=== PATIENT | male | born 1995 | race Caucasian/White ===

== ENCOUNTER 2023-11-09 06:55 | Emergency (ER) | payer OTHER, SELFPAY ==
[2023-11-09 07:04] VITALS: BP 168/96; PULSE 113; RESP 18; TEMP 36.9; O2SAT 100; BMI 22.6
[2023-11-09 07:50] LABS: Influenza Virus A Antigen Negative; Influenza Virus B Antigen Negative; Internal Control Within Normal Limits
--- NOTE | 2023-11-09 08:01 | ED_ITS ---
HPI - General Adult General Chief complaint: Upper Respiratory Infection Stated complaint: FLU SYMPTOMS Time Seen by Provider: 11/09/23 07:26 Source: patient Mode of arrival: walk-in Limitations: no limitations History of Present Illness HPI narrative: Patient is a 28-year-old male who is presenting to the ER today with multiple complaints. Patient has had nauseated feeling throughout the week, patient states he has been holding himself back from vomiting. Patient has underlying anxiety. Patient feels his anxiety has been increased this week secondary not feeling well. Patient has been having intermittent hot and chill sensations. No headache or neck pain. No ear pain, no sore throat. No chest pain or shortness of breath. Patient been having some midepigastric discomfort. Patient's is at bedside, she has had a few Zofran's at home that he has used with little relief. Patient took 1 last evening and also 5:00 this morning with little relief. No sick contacts at work that patient is aware of. No rash. No abdominal pain, no diarrhea, constipation, difficulty urinating, or any other acute complaints. All systems are negative except as noted/marked. All systems reviewed and otherwise negative. Nurses note and vital signs reviewed and patient is not hypoxic. General: The patient appears well and in no apparent distress. Patient is resting comfortably on cart. Patient is not toxic, lethargic, or listless. Patient is having some mild intermittent minimal tremor/shaking, patient relates this to anxiety. Skin: Warm, dry, no pallor noted. There is no rash noted. No petechiae, purpura. Head: Normocephalic, atraumatic Eye: Normal conjunctiva, no drainage, EOMI. PERRL Ears, Nose, Mouth, and Throat: oral mucosa is moist. Nares patent. Mouth without vesicles. Cardiovascular: Regular Rate and Rhythm, no murmur, gallop, rub Respiratory: Patient is in no distress, no accessory muscle use, lungs are clear to auscultation, no wheezing, rales or rhonchi Back: non-tender, no CVA tenderness bilaterally to percussion. No CT LS midline pain GI: Mild midepigastric tenderness to palpation, otherwise no tenderness to palpation, no masses appreciated. No rebound, guarding, or rigidity noted. No distention. No peritoneal signs. Musculoskeletal: Patient has full range of motion of all of the extremities, no motor, sensory, or focal neurological deficits Neurological: A&O x4, normal speech Psychiatric: Cooperative Related Data Home Medications Medication Instructions Recorded Confirmed paroxetine HCl 40 mg tablet 40 mg PO DAILY 11/09/23 11/09/23 trazodone 50 mg tablet 50 mg PO DAILY PRN insomnia 11/09/23 11/09/23 Previous Rx's Medication Instructions Recorded ondansetron 4 mg disintegrating 4 mg PO Q4H PRN nausea and 11/09/23 tablet vomiting 3 days #6 tabs promethazine 25 mg rectal 25 mg [place] Q6H PRN nausea and 11/09/23 suppository vomiting #6 ea Allergies Allergy/AdvReac Type Severity Reaction Status Date / Time No Known Drug Allergies Allergy Verified 11/09/23 07:04 Exam Constitutional Vital Signs, click to edit/add: Last Vital Signs Temp 98.5 F 11/09/23 07:04 Pulse 113 H 11/09/23 07:04 Resp 18 11/09/23 07:04 BP 168/96 H 11/09/23 07:04 Pulse Ox 100 11/09/23 07:04 Course Vital Signs Vital signs: Vital Signs Temperature 98.5 F 11/09/23 07:04 Pulse Rate 113 H 11/09/23 07:04 Respiratory Rate 18 11/09/23 07:04 Blood Pressure 168/96 H 11/09/23 07:04 Pulse Oximetry 100 11/09/23 07:04 Temperature 98.5 F 11/09/23 07:04 Pulse Rate 113 H 11/09/23 07:04 Respiratory Rate 18 11/09/23 07:04 Blood Pressure 168/96 H 11/09/23 07:04 Pulse Oximetry 100 11/09/23 07:04 Medical Decision Making [facility] Narrative Medical decision making narrative: Patient took a Zofran ODT around 515 this morning. Patient is having intermittent minimal shaking/tremors which patient relates to anxiety. Patient does not have a fever in the ER. Patient blood pressure and heart rate was elevated initially, patient relates is secondary to being anxious which has been worse this morning secondary to not feeling well. Patient has minimal lightheaded, no dizziness, no vertigo. Patient looks well, nontoxic. Patient was sent home with prescription for Zofran and Phenergan to have in addition to help with nausea. Patient will increase fluids. Patient does not work this weekend. No questions at discharge Lab Data Lab results reviewed: Yes I reviewed the patient's lab results Labs: Lab Results 11/09/23 Range/Units 07:09 Influenza Type A Ag Negative Influenza Type B Ag Negative Discharge Plan Discharge Chief Complaint: Upper Respiratory Infection Clinical Impression: Flu-like symptoms, Acid reflux, Nausea Patient Disposition: Home, Self-Care Condition: Fair Prescriptions / Home Meds: New promethazine 25 mg suppository 25 mg [place] Q6H PRN (Reason: nausea and vomiting) Qty: 6 0RF ondansetron 4 mg tablet,disintegrating 4 mg PO Q4H PRN (Reason: nausea and vomiting) 3 Days Qty: 6 0RF No Action paroxetine HCl 40 mg tablet 40 mg PO DAILY trazodone 50 mg tablet 50 mg PO DAILY PRN (Reason: insomnia) Instructions: GERD (Gastroesophageal Reflux Disease) (ED), Acute Nausea and Vomiting (ED) Additional Instructions: Use Phenergan suppository if needed for nausea. Continue using Zofran if needed. Increase fluids, Gatorade, Powerade, Norflex. If any other anxiety concerns, follow-up with PCP. Alternate Tylenol and Motrin every 4 hours as needed for pain Stand Alone Forms: Portal Instructions Referrals: Physician,Non-Staff, MD [Primary Care Provider] - 1 week
[2023-11-09] MEDS: PROCHLORPERAZINE 10 MG/2 ML VIAL IM (08:07)
[2023-11-09] MEDS: DIAZEPAM 10 MG/2 ML SYRINGE 5 MG IM (08:07)
== END 2023-11-09 08:18 | disposition home or self-care (01) ==
PROVIDERS: Emergency Provider Emergency Medicine
DX: K59.00 Constipation, unspecified (principal); Z79.899 Other long term (current) drug therapy; F17.210 Nicotine dependence, cigarettes, uncomplicated
CPT/HCPCS: 87804; 96372; 99284; J0780; J3360

== ENCOUNTER 2023-11-12 11:54 | Emergency (ER) | payer OTHER, SELFPAY ==
[2023-11-12 12:06] VITALS: BP 148/88; PULSE 94; RESP 20; TEMP 36.7; O2SAT 100; BMI 28.1
--- NOTE | 2023-11-12 13:08 | XR_ITS ---
The [address] [address] Patient Name: BRYNN MONTERO MRN: [id number] date: 1995 Sex: M Assigned Patient Location: ER Current Patient Location: ER Accession/Order Number: [id number] Exam Date: 11/12/2023 13:22 Report Date: 11/12/2023 13:45 At the request of: LISA NIETO Procedure: XR abdomen 1V EXAMINATION: XR abdomen 1V HISTORY: poss constipation COMPARISON: XR KUB 12/02/2020 FINDINGS: BOWEL GAS PATTERN: No abnormal dilation or deviation. Moderate amount of stool throughout the proximal and midcolon. Relatively empty distal colon. CALCIFICATIONS: None significant. OTHER: Negative. No abnormal gaseous collections. XR/XR abdomen 1V IMPRESSION: 1. Moderate stool burden. No obstruction. Electronically authenticated by: JIM KEMP Date: 11/12/2023 13:45
--- NOTE | 2023-11-12 13:08 | ED.GENADUL1 ---
HPI - General Adult General Chief complaint: Abdominal Pain Stated complaint: ABDOMINAL PAIN Time Seen by Provider: 11/12/23 13:00 Source: patient Mode of arrival: walk-in Limitations: no limitations History of Present Illness HPI narrative: 28-year-old male presents for a lump on his right abdominal wall area. Last week he had stomach flu and feels better from that issue. He states he only feels this area when he stands up, not when he lays down. He was diagnosed at 1 point with a right inguinal hernia but he saw a surgeon about it and they did not think that he needed surgery. He has no pain in the inguinal area. He has not been having frequent bowel movements. He thinks he might be a little constipated and his appetite has been normal. No injury. Related Data Home Medications Medication Instructions Recorded Confirmed paroxetine HCl 40 mg tablet 40 mg PO DAILY 11/09/23 11/09/23 trazodone 50 mg tablet 50 mg PO DAILY PRN insomnia 11/09/23 11/09/23 Previous Rx's Medication Instructions Recorded ondansetron 4 mg disintegrating 4 mg PO Q4H PRN nausea and 11/09/23 tablet vomiting 3 days #6 tabs promethazine 25 mg rectal 25 mg [place] Q6H PRN nausea and 11/09/23 suppository vomiting #6 ea Allergies Allergy/AdvReac Type Severity Reaction Status Date / Time No Known Drug Allergies Allergy Verified 11/09/23 07:04 Review of Systems ROS Narrative A ten point review of systems is negative except as noted above. PFSH PFSH Social History Smoking status: Light tobacco smoker Exam Narrative Exam Narrative: Nurses note and vital signs reviewed and patient is not hypoxic. General: The patient appears well and in no apparent distress. Patient is resting comfortably on cart. Skin: Warm, dry, no pallor noted. There is no rash noted. Head: Normocephalic, atraumatic Eye: Normal conjunctiva, no drainage Ears, Nose, Mouth, and Throat: oral mucosa is moist. Nares patent. Cardiovascular: Regular Rate and Rhythm Respiratory: Patient is in no distress, no accessory muscle use, lungs are clear to auscultation, no wheezing, rales or rhonchi Back: non-tender GI: Soft and nontender nondistended. He has no mass palpable. He points to the area just superior to the anterior superior iliac spine on the right side and there is some fullness of the muscle there but it is nearly symmetric to the contralateral. There is no bruise or rash in this region. Musculoskeletal: The patient has no evidence of calf tenderness, no pitting edema, symmetrical pulses noted bilaterally Neurological: A&O, normal speech Psychiatric: Cooperative Constitutional Vital Signs, click to edit/add: Last Vital Signs Temp 98.1 F 11/12/23 12:06 Pulse 94 H 11/12/23 12:06 Resp 20 11/12/23 12:06 BP 148/88 H 11/12/23 12:06 Pulse Ox 100 11/12/23 12:06 O2 Del Method Room Air 11/12/23 13:11 Course Vital Signs Vital signs: Vital Signs Temperature 98.1 F 11/12/23 12:06 Pulse Rate 94 H 11/12/23 12:06 Respiratory Rate 20 11/12/23 12:06 Blood Pressure 148/88 H 11/12/23 12:06 Pulse Oximetry 100 11/12/23 12:06 Oxygen Delivery Method Room Air 11/12/23 12:06 Temperature 98.1 F 11/12/23 12:06 Pulse Rate 94 H 11/12/23 12:06 Respiratory Rate 20 11/12/23 12:06 Blood Pressure 148/88 H 11/12/23 12:06 Pulse Oximetry 100 11/12/23 12:06 Oxygen Delivery Method Room Air 11/12/23 13:11 Medical Decision Making MDM Narrative Medical decision making narrative: X-ray findings are discussed with the patient and he will continue MiraLAX. Treatment diagnosis and follow-up were discussed with the patient. I have no clinical concern of a hernia in this area. Differential Diagnosis Differential Diagnosis: Abdominal wall pain, constipation Imaging Data Abdominal x-ray: Radiologist's impression: ITS Impressions Abdomen X-Ray 11/12/23 13:08 IMPRESSION: 1. Moderate stool burden. No obstruction. Electronically authenticated by: JIM KEMP Date: 11/12/2023 13:45 Discharge Plan Discharge Chief Complaint: Abdominal Pain Clinical Impression: Constipation Patient Disposition: Home, Self-Care Time of Disposition Decision: 14:01 Condition: Good Mode of Transportation: Private Vehicle Prescriptions / Home Meds: No Action paroxetine HCl 40 mg tablet 40 mg PO DAILY trazodone 50 mg tablet 50 mg PO DAILY PRN (Reason: insomnia) promethazine 25 mg suppository 25 mg [place] Q6H PRN (Reason: nausea and vomiting) Qty: 6 0RF ondansetron 4 mg tablet,disintegrating 4 mg PO Q4H PRN (Reason: nausea and vomiting) 3 Days Qty: 6 0RF Instructions: Constipation (ED) Stand Alone Forms: Portal Instructions Referrals: Physician,Non-Staff, MD [Primary Care Provider] - 1 week
== END 2023-11-12 14:07 | disposition home or self-care (01) ==
PROVIDERS: Emergency Provider Emergency Medicine
DX: K59.00 Constipation, unspecified (principal); F17.210 Nicotine dependence, cigarettes, uncomplicated; Z79.899 Other long term (current) drug therapy
CPT/HCPCS: 74018; 99283

== ENCOUNTER 2024-10-13 02:39 | Emergency (ER) | payer OTHER, SELFPAY ==
[2024-10-13 02:52] VITALS: BP 147/94; PULSE 88; TEMP 36.7; O2SAT 99; BMI 28.1
--- OUTSIDE RECORDS SUMMARY | 2024-10-13 02:56 | XMS_ITS | CCD ---
Author Organization [facility] Providers Care Key Sander Name Role Phone Nick Escobar Primary Care Provider [phone] Nick Escobar Primary Care Provider [phone] NICK ESCOBAR Referring Unavailable NICK ESCOBAR Referring Unavailable Unavailable Primary Care Provider Unavailabl e Nick Escobar CNP Primary Care Provider ALYSE RICHARD Consulting Unavailable JOSE MANUEL, ALYSE Admitting Unavailable DENNIS, DR SANCHES Primary Care Unavailable ALYSE RICHARD Attending Unavailable MISC, DR RUSSELL Attending Unavailable MISC, DR RUSSELL Consulting Unavailable MISC, DR RUSSELL Admitting Unavailable ZIEBER, DR JIM Mobley Consulting Unavailable Nick Escobar CNP Primary Care Provider NICK ESCOBAR Primary Care Unavailable KSENIA KILPATRICK Referring Unavailable Allergies Allergy Classification Reported Allergen(s) Allergy Type Date of Onset Reaction(s) Facility (20 sources) Seasonal allergy Allergy to substance 08-27-2020 [facility] (2 sources) Seasonal allergy Propensity to adverse reactions to substance 10-11-2020 [place], [place] Medications Current Medications Medication Drug Class(es) Dates Sig (Normalized) Sig (Original) ALPRAZolam 0.5 mg oral tablet (12 sources) Benzodiazepine Start: 09-26-2024 End: 10-04-2024 Xanax 0.5 MG Oral Tablet 10/02/2024 - 10/04/2024 Provider: Nino ADAMS Start: 12-14-2023 End: 03-31-2024 Xanax 0.5 MG Oral Tablet - 03/31/2024 Provider: Sydni Tidwell CNP busPIRone hydrochloride 5 mg oral tablet (20 sources) Start: 12-11-2024 busPIRone HCl 5 MG Oral Tablet 09/03/2024 Provider: Nick Escobar CNP Start: 08-27-2020 End: 09-30-2020 busPIRone HCl 7.5 MG Oral Ta blet 08/27/2020 - 09/30/2020 Provider: Nick Escobar CNP Start: 05-27-2020 End: 08-13-2020 busPIRone HCl 7.5 MG Oral Ta blet 05/27/2020 - 08/13/2020 Provider: Nick Escobar CNP doxycycline hyclate 100 mg oral tablet (1 source) Tetracycline-class Drug Start: 10-13-2020 End: 10-27-2020 take 1 tablet by mouth twice daily doxycycline hyclate (VIBRA-TABS) 100 MG tablet Indications: Prostatitis, chronic Take 1 tablet by mouth 2 times daily for 14 days 28 tablet 0 10/13/2020 10/27/2020 Active medical marijuana (2 sources) medical marijuan a Take by mouth as needed. 0 Active tamsulosin hydrochloride 0.4 mg oral capsule (1 source) alpha-Adrenergic Alfreda Start: 11-24-2020 take 1 capsule by mouth once daily in the evening tamsulosin (FLOMAX) 0.4 MG capsule Take 1 capsule by mouth every evening 30 capsule 11 11/24/2020 Active Completed/Discontinued Medications Medication Drug Class(es) Dates Sig (Normalized) Sig (Original) amoxicillin 500 mg oral capsule (20 sources) Penicillin-class Antibacterial Start: 03-31-2024 End: 09-03-2024 Amoxicillin 500 MG Oral Capsule, conventional 03/31/2024 - 09/03/2024 Provider: Ksenia Kilpatrick CNP Start: 03-22-2021 End: 08-29-2021 Amoxicillin 500 MG Oral Tabl et 03/22/2021 - 08/29/2021 Provider: Nick Escobra CNP amphetamine aspartate 5 mg / amphetamine sulfate 5 mg / dextroamphetamine saccharate 5 mg / dextroamphetamine sulfate 5 mg oral tablet (20 sources) Central Nervous System Stimulant Start: 03-22-2021 End: 08-29-2021 Adderall 20 MG Oral Tablet 03/22/2021 - 08/29/2021 Provider: Start: 12-15-2020 End: 03-22-2021 Adderall 10 MG Oral Tablet 0 12/15/2020 - 03/22/2021 Provider: Start: 11-10-2020 amphetamine-de xtroamphetamine (ADDERALL) 15 MG tablet ARIPiprazole 2 mg oral tablet (8 sources) Atypical Antipsychotic Start: 12-26-2023 End: 03-31-2024 Abilify 2 MG Oral Tablet 12/26/2023 - 03/31/2024 Provider: Nick Escobar CNP atomoxetine 18 mg oral capsule (11 sources) Norepinephrine Reuptake Inhibitor Start: 11-23-2023 End: 12-26-2023 Strattera 18 MG Oral Capsule, conventional 11/23/2023 - 12/26/2023 Provider: Nick Escobar CNP 24 hr buPROPion hydrochloride 150 mg extended release oral tablet (20 sources) Aminoketone Start: 08-27-2020 End: 09-30-2020 take 1 tablet by mouth every twenty-four hours Wellbutrin XL 150 MG Oral Tablet Extended Release 24 Hour 08/27/2020 - 09/30/2020 Provider: Nick Escobar CNP take 1 tablet by brittany once daily in the morning buPROPion (WELLBUTRIN XL) 150 MG extende d release tablet Take 150 mg by mouth every morning 0 Active cyclobenzaprine hydrochloride 5 mg oral tablet (20 sources) Muscle Relaxant Start: 06-02-2020 End: 06-15-2020 Cyclobenzaprine HCl 5 MG Oral Tablet 06/02/2020 - 06/15/2020 Provider: Nick Escobar CNP FLUoxetine 20 mg oral capsule (20 sources) Serotonin Reuptake Inhibitor Start: 05-18-2020 End: 08-27-2020 PROzac 20 MG Oral Capsule 06/15/2020 - 08/13/2020 Provider: Nick Escobar CNP fluticasone propionate 0.05 mg/actuat metered dose nasal spray (20 sources) Corticosteroid Start: 01-20-2021 End: 11-24-2022 Fluticasone Propionate 50 MCG/ACT Nasal Suspension 03/22/2021 - 11/24/2022 Provider: Nick Escobar CNP hydrOXYzine hydrochloride 25 mg oral tablet (20 sources) Antihistamine Start: 10-26-2022 End: 11-24-2022 hydrOXYzine HCl 25 MG Oral Tablet 10/26/2022 - 11/24/2022 Provider: Nick Escobar CNP Start: 09-29-2020 End: 01-20-2021 hydrOXYzine HCl 10 MG Oral T ablet 09/29/2020 - 01/20/2021 Provider: Nick Escobar CNP Start: 05-18-2020 End: 05-27-2020 hydrOXYzine Pamoate 25 MG Or al Capsule 05/18/2020 - 05/27/2020 Provider: Nick Escobar CNP lisdexamfetamine dimesylate 40 mg oral capsule (20 sources) Central Nervous System Stimulant Start: 01-20-2021 End: 03-22-2021 Vyvanse 40 MG Oral Capsule 01/20/2021 - 03/22/2021 Provider: loratadine 10 mg oral tablet (20 sources) Start: 01-20-2021 End: 11-24-2022 Loratadine 10 MG Oral Tablet 03/22/2021 - 11/24/2022 Provider: Nick Escobar CNP LORazepam 0.5 mg oral tablet (8 sources) Benzodiazepine Start: 12-14-2023 End: 12-14-2023 Ativan 0.5 MG Oral Tablet 12/14/2023 - 12/14/2023 Provider: Sydni Tidwell CNP PARoxetine hydrochloride 40 mg oral tablet (20 sources) Serotonin Reuptake Inhibitor Start: 10-26-2022 End: 09-03-2024 Paxil 40 MG Oral Tablet 01/05/2023 - 11/23/2023 Provider: Nick Escobar CNP Start: 08-29-2021 End: 10-26-2022 PARoxetine HCl 10 MG Oral Ta blet 09/21/2022 - 10/26/2022 Provider: Nick Escobar CNP Start: 08-29-2021 End: 08-29-2021 Paxil 30 MG Oral Tablet 02/2021 - 08/29/2021 Provider: Start: 11-10-2020 PARoxetine (PA XIL) 10 MG tablet Start: 09-29-2020 End: 10-26-2022 Paxil 20 MG Oral Tablet 0 02/2021 - 09/21/2022 Provider: Nick Escobar CNP 24 hr propranolol hydrochloride 60 mg extended release oral capsule (20 sources) beta-Adrenergic Alfreda Start: 05-27-2020 End: 08-13-2020 take 1 capsule by mouth every twenty-four hours Propranolol HCl ER 60 MG Oral Capsule Extended Release 24 Hour 05/27/2020 - 08/13/2020 Provider: Nick Escobar CNP traZODone hydrochloride 50 mg oral tablet (20 sources) Serotonin Reuptake Inhibitor Start: 11-24-2022 End: 12-26-2023 traZODone HCl 50 MG Oral Tablet 01/05/2023 - 12/26/2023 Provider: Nick Escobar CNP Vitamin D (Ergocalciferol) 1.25 MG (34772 UT) Oral Capsule (6 sources) Start: 12-31-2023 End: 03-31-2024 Vitamin D (Ergocalciferol) 1.25 MG (71455 UT) Oral Capsule 12/31/2023 - 03/31/2024 Provider: Nick Escobar CNP Problems Active Problems Problem Classification Problem Date Documented Da te Episodic/Chronic Anxiety disorders (20 sources) Panic disorder without agoraphobia; Translations: [Anxiety disorder] Onset: 05-18-2020 10-08-2020 Chronic Fluid and electrolyte disorders (1 source) Dehydration; Translations: [DEHYDRATION] Onset: 06-22-2021 Episodic Inflammatory conditions of male genital organs (1 source) Chronic prostatitis; Translations: [Prostatitis, chronic] Chronic Mood disorders (20 sources) Depressive disorder; 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] Onset: 05-18-2020 10-08-2020 Chronic Nausea and vomiting (4 sources) Nausea with vomiting, unspecified; Translations: [NAUSEA WITH VOMITING UNSPECIFIED] Onset: 06-20-2021 Episodic Other aftercare (1 source) Other chcf (current) drug therapy; Translations: [OTH CORRECTION CURRENT DRUG THERAPY] Onset: 06-22-2021 Episodic Other gastrointestinal disorders (1 source) Diarrhea, unspecified; Translations: [DIARRHEA UNSPECIFIED] Onset: 06-22-2021 Episodic Other male genital disorders (1 source) Right testicular pain; Translations: [Right testicular pain] Onset: 07-09-2023 Episodic Residual codes; unclassified (20 sources) Finding of body mass index; Translations: [Body mass index (observable entity)] Onset: 05-18-2020 Episodic Substance-related disorders (20 sources) Nicotine dependence, cigarettes, uncomplicated; Translations: [Nicotine dependence] Onset: 06-22-2021 07-09-2023 Chronic Past or Other Problems Problem Classification Problem Date Documented Da te Episodic/Chronic Genitourinary symptoms and ill-defined conditions (5 sources) Increased frequency of urination; Translations: [Frequency of micturition] Onset: 12-02-2020 Episodic Mood disorders (16 sources) Major depressive disorder, single episode, unspecified; Translations: [Depressive Disorder, Nos] Onset: 05-18-2020 Other gastrointestinal disorders (4 sources) Constipation; Translations: [Constipation, unspecified] Onset: 12-15-2020 Episodic Other male genital disorders (9 sources) Pain of right testicle; Translations: [Unspecified disorder of male genital organs] Onset: 07-09-2023 Episodic Other screening for suspected conditions (not mental disorders or infectious disease) (20 sources) Encounter for screening for diabetes mellitus; Translations: [Diabetes Risk Test Score] Onset: 05-18-2020 Episodic Other upper respiratory infections (20 sources) Acute sinusitis; Translations: [Acute sinusitis, unspecified] Onset: 01-20-2021 Resolved: 11-24-2022 Episodic Residual codes; unclassified (6 sources) Body mass index (BMI) pediatric, 5th percentile to less than 85th percentile for age; Translations: [Assessment of Bmi Percentile = 5% To < 85% For Age Z68.52] Onset: 03-31-2024 Episodic Unclassified (20 sources) Finding of body mass index; Translations: [Body Mass Index] Onset: 05-18-2020 Unclassified (16 sources) History AND physical examination; Translations: [Routine History and Physical] Onset: 05-18-2020 Results Test Name Value Interpretation Reference Range Facility CBC AUTO DIFFon 06-20-2021 BASO # 0.0 103/ul Normal 0.0-0.1 [facility] Comment on above: Performed By: #### C BC #### [facility] [address] [address] [address] Satya Mandel Basophils/100 WBC (Bld) 0.3 % Normal 0.2-2.0 [facility] Comment on above: Performed By: #### C BC #### [facility] [address] [address] [address] Satya Mandel EO # 0.1 103/ul Normal 0.0-0.7 [facility] Comment on above: Performed By: #### C BC #### [facility] [address] [place] [address] Dr. Satya Mandel Eosinophils/100 WBC (Bld) 0.3 % Critically low 0.9-7.0 [facility] Comment on above: Performed By: #### C BC #### [facility] [address] [place] [address] Dr. Satya Mandel Erythrocyte distribution width (RBC) [Ratio] 12.3 % Normal 11.0-15.0 [facility] Comment on above: Performed By: #### C BC #### [facility] [address] [place] [address] Dr. Satya Mandel Hematocrit (Bld) [Volume fraction] 46.2 % Normal 42.0-54.0 [facility] Comment on above: Performed By: #### C BC #### [facility] [address] [place] [address] Dr. Satya Mandel Hemoglobin (Bld) [Mass/Vol] 15.5 g/dL Normal 14.0-18.0 [facility] Comment on above: Performed By: #### C BC #### [facility] [address] [place] [address] Dr. Satya Mandel IG # 0.06 10e3/ul Critically high 0.00-0.03 [facility] Comment on above: Performed By: #### C BC #### [facility] [address] [place] [address] Dr. Satya Mandel IG % 0.4 % Normal 0.0-0.5 [facility] Comment on above: Performed By: #### C BC #### [facility] [address] [place] [address] Dr. Satya Mandel LYMPH # 1.3 103/ul Normal 1.2-3.8 [facility] Comment on above: Performed By: #### C BC #### [facility] [address] [place] [address] Dr. Satya Mandel Lymphocytes/100 WBC (Bld) 8.4 % Critically low 20.5-60.0 [facility] Comment on above: Performed By: #### C BC #### [facility] [address] [place] [address] Dr. Satya Mandel MANUAL DIFF REQ NO Normal [facility] Comment on above: Performed By: #### C BC #### [facility] [address] [place] [address] Dr. Satya Mandel MCH (RBC) [Entitic mass] 29.1 pg Normal 25.9-34.0 [facility] Comment on above: Performed By: #### C BC #### [facility] [address] [place] [address] Dr. Satya Mandel MCHC (RBC) [Mass/Vol] 33.5 g/dL Normal 29.9-35.2 [facility] Comment on above: Performed By: #### C BC #### [facility] [address] [place] [address] Dr. Satya Mandel MCV (RBC) [Entitic vol] 86.7 fL Normal 80.0-94.0 [facility] Comment on above: Performed By: #### C BC #### [facility] [address] [place] [address] Dr. Satya Mandel MONO # 0.5 103/ul Normal 0.3-0.8 [facility] Comment on above: Performed By: #### C BC #### [facility] [address] [place] [address] Dr. Satya Mandel Monocytes/100 WBC (Bld) 3.4 % Normal 1.7-12.0 [facility] Comment on above: Performed By: #### C BC #### [facility] [address] [place] [address] Dr. Satya Mandel NEUT # 13.5 103/ul Critically high 1.4-6.5 [facility] Comment on above: Performed By: #### C BC #### [facility] [address] [place] [address] Dr. Satya Mandel Neutrophils/100 WBC (Bld) 87.2 % Critically high 43.0-75.0 [facility] Comment on above: Performed By: #### C BC #### [facility] [address] [place] [address] Dr. Satya Mandel Platelet mean volume (Bld) [Entitic vol] 10.3 fL Normal 9.5-13.5 [facility] Comment on above: Performed By: #### C BC #### [facility] [address] [place] [address] Dr. Satya Mandel PLT 328 103/ul Normal 150-450 [facility] Comment on above: Performed By: #### C BC #### [facility] [address] [place] [address] Dr. Satya Mandel RBC 5.33 106/ul Normal 4.70-6.10 [facility] Comment on above: Performed By: #### C BC #### [facility] [address] [place] [address] Dr. Satya Mandel WBC 15.4 103/ul Critically high 4.0-11.0 [facility] Comment on above: Performed By: #### C BC #### [facility] [address] [place] [address] Dr. Satya Mandel ER URINE PROFILEon 1 Bilirubin Ql (U) SMALL Abnormal NEGATIVE [facility] Comment on above: Performed By: #### U MICRO, ERUR #### [facility] [address] [place] [address] Dr. Satya Mandel Clarity (U) CLEAR Normal CLEAR [facility] Comment on above: Performed By: #### U MICRO, ERUR #### [facility] [address] [place] [address] Dr. Satya Mandel Color (U) YELLOW Normal YELLOW [facility] Comment on above: Performed By: #### U MICRO, ERUR #### [facility] [address] [place] [address] Dr. Satya Mandel ERUAHD A micrscopic examina tion will be performed if indicated. Normal [facility] Comment on above: Performed By: #### U MICRO, ERUR #### [facility] [address] [place] [address] Dr. Satya Mandel Glucose Ql (U) Negative Normal NEGATIVE [facility] Comment on above: Performed By: #### U MICRO, ERUR #### [facility] [address] [address] [address] Sayta Mandel Hemoglobin Ql (U) TRACE-INTACT Abnormal NEGATIVE [facility] Comment on above: Performed By: #### U MICRO, ERUR #### [facility] [address] [address] [address] Satya Mandel Ketones Ql (U) 15 mg/dl Abnormal NEGATIVE [facility] Comment on above: Performed By: #### U MICRO, ERUR #### [facility] [address] [address] [address] Satya Mandel LEUKOCYTES Negative Normal NEGATIVE [facility] Comment on above: Performed By: #### U MICRO, ERUR #### [facility] [address] [place] [address] Dr. Satya Mandel Nitrite Ql (U) Negative Normal NEGATIVE [facility] Comment on above: Performed By: #### U MICRO, ERUR #### [facility] [address] [place] [address] Dr. Satya Mandel pH (U) 5.0 [pH] Normal 5-9 [facility] Comment on above: Performed By: #### U MICRO, ERUR #### [facility] [address] [place] [address] Dr. Satya Mandel SPEC GRAVITY >=1.030 Abnormal 1.005-<=1.02 5 [facility] Comment on above: Performed By: #### U MICRO, ERUR #### [facility] [address] [place] [address] Dr. Satya Mandel UA PROTEIN TRACE Normal NEGATIVE/ TRACE [facility] Comment on above: Performed By: #### U MICRO, ERUR #### [facility] [address] [place] [address] Dr. Satya Mandel UR MICRO IND INDICATED Normal [facility] Comment on above: Performed By: #### U MICRO, ERUR #### [facility] [address] [place] [address] Dr. Satya Mandel Urobilinogen Qn (U) 0.2 {Ihsan'U}/dL Normal 0.2 - 1. 0 [facility] Comment on above: Performed By: #### U MICRO, ERUR #### [facility] [address] [place] [address] Dr. Satya Mandel LIVER PROFILEon 06-20-2021 Albumin [Mass/Vol] 5.3 g/dL Critically high 3.5-5.0 [facility] Comment on above: Performed By: #### T SH, LIVER #### [facility] [address] [place] [address] Dr. Satya Mandel Albumin/Globulin [Mass ratio] 1.3 {ratio} Normal [facility] Comment on above: Performed By: #### T SH, LIVER #### [facility] [address] [place] [address] Dr. Satya Mandel ALP [Catalytic activity/Vol] 87 U/L Normal 38-126 [facility] Comment on above: Performed By: #### T SH, LIVER #### [facility] [address] [place] [address] Dr. Satya Mandel ALT [Catalytic activity/Vol] 16 U/L Critically low 21-72 [facility] Comment on above: Performed By: #### T SH, LIVER #### [facility] [address] [place] [address] Dr. Satya Mandel AST [Catalytic activity/Vol] 14 U/L Critically low 17-59 [facility] Comment on above: Performed By: #### T SH, LIVER #### [facility] [address] [place] [address] Dr. Satya Mandel BILI, CONJUGATED 0.3 mg/dL Normal 0.0-0.3 [facility] Comment on above: Performed By: #### T SH, LIVER #### [facility] [address] [place] [address] Dr. Satya Mandel Globulin (S) [Mass/Vol] 4.2 g/dL Normal [facility] Comment on above: Performed By: #### T SH, LIVER #### [facility] [address] [place] [address] Dr. Satya Mandel PROF 14(COMP METB)on 021 Albumin [Mass/Vol] 5.2 g/dL Critically high 3.5-5.0 [facility] Comment on above: Performed By: #### C MP #### [facility] [address] [address] [address] Satya Mandel Albumin/Globulin [Mass ratio] 1.2 {ratio} Normal [facility] Comment on above: Performed By: #### C MP #### [facility] [address] [address] [address] Satya Mandel ALP [Catalytic activity/Vol] 84 U/L Normal 38-126 [facility] Comment on above: Performed By: #### C MP #### [facility] [address] [place] [address] Dr. Satya Mandel ALT [Catalytic activity/Vol] 15 U/L Critically low 21-72 [facility] Comment on above: Performed By: #### C MP #### [facility] [address] [address] [address] Satya aMndel Anion gap [Moles/Vol] 12.9 mmol/L Normal [facility] Comment on above: Performed By: #### C MP #### [facility] [address] [place] [address] Dr. Satya Mandel AST [Catalytic activity/Vol] 15 U/L Critically low 17-59 [facility] Comment on above: Performed By: #### C MP #### [facility] [address] [place] [address] Dr. Satya Mandel Bilirubin [Mass/Vol] 1.3 mg/dL Normal 0.2-1.3 [facility] Comment on above: Performed By: #### C MP #### [facility] [address] [place] [address] Dr. Satya Mandel Performed By: #### T SH, LIVER #### [facility] [address] [place] [address] Dr. Satya Mandel Calcium [Mass/Vol] 9.9 mg/dL Normal 8.4-10.2 [facility] Comment on above: Performed By: #### C MP #### [facility] [address] [address] [address] Satya Manedl Chloride [Moles/Vol] 103 mmol/L Normal 98-107 [facility] Comment on above: Performed By: #### C MP #### [facility] [address] [address] [address] Satya Mandel CO2 [Moles/Vol] 24.4 mmol/L Normal 22.0-30.0 [facility] Comment on above: Performed By: #### C MP #### [facility] [address] [address] [address] Satya Mandel Creatinine [Mass/Vol] 0.84 mg/dL Normal 0.66-1.25 [facility] Comment on above: Performed By: #### C MP #### [facility] [address] [place] [address] Dr. Satya Mandel EGFR-AF CITIZEN [place] >60 Normal >=60 [facility] Comment on above: Performed By: #### C MP #### [facility] [address] [place] [address] Dr. Satya Mandel EGFR-NON AF CITIZEN [place] >60 Normal >=60 [facility] Comment on above: Performed By: #### C MP #### [facility] [address] [place] [address] Dr. Satya Mandel Globulin (S) [Mass/Vol] 4.3 g/dL Normal [facility] Comment on above: Performed By: #### C MP #### [facility] [address] [place] [address] Dr. Satya Mandel Glucose [Mass/Vol] 96 mg/dL Normal 74-106 [facility] Comment on above: Performed By: #### C MP #### [facility] [address] [place] [address] Dr. Satya Mandel Potassium [Moles/Vol] 3.3 mmol/L Critically low 3.4-5.0 [facility] Comment on above: Performed By: #### C MP #### [facility] [address] [place] [address] Dr. Satya Mandel Protein [Mass/Vol] 9.5 g/dL Critically high 6.1-8.2 [facility] Comment on above: Performed By: #### C MP #### [facility] [address] [place] [address] Dr. Satya Mandel Performed By: #### T SH, LIVER #### [facility] [address] [place] [address] Dr. Satya Mandel Sodium [Moles/Vol] 137 mmol/L Normal 137-145 [facility] Comment on above: Performed By: #### C MP #### [facility] [address] [place] [address] Dr. Satya Mandel Urea nitrogen [Mass/Vol] 18.0 mg/dL Normal 9.0-20.0 [facility] Comment on above: Performed By: #### C MP #### [facility] [address] [place] [address] Dr. Satya Mandel Urea nitrogen/Creatinine [Mass ratio] 21.4 mg/mg Normal [facility] Comment on above: Performed By: #### C MP #### [facility] [address] [place] [address] Dr. Satya Mandel TSHon 06-20-2021 TSH 2.094 uIU/mL Normal 0.470-4.680 [facility] Comment on above: Performed By: #### T SH, LIVER #### [facility] [address] [place] [address] Dr. Satya Mandel TSH RANGE SEE BELOW Normal [facility] Comment on above: Result Comment: <0.3 4 UIU/ml HYPERTHYROID 0.34-5.60 UIU/ml EUTHYROID >5.60 UIU/ml HYPOTHYROID Performed By: #### T SH, LIVER #### [facility] [address] [place] [address] Dr. Satya Mandel URINE MICROSCOPIC ONLYon BACTERIA NONE SEEN Normal NONE SEEN [facility] Comment on above: Performed By: #### U MICRO, ERUR #### [facility] [address] [address] [address] Satya Mandel Bacteria identified Cx Nom (U) NOT INDICATED Normal [facility] Comment on above: Performed By: #### U MICRO, ERUR #### [facility] [address] [place] [address] Dr. Satya Mandel CA OX CRYSTALS FEW Normal [facility] Comment on above: Performed By: #### U MICRO, ERUR #### [facility] [address] [place] [address] Dr. Satya Mandel CAST NONE SEEN Normal NONE SEEN [facility] Comment on above: Performed By: #### U MICRO, ERUR #### [facility] [address] [place] [address] Dr. Satya Mandel Crystals LM Nom (Urine sed) SEEN Abnormal NONE SEEN [facility] Comment on above: Performed By: #### U MICRO, ERUR #### [facility] [address] [place] [address] Dr. Satya Mandel Epithelial cells LM Ql (Urine sed) FEW Abnormal NONE SEEN /RARE [facility] Comment on above: Performed By: #### U MICRO, ERUR #### [facility] [address] [place] [address] Dr. Satya Mandel MUCOUS MODERATE Abnormal NONE SEEN [facility] Comment on above: Performed By: #### U MICRO, ERUR #### [facility] [address] [place] [address] Dr. Satya Mandel RBC 0-2 Normal 0-2 [facility] Comment on above: Performed By: #### U MICRO, ERUR #### [facility] [address] [place] [address] Dr. Satya Mandel WBC NONE SEEN Normal NONE SEEN [facility] Comment on above: Performed By: #### U MICRO, ERUR #### [facility] [address] [place] [address] Dr. Satya Mandel US KIDNEYSon 12-02-2020 US KIDNEYS EXAMINATION: US KIDN EYS HISTORY: Increased frequency of urination COMPARISON: No relevant comparison available. TECHNIQUE: Ultrasound examination was performed of the kidneys and urinary bladder. FINDINGS: RIGHT KIDNEY: No evidence of pelvocaliectasis, mass, calculi. Normal renal cortical parenchymal echogenicity. Color Doppler demonstrates blood flow within the kidney. Kidney: 9.4 x 4.8 x 5.3 cm LEFT KIDNEY: No evidence of pelvocaliectasis, mass, calculi. Normal renal cortical parenchymal echogenicity. Color Doppler demonstrates blood flow within the kidney. Kidney: 10.1 x 5.3 x 5.8 cm BLADDER: No visible wall thickening, mass, calculi. URETERAL JETS: Visualized bilaterally. Other: Unremarkable prostate, 3.7 x 2.8 x 3.8 cm. IMPRESSION: 1. Normal ultrasound appearance of the kidneys and urinary bladder. Electronically authenticated by: JIM KEMP Date: 2020-12-02 14:38 Normal [facility] XR KUB 1 VIEWon 12-02-2020 XR KUB 1 VIEW EXAMINATION: XR KUB 1 VIEW HISTORY: Increased frequency of urination ; pressure in scrotum for 6 months COMPARISON: No relevant comparison available. FINDINGS: KIDNEY/URETER - RIGHT: No visible renal or ureteral calcifications. KIDNEY/URETER - LEFT: No visible renal or ureteral calcifications. PELVIS: No visible ureteral stones. BOWEL: No abnormal dilation or deviation. BONES: No acute abnormality. OTHER: Negative. No abnormal gaseous collections. IMPRESSION: 1. No abnormal or suspicious findings. 2. Given today's normal ultrasound evaluation of the kidneys, and patient complaint of scrotal pressure, consider ultrasound evaluation of the scrotum. Electronically authenticated by: JIM KEMP Date: 2020-12-02 14:41 Normal [facility] Urinalysis with Microscopico n 11-24-2020 Amorphous, UA NOT REPORTED None [employer] Phone: Bacteria, UA TRACE Abnormal None [employer] Phone: Bilirubin Urine Negative NEGATIVE [employer] Phone: Casts UA NOT REPORTED /LPF [employer] Phone: Color, UA YELLOW YELLOW [employer] Phone: Crystals, UA CALCIUM OXALATE Abnormal None /HPF [employer] Phone: Crystals, UA 20 TO 50 Abnormal None /HPF [facility] [employer] Work Phone: Epithelial Cells UA None [facility] Work Phone: Glucose, Ur Negative NEGATIVE [facility] Work Phone: Interpretation and review of laboratory results Abnormal [facility] Work Phone: Ketones Ql (U) Negative NEGATIVE [facility] Work Phone: [phone] Leukocyte esterase Test strip Ql (U) Negative NEGATIVE [facility] Work Phone: [phone] Mucus, UA 2+ Abnormal None [facility] Work Phone: Nitrite, Urine Negative NEGATIVE [facility] Work Phone: Other Observations UA NOT REPORTED NOT REQ. [facility] Work Phone: pH, UA 6.0 [facility] Work Phone: Protein (U) [Mass/Vol] Negative NEGATIVE [facility] Work Phone: [phone] RBC (U) [#/Vol] None [facility] Work Phone: Renal Epithelial, UA NOT REPORTED 0 /HPF [facility] [employer] Work Phone: Specific [place], UA >1.030 [employer] Work Phone: Trichomonas, UA NOT REPORTED None [facility] Work Phone: [phone] Turbidity UA CLEAR CLEAR [facility] Work Phone: [phone] Urinalysis Comments NOT REPORTED [facility] [employer] Work Phone: [phone] Urine Hgb Negative NEGATIVE [facility] Work Phone: Urobilinogen, Urine Normal Normal [facility] Work Phone: [phone] WBC, UA None [facility] Work Phone: [phone] Yeast, UA NOT REPORTED None [facility] Work Phone: - [facility] [employer] Work Phone: Urinalysis with Microscopico n 10-13-2020 Amorphous, UA NOT REPORTED None [place] Bacteria, UA NOT REPORTED None [place] Bilirubin Urine Negative NEGATIVE [place] Casts UA NOT REPORTED /LPF [place] Color, UA YELLOW YELLOW [place] Crystals, UA NOT REPORTED None /HPF [place] Epithelial Cells UA 0 TO 2 [place] Glucose, Ur Negative NEGATIVE [place] Interpretation and review of laboratory results Abnormal [place] Ketones Ql (U) Negative NEGATIVE [place] Leukocyte esterase Test strip Ql (U) Negative NEGATIVE [place] Mucus, UA NOT REPORTED None [place] Nitrite, Urine Negative NEGATIVE [place] Other Observations UA NOT REPORTED NOT REQ. M [place] pH, UA 6.5 [place] Protein (U) [Mass/Vol] Negative NEGATIVE [place] RBC (U) [#/Vol] None [place] Renal Epithelial, UA NOT REPORTED 0 /HPF [place], [place] Specific [place], UA 1.025 [place] Trichomonas, UA NOT REPORTED None [place] Turbidity UA CLEAR CLEAR [place] Urinalysis Comments NOT REPORTED [place] Urine Hgb Negative NEGATIVE [place] Urobilinogen, Urine Normal Normal [place] WBC, UA 0 TO 2 [place] Yeast, UA NOT REPORTED None [place] PSA, Screeningon 08-28-2020 Prostatic Spec. Ag 0.62 ug/L Normal <4.1 [facility] Comment on above: Result Comment: The Tera ECLIA assay is used. Results obtained with different assay methods cannot be used interchangeably. Performed By: #### P SAS #### [facility] [employer] [address] [place] [address] [employer] Operator: Wander Baker MD OtherOrdered By: Nick Sibley r on 08-27-2020 Performing Lab: see note [facility] Work Phone: Comment on above: Note: [facility] - [facility] [address] [facility] [id number] Prostatic Spec. Ag 0.62 ug/L (<4.1 ) [facility] Work Phone: Comment on above: Note: The Chegue.lá ECL IA assay is used. Results obtained with different assay methodscannot be used interchangeably.Responsible Observer: [employer] ([id number]) Reported Physicians See Note [facility] Work Phone: Comment on above: Note: Reported Physi cians:Ordering: Nick EscobarAttending: Jeimy EscobarieReferring: Nick Escobar CBC with Diffon 05-19-2020 Abs. Basophil <0.03 Normal 0.00-0.20 [facility] Comment on above: Performed By: #### C DP, CP, LIPRF, TSHX #### [facility] [employer] [address] [place] [address] [employer] Operator: Wander Baker MD Abs.Imm.Granulocyte <0.03 Normal 0.00-0.30 [facility] Comment on above: Performed By: #### C DP, CP, LIPRF, TSHX #### [facility] [employer] [address] [place] [address] [employer] Bre[employer] Operator: Wander Baker MD Abs.Neutrophil (Seg) 6.22 k/uL Normal 1.50-8.10 [facility] Comment on above: Performed By: #### C DP, CP, LIPRF, TSHX #### [facility] [employer] [address] [place] [address] [id number] [employer] Operator: Wander Baker MD Basophils/100 WBC (Bld) 0 % Normal 0-2 [facility] Comment on above: Performed By: #### C DP, CP, LIPRF, TSHX #### [address] [address] [employer] Operator: Wander Baker MD Eosinophils (Bld) [#/Vol] 10*3/uL Normal 0.00-0.44 [facility] Comment on above: Performed By: #### C DP, CP, LIPRF, TSHX #### [address] [address] [employer] Operator: Wander Baker MD Eosinophils/100 WBC (Bld) 0 % Low 1-4 [facility] Comment on above: Performed By: #### C DP, CP, LIPRF, TSHX #### [place] [address] [employer] Operator: Wander Baker MD Erythrocyte distribution width (RBC) [Ratio] 12.4 % Normal 11.8-14.4 [facility] Comment on above: Performed By: #### C DP, CP, LIPRF, TSHX #### [place] [address] [employer] Operator: Wander Baker MD Hematocrit (Bld) [Volume fraction] 47.1 % Normal 40.7-50.3 [facility] Comment on above: Performed By: #### C DP, CP, LIPRF, TSHX #### [place] [address] [employer] Operator: Wander Baker MD Hemoglobin (Bld) [Mass/Vol] 15.5 g/dL Normal 13.0-17.0 [facility] Comment on above: Performed By: #### C DP, CP, LIPRF, TSHX #### [address] [address] [employer] Operator: Wander Baker MD Immature granulocytes (Bld) [#/Vol] 0 % Normal 0 [facility] Comment on above: Performed By: #### C DP, CP, LIPRF, TSHX #### [address] [address] [employer] Operator: Wander Baker MD Lymphocytes (Bld) [#/Vol] 1.36 10*3/uL Normal 1.10-3.70 [facility] Comment on above: Performed By: #### C DP, CP, LIPRF, TSHX #### [place] [address] [employer] Operator: Wander Baker MD Lymphocytes/100 WBC (Bld) 17 % Low 24-43 [facility] Comment on above: Performed By: #### C DP, CP, LIPRF, TSHX #### [place] [address] [employer] Operator: Wander Baker MD MCH (RBC) [Entitic mass] 29.6 pg Normal 25.2-33.5 [facility] Comment on above: Performed By: #### C DP, CP, LIPRF, TSHX #### [place] [address] [employer] Operator: Wander Baker MD MCHC (RBC) [Mass/Vol] 32.9 g/dL Normal 28.4-34.8 [facility] Comment on above: Performed By: #### C DP, CP, LIPRF, TSHX #### [address] [address] [employer] Operator: Wander Baker MD MCV (RBC) [Entitic vol] 89.9 fL Normal 82.6-102.9 [facility] Comment on above: Performed By: #### C DP, CP, LIPRF, TSHX #### [address] [address] [employer] Operator: Wander Baker MD Monocytes (Bld) [#/Vol] 0.42 10*3/uL Normal 0.10-1.20 [facility] Comment on above: Performed By: #### C DP, CP, LIPRF, TSHX #### [address] [address] [employer] Operator: Wander Baker MD Monocytes/100 WBC (Bld) 5 % Normal 3-12 [facility] Comment on above: Performed By: #### C DP, CP, LIPRF, TSHX #### [address] [address] [employer] Operator: Wander Baker MD Neutrophil (Seg) 78 % High 36-65 [facility] Comment on above: Performed By: #### C DP, CP, LIPRF, TSHX #### [address] [address] [employer] Operator: Wander Baker MD NRBC Automated 0.0 per 100 WBC Normal 0.0 [facility] Comment on above: Performed By: #### C DP, CP, LIPRF, TSHX #### [address] [address] [employer] Operator: Wander Baker MD Platelet mean volume (Bld) [Entitic vol] 11.4 fL Normal 8.1-13.5 [facility] Comment on above: Performed By: #### C DP, CP, LIPRF, TSHX #### [address] [address] [employer] Operator: Wander Baker MD Platelets (Bld) [#/Vol] 307 10*3/uL Normal 138-453 [facility] Comment on above: Performed By: #### C DP, CP, LIPRF, TSHX #### [address] [address] [employer] Operator: Wander Baker MD RBC (Bld) [#/Vol] 5.24 10*6/uL Normal 4.21-5.77 [facility] Comment on above: Performed By: #### C DP, CP, LIPRF, TSHX #### [facility] [employer] [facility] [place] [address] Air Breaker Operator: Wander Baker MD WBC (Bld) [#/Vol] 8.1 10*3/uL Normal 3.5-11.3 [facility] Comment on above: Performed By: #### C DP, CP, LIPRF, TSHX #### [facility] [employer] [address] [place] [address] [employer] Operator: Wander Baker MD Comp Metabolic Profon 2019 (cont.) Normal [facility] Comment on above: Result Comment: Aver age GFR for 20-29 years old: 116 mL/min/1.73sq m Chronic Kidney Disease: <60 mL/min/1.73sq m Kidney failure: <15 mL/min/1.73sq m eGFR calculated using average adult body mass. Additional eGFR calculator available at: http://www.[employer]force.Zopa/multiple_crcl_2011.htm Performed By: #### C DP, CP, LIPRF, TSHX #### [facility] [address] [place] [address] [employer] Operator: Wander Baker MD Albumin [Mass/Vol] 5.1 g/dL Normal 3.5-5.2 [facility] Comment on above: Performed By: #### C DP, CP, LIPRF, TSHX #### [facility] [employer] [address] [place] [address] [employer] Operator: Wander Baker MD Albumin/Globulin [Mass ratio] 1.6 {ratio} Normal 1.0-2.5 [facility] Comment on above: Performed By: #### C DP, CP, LIPRF, TSHX #### [facility] [employer] [address] [place] [address] [employer] Operator: Wander Baker MD Alkaline Phos 62 U/L Normal 40-129 [facility] Comment on above: Performed By: #### C DP, CP, LIPRF, TSHX #### [facility] [employer] [address] [place] [address] [employer] Operator: Wander Baker MD ALT [Catalytic activity/Vol] 9 U/L Normal 5-41 [facility] Comment on above: Performed By: #### C DP, CP, LIPRF, TSHX #### [facility] [employer] [address] [place] [address] [employer] Operator: Wander Baker MD Anion gap [Moles/Vol] 20 mmol/L High 9-17 [facility] Comment on above: Performed By: #### C DP, CP, LIPRF, TSHX #### [address] [address] [employer] Operator: Wander Baker MD AST [Catalytic activity/Vol] 16 U/L Normal <40 [facility] Comment on above: Performed By: #### C DP, CP, LIPRF, TSHX #### [facility] [employer] [address] [place] [address] [employer] Operator: Wander Baker MD Bilirubin Ql (U) 0.84 mg/dL Normal 0.3-1.2 [facility] Comment on above: Performed By: #### C DP, CP, LIPRF, TSHX #### [facility] [employer] [address] [place] [address] [employer] Breaker Operator: Wander Baker MD Calcium [Mass/Vol] 10.0 mg/dL Normal 8.6-10.4 [facility] Comment on above: Performed By: #### C DP, CP, LIPRF, TSHX #### [facility] [employer] [address] [place] [address] [employer] Operator: Wander Baker MD Chloride [Moles/Vol] 102 mmol/L Normal 98-107 [facility] Comment on above: Performed By: #### C DP, CP, LIPRF, TSHX #### [address] [address] [employer] Operator: Wander Baker MD CO2 [Moles/Vol] 20 mmol/L Normal 20-31 [facility] Comment on above: Performed By: #### C DP, CP, LIPRF, TSHX #### [address] [address] [employer] Operator: Wander Baker MD Creatinine [Mass/Vol] 0.73 mg/dL Normal 0.70-1.20 [facility] Comment on above: Performed By: #### C DP, CP, LIPRF, TSHX #### [address] [address] [employer] Operator: Wander Baker MD GFR, Amer >60 Normal >60 [facility] Comment on above: Performed By: #### C DP, CP, LIPRF, TSHX #### [address] [address] [employer] Operator: Wander Baker MD GFR,non Amer >60 Normal >60 [facility] Comment on above: Performed By: #### C DP, CP, LIPRF, TSHX #### [address] [address] [employer] Operator: Wander Baker MD Glucose [Mass/Vol] 77 mg/dL Normal 70-99 [facility] Comment on above: Performed By: #### C DP, CP, LIPRF, TSHX #### [address] [address] [employer] Operator: Wander Baker MD Potassium [Moles/Vol] 3.8 mmol/L Normal 3.7-5.3 [facility] Comment on above: Performed By: #### C DP, CP, LIPRF, TSHX #### [employer] [address] [place] [address] [employer] Operator: Wander Baker MD Protein [Mass/Vol] 8.3 g/dL Normal 6.4-8.3 [facility] Comment on above: Performed By: #### C DP, CP, LIPRF, TSHX #### [employer] [address] [place] [address] [employer] Operator: Wander Baker MD Sodium [Moles/Vol] 142 mmol/L Normal 135-144 [facility] Comment on above: Performed By: #### C DP, CP, LIPRF, TSHX #### [employer] [address] [place] [address] [employer] Operator: Wander Baker MD Urea nitrogen [Mass/Vol] 11 mg/dL Normal 6-20 [facility] Comment on above: Performed By: #### C DP, CP, LIPRF, TSHX #### [employer] [address] [place] [address] [employer] Bre[employer] Operator: Wander Baker MD Lipid Prof, Fastingon 2019 Cholesterol [Mass/Vol] 167 mg/dL Normal <200 [facility] Comment on above: Result Comment: Cholesterol Guidelines: <200 Desirable 200-240 Borderline >240 Undesirable Performed By: #### C DP, CP, LIPRF, TSHX #### [employer] [address] [place] [address] [employer] Operator: Wander Baker MD Cholesterol in HDL [Mass/Vol] 48 mg/dL Normal >40 [facility] Comment on above: Result Comment: HDL Guidelines: <40 Undesirable 40-59 Borderline >59 Desirable Performed By: #### C DP, CP, LIPRF, TSHX #### [employer] [address] [place] [address] [employer] Operator: Wander Baker MD Cholesterol in LDL [Mass/Vol] 110 mg/dL Normal 0-130 [facility] Comment on above: Result Comment: LDL Guidelines: <100 Desirable 100-129 Near to/above Desirable 130-159 Borderline >159 Undesirable Direct (measured) LDL and calculated LDL are not interchangeable tests. Performed By: #### C DP, CP, LIPRF, TSHX #### [facility] [address] [place] [address] [employer] Breaker Operator: Wander Baker MD Cholesterol.total/Cho lesterol in HDL [Mass ratio] 3.5 {ratio} Normal <5 [facility] Comment on above: Performed By: #### C DP, CP, LIPRF, TSHX #### [facility] [employer] [address] [place] [address] Air Breaker Operator: Wander Baker MD Triglyceride,Fasting 43 mg/dL Normal <150 [facility] Comment on above: Result Comment: Triglyceride Guidelines: <150 Desirable 150-199 Borderline 200-499 High >499 Very high Based on AHA Guidelines for fasting triglyceride, June 2012. Performed By: #### C DP, CP, LIPRF, TSHX #### [facility] [employer] [address] [place] [address] Air Breaker Operator: Wander Baker MD TSH w/reflex to FT4on 2019 TSH Qn 1.00 m[IU]/L Normal 0.30-5.00 [facility] Comment on above: Performed By: #### C DP, CP, LIPRF, TSHX #### [employer] [address] [place] [address] [employer] Operator: Wander Baker MD CBC Auto Differentialon 04-25 Basophils (Bld) [#/Vol] 10*3/uL [place] Basophils/100 WBC (Bld) 0 % 0 - 2 % [place] Differential Type NOT REPORTED [place] Eosinophils (Bld) [#/Vol] 10*3/uL [place] Eosinophils/100 WBC (Bld) 0 % Low 1 - 4 % [place] Erythrocyte distribution width (RBC) [Ratio] 12.4 % 11.8 - 14.4 % [place] Hematocrit (Bld) [Volume fraction] 47.1 % 40.7 - 50.3 % [place] Hemoglobin (Bld) [Mass/Vol] 15.5 g/dL 13 - 17 g/dL [place] Immature granulocytes (Bld) [#/Vol] 0 % 0 [place] Immature granulocytes (Bld) [#/Vol] 10*3/uL [place] Interpretation and review of laboratory results Abnormal [place] Lymphocytes (Bld) [#/Vol] 1.36 10*3/uL [place] Lymphocytes/100 WBC (Bld) 17 % Low 24 - 43 % [place] MCH (RBC) [Entitic mass] 29.6 pg 25.2 - 33.5 pg [place] MCHC (RBC) [Mass/Vol] 32.9 g/dL 28.4 - 34.8 g/dL [place] MCV (RBC) [Entitic vol] 89.9 fL 82.6 - 102.9 fL [place] Monocytes (Bld) [#/Vol] 0.42 10*3/uL [place] Monocytes/100 WBC (Bld) 5 % 3 - 12 % [place] Platelet mean volume (Bld) [Entitic vol] 11.4 fL 8.1 - 13.5 fL [place] Platelets (Bld) [#/Vol] NOT REPORTED [place] Platelets (Bld) [#/Vol] 307 10*3/uL [place] RBC (Bld) [#/Vol] 5.24 10*6/uL 4.21 - 5.7 7 m/uL [place] RBC morphology finding Nom (Bld) NOT REPORTED [place] Segmented neutrophils/100 WBC (Bld) 78 % High 36 - 65 % [place] Segs Absolute 6.22 [place] WBC (Bld) [#/Vol] 8.1 10*3/uL [place] WBC (Bld) [#/Vol] 0.0 10*3/uL 0.0 per 10 0 WBC [place] WBC Morphology NOT REPORTED [place] CBC with Diffon 05-18-2020 Auto Diff Performed NOT REPORTED Normal [facility] Comment on above: Performed By: #### C DP, CP, LIPRF, TSHX #### [facility] [employer] [address] [place] [address] [employer]aker Operator: Wander Baker MD Platelets (Bld) [#/Vol] NOT REPORTED Normal [facility] Comment on above: Performed By: #### C DP, CP, LIPRF, TSHX #### [facility] [employer] [address] [place] [address] Air Breaker Operator: Wander Baker MD RBC morphology finding Nom (Bld) NOT REPORTED Normal [facility] Comment on above: Performed By: #### C DP, CP, LIPRF, TSHX #### [facility] [employer] [address] [place] [address] [id number] Air Breaker Operator: Wander Baker MD WBC Morphology NOT REPORTED Normal [facility] Comment on above: Performed By: #### C DP, CP, LIPRF, TSHX #### [facility] [employer] [address] [place] [id number] Air Breaker Operator: Wander Baker MD CardiacOrdered By: Nick guzman on 05-18-2020 Cholesterol [Mass/Vol] 167 mg/dL (<200 ) [facility] Work Phone: Comment on above: Note: Cholesterol Gu idelines:<200 [id number] Borderline>240 UndesirableResponsible Observer: CCEV AUTOFILE ([id number]) Comp Metabolic Profon 2019 BUN/CRE Ratio NOT REPORTED Normal - [facility] Comment on above: Performed By: #### C DP, CP, LIPRF, TSHX #### [facility] [address], [place] [id number] Air Breaker Operator: Wander Baker MD Staging: NOT REPORTED Normal [facility] Comment on above: Performed By: #### C DP, CP, LIPRF, TSHX #### [facility] [address], [place] [id number] Air Breaker Operator: Wander Baker MD Comprehensive Metabolic Pane [facility] 05-18-2020 Albumin [Mass/Vol] 5.1 g/dL 3.5 - 5.2 g/dL [place], [place] Albumin/Globulin [Mass ratio] 1.6 {ratio} [place], [place] ALP [Catalytic activity/Vol] 62 U/L 40 - 129 U/L [place] ALT [Catalytic activity/Vol] 9 U/L 5 - 41 U/L [place] Anion gap [Moles/Vol] 20 mmol/L High 9 - 17 mmol/L [place] AST [Catalytic activity/Vol] 16 U/L <40 [place] Bilirubin Ql (U) 0.84 mg/dL 0.3 - 1.2 mg/dL [place] Bun/Cre Ratio NOT REPORTED [place] Calcium [Mass/Vol] 10.0 mg/dL 8.6 - 10. 4 mg/dL [place] Chloride [Moles/Vol] 102 mmol/L 98 - 10 7 mmol/L [place] CO2 [Moles/Vol] 20 mmol/L 20 - 31 mmol/L [place] Creatinine [Mass/Vol] 0.73 mg/dL 0.7 - 1.2 mg/dL [place] GFR >60 >60 mL/min [place], [place] GFR Non- >60 >60 mL/min [place] GFR/1.73 sq M predicted among non-blacks MDRD (S/P/Bld) [Vol rate/Area] [place], [place] Comment on above: Average GFR for 20-2 9 years old: 116 mL/min/1.73sq m Chronic Kidney Disease: <60 mL/min/1.73sq m Kidney failure: <15 mL/min/1.73sq m eGFR calculated using average adult body mass. Additional eGFR calculator available at: http://www.[employer]/multiple_crcl_2012.htm GFR/1.73 sq M predicted among non-blacks MDRD (S/P/Bld) [Vol rate/Area] NOT REPORTED [place] Glucose [Mass/Vol] 77 mg/dL 70 - 99 mg/dL [place] Interpretation and review of laboratory results Abnormal [place] Potassium [Moles/Vol] 3.8 mmol/L 3.7 - 5.3 mmol/L [place] Protein [Mass/Vol] 8.3 g/dL 6.4 - 8.3 g/dL [place] Sodium [Moles/Vol] 142 mmol/L 135 - 144 mmol/L [place] Urea nitrogen [Mass/Vol] 11 mg/dL 6 - 20 mg/dL [place] HematologyOrdered By: Nick Escobar on 05-18-2020 Basophils/100 WBC (Bld) 0 % (0-2 ) [facility] Work Phone: Comment on above: Note: Responsible Ob server systems administrator: XNV AUTOFILE ([id number]) Eosinophils/100 WBC (Bld) 0 % Low (1-4 ) [facility] Work Phone: Comment on above: Note: Responsible Ob server systems administrator: XNV AUTOFILE (3018) Hematocrit (Bld) [Volume fraction] 47.1 % (40.7-50.3 ) [facility] Work Phone: Comment on above: Note: Responsible Ob server systems administrator: XNV AUTOFILE (3018) Hemoglobin (Bld) [Mass/Vol] 15.5 g/dL (13.0-17.0 ) [facility] Work Phone: Comment on above: Note: Responsible Ob server systems administrator: XNV AUTOFILE (3018) Lymphocytes (Bld) [#/Vol] 1.36 10*3/uL (1.10-3.70 ) [facility] Work Phone: Comment on above: Note: Responsible Ob server systems administrator: XNV AUTOFILE ([id number]) Lymphocytes/100 WBC (Bld) 17 % Low (24-43 ) [facility] Work Phone: Comment on above: Note: Responsible Ob server systems administrator: XNV AUTOFILE ([id number]) MCH (RBC) [Entitic mass] 29.6 pg (25.2-33.5 ) [facility] Work Phone: Comment on above: Note: Responsible Ob server systems administrator: XNV AUTOFILE (3017) MCV (RBC) [Entitic vol] 89.9 fL (82.6-102.9 ) [facility] Work Phone: Comment on above: Note: Responsible Ob server systems administrator: XNV AUTOFILE ([id number]) Monocytes (Bld) [#/Vol] 0.42 10*3/uL (0.10-1.20 ) [facility] Work Phone: Comment on above: Note: Responsible Ob server systems administrator: XNV AUTOFILE ([id number]) Monocytes/100 WBC (Bld) 5 % (3-12 ) [facility] Work Phone: Comment on above: Note: Responsible Ob server systems administrator: XNV AUTOFILE (8) Platelets (Bld) [#/Vol] 307 10*3/uL (138-453 ) [facility] Work Phone: Comment on above: Note: Responsible Ob server systems administrator: XNV AUTOFILE ([id number]) RBC (Bld) [#/Vol] 5.24 10*6/uL (4.21-5.77 ) [facility] Work Phone: Comment on above: Note: Responsible Ob server systems administrator: XNV AUTOFILE ([id number]) RBC morphology finding Nom (Bld) NOT REPORTED [facility] Work Phone: WBC (Bld) [#/Vol] 8.1 10*3/uL (3.5-11.3 ) [facility] Work Phone: Comment on above: Note: Responsible Ob server systems administrator: XNV AUTOFILE ([id number]) Hematologyon 05-18-2020 Eosinophils (Bld) [#/Vol] 10*3/uL (0.00-0.44) [facility] Work Phone: Comment on above: Note: Responsible Ob server systems administrator: XNV AUTOFILE ([id number]) Platelets (Bld) [#/Vol] NOT REPORTED [facility] Work Phone: WBC (Bld) [#/Vol] 0.0 per_100_WBC (0.0) [facility] Work Phone: Comment on above: Note: Responsible Ob server systems administrator: XNV AUTOFILE ([id number]) Laboratory - Chemistry and C hemistry - challengeOrdered By: Nick Escobar on 05-18-2020 Magnesium [Mass/Vol] 48 mg/dL (>40 ) [facility] Work Phone: Comment on above: Note: HDL Guidelines :<40 Bbyzmidkium23-19 Borderline>59 DesirableResponsible Observer: CCEV AUTOFILE (3002) Magnesium [Mass/Vol] 110 mg/dL (0-130 ) [facility] Work Phone: Comment on above: Note: LDL Guidelines :<100 [id number] Near to/above Jqjmblliu256-715 Borderline>159 UndesirableDirect (measured) LDL and calculated LDL are not interchangeable tests.Responsible Observer: CCEV AUTOFILE ([id number]) Magnesium [Mass/Vol] 43 mg/dL (<150 ) [facility] Work Phone: Comment on above: Note: Triglyceride G uidelines:<150 [id number] High>499 Very highBased on AHA Guidelines for fasting triglyceride, June 2012.Responsible Observer: CCEV AUTOFILE ([id number]) Laboratory - Hematology and Cell countsOrdered By: Nick Escobar on 05-18-2020 Immature granulocytes/100 WBC (Bld) 0 % (0 ) [facility] Work Phone: Comment on above: Note: Responsible Ob server systems administrator: XNV AUTOFILE (1964) Lipid Prof, Fastingon 2019 Cholesterol in VLDL [Mass/Vol] NOT REPORTED Normal 1-30 [facility] Comment on above: Performed By: #### C DP, CP, LIPRF, TSHX #### [facility] [employer] [address] [id number] Air Breaker Operator: Wander Baker MD Lipid, Fastingon 05-18-2020 Cholesterol [Mass/Vol] 167 mg/dL <200 [place], [place] Comment on above: Cholesterol Guidelines: <200 Desirable 200-240 Borderline >240 Undesirable Cholesterol in HDL [Mass/Vol] 48 mg/dL >40 [place] Comment on above: HDL Guidelines: <40 Undesirable 40-59 Borderline >59 Desirable Cholesterol in LDL [Mass/Vol] 110 mg/dL 0 - 130 mg/dL [place] Comment on above: LDL Guidelines: <100 Desirable 100-129 Near to/above Desirable 130-159 Borderline >159 Undesirable Direct (measured) LDL and calculated LDL are not interchangeable tests. Cholesterol in VLDL [Mass/Vol] NOT REPORTED 1 - 30 mg/dL [place] Cholesterol.total/Cho lesterol in HDL [Mass ratio] 3.5 {ratio} <5 [place] Triglyceride, Fasting 43 mg/dL <150 [place], [place] Comment on above: Triglyceride Guidelines: <150 Desirable 150-199 Borderline 200-499 High >499 Very high Based on AHA Guidelines for fasting triglyceride, June 2012. Metabolic PanelOrdered By: Maye Escobar on 05-18-2020 Albumin [Mass/Vol] 5.1 g/dL (3.5-5.2 ) [facility] Work Phone: Comment on above: Note: Responsible Ob server systems administrator: CCEV AUTOFILE (3122) ALT [Catalytic activity/Vol] 9 U/L (5-41 ) [facility] Work Phone: Comment on above: Note: Responsible Ob server systems administrator: CCEV AUTOFILE (3002) Anion gap [Moles/Vol] 20 mmol/L High (9-17 ) [facility] Work Phone: Comment on above: Note: Responsible Ob server systems administrator: CCEV AUTOFILE (3002) AST [Catalytic activity/Vol] 16 U/L (<40 ) [facility] Work Phone: Comment on above: Note: Responsible Ob server systems administrator: CCEV AUTOFILE (3002) Bilirubin [Mass/Vol] 0.84 mg/dL (0.3-1.2 ) [facility] Work Phone: Comment on above: Note: Responsible Ob server systems administrator: CCEV AUTOFILE (3002) Calcium [Mass/Vol] 10.0 mg/dL (8.6-10.4 ) [facility] Work Phone: Comment on above: Note: Responsible Ob server systems administrator: CCEV AUTOFILE (3002) Chloride [Moles/Vol] 102 mmol/L (98-107 ) [facility] Work Phone: Comment on above: Note: Responsible Ob server systems administrator: CCEV AUTOFILE (3002) CO2 [Moles/Vol] 20 mmol/L (20-31 ) [facility] Work Phone: Comment on above: Note: Responsible Ob server systems administrator: CCEV AUTOFILE (3002) Creatinine [Mass/Vol] 0.73 mg/dL (0.70-1.20 ) [facility] Work Phone: Comment on above: Note: Responsible Ob server systems administrator: CCEV AUTOFILE (3002) Glucose [Mass/Vol] 77 mg/dL (70-99 ) [facility] Work Phone: Comment on above: Note: Responsible Ob server systems administrator: CCEV AUTOFILE (3002) Potassium [Moles/Vol] 3.8 mmol/L (3.7-5.3 ) [facility] Work Phone: Comment on above: Note: Responsible Ob server systems administrator: CCEV AUTOFILE (3002) Protein [Mass/Vol] 8.3 g/dL (6.4-8.3 ) [facility] Work Phone: Comment on above: Note: Responsible Ob server systems administrator: CCEV AUTOFILE (3002) Sodium [Moles/Vol] 142 mmol/L (135-144 ) [facility] Work Phone: Comment on above: Note: Responsible Ob server systems administrator: CCEV AUTOFILE (3002) Urea nitrogen [Mass/Vol] 11 mg/dL (6-20 ) [facility] Work Phone: Comment on above: Note: Responsible Ob server systems administrator: CCEV AUTOFILE (3002) No Panel InformationOrdered By: Nick Escobar on 05-18-2020 Abs. Eosinophil <0.03 k/uL (0.00-0.44 ) [facility] Work Phone: Comment on above: Note: Responsible Ob server systems administrator: XNV AUTOFILE (3018) NRBC Automated 0.0 per_100_WBC (0.0 ) [facility] Work Phone: Comment on above: Note: Responsible Ob server systems administrator: XNV AUTOFILE (3017) Platelet Estimate NOT REPORTED [facility] Work Phone: OtherOrdered By: Nick mobley on 05-18-2020 (cont.) See Note [facility] Work Phone: Comment on above: Note: Average GFR fo r 20-29 years old:116 mL/min/1.73sq mChronic Kidney Disease:<60 mL/min/1.73sq mKidney failure:<15 mL/min/1.73sq meGFR calculated using average adult body mass. Additional eGFR calculatoravailable at:http://www.[employer]/multiple_crcl_2012.htmResponsible Observer: CCEV AUTOFILE (3002) Abs. Basophil <0.03 k/uL (0.00-0.20 ) [facility] Work Phone: Comment on above: Note: Responsible Ob server systems administrator: XNV AUTOFILE (3018) Abs.Imm.Granulocyte <0.03 k/uL (0.00-0.30 ) [facility] Work Phone: Comment on above: Note: Responsible Ob server systems administrator: XNV AUTOFILE (3018) Abs.Neutrophil (Seg) 6.22 k/uL (1.50-8.10 ) [facility] Work Phone: Comment on above: Note: Responsible Ob server systems administrator: XNV AUTOFILE (3018) Albumin/Glob Ratio 1.6 (1.0-2.5 ) [facility] Work Phone: Comment on above: Note: Responsible Ob server systems administrator: CCEV AUTOFILE (3002) Alkaline Phos 62 U/L (40-129 ) [facility] Work Phone: Comment on above: Note: Responsible Ob server systems administrator: CCEV AUTOFILE (3002) Auto Diff Performed NOT REPORTED [facility] Work Phone: BUN/CRE Ratio NOT REPORTED (9-20 ) [facility] Work Phone: Cholesterol,VLDL NOT REPORTED mg/dL (1-30 ) [facility] Work Phone: Cholesterol.total/Cho lesterol in HDL [Mass ratio] 3.5 {ratio} (<5 ) [facility] Work Phone: Comment on above: Note: Responsible Ob server systems administrator: CCEV AUTOFILE (3002) Erythrocyte distribution width (RBC) [Ratio] 12.4 % (11.8-14.4 ) [facility] Work Phone: Comment on above: Note: Responsible Ob server systems administrator: XNV AUTOFILE (3018) GFR, Amer >60 mL/min (>60 ) [facility] Work Phone: Comment on above: Note: Responsible Ob server systems administrator: CCEV AUTOFILE (3002) GFR,non Amer >60 mL/min (>60 ) [facility] Work Phone: Comment on above: Note: Responsible Ob server systems administrator: CCEV AUTOFILE (3002) MCHC (RBC) [Mass/Vol] 32.9 g/dL (28.4-34.8 ) [facility] Work Phone: Comment on above: Note: Responsible Ob server systems administrator: XNV AUTOFILE (3017) Performing Lab: see note [facility] Work Phone: Comment on above: Note: KAMRAN Chambers [address] [facility] [address] Platelet mean volume (Bld) [Entitic vol] 11.4 fL (8.1-13.5 ) [facility] Work Phone: Comment on above: Note: Responsible Ob server systems administrator: XNV AUTOFILE ([id number]) Reported Physicians See Note [facility] Work Phone: Comment on above: Note: Reported Physi cians:Ordering: Nick EscobarAttending: Jeimy EscobarieReferring: Nick Escobar Segmented neutrophils/100 WBC (Bld) 78 % High (36-65 ) [facility] Work Phone: Comment on above: Note: Responsible Ob server systems administrator: XNV AUTOFILE ([id number]) Staging: NOT REPORTED [facility] Work Phone: Thyroid Stim. Horm. 1.00 mIU/L (0.30-5.00 ) [facility] Work Phone: Comment on above: Note: Responsible Ob server systems administrator: CCEV AUTOFILE (3002) WBC Morphology NOT REPORTED [facility] Work Phone: Otheron 05-18-2020 Cholesterol,HDL 48 mg/dL (>40) [facility] Work Phone: Comment on above: Note: HDL Guidelines :<40 Bufkqtmcsjb42-95 Borderline>59 DesirableResponsible Observer: CCEV AUTOFILE (3002) Cholesterol,LDL 110 mg/dL (0-130) [facility] Work Phone: Comment on above: Note: LDL Guidelines :<100 [id number] Near to/above Hbvpkfhcx286-290 Borderline>159 UndesirableDirect (measured) LDL and calculated LDL are not interchangeable tests.Responsible Observer: CCEV AUTOFILE (3002) Immature granulocytes (Bld) [#/Vol] 0 % (0) [facility] Work Phone: Comment on above: Note: Responsible Ob server systems administrator: XNV AUTOFILE (4554) Triglyceride,Fasting 43 mg/dL (<150) [facility] Work Phone: Comment on above: Note: Triglyceride G uidelines:<150 [id number] Ptqccapzqd240-526 High>499 Very highBased on AHA Guidelines for fasting triglyceride, June 2012.Responsible Observer: CCEV AUTOFILE (3002) TSH with Reflexon 05-18-2020 TSH Qn 1.00 m[IU]/L [place] Vital Signs Date Time Vital Sign Value Performing Clinician Faci lity 09-03-2024 15:02-0500 Diastolic blood pressure 105 mm[Hg] Nick Escobar DIRECTOR [employer] Work Phone: [facility] Work Phone: 09-03-2024 15:02-0500 Systolic blood pressure 163 mm[Hg] Nick Escobar DIRECTOR [employer] Work Phone: [facility] Work Phone: 09-03-2024 14:53-0500 Body height 172.72 cm Nick Escobar CNP Work Phone: [facility] Work Phone: 09-03-2024 14:53-0500 Body mass index (BMI) [Ratio] 27.9 kg/m2 Nick Escobar CNP Work Phone: [facility] Work Phone: 09-03-2024 14:53-0500 Body surface area Derived from formula 2 m2 Nick Escobar CNP Work Phone: [facility] Work Phone: 09-03-2024 14:53-0500 Body temperature 98.6 [degF] Nick Escobar CNP Work Phone: [facility] Work Phone: 09-03-2024 14:53-0500 Body weight 83.37 kg Nick Escobar CNP Work Phone: [facility] Work Phone: 09-03-2024 14:53-0500 Diastolic blood pressure 103 mm[Hg] Nick Escobar CNP Work Phone: [facility] Work Phone: 09-03-2024 14:53-0500 Heart rate 84 /min Nick Escobar CNP Work Phone: [facility] Work Phone: 09-03-2024 14:53-0500 SaO2% (BldA) [Mass fraction] 98 % Nick Escobar CNP Work Phone: [facility] Work Phone: 09-03-2024 14:53-0500 Systolic blood pressure 158 mm[Hg] Nick Escobar CNP Work Phone: [facility] Work Phone: 03-31-2024 10:41-0400 Body height 172.72 cm Nick Escobar CNP Work Phone: [facility] Work Phone: 03-31-2024 10:41-0400 Body mass index (BMI) [Ratio] 27.3 kg/m2 Nick Escobar CNP Work Phone: [facility] Work Phone: 03-31-2024 10:41-0400 Body surface area Derived from formula 2 m2 Nick Escobar CNP Work Phone: [facility] Work Phone: 03-31-2024 10:41-0400 Body temperature 98.1 [degF] Nick Escobar CNP Work Phone: [facility] Work Phone: 03-31-2024 10:41-0400 Body weight 81.47 kg Nick Escobar CNP Work Phone: [facility] Work Phone: 03-31-2024 10:41-0400 Diastolic blood pressure 80 mm[Hg] Nick Escobar CNP Work Phone: [facility] Work Phone: 03-31-2024 10:41-0400 Heart rate 77 /min Nick Escobar CNP Work Phone: [facility] Work Phone: 03-31-2024 10:41-0400 SaO2% (BldA) [Mass fraction] 97 % Nick Escobar CNP Work Phone: [facility] Work Phone: 03-31-2024 10:41-0400 Systolic blood pressure 128 mm[Hg] Nick Escobar CNP Work Phone: [facility] Work Phone: 12-26-2023 08:15-0400 Body height 172.72 cm Nick Escobar CNP Work Phone: [facility] Work Phone: 12-26-2023 08:15-0400 Body mass index (BMI) [Ratio] 27.2 kg/m2 Nick Escobar CNP Work Phone: [facility] Work Phone: 12-26-2023 08:15-0400 Body surface area Derived from formula 1.9 m2 Nick Escoabr CNP Work Phone: [facility] Work Phone: 12-26-2023 08:15-0400 Body temperature 98.4 [degF] Nick Escobar CNP Work Phone: [facility] Work Phone: 12-26-2023 08:15-0400 Body weight 81.1 kg Nick Escobar CNP Work Phone: [facility] Work Phone: 12-26-2023 08:15-0400 Diastolic blood pressure 83 mm[Hg] Nick Escobar CNP Work Phone: [facility] Work Phone: 12-26-2023 08:15-0400 Heart rate 77 /min Nick Escobar CNP Work Phone: [facility] Work Phone: 12-26-2023 08:15-0400 SaO2% (BldA) [Mass fraction] 97 % Nick Escobar CNP Work Phone: [facility] Work Phone: 12-26-2023 08:15-0400 Systolic blood pressure 145 mm[Hg] Nick Escobar CNP Work Phone: [facility] Work Phone: 11-23-2023 14:50-0500 Body height 172.72 cm Nick Escobar CNP Work Phone: [facility] Work Phone: 11-23-2023 14:50-0500 Body mass index (BMI) [Ratio] 27.4 kg/m2 Nick Escobar CNP Work Phone: [facility] Work Phone: 11-23-2023 14:50-0500 Body surface area Derived from formula 2 m2 Nick Escobar CNP Work Phone: [facility] Work Phone: 11-23-2023 14:50-0500 Body weight 81.74 kg Nick Escobar CNP Work Phone: [facility] Work Phone: 11-23-2023 14:50-0500 Diastolic blood pressure 84 mm[Hg] Nick Escobar CNP Work Phone: [facility] Work Phone: 11-23-2023 14:50-0500 Heart rate 77 /min Nick Escobar CNP Work Phone: [facility] Work Phone: 11-23-2023 14:50-0500 SaO2% (BldA) [Mass fraction] 98 % Nick Escobar CNP Work Phone: [facility] Work Phone: 11-23-2023 14:50-0500 Systolic blood pressure 134 mm[Hg] Nick Escobar CNP Work Phone: [facility] Work Phone: 07-09-2023 13:44-0400 Diastolic blood pressure 80 mm[Hg] Nick Escobar DIRECTOR [employer] Work Phone: [facility] Work Phone: 07-09-2023 13:44-0400 Systolic blood pressure 131 mm[Hg] Nick Escobar DIRECTOR [employer] Work Phone: [facility] Work Phone: 07-09-2023 13:27-0400 Body height 175.26 cm Nick Escobar CNP Work Phone: [facility] Work Phone: 07-09-2023 13:27-0400 Body mass index (BMI) [Ratio] 25.5 kg/m2 Nick Escobar CNP Work Phone: [facility] Work Phone: 07-09-2023 13:27-0400 Body surface area Derived from formula 1.9 m2 Nick Escobar CNP Work Phone: [facility] Work Phone: 07-09-2023 13:27-0400 Body temperature 97.7 [degF] Nick Escobar CNP Work Phone: [facility] Work Phone: 07-09-2023 13:27-0400 Body weight 78.38 kg Nick Escobar CNP Work Phone: [facility] Work Phone: 07-09-2023 13:27-0400 Diastolic blood pressure 85 mm[Hg] Nick Escobar CNP Work Phone: [facility] Work Phone: 07-09-2023 13:27-0400 Heart rate 98 /min Nick Escobar CNP Work Phone: [facility] Work Phone: 07-09-2023 13:27-0400 Respiratory rate 16 /min Nick Escobar CNP Work Phone: [facility] Work Phone: 07-09-2023 13:27-0400 SaO2% (BldA) [Mass fraction] 97 % Nick Escobar CNP Work Phone: [facility] Work Phone: 07-09-2023 13:27-0400 Systolic blood pressure 143 mm[Hg] Nick Escobar CNP Work Phone: [facility] Work Phone: 01-05-2023 08:35-0400 Body height 175.26 cm Nick Escobar CNP Work Phone: [facility] Work Phone: 01-05-2023 08:35-0400 Body mass index (BMI) [Ratio] 23.7 kg/m2 Nick Escobar CNP Work Phone: [facility] Work Phone: 01-05-2023 08:35-0400 Body surface area Derived from formula 1.9 m2 Nick Escobar CNP Work Phone: [facility] Work Phone: 01-05-2023 08:35-0400 Body temperature 95.6 [degF] Nick Escobar CNP Work Phone: [facility] Work Phone: 01-05-2023 08:35-0400 Body weight 72.71 kg Nick Escobar CNP Work Phone: [facility] Work Phone: 01-05-2023 08:35-0400 Diastolic blood pressure 71 mm[Hg] Nick Escobar CNP Work Phone: [facility] Work Phone: 01-05-2023 08:35-0400 Heart rate 80 /min Nick Escobar CNP Work Phone: [facility] Work Phone: 01-05-2023 08:35-0400 SaO2% (BldA) [Mass fraction] 99 % Nick Escobar CNP Work Phone: [facility] Work Phone: 01-05-2023 08:35-0400 Systolic blood pressure 120 mm[Hg] Nick Escobar CNP Work Phone: [facility] Work Phone: 11-24-2022 08:44-0500 Body height 175.26 cm Nick Escobar CNP Work Phone: [facility] Work Phone: 11-24-2022 08:44-0500 Body mass index (BMI) [Ratio] 23.6 kg/m2 Nick Escobar CNP Work Phone: [facility] Work Phone: 11-24-2022 08:44-0500 Body surface area Derived from formula 1.9 m2 Nick Escobar CNP Work Phone: [facility] Work Phone: 11-24-2022 08:44-0500 Body temperature 97.5 [degF] Nick Escobar CNP Work Phone: [facility] Work Phone: 11-24-2022 08:44-0500 Body weight 72.58 kg Nick Escobar CNP Work Phone: [facility] Work Phone: 11-24-2022 08:44-0500 Diastolic blood pressure 74 mm[Hg] Nick Escobar CNP Work Phone: [facility] Work Phone: 11-24-2022 08:44-0500 Heart rate 79 /min Nick Escobar CNP Work Phone: [facility] Work Phone: 11-24-2022 08:44-0500 SaO2% (BldA) [Mass fraction] 99 % Nick Escobar CNP Work Phone: [facility] Work Phone: 11-24-2022 08:44-0500 Systolic blood pressure 115 mm[Hg] Nick Escobar CNP Work Phone: [facility] Work Phone: 10-26-2022 08:48-0500 Body height 175.26 cm Nick Escobar CNP Work Phone: [facility] Work Phone: 10-26-2022 08:48-0500 Body mass index (BMI) [Ratio] 23.7 kg/m2 Nick Escobar CNP Work Phone: [facility] Work Phone: 10-26-2022 08:48-0500 Body surface area Derived from formula 1.9 m2 Nick Escobar CNP Work Phone: [facility] Work Phone: 10-26-2022 08:48-0500 Body temperature 96.9 [degF] Nick Escobar CNP Work Phone: [facility] Work Phone: 10-26-2022 08:48-0500 Body weight 72.85 kg Nick Escobar CNP Work Phone: [facility] Work Phone: 10-26-2022 08:48-0500 Diastolic blood pressure 82 mm[Hg] Nick Escobar CNP Work Phone: [facility] Work Phone: 10-26-2022 08:48-0500 Heart rate 86 /min Nick Escobar CNP Work Phone: [facility] Work Phone: 10-26-2022 08:48-0500 Heart Rate Rhythm 1 1 Nick Escobar CNP Work Phone: [facility] Work Phone: 10-26-2022 08:48-0500 SaO2% (BldA) [Mass fraction] 99 % Nick Escobar CNP Work Phone: [facility] Work Phone: 10-26-2022 08:48-0500 Systolic blood pressure 124 mm[Hg] Nick Escobar CNP Work Phone: [facility] Work Phone: 08-29-2021 12:08-0500 Body height 175.26 cm Nick Escobar CNP Work Phone: [facility] Work Phone: 08-29-2021 12:08-0500 Body mass index (BMI) [Ratio] 20.4 kg/m2 Nick Escobar CNP Work Phone: [facility] Work Phone: 08-29-2021 12:08-0500 Body surface area Derived from formula 1.76 m2 Nick Escobar CNP Work Phone: [facility] Work Phone: 08-29-2021 12:08-0500 Body temperature 97.9 [degF] Nick Escobar CNP Work Phone: [facility] Work Phone: 08-29-2021 12:08-0500 Body weight 62.6 kg Nick Escobar CNP Work Phone: [facility] Work Phone: 08-29-2021 12:08-0500 Diastolic blood pressure 78 mm[Hg] Nick Escobar CNP Work Phone: [facility] Work Phone: 08-29-2021 12:08-0500 Heart rate 90 /min Nick Escobar CNP Work Phone: [facility] Work Phone: 08-29-2021 12:08-0500 Respiratory rate 20 /min Nick Escobar CNP Work Phone: [facility] Work Phone: 08-29-2021 12:08-0500 SaO2% (BldA) [Mass fraction] 98 % Nick Escobar CNP Work Phone: [facility] Work Phone: 08-29-2021 12:08-0500 Systolic blood pressure 114 mm[Hg] Nick Escobar CNP Work Phone: [facility] Work Phone: 01-20-2021 08:39-0400 Body height 175.26 cm Nick Escobar CNP Work Phone: [facility] Work Phone: 01-20-2021 08:39-0400 Body mass index (BMI) [Ratio] 20.1 kg/m2 Nick Escobar CNP Work Phone: [facility] Work Phone: 01-20-2021 08:39-0400 Body surface area Derived from formula 1.75 m2 Nick Escobar CNP Work Phone: [facility] Work Phone: 01-20-2021 08:39-0400 Body temperature 97.3 [degF] Nick Escobar CNP Work Phone: [facility] Work Phone: 01-20-2021 08:39-0400 Body weight 61.69 kg Nick Escobar CNP Work Phone: [facility] Work Phone: 01-20-2021 08:39-0400 Diastolic blood pressure 84 mm[Hg] Nick Escobar CNP Work Phone: [facility] Work Phone: 01-20-2021 08:39-0400 Heart rate 78 /min Nick Escobar CNP Work Phone: [facility] Work Phone: 01-20-2021 08:39-0400 Respiratory rate 14 /min Nick Escobar CNP Work Phone: [facility] Work Phone: 01-20-2021 08:39-0400 SaO2% (BldA) [Mass fraction] 98 % Nick Escobar CNP Work Phone: [facility] Work Phone: 01-20-2021 08:39-0400 Systolic blood pressure 124 mm[Hg] Nick Escobar CNP Work Phone: [facility] Work Phone: 12-15-2020 17:37-0400 BMI (Body Mass Index) 20.2 kg/m2 [facility] Work Phone: 12-15-2020 17:37-0400 Body Temperature 96.9 [degF] [facility] Work Phone: 12-15-2020 17:37-0400 Body weight 62.05 kg [facility] Work Phone: 12-15-2020 17:37-0400 BP Diastolic 60 mm[Hg] [facility] Work Phone: 12-15-2020 17:37-0400 BP Systolic 110 mm[Hg] [facility] Work Phone: 12-15-2020 17:37-0400 BSA (Body Surface Area) 1.76 m2 [facility] Work Phone: 12-15-2020 17:37-0400 Heart Rate Rhythm 1 1 [facility] Work Phone: 12-15-2020 17:37-0400 Height 175.26 cm [facility] Work Phone: 12-15-2020 17:37-0400 Pulse (Heart Rate) 101 /min [facility] Work Phone: 12-15-2020 17:37-0400 Pulse Oximetry 99 % [facility] Work Phone: 12-15-2020 17:37-0400 Respiratory Rate 18 /min [facility] Work Phone: 12-15-2020 17:37-0400 SaO2% (BldA) [Mass fraction] 99 % [facility] Work Phone: [facility] Work Phone: 09-29-2020 17:08-0500 BMI (Body Mass Index) 21.9 kg/m2 [facility] Work Phone: 09-29-2020 17:08-0500 Body Temperature 97 [degF] [facility] Work Phone: 09-29-2020 17:08-0500 Body weight 67.13 kg [facility] Work Phone: 09-29-2020 17:08-0500 BP Diastolic 86 mm[Hg] [facility] Work Phone: 09-29-2020 17:08-0500 BP Systolic 138 mm[Hg] [facility] Work Phone: 09-29-2020 17:08-0500 BSA (Body Surface Area) 1.82 m2 [facility] Work Phone: 09-29-2020 17:08-0500 Height 175.26 cm [facility] Work Phone: 09-29-2020 17:08-0500 Pulse (Heart Rate) 75 /min [facility] Work Phone: 09-29-2020 17:08-0500 Pulse Oximetry 99 % [facility] Work Phone: 09-29-2020 17:08-0500 Respiratory Rate 14 /min [facility] Work Phone: 09-29-2020 17:08-0500 SaO2% (BldA) [Mass fraction] 99 % [facility] Work Phone: [facility] Work Phone: 09-10-2020 14:42-0500 BMI (Body Mass Index) 22.2 kg/m2 [facility] Work Phone: 09-10-2020 14:42-0500 Body Temperature 97 [degF] [facility] Work Phone: 09-10-2020 14:42-0500 Body weight 68.04 kg [facility] Work Phone: 09-10-2020 14:42-0500 BP Diastolic 80 mm[Hg] [facility] Work Phone: 09-10-2020 14:42-0500 BP Systolic 112 mm[Hg] [facility] Work Phone: 09-10-2020 14:42-0500 BSA (Body Surface Area) 1.83 m2 [facility] Work Phone: 09-10-2020 14:42-0500 Height 175.26 cm [facility] Work Phone: 09-10-2020 14:42-0500 Pulse (Heart Rate) 88 /min [facility] Work Phone: 09-10-2020 14:42-0500 Pulse Oximetry 99 % [facility] Work Phone: 09-10-2020 14:42-0500 SaO2% (BldA) [Mass fraction] 99 % [facility] Work Phone: [facility] Work Phone: 08-27-2020 14:51-0500 BMI (Body Mass Index) 22.5 kg/m2 [facility] Work Phone: 08-27-2020 14:51-0500 Body Temperature 97 [degF] [facility] Work Phone: 08-27-2020 14:51-0500 Body weight 69.13 kg [facility] Work Phone: 08-27-2020 14:51-0500 BP Diastolic 80 mm[Hg] [facility] Work Phone: 08-27-2020 14:51-0500 BP Systolic 138 mm[Hg] [facility] Work Phone: 08-27-2020 14:51-0500 BSA (Body Surface Area) 1.84 m2 [facility] Work Phone: 08-27-2020 14:51-0500 Height 175.26 cm [facility] Work Phone: 08-27-2020 14:51-0500 Pulse (Heart Rate) 81 /min [facility] Work Phone: 08-27-2020 14:51-0500 Pulse Oximetry 99 % [facility] Work Phone: 08-27-2020 14:51-0500 SaO2% (BldA) [Mass fraction] 99 % Nick Shawn DIRECTOR [employer] Work Phone: [facility] Work Phone: 08-13-2020 17:15-0500 BMI (Body Mass Index) 22.9 kg/m2 [facility] Work Phone: 08-13-2020 17:15-0500 Body weight 70.4 kg [facility] Work Phone: 08-13-2020 17:15-0500 BP Diastolic 68 mm[Hg] [facility] Work Phone: 08-13-2020 17:15-0500 BP Systolic 118 mm[Hg] [facility] Work Phone: 08-13-2020 17:15-0500 BSA (Body Surface Area) 1.85 m2 [facility] Work Phone: 08-13-2020 17:15-0500 Height 175.26 cm [facility] Work Phone: 08-13-2020 17:15-0500 Pulse (Heart Rate) 80 /min [facility] Work Phone: 08-13-2020 17:15-0500 Pulse Oximetry 99 % [facility] Work Phone: 08-13-2020 17:15-0500 SaO2% (BldA) [Mass fraction] 99 [facility] [employer] Work Phone: [facility] Work Phone: 06-15-2020 19:03-0400 BMI (Body Mass Index) 23.8 kg/m2 [facility] Work Phone: 06-15-2020 19:03-0400 Body Temperature 97.8 [degF] [facility] Work Phone: 06-15-2020 19:03-0400 Body weight 73.03 kg [facility] Work Phone: 06-15-2020 19:03-0400 BP Diastolic 78 mm[Hg] [facility] Work Phone: 06-15-2020 19:03-0400 BP Systolic 120 mm[Hg] [facility] Work Phone: 06-15-2020 19:03-0400 BSA (Body Surface Area) 1.88 m2 [facility] Work Phone: 06-15-2020 19:03-0400 Height 175.26 cm [facility] Work Phone: 06-15-2020 19:03-0400 Pulse (Heart Rate) 93 /min [facility] Work Phone: 06-15-2020 19:03-0400 Pulse Oximetry 97 % [facility] Work Phone: 06-15-2020 19:03-0400 Respiratory Rate 14 /min [facility] Work Phone: 06-15-2020 19:03-0400 SaO2% (BldA) [Mass fraction] 97 % [facility] Work Phone: [facility] Work Phone: 06-02-2020 17:27-0400 BMI (Body Mass Index) 22.9 kg/m2 [facility] Work Phone: 06-02-2020 17:27-0400 Body Temperature 97.1 [degF] [facility] Work Phone: 06-02-2020 17:27-0400 Body weight 70.22 kg [facility] Work Phone: 06-02-2020 17:27-0400 BP Diastolic 82 mm[Hg] [facility] Work Phone: 06-02-2020 17:27-0400 BP Systolic 134 mm[Hg] [facility] Work Phone: 06-02-2020 17:27-0400 BSA (Body Surface Area) 1.85 m2 [facility] Work Phone: 06-02-2020 17:27-0400 Height 175.26 cm [facility] Work Phone: 06-02-2020 17:27-0400 Pulse (Heart Rate) 68 /min [facility] Work Phone: 06-02-2020 17:27-0400 Pulse Oximetry 98 % [facility] Work Phone: 06-02-2020 17:27-0400 SaO2% (BldA) [Mass fraction] 98 % [facility] Work Phone: [facility] Work Phone: 05-27-2020 18:22-0400 Body Temperature 97.6 [degF] [facility] Work Phone: 05-27-2020 18:22-0400 BP Diastolic 104 mm[Hg] [facility] Work Phone: 05-27-2020 18:22-0400 BP Systolic 138 mm[Hg] [facility] Work Phone: 05-27-2020 18:22-0400 Pulse (Heart Rate) 78 /min [facility] Work Phone: 05-27-2020 18:22-0400 Pulse Oximetry 98 % [facility] Work Phone: 05-27-2020 18:22-0400 SaO2% (BldA) [Mass fraction] 98 % [facility] Work Phone: [facility] Work Phone: 05-27-2020 18:18-0400 BMI (Body Mass Index) 22.7 kg/m2 [facility] Work Phone: 05-27-2020 18:18-0400 Body weight 69.85 kg [facility] Work Phone: 05-27-2020 18:18-0400 BSA (Body Surface Area) 1.85 m2 [facility] Work Phone: 05-27-2020 18:18-0400 Height 175.26 cm [facility] Work Phone: 05-18-2020 11:54-0400 BP Diastolic 96 mm[Hg] [facility] Work Phone: 05-18-2020 11:54-0400 BP Systolic 134 mm[Hg] [facility] Work Phone: 05-18-2020 11:18-0400 Body Temperature 98.4 [degF] [facility] Work Phone: 05-18-2020 11:18-0400 BP Diastolic 108 mm[Hg] [facility] Work Phone: 05-18-2020 11:18-0400 BP Systolic 148 mm[Hg] Nick Escobar [facility] Work Phone: 05-18-2020 11:18-0400 Pulse (Heart Rate) 111 /min Nick Escobar [facility] Work Phone: 05-18-2020 11:18-0400 Pulse Oximetry 98 % [facility] Work Phone: 05-18-2020 11:18-0400 SaO2% (BldA) [Mass fraction] 98 % Nick Escobar DIRECTOR [employer] Work Phone: [facility] Work Phone: 05-18-2020 11:07-0400 BMI (Body Mass Index) 22.9 kg/m2 Nick [facility] Work Phone: 05-18-2020 11:07-0400 Body weight 70.4 kg [facility] Work Phone: 05-18-2020 11:07-0400 BSA (Body Surface Area) 1.85 m2 [facility] Work Phone: 05-18-2020 11:07-0400 Height 175.26 cm [facility] Work Phone: Encounters Encounter Date Encounter Type Care Provider Facility Start: 09-03-2024 End: 09-03-2024 ambulatory Nick Escoabr DIRECTOR [employer] Work Phone: [facility] Work Phone: Start: 09-03-2024 End: 09-03-2024 [facility] visit, estab pt Ilana Bautista [employer] Work Phone: [facility] Work Phone: Start: 03-31-2024 End: 03-31-2024 [facility] visit, estab pt Ilana Bautista [employer] Work Phone: [facility] Work Phone: Start: 03-31-2024 End: 03-31-2024 Patient encounter procedure Nick Escobar DIRECTOR [employer] Work Phone: [facility] Work Phone: Start: 03-31-2024 End: 03-31-2024 [facility] visit, estab pt Ilana Bautista [employer] Work Phone: [facility] Work Phone: Start: 03-31-2024 End: 03-31-2024 ambulatory Ksenia Kilpatrick DIRECTOR [employer] Work Phone: [facility] Work Phone: Start: 12-26-2023 End: 12-26-2023 Patient encounter procedure Nick Escobar DIRECTOR [employer] Work Phone: [facility] Work Phone: Start: 12-26-2023 End: 12-26-2023 [facility] visit, estab pt Ilana Bautista [employer] Work Phone: [facility] Work Phone: Start: 12-26-2023 End: 12-26-2023 Encounter for preprocedural laboratory examination Nick Escobar DIRECTOR [employer] Work Phone: [facility] Work Phone: Start: 12-26-2023 End: 12-26-2023 [facility] visit, estab pt Nick Bernabeer DIRECTOR [employer] Work Phone: [facility] Work Phone: Start: 11-23-2023 End: 11-23-2023 [facility] visit, estab pt Ilana Bautista [employer] Work Phone: [facility] Work Phone: Start: 11-23-2023 End: 11-23-2023 [facility] visit, estab pt Ilana Bautista [employer] Work Phone: [facility] Work Phone: Start: 07-09-2023 End: 07-12-2023 ambulatory Ksenia Kilpatrick DIRECTOR [employer] Work Phone: [facility] Work Phone: Start: 01-05-2023 End: 01-05-2023 [facility] visit, estab pt Nick Shawn DIRECTOR [employer] Work Phone: [facility] Work Phone: Start: 11-24-2022 End: 11-24-2022 [facility] visit, estab pt Tana Galindo LPCC-S Work Phone: [facility] Work Phone: Start: 10-26-2022 End: 10-26-2022 [facility] visit, estab pt Tana Galindo LPCC-S Work Phone: [facility] Work Phone: Start: 10-26-2022 End: 10-26-2022 [facility] visit, estab pt Nick Shawn DIRECTOR [employer] Work Phone: [facility] Work Phone: Start: 08-29-2021 End: 08-29-2021 [facility] visit, estab pt Jenelle Lesters LPCC-S Work Phone: [facility] Work Phone: Start: 08-29-2021 End: 08-29-2021 [facility] visit, estab pt Nick Shawn DIRECTOR [employer] Work Phone: [facility] Work Phone: Start: 08-29-2021 End: 08-29-2021 General Jenelle Lesters LPCC-S Work Phone: [facility] Work Phone: Start: 06-20-2021 End: 06-20-2021 ambulatory ALYSE RICHARD Facility: Start: 03-22-2021 End: 03-22-2021 General Radha WILEY Work Phone: [facility] Work Phone: Start: 03-22-2021 End: 03-22-2021 Telemedicine consultation with patient Nick Escobar ELMER Work Phone: [facility] Work Phone: Start: 01-20-2021 End: 01-20-2021 [facility] visit, estab pt Nick Escobar ELMER Work Phone: [facility] Work Phone: Start: 12-15-2020 End: 12-15-2020 Established patient Jenelle Moya Work Phone: [facility] Work Phone: Start: 12-15-2020 End: 12-15-2020 Established patient Ksenia Kilpatrick Work Phone: [facility] Work Phone: Start: 12-02-2020 End: 12-03-[address] [facility] Facility:[facility] Start: 11-24-2020 End: 11-24-2020 Subsequent hospital visit by physician Nick STWEART Laboratory Comment on above: Frequency of urinati on Start: 10-13-2020 End: 10-13-2020 Patient encounter procedure Nick Escobar Work Phone: [facility] Work Phone: Start: 10-13-2020 End: 10-13-2020 Subsequent hospital visit by physician Nick STEWART Laboratory Comment on above: Prostatitis, chronic Start: 09-29-2020 End: 09-29-2020 Established patient Radha Macias Work Phone: [facility] Work Phone: Start: 09-29-2020 End: 09-29-2020 Established patient Nick Shawn Work Phone: [facility] Work Phone: Start: 09-10-2020 End: 09-10-2020 Established patient Radha Short Work Phone: [facility] Work Phone: Start: 08-27-2020 End: 08-28-2020 Patient encounter procedure NICK ESCOBAR [facility] Start: 08-27-2020 End: 08-27-2020 Established patient Radha Short Work Phone: [facility] Work Phone: Start: 08-27-2020 End: 08-27-2020 Subsequent hospital visit by physician CLINT BIGGS [facility] Start: 08-27-2020 End: 09-10-2020 Established patient Nick Escobar Work Phone: [facility] Work Phone: Start: 08-13-2020 End: 08-13-2020 Established patient Radha Macias Work Phone: [facility] Work Phone: Start: 08-13-2020 End: 08-13-2020 Established patient Nick Escobar Work Phone: [facility] Work Phone: Start: 06-15-2020 End: 06-15-2020 Established patient Nick Escobar Work Phone: [facility] Work Phone: Start: 06-02-2020 End: 06-02-2020 Established patient Nick Escobar Work Phone: [facility] Work Phone: Start: 05-27-2020 End: 05-27-2020 Established patient Radha Short Work Phone: [facility] Work Phone: Start: 05-27-2020 End: 05-27-2020 Established patient Nick Bernabeer Work Phone: [facility] Work Phone: Start: 05-18-2020 End: 05-19-2020 Patient encounter procedure NICK Nikos ESCOBAR [facility] Start: 05-18-2020 End: 05-18-2020 Subsequent hospital visit by physician CLINT BIGGS [facility] Start: 05-18-2020 End: 05-18-2020 Established patient Radha Macias Work Phone: [facility] Work Phone: Start: 05-18-2020 End: 05-18-2020 New patient Nick Escobar Work Phone: [facility] Work Phone: Start: 05-18-2020 End: 05-18-2020 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 Nick Shawn DIRECTOR [employer] Work Phone: [facility] Work Phone: Procedures Date Procedure Procedure Detail Performing Clinician Start: 09-03-2024 Behav assmt w/score & docd/stand instrument Ilana Bautista [employer] Work Phone: Start: 09-03-2024 Current tobacco non- user cad cap copd pv dm Nick Ecsobar DIRECTOR [employer] Work Phone: Start: 09-03-2024 Most recent diastol blood pres >/equal 90 mm hg Nick Escobar DIRECTOR [employer] Work Phone: Start: 09-03-2024 Most recent systolic blood pres>/equal 140 mm hg Nick Escobar [employer]OR [employer] Work Phone: Start: 03-31-2024 Behav assmt w/score & docd/stand instrument Ilana Bautista [employer] Work Phone: Start: 03-31-2024 Body mass index documented Ksenia Kilpatrick DIRECTOR [employer] Work Phone: Start: 03-31-2024 Current tobacco non- user cad cap copd pv dm Ksenia Kilpatrick DIRECTOR [employer] Work Phone: Start: 03-31-2024 Iaadiadoo streptococ cus group a Ksenia Kilpatrick DIRECTOR [employer] Work Phone: Start: 03-31-2024 Most recent diastoli c blood pressure 80-89 mm hg Ksenia Kilpatrick CNP Work Phone: Start: 03-31-2024 Most recent systolic blood pressure <130 mm hg Ksenia Kilpatrick DIRECTOR [employer] Work Phone: Start: 12-26-2023 Collection venous bl ood venipuncture Nick Escobar CNP Work Phone: Start: 12-26-2023 Current tobacco non- user cad cap copd pv dm Nick Bernabeer DIRECTOR [employer] Work Phone: Start: 12-26-2023 Most recent diastoli c blood pressure 80-89 mm hg Nick Shawn DIRECTOR [employer] Work Phone: Start: 12-26-2023 Most recent systolic blood press 130-139mm hg Nick Bernabeer DIRECTOR [employer] Work Phone: Start: 12-26-2023 Psychotherapy w/akanksha ent 30 minutes Ilana Bautista [employer] Work Phone: Start: 11-23-2023 Most recent diastoli c blood pressure 80-89 mm hg Nick Bernabeer DIRECTOR [employer] Work Phone: Start: 11-23-2023 Most recent systolic blood press 130-139mm hg Nick Escobar DIRECTOR [employer] Work Phone: Start: 11-23-2023 Psychotherapy w/akanksha ent 30 minutes Ilana Bautista [employer] Work Phone: Start: 07-09-2023 Most recent diastoli c blood pressure 80-89 mm hg Ksenia Tim DIRECTOR [employer] Work Phone: Start: 07-09-2023 Most recent systolic blood press 130-139mm hg Kseniamilan Kilpatrick DIRECTOR [employer] Work Phone: Start: 07-09-2023 Pt scrnd tobacco use rcvd tobacco cessation talk Ksenia Kilpatrick DIRECTOR [employer] Work Phone: Start: 01-05-2023 Most recent diastoli c blood pressure < 80 mm hg Nick Escobar DIRECTOR [employer] Work Phone: Start: 01-05-2023 Most recent systolic blood pressure <130 mm hg Nick Bernabeer DIRECTOR [employer] Work Phone: Start: 01-05-2023 Psychotherapy w/akanksha ent 30 minutes Tana Galindo LPCC-S Work Phone: Start: 11-24-2022 Most recent diastoli c blood pressure < 80 mm hg Nick Shawn DIRECTOR [employer] Work Phone: Start: 11-24-2022 Most recent systolic blood pressure <130 mm hg Nick Shawn DIRECTOR [employer] Work Phone: Start: 11-24-2022 Psychotherapy w/akanksha ent 30 minutes Tana Galindo LP[facility] Work Phone: Start: 10-26-2022 Most recent diastoli c blood pressure 80-89 mm hg Nick Shawn DIRECTOR [employer] Work Phone: Start: 10-26-2022 Most recent systolic blood pressure <130 mm hg Nick Shawn DIRECTOR [employer] Work Phone: Start: 10-26-2022 Psychotherapy w/akanksha ent 30 minutes Tana Galindo [facility] Work Phone: Start: 10-26-2022 Pt scrnd tobacco use rcvd tobacco cessation talk Nick Shawn DIRECTOR [employer] Work Phone: Start: 08-29-2021 Most recent diastoli c blood pressure < 80 mm hg Nick Shawn DIRECTOR [employer] Work Phone: Start: 08-29-2021 Most recent systolic blood pressure <130 mm hg Nick Shawn DIRECTOR [employer] Work Phone: Start: 03-22-2021 Psychotherapy w/akanksha ent 30 minutes Radha WILEY Work Phone: Start: 01-20-2021 Most recent diastoli c blood pressure < 80 mm hg Nick Shawn DIRECTOR [employer] Work Phone: Start: 01-20-2021 Most recent systolic blood pressure <130 mm hg Nick Shawn DIRECTOR [employer] Work Phone: Start: 12-15-2020 Diast bp <80 mm hg Ariana Monson Work Phone: Start: 12-15-2020 Psychotherapy w/akanksha ent 30 minutes Jenelle Moya Work Phone: Start: 12-15-2020 Syst bp lt 130 mm hg Franci Kilpatrick Work Phone: Start: 11-24-2020 Urnls dip stick/tabl et reagent auto microscopy Aundrea Robles Work Phone: Start: 10-13-2020 Urnls dip stick/tabl et reagent auto microscopy Mahamed Galeano Work Phone: Start: 09-29-2020 Diast bp 80-89 mm hg Ca ssie Shawn Work Phone: Start: 09-29-2020 Psychotherapy w/akanksha ent 30 minutes Radha Short Work Phone: Start: 09-29-2020 Syst bp ge 130 - 139mm hg Nick Shawn Work Phone: Start: 09-10-2020 Psychotherapy w/akanksha ent 30 minutes Radha Short Work Phone: Start: 08-27-2020 [object Object] Comment on above: The Tera ECLIA as say is used. Results obtained with different assay methods cannot be used interchangeably. Start: 08-27-2020 PSA screening NICK TA TAMIKO Start: 08-27-2020 PSA screening Nick L Shawn Work Phone: Start: 08-27-2020 Iaad ia hiv-1 ag w/h iv-1 & hiv-2 antbdy single Nick Shawn Work Phone: Start: 08-27-2020 Psychotherapy w/akanksha ent 30 minutes Radha Short Work Phone: Start: 08-13-2020 Psychotherapy w/akanksha ent 30 minutes Radha Short Work Phone: Start: 08-13-2020 Urnls dip stick/tabl et rgnt non-auto w/o micrscp Nick Shawn Work Phone: Start: 06-15-2020 Psychotherapy w/akanksha ent 30 minutes Radha Short Work Phone: Start: 05-27-2020 Psychotherapy w/akanksha ent 30 minutes Radha Short Work Phone: Start: 05-18-2020 ANXIETY DISORDER NOS Ca ssie Shawn Start: 05-18-2020 DEPRESSION Nick Tab er Start: 05-18-2020 History of influenza vaccination Nick Shawn Start: 05-18-2020 PSYCHIATRIC DISORDERS C assie Shawn Start: 05-18-2020 Psychotherapy w/akanksha ent 30 minutes Radha Short Work Phone: Start: 05-18-2020 Pt-focused hlth risk assmt score doc stnd instrm Nick Shawn Work Phone: Start: 05-18-2020 Surgical procedure Sharon ie Shawn Start: 05-18-2020 Assay of thyroid stimulating hormone tsh NICK SHAWN Start: 05-18-2020 Blood count complete auto&auto difrntl wbc NICK SHAWN Start: 05-18-2020 Comprehensive metabo lic panel NICK SHAWN Start: 05-18-2020 Lipid panel [facility] Start: 05-18-2020 Assay of thyroid stimulating hormone tsh Nick L Shawn Work Phone: Start: 05-18-2020 Blood count complete auto&auto difrntl wbc Nick L Shawn Work Phone: Start: 05-18-2020 Comprehensive metabo lic panel Nick L Shawn Work Phone: Start: 05-18-2020 Lipid panel Nick L T aber Work Phone: Plan of Treatment Date Care Activity Detail Author Start: 10-13-2024 FQHC visit, estab pt Medical E stablished Patient [facility] Work Phone: Start: 09-03-2024 End: 09-03-2024 Patient education based on identified need [facility] Start: 03-31-2024 End: 03-31-2024 Patient education based on identified need ~*BHP offered active and supportive listening, normalized emotions and feelings, and processed ~current stressors [facility] Start: 03-31-2024 End: 03-31-2024 Patient education based on identified need [facility] Start: 02-01-2024 FQHC visit, estab pt Medical E stablished Patient [facility] Work Phone: Start: 12-26-2023 FQHC visit, estab pt Medical E stablished Patient [facility] Work Phone: Start: 12-26-2023 End: 12-26-2023 Patient education based on identified need [facility] Start: 12-23-2023 CBC W Auto Different ial panel - Blood [facility] Start: 11-23-2023 End: 11-23-2023 Patient education based on identified need [facility] Start: 07-09-2023 Admission to [facility] General Surgery [facility] Work Phone: Comment on above: Note: Please make a referral to: Start: 07-09-2023 End: 07-09-2023 Patient education based on identified need [facility] Start: 04-13-2023 FQHC visit, estab pt Medical E stablished Patient [facility] Work Phone: Start: 01-05-2023 FQHC visit, estab pt Medical E stablished Patient [facility] Work Phone: Start: 01-05-2023 End: 01-05-2023 Patient education based on identified need [facility] Start: 11-24-2022 FQHC visit, estab pt Medical E stablished Patient [facility] Work Phone: Start: 11-24-2022 End: 11-24-2022 Patient education based on identified need [facility] Start: 10-26-2022 End: 10-26-2022 Patient education based on identified need [facility] Start: 08-29-2021 End: 08-29-2021 Patient education based on identified need [facility] Start: 03-22-2021 End: 03-22-2021 Patient education based on identified need [facility] provided active listening, support and helped patient process through current symptoms and stressors due to patient not feeling well currently. ~[facility] reminded patient of importance of taking medications daily as prescribed and following up with scheduled psychiatry visits [facility] Start: 12-22-2020 Medical [facility] Patient [facility] Work Phone: Start: 12-15-2020 End: 12-15-2020 Patient education based on identified need [facility] Start: 11-24-2020 End: 11-24-2020 Office Visit 11/24/2020 Office Visit Urology Lucian Guerrero MD [address], [address] [place] [address] [phone] [facility] Start: 10-13-2020 Medical [facility] Work Phone: Start: 10-08-2020 [employer] SPEC. [facility] Work Phone: Start: 09-29-2020 End: 09-29-2020 Patient education based on identified need [facility] provided active listening, support and helped patient process through current symptoms and stressors related to low moods and increased anxiety. ~[facility] discussed getting established with counseling and provided list of area resources. 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 Anne's office. ~[facility] discussed crisis resources should they be needed and provided list of resources including local resources as well as national text and phone hotlines. ~[facility] discussed coping skills to manage increased anxiety including deep breathing and mindfulness resources [facility] Start: 09-29-2020 [facility] Work Phone: Comment on above: Note: Please make a referral to: Start: 09-10-2020 End: 09-10-2020 Patient education based on identified need [facility] provided active listening, support and helped patient process through current symptoms and stressors related to increased anxiety/panic and its impact on daily functioning. ~P discussed patients effective coping skills and other tools that may be helpful and using technology to support these. ~[facility] discussed potential benefit of meeting with counselor and psychiatry to continue to work on anxiety and mood. ~ [facility] Start: 09-10-2020 Medical Establ ished Patient [facility] Work Phone: Start: 08-27-2020 End: 08-27-2020 Patient education based on identified need [facility] provided active listening, support and helped patient process through current symptoms and stressors related to increased anxiety and depression. ~[facility] discussed coping skills with patient to manage increased anxiety and went over breathing techniques, meditation and mindfulness activities. Patient reports that focusing on his breathing has been helpful in controlling anxiety. ~[facility] discussed the importance of establishing counseling and patient is willing and was given list of counseling resources. ~[facility]HP discussed importance of taking medications daily around the same time daily. BHP and PCP discussed importance of trying to go to work and do things to increase physical activity [facility] Start: 08-14-2020 Urinalysis Dip stick,In House [facility] Work Phone: Start: 08-13-2020 End: 08-13-2020 Patient education based on identified need [facility] provided active listening, support and helped patient process through current symptoms and stressors. ~[facility] discussed importance of medication compliance. [facility] encouraged patient to set reminders, utilizing pill organizer, etc to help remember to take medications regularly [facility] Start: 07-14-2020 Medical Establ ished Patient [facility] Work Phone: Start: 06-15-2020 End: 06-15-2020 Patient education based on identified need [facility] Start: 06-15-2020 [facility] Work Phone: Start: 06-02-2020 End: 06-02-2020 Patient education based on identified need [facility] Start: 05-27-2020 End: 05-27-2020 Patient education based on identified need [facility] Start: 05-25-2020 Influenza vaccination Flu vaccine (# 1) [place], [place] Start: 05-22-2020 Lipid 1996 panel [facility] Work Phone: Start: 05-18-2020 End: 05-18-2020 Patient education based on identified need [facility] ~[facility] offered active and supportive listening, normalized emotions and feelings, and processed current stressors related to increased anxiety and impact on work and daily life. ~[facility] discussed coping skills that patient can implement to manage increased anxiety including deep breathing and mindfulness. [facility] discussed identifying signs of increasing anxxiety and utilizing coping skills early [facility] Start: 05-18-2020 End: 05-18-2020 Patient education based on identified need [facility] Start: 2011 HIV screening HIV screen [place], [place] Start: 2007 DTaP/Tdap/Td vaccine (6 - Tdap) DTaP/Tdap/Td vaccine (6 - Tdap) [place], [place] Start: 2007 HPV vaccine (1 - Mal e 2-dose series) HPV vaccine (1 - Male 2-dose series) [place], [place] Start: 1997 Varicella vaccine (1 of 2 - 2-dose childhood series) Varicella vaccine (1 of 2 - 2-dose childhood series) [place], [place] Start: 1996 Hepatitis C screening Hepatitis C sc reen [place], [place] End: 11-24-2020 C.trachomatis N.gonorrhoeae DNA, Urine C.trachomatis N.gonorrhoeae DNA, Urine Microbiology Routine Frequency of urination 1 Occurrences starting 11/24/2020 until 11/24/2020 [facility] Fever Phone: Comment on above: 1 Occurrences starti ng 11/24/2020 until 11/24/2020 C.trachomatis N.gonorrhoeae DNA, Urine C.trachomatis N.gonorrhoeae DNA, Urine Microbiology Routine Frequency of urination 11/24/2020 4:53 PM EST [facility] [employer] Phone: End: 10-13-2020 Culture, Urine Culture, Urine Microbiology Routine Prostatitis, chronic 1 Occurrences starting 10/13/2020 until 10/13/2020 [place], [place] Comment on above: 1 Occurrences starti ng 10/13/2020 until 10/13/2020 Culture, Urine [place] End: 11-24-2020 Culture, Urine Culture, Urine Microbiology Routine Frequency of urination 1 Occurrences starting 11/24/2020 until 11/24/2020 [facility] Work Phone: Comment on above: 1 Occurrences starti ng 11/24/2020 until 11/24/2020 Immunizations Immunization Date Immunization Notes Care Provider Jame preciado 06-09-2002 diphtheria, tetanus toxoids and acellular pertussis vaccine Nick Shawn [employer] Work Phone: [facility] 06-09-2002 measles, mumps and rubella virus vaccine Nick Shawn [employer] Work Phone: [facility] 06-09-2002 poliovirus vaccine, inactivated Nick Shawn [employer] Work Phone: [facility] 12-24-1998 diphtheria, tetanus toxoids and acellular pertussis vaccine Nick Shawn [employer] Work Phone: [facility] 02-01-1998 trivalent poliovirus vaccine, live, oral Nick Shawn [employer] Work Phone: [facility] 10-08-1997 diphtheria, tetanus toxoids and acellular pertussis vaccine Nick Shawn [employer] Work Phone: [facility] 10-08-1997 hepatitis B vaccine, pediatric or pediatric/adolescent dosage Nick Shawn [employer] Work Phone: [facility] 10-08-1997 measles, mumps and rubella virus vaccine Nick Shawn [employer] Work Phone: [facility] 1997 diphtheria, tetanus toxoids and acellular pertussis vaccine Nick Shawn [employer] Work Phone: [facility] 1997 hepatitis B vaccine, pediatric or pediatric/adolescent dosage Nick Shawn [employer] Work Phone: [facility] 1997 poliovirus vaccine, inactivated Nick Shawn [employer] Work Phone: [facility] 01-19-1997 diphtheria, tetanus toxoids and acellular pertussis vaccine Nick Shawn [employer] Work Phone: [facility] 01-19-1997 hepatitis B vaccine, pediatric or pediatric/adolescent dosage Nick Escobar [employer] Work Phone: [facility] 01-19-1997 poliovirus vaccine, inactivated Nick Escobar [employer] Work Phone: [facility] Payers Date Payer Category Payer Unknown [id number] 1996 Unknown [id number] 1996 Unknown [id number] 1996 Unknown [id number] 1996 Unknown [id number] [id number] 1959 Unknown [id number] [id number] Social History Date Type Detail Facility Assertion Social drinker (finding) [facility] Sexually active (finding) [facility] Assertion [facility] Assertion Gender identity finding (finding) [facility] Finding of sexua l orientation (finding) [facility] Tobacco smoking status Unknown if ever smoked [facility] Work Phone: Assertion Emotional stress (finding) [facility] Lives with bereket nion (finding) [facility] Prescription of drug (procedure) [facility] Start: 10-13-2020 End: 11-24-2020 Tobacco smoking status NHIS Never smoker [place] Start: 10-13-2020 End: 11-24-2020 Tobacco use and exposure Never used [place], [place] Start: 10-13-2020 End: 11-24-2020 Alcohol intake Lifetime non-drinker (finding) [facility] Start: 10-13-2020 History SDOH Alcohol Frequency 1 [facility] Sex Assigned At Not on file [facility] Assertion Lives with spous e (finding) [facility] Assertion Full-time employ ment (finding) [facility] Assertion Family problems (finding) [facility] NEGATED: Highlighted row Assertion Exposure to pollution (event) [facility] NEGATED: Highlighted row Assertion Tobacco user (finding) [facility] NEGATED: Highlighted row Assertion Current drinker of alcohol (finding) [facility] NEGATED: Highlighted row Assertion Finding relating to drug misuse behavior (finding) [facility] NEGATED: Highlighted row Assertion [facility] NEGATED: Highlighted row Assertion Misuses drugs (finding) [facility] Mental Status Date Assessment Result Facility Cognitive function [facility] Work Phone: Clinical Notes 12-15-2020 to 09-04-2024 Note Date & Type Note Facility 09-04-2024 Instructions Includes: Instructions for all patient encounters ~*P offered active and sup portive listening, normalized emotions and feelings, and processed ~current stressors Last Documented On 4 3:24PM ; [facility] Discussed nutritional needs teach healthy choices including fruits and vegetables Last Documented On 4 3:03PM ; [facility] Patient education about a pr oper diet Last Documented On 4 3:03PM ; [facility] Discussed concerns about exe rcise : promote physical activity ~ ~Monitor blood pressure, call if remains elevated ~ ~Will start buspirone Last Documented On 4 8:48AM ; [facility] ~*[facility] offered active and sup portive listening, normalized emotions and feelings, and processed ~current stressors Last Documented On 4 5:18PM ; [facility] Discussed nutritional needs teach healthy choices including fruits and vegetables Last Documented On 4 10:44AM ; [facility] Patient education about a pr oper diet Last Documented On 4 10:44AM ; [facility] Discussed concerns about exe rcise : promote physical activity Last Documented On 4 10:44AM ; [facility] *[facility] offered active and supp ortive listening, normalized emotions and feelings, and processed ~current stressors. ~*Educated patient on the benefit of counseling and provided patient with a list of resources Last Documented On 4 12:12PM ; [facility] Discussed nutritional needs teach healthy choices including fruits and vegetables Last Documented On 4 8:25AM ; [facility] Patient education about a pr oper diet Last Documented On 4 8:25AM ; [facility] Discussed concerns about exe rcise : promote physical activity ~ ~Follow up in one month ~ ~ will call in one week Last Documented On 4 9:57AM ; [facility] *[facility] offered active and supp ortive listening, normalized emotions and feelings, and processed ~current stressors. ~*Discussed calming coping strategies that patient can utilize Last Documented On 4 6:39PM ; [facility] Discussed nutritional needs teach healthy choices including fruits and vegetables Last Documented On 4 2:53PM ; [facility] Patient education about a pr oper diet Last Documented On 4 2:53PM ; [facility] Discussed concerns about exe rcise : promote physical activity ~ ~Schedule appt with Dr Anne ~ ~ will call in 2 weeks ~ ~Follow up in office in 1 month ~ ~Will send ativan dose in 1 week prior to flight Last Documented On 4 9:00AM ; [facility] Discussed nutritional needs teach healthy choices including fruits and vegetables Last Documented On 3 1:32PM ; [facility] Patient education about a pr oper diet Last Documented On 3 1:32PM ; [facility] Discussed concerns about exe rcise : promote physical activity Last Documented On 3 1:32PM ; [facility] provided active listenin g and reflective feedback; monitored mood; assessed symptoms, and functioning. ~Offered pt space to process though current symptoms and stressor(s); explored effectiveness of medication, coping mechanisms, and self-care practices. ~Encouraged use, as needed Last Documented On 3 6:55AM ; [facility] Discussed nutritional needs teach healthy choices including fruits and vegetables Last Documented On 3 8:38AM ; [facility] Patient education about a pr oper diet Last Documented On 3 8:38AM ; [facility] Discussed concerns about exe rcise : promote physical activity ~ ~Follow up in three months Last Documented On 3 9:05AM ; [facility] provided active listenin g, support and helped pt process though current symptoms and stressor(s); discussed effectiveness of medication, coping mechanisms, self-care practices, and sources for positive support Last Documented On 3 5:44PM ; [facility] Discussed nutritional needs teach healthy choices including fruits and vegetables Last Documented On 3 8:47AM ; [facility] Patient education about a pr oper diet Last Documented On 3 8:47AM ; [facility] Discussed concerns about exe rcise : promote physical activity ~ ~Will stop hydroxyzine and start trazodone Last Documented On 3 9:05AM ; [facility] provided active listenin g, support and helped pt process though current symptoms and stressor(s); explored ssues of grief/loss; promoted benefits of counseling, effectiveness of medication, use of coping mechanisms, self-care practices, and support system Last Documented On 3 9:07AM ; [facility] Reviewed side effects and Ri sks/Benefits analysis Last Documented On 3 9:07AM ; [facility] Discussed nutritional needs teach healthy choices including fruits and vegetables Last Documented On 3 8:52AM ; [facility] Patient education about a pr oper diet Last Documented On 3 8:52AM ; [facility] Discussed concerns about exe rcise : promote physical activity Last Documented On 3 8:52AM ; [facility] Discussed nutritional needs teach healthy choices including fruits and vegetables Last Documented On 1 12:11PM ; [facility] Patient education about a pr oper diet Last Documented On 1 12:11PM ; [facility] Inquiry and counseling about medication administration and compliance Last Documented On 1 1:57PM ; [facility] Discussed concerns about exe rcise : promote physical activity Last Documented On 1 12:11PM ; [facility] Patient goals discussed Last Documented On 1 1:57PM ; [facility] provided active listenin g, support and helped patient process through current symptoms and stressors due to patient not feeling well currently. [facility] reminded patient of importance of taking medications daily as prescribed and following up with scheduled psychiatry visits Last Documented On 1 9:59PM ; [facility] Explored current self-care m ethods (eg.,fixing up the house ) and encouraged patient to continue using them. ~ Last Documented On 1 10:48PM ; [facility] Discussed nutritional needs teach healthy choices including fruits and vegetables Last Documented On 1 5:48PM ; [facility] Patient education about a pr oper diet Last Documented On 1 5:48PM ; [facility] Discussed concerns about exe rcise : promote physical activity Last Documented On 1 5:48PM ; [facility] provided active listenin g, support and helped patient process through current symptoms and stressors related to low moods and increased anxiety. [facility] discussed getting established with counseling and provided list of area resources. 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 Anne's office. [facility] discussed crisis resources should they be needed and provided list of resources including local resources as well as national text and phone hotlines. [facility] discussed coping skills to manage increased anxiety including deep breathing and mindfulness resources Last Documented On 1 4:59PM ; [facility] provided active listenin g, support and helped patient process through current symptoms and stressors related to increased anxiety/panic and its impact on daily functioning. [facility] discussed patients effective coping skills and other tools that may be helpful and using technology to support these. [facility] discussed potential benefit of meeting with counselor and psychiatry to continue to work on anxiety and mood. ~ Last Documented On 0 12:31PM ; [facility] provided active listenin g, support and helped patient process through current symptoms and stressors related to increased anxiety and depression. ~P discussed coping skills with patient to manage increased anxiety and went over breathing techniques, meditation and mindfulness activities. Patient reports that focusing on his breathing has been helpful in controlling anxiety. ~P discussed the importance of establishing counseling and patient is willing and was given list of counseling resources. ~P discussed importance of taking medications daily around the same time daily. BHP and PCP discussed importance of trying to go to work and do things to increase physical activity Last Documented On 0 10:21AM ; [facility] provided active listenin g, support and helped patient process through current symptoms and stressors. ~P discussed importance of medication compliance. [facility] encouraged patient to set reminders, utilizing pill organizer, etc to help remember to take medications regularly Last Documented On 0 4:55PM ; [facility] offered active and suppo rtive listening, normalized emotions and feelings, and processed current stressors. ~P praised patient for taking medications and working to find coping skills that work for him. Patient is not interested in attending therapy services at this time. ~[facility] discussed strategies that can help patient to remember to take medications daily such as phone reminders or establishing a new routine of taking them before work, etc Last Documented On 0 2:23PM ; [facility] Patient education about a pr oper diet Last Documented On 0 7:47PM ; [facility] Inquiry and counseling about medication administration and compliance Last Documented On 0 7:47PM ; [facility] Patient goals discussed Last Documented On 0 7:47PM ; [facility] Patient education about a pr oper diet Last Documented On 0 7:41PM ; [facility] Inquiry and counseling about medication administration and compliance Last Documented On 0 7:41PM ; [facility] Patient goals discussed Last Documented On 0 7:41PM ; [facility] provided active listenin g, support and helped patient process through current symptoms and stressors. ~P reviewed coping skills with patient including breathing methods and demonstrated to patient. Patient was encouraged to utilize music and coping skills during breaks to help prevent or reduce anxiety during specific time period reported Last Documented On 0 6:54PM ; [facility] Patient education about a pr oper diet Last Documented On 0 9:59AM ; [facility] Inquiry and counseling about medication administration and compliance Last Documented On 0 9:59AM ; [facility] Patient goals discussed Last Documented On 0 9:59AM ; [facility] introduced patient to [facility] integrated model of care. ~[facility] offered active and supportive listening, normalized emotions and feelings, and processed current stressors related to increased anxiety and impact on work and daily life. ~[facility] discussed coping skills that patient can implement to manage increased anxiety including deep breathing and mindfulness. [facility] discussed identifying signs of increasing anxxiety and utilizing coping skills early Last Documented On 0 8:44AM ; [facility] Patient education about a pr oper diet Last Documented On 0 11:08AM ; [facility] Discussed concerns about exe rcise : promote physical activity Last Documented On 0 11:08AM ; [facility] Work Phone: 1(775) 961-776312-12-2024 History general Narrative - Reported Includes: Medical History in patient's chart Description Last Updated No Safety Measures 09/04/2024 Last Documented On 4 3:24PM ; [facility] No prior surgery or no significant histo ry 12/26/2023 Last Documented On 4 9:58AM ; [facility] No previous hospitalizations 12/15/2020 Last Documented On 1 8:13PM ; [facility] History of anxiety disorder NOS 05/18/20 20 Last Documented On 0 6:40PM ; [facility] History of depression 05/18/2020 Last Documented On 0 6:40PM ; [facility] History of psychiatric disorders 020 Last Documented On 0 6:40PM ; [facility] A recent immunization for flu 05/18/2020 Last Documented On 0 6:40PM ; [facility] Work Phone: 1(320) 600-399112-12-2024 History general Narrative - Reported Includes: Medical History in patient's chart Description Last Updated No Safety Measures 09/04/2024 Last Documented On 4 3:24PM ; [facility] No prior surgery or no significant histo ry 12/26/2023 Last Documented On 4 9:58AM ; [facility] No previous hospitalizations 12/15/2020 Last Documented On 1 8:13PM ; [facility] History of anxiety disorder NOS 05/18/20 20 Last Documented On 0 6:40PM ; [facility] History of depression 05/18/2020 Last Documented On 0 6:40PM ; [facility] History of psychiatric disorders 020 Last Documented On 0 6:40PM ; [facility] A recent immunization for flu 05/18/2020 Last Documented On 0 6:40PM ; [facility] Work Phone: 1(499) 345-485712-11-2024 Instructions Includes: Instructions for all patient encounters Education and Decision Aids were provided during visit for: Discussed nutritional needs teach healthy choices including fruits and vegetables Last Documented On 4 3:03PM ; [facility] Patient education about a pr oper diet Last Documented On 4 3:03PM ; [facility] Discussed concerns about exe rcise : promote physical activity ~ ~Monitor blood pressure, call if remains elevated ~ ~Will start buspirone Last Documented On 4 8:48AM ; [facility] ~*[facility] offered active and sup portive listening, normalized emotions and feelings, and processed ~current stressors Last Documented On 4 5:18PM ; [facility] Discussed nutritional needs teach healthy choices including fruits and vegetables Last Documented On 4 10:44AM ; [facility] Patient education about a pr oper diet Last Documented On 4 10:44AM ; [facility] Discussed concerns about exe rcise : promote physical activity Last Documented On 4 10:44AM ; [facility] *[facility] offered active and supp ortive listening, normalized emotions and feelings, and processed ~current stressors. ~*Educated patient on the benefit of counseling and provided patient with a list of resources Last Documented On 4 12:12PM ; [facility] Discussed nutritional needs teach healthy choices including fruits and vegetables Last Documented On 4 8:25AM ; [facility] Patient education about a pr oper diet Last Documented On 4 8:25AM ; [facility] Discussed concerns about exe rcise : promote physical activity ~ ~Follow up in one month ~ ~ will call in one week Last Documented On 4 9:57AM ; [facility] *[facility] offered active and supp ortive listening, normalized emotions and feelings, and processed ~current stressors. ~*Discussed calming coping strategies that patient can utilize Last Documented On 4 6:39PM ; [facility] Discussed nutritional needs teach healthy choices including fruits and vegetables Last Documented On 4 2:53PM ; [facility] Patient education about a pr oper diet Last Documented On 4 2:53PM ; [facility] Discussed concerns about exe rcise : promote physical activity ~ ~Schedule appt with Dr Anne ~ ~ will call in 2 weeks ~ ~Follow up in office in 1 month ~ ~Will send ativan dose in 1 week prior to flight Last Documented On 4 9:00AM ; [facility] Discussed nutritional needs teach healthy choices including fruits and vegetables Last Documented On 3 1:32PM ; [facility] Patient education about a pr oper diet Last Documented On 3 1:32PM ; [facility] Discussed concerns about exe rcise : promote physical activity Last Documented On 3 1:32PM ; [facility] provided active listenin g and reflective feedback; monitored mood; assessed symptoms, and functioning. ~Offered pt space to process though current symptoms and stressor(s); explored effectiveness of medication, coping mechanisms, and self- care practices. ~Encouraged use, as needed Last Documented On 3 6:55AM ; [facility] Discussed nutritional needs teach healthy choices including fruits and vegetables Last Documented On 3 8:38AM ; [facility] Patient education about a pr oper diet Last Documented On 3 8:38AM ; [facility] Discussed concerns about exe rcise : promote physical activity ~ ~Follow up in three months Last Documented On 3 9:05AM ; [facility] provided active listenin g, support and helped pt process though current symptoms and stressor(s); discussed effectiveness of medication, coping mechanisms, self- care practices, and sources for positive support Last Documented On 3 5:44PM ; [facility] Discussed nutritional needs teach healthy choices including fruits and vegetables Last Documented On 3 8:47AM ; [facility] Patient education about a pr oper diet Last Documented On 3 8:47AM ; [facility] Discussed concerns about exe rcise : promote physical activity ~ ~Will stop hydroxyzine and start trazodone Last Documented On 3 9:05AM ; [facility] provided active listenin g, support and helped pt process though current symptoms and stressor(s); explored ssues of grief/loss; promoted benefits of counseling, effectiveness of medication, use of coping mechanisms, self-care practices, and support system Last Documented On 3 9:07AM ; [facility] Reviewed side effects and Ri sks/Benefits analysis Last Documented On 3 9:07AM ; [facility] Discussed nutritional needs teach healthy choices including fruits and vegetables Last Documented On 3 8:52AM ; [facility] Patient education about a pr oper diet Last Documented On 3 8:52AM ; [facility] Discussed concerns about exe rcise : promote physical activity Last Documented On 3 8:52AM ; [facility] Discussed nutritional needs teach healthy choices including fruits and vegetables Last Documented On 1 12:11PM ; [facility] Patient education about a pr oper diet Last Documented On 1 12:11PM ; [facility] Inquiry and counseling about medication administration and compliance Last Documented On 1 1:57PM ; [facility] Discussed concerns about exe rcise : promote physical activity Last Documented On 1 12:11PM ; [facility] Patient goals discussed Last Documented On 1 1:57PM ; [facility] provided active listenin g, support and helped patient process through current symptoms and stressors due to patient not feeling well currently. [facility] reminded patient of importance of taking medications daily as prescribed and following up with scheduled psychiatry visits Last Documented On 1 9:59PM ; [facility] Explored current self-care m ethods (eg.,fixing up the house ) and encouraged patient to continue using them. ~ Last Documented On 1 10:48PM ; [facility] Discussed nutritional needs teach healthy choices including fruits and vegetables Last Documented On 1 5:48PM ; [facility] Patient education about a pr oper diet Last Documented On 1 5:48PM ; [facility] Discussed concerns about exe rcise : promote physical activity Last Documented On 1 5:48PM ; [facility] provided active listenin g, support and helped patient process through current symptoms and stressors related to low moods and increased anxiety. [facility] discussed getting established with counseling and provided list of area resources. 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 Anne's office. [facility] discussed crisis resources should they be needed and provided list of resources including local resources as well as national text and phone hotlines. [facility] discussed coping skills to manage increased anxiety including deep breathing and mindfulness resources Last Documented On 1 4:59PM ; [facility] provided active listenin g, support and helped patient process through current symptoms and stressors related to increased anxiety/panic and its impact on daily functioning. [facility] discussed patients effective coping skills and other tools that may be helpful and using technology to support these. [facility] discussed potential benefit of meeting with counselor and psychiatry to continue to work on anxiety and mood. ~ Last Documented On 0 12:31PM ; [facility] provided active listenin g, support and helped patient process through current symptoms and stressors related to increased anxiety and depression. ~P discussed coping skills with patient to manage increased anxiety and went over breathing techniques, meditation and mindfulness activities. Patient reports that focusing on his breathing has been helpful in controlling anxiety. ~P discussed the importance of establishing counseling and patient is willing and was given list of counseling resources. ~P discussed importance of taking medications daily around the same time daily. [facility] and PCP discussed importance of trying to go to work and do things to increase physical activity Last Documented On 0 10:21AM ; [facility] provided active listenin g, support and helped patient process through current symptoms and stressors. ~P discussed importance of medication compliance. [facility] encouraged patient to set reminders, utilizing pill organizer, etc to help remember to take medications regularly Last Documented On 0 4:55PM ; [facility] offered active and suppo rtive listening, normalized emotions and feelings, and processed current stressors. ~P praised patient for taking medications and working to find coping skills that work for him. Patient is not interested in attending therapy services at this time. ~[facility] discussed strategies that can help patient to remember to take medications daily such as phone reminders or establishing a new routine of taking them before work, etc Last Documented On 0 2:23PM ; [facility] Patient education about a pr oper diet Last Documented On 0 7:47PM ; [facility] Inquiry and counseling about medication administration and compliance Last Documented On 0 7:47PM ; [facility] Patient goals discussed Last Documented On 0 7:47PM ; [facility] Patient education about a pr oper diet Last Documented On 0 7:41PM ; [facility] Inquiry and counseling about medication administration and compliance Last Documented On 0 7:41PM ; [facility] Patient goals discussed Last Documented On 0 7:41PM ; [facility] provided active listenin g, support and helped patient process through current symptoms and stressors. ~P reviewed coping skills with patient including breathing methods and demonstrated to patient. Patient was encouraged to utilize music and coping skills during breaks to help prevent or reduce anxiety during specific time period reported Last Documented On 0 6:54PM ; [facility] Patient education about a pr oper diet Last Documented On 0 9:59AM ; [facility] Inquiry and counseling about medication administration and compliance Last Documented On 0 9:59AM ; [facility] Patient goals discussed Last Documented On 0 9:59AM ; [facility] introduced patient to [facility] integrated model of care. ~[facility] offered active and supportive listening, normalized emotions and feelings, and processed current stressors related to increased anxiety and impact on work and daily life. ~[facility] discussed coping skills that patient can implement to manage increased anxiety including deep breathing and mindfulness. [facility] discussed identifying signs of increasing anxxiety and utilizing coping skills early Last Documented On 0 8:44AM ; [facility] Patient education about a pr oper diet Last Documented On 0 11:08AM ; [facility] Discussed concerns about exe rcise : promote physical activity Last Documented On 0 11:08AM ; [facility] Work Phone: 1(234) 330-881912-11-2024 Evaluation note Includes: Assessments for all patient encounters Findings Encounter Date Assessment of body mass index Open Acces s - Established with Nick Escobar CNP 09/03/2024 Last Documented On 4 8:48AM ; [facility] Generalized anxiety disorder Open Access - Established with Nick Escobar CNP 09/03/2024 Last Documented On 4 8:48AM ; [facility] Moderate major depression, s nicolasa episode Open Access - Established with Nick Escobar CNP 09/03/2024 Last Documented On 4 8:48AM ; [facility] Generalized anxiety disorder Established Akanksha ent with Ilana PALMA 03/31/2024 Last Documented On 4 5:20PM ; [facility] Moderate major depression, s nicolasa episode Established Patient with Ilana BUENOW 03/31/2024 Last Documented On 4 5:20PM ; [facility] Nicotine dependence Established Patient with Ilana Bautista [employer] 03/31/2024 Last Documented On 4 5:20PM ; [facility] [Z68.27 - Body mass index [B LA] 27.0-27.9, adult] assessment of body mass index Open Access - Established with Ksenia Kilpatrick [employer] 03/31/2024 Last Documented On 4 4:23PM ; [facility] Acute sore throat Open Access - Established with Ksenia Kilpatrick [employer] 03/31/2024 Last Documented On 4 4:23PM ; [facility] Assessment of BMI Percentile = 5% to < 85% for age Z68.52 Open Access - Established with Ksenia iKlpatrick [employer] 03/31/2024 Last Documented On 4 4:23PM ; [facility] Nicotine dependence Open Access - Established wi th Ksenia Kilpatrick [employer] 03/31/2024 Last Documented On 4 4:23PM ; [facility] Generalized anxiety disorder Established Akanksha ent with Ilana Bautista [employer] 12/26/2023 Last Documented On 4 12:17PM ; [facility] Moderate major depression, s nicolasa episode Established Patient with Ilana Bautista [employer] 12/26/2023 Last Documented On 4 12:17PM ; [facility] Nicotine dependence Established Patient with Ilana Bautista [employer] 12/26/2023 Last Documented On 4 12:17PM ; [facility] [Body mass index [BMI] 27.0- 27.9, adult] assessment of body mass index Medical Established Patient with Nick Shawn [employer] 12/26/2023 Last Documented On 4 9:58AM ; [facility] Generalized anxiety disorder Medical Est ablished Patient with Nick Shawn [employer] 12/26/2023 Last Documented On 4 9:58AM ; [facility] Moderate major depression, s nicolasa episode Medical Established Patient with Nick Shawn [employer] 12/26/2023 Last Documented On 4 9:58AM ; [facility] Venipuncture was performed Medical Estab lished Patient with Nick Shawn [employer] 12/26/2023 Last Documented On 4 9:58AM ; [facility] Generalized anxiety disorder BH Established Akanksha ent with Ilana Bautista [employer] 11/23/2023 Last Documented On 4 6:43PM ; [facility] Moderate major depression, s nicolasa episode BH Established Patient with Ilana Bautista [employer] 11/23/2023 Last Documented On 4 6:43PM ; [facility] [Body mass index [BMI] 27.0- 27.9, adult] assessment of body mass index Medical Established Patient with Nick Shawn [employer] 11/23/2023 Last Documented On 4 9:00AM ; [facility] Diabetes Risk Test Score was two score 11/23/2023 Medical Established Patient with Nick Shawn [employer] 11/23/2023 Last Documented On 4 9:00AM ; [facility] Generalized anxiety disorder Medical Est ablished Patient with Nick Shawn [employer] 11/23/2023 Last Documented On 4 9:00AM ; [facility] Moderate major depression, s nicolasa episode Medical Established Patient with Nick Shawn [employer] 11/23/2023 Last Documented On 4 9:00AM ; [facility] [N50.811 - Right testicular pain] pain of the right testis Open Access - Established with Ksenia Kilpatrick [facility] 07/09/2023 Last Documented On 3 9:35AM ; [facility] [Z68.25 - Body mass index [B LA] 25.0-25.9, adult] assessment of body mass index Open Access - Established with Ksenia Kilpatrick [employer] 07/09/2023 Last Documented On 3 9:35AM ; [facility] Generalized anxiety disorder Open Access - Established with Ksenia Kilpatrick [employer] 07/09/2023 Last Documented On 3 9:35AM ; [facility] Moderate major depression, s nicolasa episode Open Access - Established with Ksenia Kilpatrick [employer] 07/09/2023 Last Documented On 3 9:35AM ; [facility] Nicotine dependence Open Access - Established wi th Ksenia Kilpatrick [employer] 07/09/2023 Last Documented On 3 9:35AM ; [facility] Generalized anxiety disorder BH Establis hed Patient with Tana Galindo LPCC-S 01/05/2023 Last Documented On 3 6:55AM ; [facility] [Body mass index [BMI] 23.0- 23.9, adult] assessment of body mass index Medical Established Patient with Nick Shawn [employer] 01/05/2023 Last Documented On 3 9:05AM ; [facility] Generalized anxiety disorder Medical Est ablished Patient with Nick Shawn [employer] 01/05/2023 Last Documented On 3 9:05AM ; [facility] Moderate major depression, s nicolasa episode Medical Established Patient with Nick Shawn [employer] 01/05/2023 Last Documented On 3 9:05AM ; [facility] Major depression, single episode BH Esta blished Patient with Tana Galindo LPCC-S 11/24/2022 Last Documented On 3 5:46PM ; [facility] [Body mass index [BMI] 23.0- 23.9, adult] assessment of body mass index Medical Established Patient with Nick Shawn [employer] 11/24/2022 Last Documented On 3 9:05AM ; [facility] Generalized anxiety disorder Medical Est ablished Patient with Nick Shawn [employer] 11/24/2022 Last Documented On 3 9:05AM ; [facility] Moderate major depression, s nicolasa episode Medical Established Patient with Nick Shawn [employer] 11/24/2022 Last Documented On 3 9:05AM ; [facility] Major depression, single episode BH Esta blished Patient with Tana Galindo LPCC-S 10/26/2022 Last Documented On 3 9:07AM ; [facility] Moderate major depression, s nicolasa episode BH Established Patient with Tana Galindo LPCC-S 10/26/2022 Last Documented On 3 9:07AM ; [facility] [Body mass index [BMI] 23.0- 23.9, adult] assessment of body mass index Medical Established Patient with Nick Shawn [employer] 10/26/2022 Last Documented On 3 9:54AM ; [facility] Diabetes Risk Test Score was 3.0 score 10/26/2022 Medical Established Patient with Nick Shawn [employer] 10/26/2022 Last Documented On 3 9:54AM ; [facility] Generalized anxiety disorder Medical Est ablished Patient with Nick Shawn [employer] 10/26/2022 Last Documented On 3 9:54AM ; [facility] Moderate major depression, s nicolasa episode Medical Established Patient with Nick Shawn [employer] 10/26/2022 Last Documented On 3 9:54AM ; [facility] Nicotine dependence Medical Established Patient with Nick Shawn [employer] 10/26/2022 Last Documented On 3 9:54AM ; [facility] Assessment of body mass inde x [Body mass index [BMI] 20.0-20.9, adult] Medical Established Patient with Nick Shawn [employer] 08/29/2021 Last Documented On 1 3:08PM ; [facility] Diabetes Risk Test Score was one score 08/29/2021 Medical Established Patient with Nick Shawn [employer] 08/29/2021 Last Documented On 1 3:08PM ; [facility] Generalized anxiety disorder Medical Est ablished Patient with Nick Shawn [employer] 08/29/2021 Last Documented On 1 3:08PM ; [facility] Moderate major depression, s nicolasa episode Medical Established Patient with Nick Shawn [employer] 08/29/2021 Last Documented On 1 3:08PM ; [facility] Mild recurrent major depression Teleb ehavioral Health with Radha Short LIS[facility] 03/22/2021 Last Documented On 1 9:59PM ; [facility] Panic disorder without agoraphobia Te lebehavioral Health with Radha Short LIS[facility] 03/22/2021 Last Documented On 1 9:59PM ; [facility] Acute pharyngitis Telemedicine Establisted Patie nt with Nick Shawn [employer] 03/22/2021 Last Documented On 1 12:34PM ; [facility] Acute sinusitis Medical Established Patient with Nick Shawn DIRECTOR [employer] 01/20/2021 Last Documented On 1 9:57AM ; [facility] Body mass index [Body mass i ndex [BMI] 20.0-20.9, adult] Medical Established Patient with Nick Shawn DIRECTOR [employer] 01/20/2021 Last Documented On 1 9:57AM ; [facility] Generalized anxiety disorder BH Establis hed Patient with Jenelleiza Coxmons LPCC-S 12/15/2020 Last Documented On 1 10:51PM ; [facility] Moderate major depression, s nicolasa episode Established Patient with Jenelle Moya LPCC-S 12/15/2020 Last Documented On 1 10:51PM ; [facility] Constipation Medical Established Patient with Ksenia Kilpatrick DIRECTOR [employer] 12/15/2020 Last Documented On 1 8:13PM ; [facility] Z68.20 - Body mass index [BM I] 20.0-20.9, adult Medical Established Patient with Ksenia Tim DIRECTOR [employer] 12/15/2020 Last Documented On 1 8:13PM ; [facility] Moderate recurrent major depression E stablished Patient with Radha Short LISWS 09/29/2020 Last Documented On 1 5:02PM ; [facility] Panic disorder without agoraphobia Es tablished Patient with Radha Short LISWS 09/29/2020 Last Documented On 1 5:02PM ; [facility] Body mass index [Body mass i ndex [BMI] 21.0-21.9, adult] Medical Established Patient with Nick Shawn DIRECTOR [employer] 09/29/2020 Last Documented On 1 10:45AM ; [facility] Generalized anxiety disorder Medical Est ablished Patient with Nick Shawn DIRECTOR [employer] 09/29/2020 Last Documented On 1 10:45AM ; [facility] Moderate major depression, s nicolasa episode Medical Established Patient with Nick Shawn DIRECTOR [employer] 09/29/2020 Last Documented On 1 10:45AM ; [facility] Mild recurrent major depression BH Estab lished Patient with Radha Short LISWS 09/10/2020 Last Documented On 0 12:31PM ; [facility] Panic disorder without agoraphobia BH Es tablished Patient with Radha Short LISWS 09/10/2020 Last Documented On 0 12:31PM ; [facility] Body mass index Medical Established Patient with Nick Shawn DIRECTOR [employer] 09/10/2020 Last Documented On 0 11:17AM ; [facility] Mild recurrent major depression Estab lished Patient with Radha Short LISWS 08/27/2020 Last Documented On 0 10:21AM ; [facility] Panic disorder without agoraphobia Es tablished Patient with Radha Short LISWS 08/27/2020 Last Documented On 0 10:21AM ; [facility] Body mass index [Body mass i ndex [BMI] 22.0-22.9, adult] Medical Established Patient with Nick Shawn DIRECTOR [employer] 08/27/2020 Last Documented On 0 8:00PM ; [facility] Generalized anxiety disorder Medical Est ablished Patient with Nick Shwan DIRECTOR [employer] 08/27/2020 Last Documented On 0 8:00PM ; [facility] Moderate major depression, s nicolasa episode Medical Established Patient with Nick Shawn DIRECTOR [employer] 08/27/2020 Last Documented On 0 8:00PM ; [facility] Depression Established Patient with Maura keyon Short LISWS 08/13/2020 Last Documented On 0 4:55PM ; [facility] Panic disorder without agoraphobia Es tablished Patient with Radha Short LISWS 08/13/2020 Last Documented On 0 4:55PM ; [facility] Depression Established Patient with Maura keyon Short LISWS 06/15/2020 Last Documented On 0 2:23PM ; [facility] Panic disorder without agoraphobia Es tablished Patient with Radha Short LISWS 06/15/2020 Last Documented On 0 2:23PM ; [facility] Depression Established Patient with Maura keyon Short LISWS 05/27/2020 Last Documented On 0 6:54PM ; [facility] Panic disorder without agoraphobia BH Es tablished Patient with Rdaha Short LISWS 05/27/2020 Last Documented On 0 6:54PM ; [facility] Depressive disorder BH Established Patient with Radha Short LISWS 05/18/2020 Last Documented On 0 8:46AM ; [facility] Panic disorder without agoraphobia BH Es tablished Patient with Radha Short LISWS 05/18/2020 Last Documented On 0 8:46AM ; [facility] Anxiety disorder NOS Medical New Patient with Ca ssie Shawn DIRECTOR [employer] 05/18/2020 Last Documented On 0 6:40PM ; [facility] Body mass index Medical New Patient with Nick Shawn DIRECTOR [employer] 05/18/2020 Last Documented On 0 6:40PM ; [facility] Depression Medical New Patient with Nick Shawn DIRECTOR [employer] 05/18/2020 Last Documented On 0 6:40PM ; [facility] Diabetes Risk Test Score was one score 05/18/2020 Medical New Patient with Nick Shawn DIRECTOR [employer] 05/18/2020 Last Documented On 0 6:40PM ; [facility] Routine history and physical Medical New Patient with Nick Shawn DIRECTOR [employer] 05/18/2020 Last Documented On 0 6:40PM ; [facility] Work Phone: 1(701) 568-478312-11-2024 Evaluation note Includes: Assessments for all patient encounters Findings Encounter Date Dependence on nicotine in to bacco product - uncomplicated Established Patient with Ilana Bautista [employer]ER INSTALLER 09/03/2024 Last Documented On 4 3:24PM ; [facility] Generalized anxiety disorder Established Akanksha ent with Ilana Bautista [employer]ER INSTALLER 09/03/2024 Last Documented On 4 3:24PM ; [facility] Moderate major depression, s nicolasa episode Established Patient with Ilana Bautista [employer] INST[employer]ER 09/03/2024 Last Documented On 4 3:24PM ; [facility] Assessment of body mass index Open Acces s - Established with Nick Escobar [facility] 09/03/2024 Last Documented On 4 8:48AM ; [facility] Generalized anxiety disorder Open Access - Established with Nick Escobar DIRECTOR [employer] 09/03/2024 Last Documented On 4 8:48AM ; [facility] Moderate major depression, s nicolasa episode Open Access - Established with Nick Shawn DIRECTOR [employer] 09/03/2024 Last Documented On 4 8:48AM ; [facility] Generalized anxiety disorder Established Akanksha ent with Ilanaariana Bautista [employer] INSTALLER 03/31/2024 Last Documented On 4 5:20PM ; [facility] Moderate major depression, s nicolasa episode BH Established Patient with Ilanaariana Bautista [employer] INST[employer]ER 03/31/2024 Last Documented On 4 5:20PM ; [facility] Nicotine dependence Established Patient with Ilanaariana Bautista [employer] INST[employer]ER 03/31/2024 Last Documented On 4 5:20PM ; [facility] [Z68.27 - Body mass index [B LA] 27.0-27.9, adult] assessment of body mass index Open Access - Established with Ksenia Kilpatrick [facility] 03/31/2024 Last Documented On 4 4:23PM ; [facility] Acute sore throat Open Access - Established with Ksenia Kilpatrick [facility] 03/31/2024 Last Documented On 4 4:23PM ; [facility] Assessment of BMI Percentile = 5% to < 85% for age Z68.52 Open Access - Established with Ksenia Kilpatrick [facility] 03/31/2024 Last Documented On 4 4:23PM ; [facility] Nicotine dependence Open Access - Established wi th Ksenia Kilpatrick [facility] 03/31/2024 Last Documented On 4 4:23PM ; [facility] Generalized anxiety disorder Established Akanksha ent with Ilanaariana Bautista [employer] INST[employer]ER 12/26/2023 Last Documented On 4 12:17PM ; [facility] Moderate major depression, s nicolasa episode BH Established Patient with Ilanaariana Bautista [employer] INST[employer]ER 12/26/2023 Last Documented On 4 12:17PM ; [facility] Nicotine dependence Established Patient with Ilana Bautista [employer] INST[employer]ER 12/26/2023 Last Documented On 4 12:17PM ; [facility] [Body mass index [BMI] 27.0- 27.9, adult] assessment of body mass index Medical Established Patient with Nick Shawn DIRECTOR [employer] 12/26/2023 Last Documented On 4 9:58AM ; [facility] Generalized anxiety disorder Medical Est ablished Patient with Nick Shawn DIRECTOR [employer] 12/26/2023 Last Documented On 4 9:58AM ; [facility] Moderate major depression, s nicolasa episode Medical Established Patient with Nick Shawn DIRECTOR [employer] 12/26/2023 Last Documented On 4 9:58AM ; [facility] Venipuncture was performed Medical Estab lished Patient with Nick Shawn DIRECTOR [employer] 12/26/2023 Last Documented On 4 9:58AM ; [facility] Generalized anxiety disorder Established Akanksha ent with Ilana Bautista [employer] INST[employer]ER 11/23/2023 Last Documented On 4 6:43PM ; [facility] Moderate major depression, s nicolasa episode Established Patient with Ilana Bautista [employer] INST[employer]ER 11/23/2023 Last Documented On 4 6:43PM ; [facility] [Body mass index [BMI] 27.0- 27.9, adult] assessment of body mass index Medical Established Patient with Nick Shawn DIRECTOR [employer] 11/23/2023 Last Documented On 4 9:00AM ; [facility] Diabetes Risk Test Score was two score 11/23/2023 Medical Established Patient with Nick Shawn DIRECTOR [employer] 11/23/2023 Last Documented On 4 9:00AM ; [facility] Generalized anxiety disorder Medical Est ablished Patient with Nick Shawn DIRECTOR [employer] 11/23/2023 Last Documented On 4 9:00AM ; [facility] Moderate major depression, s nicolasa episode Medical Established Patient with Nick Shawn DIRECTOR [employer] 11/23/2023 Last Documented On 4 9:00AM ; [facility] [N50.811 - Right testicular pain] pain of the right testis Open Access - Established with Ksenia Kilpatrick DIRECTOR [employer] 07/09/2023 Last Documented On 3 9:35AM ; [facility] [Z68.25 - Body mass index [B LA] 25.0-25.9, adult] assessment of body mass index Open Access - Established with Ksenia Tim [facility] 07/09/2023 Last Documented On 3 9:35AM ; [facility] Generalized anxiety disorder Open Access - Established with Ksenia Kilpatrick DIRECTOR [employer] 07/09/2023 Last Documented On 3 9:35AM ; [facility] Moderate major depression, s nicolasa episode Open Access - Established with Ksenia Kilpatrick [facility] 07/09/2023 Last Documented On 3 9:35AM ; [facility] Nicotine dependence Open Access - Established wi th Ksenia Kilpatrick [facility] 07/09/2023 Last Documented On 3 9:35AM ; [facility] Generalized anxiety disorder BH Establis hed Patient [facility] 01/05/2023 Last Documented On 3 6:55AM ; [facility] [Body mass index [BMI] 23.0- 23.9, adult] assessment of body mass index Medical Established Patient with Nick Shawn DIRECTOR [employer] 01/05/2023 Last Documented On 3 9:05AM ; [facility] Generalized anxiety disorder Medical Est ablished Patient with Nick Shawn DIRECTOR [employer] 01/05/2023 Last Documented On 3 9:05AM ; [facility] Moderate major depression, s nicolasa episode Medical Established Patient with Nick Shawn DIRECTOR [employer] 01/05/2023 Last Documented On 3 9:05AM ; [facility] Major depression, single episode BH Esta blished Patient with Tana Galindo LPCC-S 11/24/2022 Last Documented On 3 5:46PM ; [facility] [Body mass index [BMI] 23.0- 23.9, adult] assessment of body mass index Medical Established Patient with Nick Shawn DIRECTOR [employer] 11/24/2022 Last Documented On 3 9:05AM ; [facility] Generalized anxiety disorder Medical Est ablished Patient with Nick Shawn DIRECTOR [employer] 11/24/2022 Last Documented On 3 9:05AM ; [facility] Moderate major depression, s nicolasa episode Medical Established Patient with Nick Shawn DIRECTOR [employer] 11/24/2022 Last Documented On 3 9:05AM ; [facility] Major depression, single episode BH Esta blished Patient with Tanafarzana Galindo LPCC-S 10/26/2022 Last Documented On 3 9:07AM ; [facility] Moderate major depression, s nicolasa episode BH Established Patient with Tana Galindo LPCC-S 10/26/2022 Last Documented On 3 9:07AM ; [facility] [Body mass index [BMI] 23.0- 23.9, adult] assessment of body mass index Medical Established Patient with Nick Shawn DIRECTOR [employer] 10/26/2022 Last Documented On 3 9:54AM ; [facility] Diabetes Risk Test Score was 3.0 score 10/26/2022 Medical Established Patient with Nick Shawn DIRECTOR [employer] 10/26/2022 Last Documented On 3 9:54AM ; [facility] Generalized anxiety disorder Medical Est ablished Patient with Ncik Shawn DIRECTOR [employer] 10/26/2022 Last Documented On 3 9:54AM ; [facility] Moderate major depression, s nicolasa episode Medical Established Patient with Nick Shawn DIRECTOR [employer] 10/26/2022 Last Documented On 3 9:54AM ; [facility] Nicotine dependence Medical Established Patient with Nick Shawn DIRECTOR [employer] 10/26/2022 Last Documented On 3 9:54AM ; [facility] Assessment of body mass inde x [Body mass index [BMI] 20.0-20.9, adult] Medical Established Patient with Nick Shawn DIRECTOR [employer] 08/29/2021 Last Documented On 1 3:08PM ; [facility] Diabetes Risk Test Score was one score 08/29/2021 Medical Established Patient with Nick Shawn DIRECTOR [employer] 08/29/2021 Last Documented On 1 3:08PM ; [facility] Generalized anxiety disorder Medical Est ablished Patient with Nick Shawn DIRECTOR [employer] 08/29/2021 Last Documented On 1 3:08PM ; [facility] Moderate major depression, s nicolasa episode Medical Established Patient with Nick Shawn DIRECTOR [employer] 08/29/2021 Last Documented On 1 3:08PM ; [facility] Mild recurrent major depression Teleb ehavioral Health with Radha Short LISWS 03/22/2021 Last Documented On 1 9:59PM ; [facility] Panic disorder without agoraphobia Te lebehavioral Health with Radha Short LISWS 03/22/2021 Last Documented On 1 9:59PM ; [facility] Acute pharyngitis Telemedicine Establisted Patie nt with Nick Shawn DIRECTOR [employer] 03/22/2021 Last Documented On 1 12:34PM ; [facility] Acute sinusitis Medical Established Patient with Nick Shawn DIRECTOR [employer] 01/20/2021 Last Documented On 1 9:57AM ; [facility] Body mass index [Body mass i ndex [BMI] 20.0-20.9, adult] Medical Established Patient with Nick Shawn DIRECTOR [employer] 01/20/2021 Last Documented On 1 9:57AM ; [facility] Generalized anxiety disorder Establis hed Patient with Jenelleiza Moya LPCC-S 12/15/2020 Last Documented On 1 10:51PM ; [facility] Moderate major depression, s nicolasa episode BH Established Patient with Jenelleiza Moya LPCC-S 12/15/2020 Last Documented On 1 10:51PM ; [facility] Constipation Medical Established Patient with Ksenia Kilpatrick DIRECTOR [employer] 12/15/2020 Last Documented On 1 8:13PM ; [facility] Z68.20 - Body mass index [BM I] 20.0-20.9, adult Medical Established Patient with Kseniamilan Kilpatrick DIRECTOR [employer] 12/15/2020 Last Documented On 1 8:13PM ; [facility] Moderate recurrent major depression E stablished Patient with Radha Short LISWS 09/29/2020 Last Documented On 1 5:02PM ; [facility] Panic disorder without agoraphobia BH Es tablished Patient with Radha Short LISWS 09/29/2020 Last Documented On 1 5:02PM ; [facility] Body mass index [Body mass i ndex [BMI] 21.0-21.9, adult] Medical Established Patient with Nick Shawn DIRECTOR [employer] 09/29/2020 Last Documented On 1 10:45AM ; [facility] Generalized anxiety disorder Medical Est ablished Patient with Nick Shawn DIRECTOR [employer] 09/29/2020 Last Documented On 1 10:45AM ; [facility] Moderate major depression, s nicolasa episode Medical Established Patient with Nick Shawn DIRECTOR [employer] 09/29/2020 Last Documented On 1 10:45AM ; [facility] Mild recurrent major depression BH Estab lished Patient with Radha Short LISWS 09/10/2020 Last Documented On 0 12:31PM ; [facility] Panic disorder without agoraphobia BH Es tablished Patient with Radha Short LISWS 09/10/2020 Last Documented On 0 12:31PM ; [facility] Body mass index Medical Established Patient with Nick Shawn DIRECTOR [employer] 09/10/2020 Last Documented On 0 11:17AM ; [facility] Mild recurrent major depression BH Estab lished Patient with Radha Short LISWS 08/27/2020 Last Documented On 0 10:21AM ; [facility] Panic disorder without agoraphobia BH Es tablished Patient with Radha Short LISWS 08/27/2020 Last Documented On 0 10:21AM ; [facility] Body mass index [Body mass i ndex [BMI] 22.0-22.9, adult] Medical Established Patient with Nick Shawn DIRECTOR [employer] 08/27/2020 Last Documented On 0 8:00PM ; [facility] Generalized anxiety disorder Medical Est ablished Patient with Nick Shawn DIRECTOR [employer] 08/27/2020 Last Documented On 0 8:00PM ; [facility] Moderate major depression, s nicolasa episode Medical Established Patient with Nick Shawn DIRECTOR [employer]ENC[employer] 08/27/2020 Last Documented On 0 8:00PM ; [facility] Depression Established Patient with Maura keyon Short LISWS 08/13/2020 Last Documented On 0 4:55PM ; [facility] Panic disorder without agoraphobia Es tablished Patient with Radha Short LISWS 08/13/2020 Last Documented On 0 4:55PM ; [facility] Depression Established Patient with Maura keyon Short LISWS 06/15/2020 Last Documented On 0 2:23PM ; [facility] Panic disorder without agoraphobia Es tablished Patient with Radha Short LISWS 06/15/2020 Last Documented On 0 2:23PM ; [facility] Depression Established Patient with Maura keyon Short LISWS 05/27/2020 Last Documented On 0 6:54PM ; [facility] Panic disorder without agoraphobia Es tablished Patient with Radha Short LISWS 05/27/2020 Last Documented On 0 6:54PM ; [facility] Depressive disorder Established Patient with Radha Short LISWS 05/18/2020 Last Documented On 0 8:46AM ; [facility] Panic disorder without agoraphobia Es tablished Patient with Radha Short LISWS 05/18/2020 Last Documented On 0 8:46AM ; [facility] Anxiety disorder NOS Medical New Patient with Ca ssie Shawn DIRECTOR [employer] 05/18/2020 Last Documented On 0 6:40PM ; [facility] Body mass index Medical New Patient with Nick Shawn DIRECTOR [employer] 05/18/2020 Last Documented On 0 6:40PM ; [facility] Depression Medical New Patient with Nick Shawn DIRECTOR [employer] 05/18/2020 Last Documented On 0 6:40PM ; [facility] Diabetes Risk Test Score was one score 05/18/2020 Medical New Patient with Nick Shawn DIRECTOR [employer] 05/18/2020 Last Documented On 0 6:40PM ; [facility] Routine history and physical Medical New Patient with Nick Shawn DIRECTOR [employer] 05/18/2020 Last Documented On 0 6:40PM ; [facility] Work Phone: 1(258) 654-424012-11-2024 Evaluation note Includes: Assessments for all patient encounters Findings Encounter Date Dependence on nicotine in to bacco product - uncomplicated BH Established Patient with Ilana Bautista LINER INSTALLER 09/03/2024 Last Documented On 4 3:24PM ; [facility] Generalized anxiety disorder Established Akanksha ent with Ilana Bautista [employer]ER INSTALLER 09/03/2024 Last Documented On 4 3:24PM ; [facility] Moderate major depression, s nicolasa episode BH Established Patient with Ilana Bautista [employer] INSTALLER 09/03/2024 Last Documented On 4 3:24PM ; [facility] Assessment of body mass index Open Acces s - Established with Nick Escobar DIRECTOR [employer] 09/03/2024 Last Documented On 4 8:48AM ; [facility] Generalized anxiety disorder Open Access - Established with Nick Escobar DIRECTOR [employer] 09/03/2024 Last Documented On 4 8:48AM ; [facility] Moderate major depression, s nicolasa episode Open Access - Established with Nick Escobar DIRECTOR [employer] 09/03/2024 Last Documented On 4 8:48AM ; [facility] Generalized anxiety disorder Established Akanksha ent with Ilana Bautista LINER INSTALLER 03/31/2024 Last Documented On 4 5:20PM ; [facility] Moderate major depression, s nicolasa episode BH Established Patient with Ilana Bautista LINER INSTALLER 03/31/2024 Last Documented On 4 5:20PM ; [facility] Nicotine dependence Established Patient with Ilana Bautista LINER INSTALLER 03/31/2024 Last Documented On 4 5:20PM ; [facility] [Z68.27 - Body mass index [B LA] 27.0-27.9, adult] assessment of body mass index Open Access - Established with Ksenia Kilpatrick DIRECTOR [employer] 03/31/2024 Last Documented On 4 4:23PM ; [facility] Acute sore throat Open Access - Established with Ksenia Kilpatrick DIRECTOR [employer] 03/31/2024 Last Documented On 4 4:23PM ; [facility] Assessment of BMI Percentile = 5% to < 85% for age Z68.52 Open Access - Established with Ksenia Tim DIRECTOR [employer] 03/31/2024 Last Documented On 4 4:23PM ; [facility] Nicotine dependence Open Access - Established wi th Ksenia Tim DIRECTOR [employer] 03/31/2024 Last Documented On 4 4:23PM ; [facility] Generalized anxiety disorder Established Akanksha ent with Ilana Bautista LINER INSTALLER 12/26/2023 Last Documented On 4 12:17PM ; [facility] Moderate major depression, s nicolasa episode BH Established Patient with Ilana Bautista LINER INSTALLER 12/26/2023 Last Documented On 4 12:17PM ; [facility] Nicotine dependence Established Patient with Ilana Bautista LINER INSTALLER 12/26/2023 Last Documented On 4 12:17PM ; [facility] [Body mass index [BMI] 27.0- 27.9, adult] assessment of body mass index Medical Established Patient with Nick Shawn DIRECTOR [employer] 12/26/2023 Last Documented On 4 9:58AM ; [facility] Generalized anxiety disorder Medical Est ablished Patient with Nick Shawn DIRECTOR [employer] 12/26/2023 Last Documented On 4 9:58AM ; [facility] Moderate major depression, s nicolasa episode Medical Established Patient with Nick Shawn DIRECTOR [employer] 12/26/2023 Last Documented On 4 9:58AM ; [facility] Venipuncture was performed Medical Estab lished Patient with Nick Shawn DIRECTOR [employer] 12/26/2023 Last Documented On 4 9:58AM ; [facility] Generalized anxiety disorder Established Akanksha ent with Ilana Bautista LINER INSTALLER 11/23/2023 Last Documented On 4 6:43PM ; [facility] Moderate major depression, s nicolasa episode BH Established Patient with Ilana Bautista LINER INSTALLER 11/23/2023 Last Documented On 4 6:43PM ; [facility] [Body mass index [BMI] 27.0- 27.9, adult] assessment of body mass index Medical Established Patient with Nick Shawn DIRECTOR [employer] 11/23/2023 Last Documented On 4 9:00AM ; [facility] Diabetes Risk Test Score was two score 11/23/2023 Medical Established Patient with Nick Shawn [employer] [facility] 11/23/2023 Last Documented On 4 9:00AM ; [facility] Generalized anxiety disorder Medical Est ablished Patient with Nick Shawn [employer] 11/23/2023 Last Documented On 4 9:00AM ; [facility] Moderate major depression, s nicolasa episode Medical Established Patient with Nick Shawn [employer] [facility] 11/23/2023 Last Documented On 4 9:00AM ; [facility] [N50.811 - Right testicular pain] pain of the right testis Open Access - Established with Ksenia Kilpatrick [facility] 07/09/2023 Last Documented On 3 9:35AM ; [facility] [Z68.25 - Body mass index [B LA] 25.0-25.9, adult] assessment of body mass index Open Access - Established with Ksenia Kilpatrick [facility] 07/09/2023 Last Documented On 3 9:35AM ; [facility] Generalized anxiety disorder Open Access - Established with Ksenia Kilpatrick [facility] 07/09/2023 Last Documented On 3 9:35AM ; [facility] Moderate major depression, s nicolasa episode Open Access - Established with Ksenia Kilpatrick [facility] 07/09/2023 Last Documented On 3 9:35AM ; [facility] Nicotine dependence Open Access - Established wi th Ksenia Kilpatrick [facility] 07/09/2023 Last Documented On 3 9:35AM ; [facility] Generalized anxiety disorder BH Establis hed Patient with Tana Galindo [facility] 01/05/2023 Last Documented On 3 6:55AM ; [facility] [Body mass index [BMI] 23.0- 23.9, adult] assessment of body mass index Medical Established Patient with Nick Shawn [employer] [facility] 01/05/2023 Last Documented On 3 9:05AM ; [facility] Generalized anxiety disorder Medical Est ablished Patient with Nick Shawn [employer] [facility] 01/05/2023 Last Documented On 3 9:05AM ; [facility] Moderate major depression, s nicolasa episode Medical Established Patient with Nick Shawn [employer] [facility] 01/05/2023 Last Documented On 3 9:05AM ; [facility] Major depression, single episode BH Esta blished Patient with Tanafarzana MortonGalindo [facility] 11/24/2022 Last Documented On 3 5:46PM ; [facility] [Body mass index [BMI] 23.0- 23.9, adult] assessment of body mass index Medical Established Patient with Nick Shawn [employer] [facility] 11/24/2022 Last Documented On 3 9:05AM ; [facility] Generalized anxiety disorder Medical Est ablished Patient with Nick Shawn [employer] [facility] 11/24/2022 Last Documented On 3 9:05AM ; [facility] Moderate major depression, s nicolasa episode Medical Established Patient with Nick Shawn [employer] 11/24/2022 Last Documented On 3 9:05AM ; [facility] Major depression, single episode BH Esta blished Patient with Tanafarzana MortonGalindo [facility] 10/26/2022 Last Documented On 3 9:07AM ; [facility] Moderate major depression, s nicolasa episode BH Established Patient with Tanafarzana MortonGalindo [facility] 10/26/2022 Last Documented On 3 9:07AM ; [facility] [Body mass index [BMI] 23.0- 23.9, adult] assessment of body mass index Medical Established Patient with Nick Shawn [employer] [facility] 10/26/2022 Last Documented On 3 9:54AM ; [facility] Diabetes Risk Test Score was 3.0 score 10/26/2022 Medical Established Patient with Nick Shawn [employer] [facility] 10/26/2022 Last Documented On 3 9:54AM ; [facility] Generalized anxiety disorder Medical Est ablished Patient with Nick Shawn [employer] [facility] 10/26/2022 Last Documented On 3 9:54AM ; [facility] Moderate major depression, s nicolasa episode Medical Established Patient with Nick Shawn [employer] [facility] 10/26/2022 Last Documented On 3 9:54AM ; [facility] Nicotine dependence Medical Established Patient with Nick Shawn [employer] [facility] 10/26/2022 Last Documented On 3 9:54AM ; [facility] Assessment of body mass inde x [Body mass index [BMI] 20.0-20.9, adult] Medical Established Patient with Nick Shawn [employer] [facility] 08/29/2021 Last Documented On 1 3:08PM ; [facility] Diabetes Risk Test Score was one score 08/29/2021 Medical Established Patient with Nick Shawn [employer] [facility] 08/29/2021 Last Documented On 1 3:08PM ; [facility] Generalized anxiety disorder Medical Est ablished Patient with Nick Shawn [employer] [facility] 08/29/2021 Last Documented On 1 3:08PM ; [facility] Moderate major depression, s nicolasa episode Medical Established Patient with Nick Shawn [employer] [facility] 08/29/2021 Last Documented On 1 3:08PM ; [facility] Mild recurrent major depression Teleb ehavioral Health with Radha Short [facility] 03/22/2021 Last Documented On 1 9:59PM ; [facility] Panic disorder without agoraphobia Te lebehavioral Health with Radha Short [facility] 03/22/2021 Last Documented On 1 9:59PM ; [facility] Acute pharyngitis Telemedicine Establisted Patie nt with Nick Shawn [employer]OR [employer] [facility] 03/22/2021 Last Documented On 1 12:34PM ; [facility] Acute sinusitis Medical Established Patient with Nick Shawn [employer]OR [employer] [facility] 01/20/2021 Last Documented On 1 9:57AM ; [facility] Body mass index [Body mass i ndex [BMI] 20.0-20.9, adult] Medical Established Patient with Nick Shawn [employer] [facility] 01/20/2021 Last Documented On 1 9:57AM ; [facility] Generalized anxiety disorder Establis hed Patient with Jenelle Moya [facility] 12/15/2020 Last Documented On 1 10:51PM ; [facility] Moderate major depression, s nicolasa episode BH Established Patient with Jenelle Coxmons [facility] 12/15/2020 Last Documented On 1 10:51PM ; [facility] Constipation Medical Established Patient with Ksenia Kilpatrick [employer]OR [employer] [facility] 12/15/2020 Last Documented On 1 8:13PM ; [facility] Z68.20 - Body mass index [BM I] 20.0-20.9, adult Medical Established Patient with Ksenia Kilpatrick [employer] [facility] 12/15/2020 Last Documented On 1 8:13PM ; [facility] Moderate recurrent major depression BH E stablished Patient with Radha Short [facility] 09/29/2020 Last Documented On 1 5:02PM ; [facility] Panic disorder without agoraphobia BH Es tablished Patient with Radha Short [facility] 09/29/2020 Last Documented On 1 5:02PM ; [facility] Body mass index [Body mass i ndex [BMI] 21.0-21.9, adult] Medical Established Patient with Nick Shawn [employer] [facility] 09/29/2020 Last Documented On 1 10:45AM ; [facility] Generalized anxiety disorder Medical Est ablished Patient with Nick Shawn [employer]OR [employer] [facility] 09/29/2020 Last Documented On 1 10:45AM ; [facility] Moderate major depression, s nicolasa episode Medical Established Patient with Nick Shawn [employer] 09/29/2020 Last Documented On 1 10:45AM ; [facility] Mild recurrent major depression BH Estab lished Patient with Radha Short [facility] 09/10/2020 Last Documented On 0 12:31PM ; [facility] Panic disorder without agoraphobia BH Es tablished Patient with Radha Short [facility] 09/10/2020 Last Documented On 0 12:31PM ; [facility] Body mass index Medical Established Patient with Nick Shawn [employer]OR [employer] [facility] 09/10/2020 Last Documented On 0 11:17AM ; [facility] Mild recurrent major depression Estab lished Patient with Radha Short [facility] 08/27/2020 Last Documented On 0 10:21AM ; [facility] Panic disorder without agoraphobia Es tablished Patient with Radha Short [facility] 08/27/2020 Last Documented On 0 10:21AM ; [facility] Body mass index [Body mass i ndex [BMI] 22.0-22.9, adult] Medical Established Patient with Nick Shawn [employer] [facility] 08/27/2020 Last Documented On 0 8:00PM ; [facility] Generalized anxiety disorder Medical Est ablished Patient with Nick Shawn [employer]OR [employer] [facility] 08/27/2020 Last Documented On 0 8:00PM ; [facility] Moderate major depression, s nicolasa episode Medical Established Patient with Nick Shawn [employer]OR [employer] 08/27/2020 Last Documented On 0 8:00PM ; [facility] Depression Established Patient with Maura keyon Short [facility] 08/13/2020 Last Documented On 0 4:55PM ; [facility] Panic disorder without agoraphobia Es tablished Patient with Radha Short [facility] 08/13/2020 Last Documented On 0 4:55PM ; [facility] Depression Established Patient with Maura keyon Short [facility] 06/15/2020 Last Documented On 0 2:23PM ; [facility] Panic disorder without agoraphobia Es tablished Patient with Radha Short [facility] 06/15/2020 Last Documented On 0 2:23PM ; [facility] Depression Established Patient with Maura keyon Short [facility] 05/27/2020 Last Documented On 0 6:54PM ; [facility] Panic disorder without agoraphobia Es tablished Patient with Radha Short [facility] 05/27/2020 Last Documented On 0 6:54PM ; [facility] Depressive disorder Established Patient with Radha Short [facility] 05/18/2020 Last Documented On 0 8:46AM ; [facility] Panic disorder without agoraphobia BH Es tablished Patient with Radha Short [facility] 05/18/2020 Last Documented On 0 8:46AM ; [facility] Anxiety disorder NOS Medical New Patient with Teresa ssie Shawn PAYNE 05/18/2020 Last Documented On 0 6:40PM ; [facility] Body mass index Medical New Patient with Nick Escobar [employer] [facility] 05/18/2020 Last Documented On 0 6:40PM ; [facility] Depression Medical New Patient with Nick Escobar CNP 05/18/2020 Last Documented On 0 6:40PM ; [facility] Diabetes Risk Test Score was one score 05/18/2020 Medical New Patient with Nick Escobar CNP 05/18/2020 Last Documented On 0 6:40PM ; [facility] Routine history and physical Medical New Patient with Nick Escobar CNP 05/18/2020 Last Documented On 0 6:40PM ; [facility] Work Phone: [phone]) 290-938812-11-2024 Progress note* Progress note Date Encounter Last Documented by 09/03/2024 Open Access - Established Last d ocumented on 09/04/2024; 8:48 AM, Nick Escobar [employer]; [facility] Active Problems & Conditions - F41.1 - Generalized Anxiety Disorder - F32.1 - Major Depression, Single Episode Moderate - F17.200 - Nicotine Dependence Chief Complaint The Chief Complaint is: Chin swelling, muscle spasm. Referred Here Not referred by urgent care clinic and not the emergency room. No prior encounters. History of Present Illness Rory Camp is a 29 year old male. 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 Medical: No previous hospitalizations. Surgical / Procedural: No prior surgery or no significant history. Immunization History: Recent immunization for flu. Diagnoses: Depression Anxiety disorder Surgical: - General surgery Social History Environmental Exposure: No secondhand cigarette smoke exposure. Behavioral: Not a current tobacco user. Tobacco use: Using electronic cigarettes/vaping. Alcohol: A social drinker couple times a month. Drug Use: Using marijuana daily. Sexual: Sexually active, sexual orientation Straight (not lesbian or rider), and gender identity Male. Allergies - -No Known Drug Allergies - Seasonal allergies Family History Paternal: Leukemia no tx needed at this time Maternal: Ischemic heart disease heart failure r/t vavle, pt had vavle replacement 2020 Systemic hypertension Breast neoplasm Review Of Systems Systemic: No systemic symptoms. Head: No head symptoms. Otolaryngeal: Ear symptoms. No nasal symptoms. Throat symptoms see HPI. Cardiovascular: No cardiovascular symptoms. Pulmonary: No pulmonary symptoms. Gastrointestinal: No gastrointestinal symptoms. Genitourinary: No genitourinary symptoms. Musculoskeletal: No musculoskeletal symptoms. Neurological: No neurological symptoms. Psychological: No psychological symptoms. Skin: No skin symptoms. Physical Findings - Vitals taken 09/03/2024 02:53 pm BP-Sitting R158/103 mmHg BP Cuff SizeRegular Pulse Rate-Gwiluqs79 bpm Temp-Oral98.6 F Fpzqrm45 in Oilcas907 lbs 12.8 oz Body Mass Index27.9 kg/m2 Body Surface Area2 m2 Oxygen Qqifbbswcz41 % - Vitals taken 09/03/2024 03:02 pm BP-Gtmjpnw813/105 mmHg Vital Signs: - Systolic Blood Pressure > or = 140 mmHg. - Diastolic blood pressure > or = 90 mmHg. General Appearance: - Awake. - Alert. - In no acute distress. Eyes: General/bilateral: Pupils: - PERRLA. Ears: General/bilateral: Tympanic Membrane: - Examined. - Not bulging. - No retraction of tympanic membrane. - Not erythematous. - Not opacified. Nose: General/bilateral: Discharge: - No nasal discharge. Pharynx: Oropharynx: - Abnormal right tonsil is swollen, uvula is pulling to the right. Lungs: - Respiration rhythm and depth was normal. - Clear to auscultation. Cardiovascular: Heart Rate And Rhythm: - Normal. Heart Sounds: - Normal. Abdomen: Auscultation: - Bowel sounds were normal. Musculoskeletal System: General/bilateral: - Normal movement of all extremities. Neurological: - Oriented to time, place, and person. Psychiatric: - Expression of emotions normal. Skin: - General appearance of skin normal. Tests Laboratory-based Chemistry: Other Laboratory Tests: Screening for sexually transmitted infections was not performed. Assessment - Body mass index [Body mass index [BMI] 27.0-27.9, adult] - Moderate major depression, single episode [Major depressive disorder, single episode, moderate] - Generalized anxiety disorder [Generalized anxiety disorder] Counseling/Education - Discussed nutritional needs teach healthy choices including fruits and vegetables - Patient education about a proper diet - Discussed concerns about exercise: promote physical activity Monitor blood pressure, call if remains elevated Will start buspirone Plan StartCited- Generalized anxiety disorder busPIRone HCl 5 MG tablet Take one tablet two times per day, 30 days, 1 refills EndCited StartCited- Major depressive disorder, single episode, moderate PARoxetine HCl 40 MG tablet TAKE 1 TABLET BY MOUTH DAILY, 30 days, 3 refills EndCited Advance Directives - Declined to Provide Advance Directive Care Team - Nick Escobar, [facility]12-11-2024 Progress note* Progress note Date Encounter Last Documented by 09/03/2024 [facility] Patient Last docu mented on 09/04/2024; 3:24 PM, Ilana PALMA; [facility] Active Problems & Conditions - F41.1 - Generalized Anxiety Disorder - F32.1 - Major Depression, Single Episode Moderate - F17.200 - Nicotine Dependence Chief Complaint The Chief Complaint is:: Mood and medication. Subjective [facility] met with Pt and followed up on mood and medications. PHQ9 score 3 and NARESH score of 21. Patient reports that he feels that the increase of the paxil has made it difficult to control his emotions. Patient reported that he will get hyper-focused on aomething and will get himself so worked up that he will pass out. discussed adding buspar. Patient would like to have some release to his anxiety. Discussed engaging in individual counseling and looking into EMDR. History of Present Illness Rory Camp is a 29 year old male. - Anxiety - Energy level is good - No depression - No sleep disturbances Current Medication - busPIRone HCl 5 MG Oral Tablet Take one tablet two times per day, 30 days, 1 refills - Fluticasone Propionate 50 MCG/ACT Nasal Suspension One spay to each nostril daily, 30 days, 5 refills - Loratadine 10 MG Oral Tablet Take one tablet daily, 30 days, 5 refills - PARoxetine HCl 40 MG Oral Tablet TAKE 1 TABLET BY MOUTH DAILY, 30 days, 3 refills - PARoxetine HCl 40 MG Oral Tablet TAKE 1 TABLET BY MOUTH DAILY, 30 days, 3 refills Past Medical/Surgical History Reported: No Safety Measures. Social History Environmental Exposure: No secondhand cigarette smoke exposure. Tobacco use: Using electronic cigarettes/vaping. Alcohol: A social drinker. Drug Use: Using marijuana. Does not misuse drugs and not using drugs. Housing And Economic Circumstances: Lives with spouse. 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 Sexual: Sexual orientation Straight (not lesbian or rider) and gender identity Male. Physical Findings General Appearance: - Normal Appearance. Neurological: - Oriented to time, place, and person. - Judgement was not impaired. Speech: - Is Normal. - No articulation abnormalities. Psychiatric: - Attitude Open. Appearance: - Normal. Demonstrated Behavior: - Motor Activity Normal Activity. - Eye Contact Appropriate. Thought Content: - Insight was intact. - No suicidal ideation. - No Passive thoughts of . - No suicidal plans. - No suicidal intent. - No homicidal ideations. - No homicidal plans. - No homicidal intent. Past Medical: - No repetitive self injurious behavior. Assessment - Dependence on nicotine in tobacco product - uncomplicated [F17.290 - Nicotine dependence, other tobacco product, uncomplicated] - Moderate major depression, single episode [F32.1 - Major depressive disorder, single episode, moderate] - Generalized anxiety disorder [F41.1 - Generalized anxiety disorder] Therapy - Developmental/Behavioral Screening & Testing - PHQ9 and Developmental/Behavioral Screening & Testing - GAD7. - Brief solution-focused. - Adherent with medications. - Visit 30 Minutes. - Plan - Generalized anxiety disorder busPIRone HCl 5 MG tablet Take one tablet two times per day, 30 days, 1 refills Major depressive disorder, single episode, moderate PARoxetine HCl 40 MG tablet TAKE 1 TABLET BY MOUTH DAILY, 30 days, 3 refills and Collaborated with patient and provider: Counseling/Education *[facility] offered active and supportive listening, normalized emotions and feelings, and processed current stressors. Plan *[facility] to follow-up with patient at next visit as scheduled. *Patient to follow up as needed/scheduled. Advance Directives - Declined to Provide Advance Directive Care Team - Nick Escobar CNP Health Reminders - Assess Tobacco Use satisfied 09/04/2024. - NARESH-2 satisfied 09/03/2024. - PHQ9 / PHQA satisfied 09/03/2024. User Defined 1 NARESH-2 score was six 09/03/2024, NARESH-7 score was 21 [NARESH-7] Feeling nervous, anxious or on edge? + 3 pt : Nearly every day, [NARESH-7] Feeling nervous, anxious or on edge? + 3 pt : Nearly every day, [NARESH-7] Not being able to stop or control worrying? + 3 pt : Nearly every day, [NARESH-7] Not being able to stop or control worrying? + 3 pt : Nearly every day, [NARESH-7] Worrying too much about different things? + 3 pt : Nearly every day, [NARESH-7] Trouble relaxing? + 3 pt : Nearly every day, [NARESH-7] Being so restless that it's hard to sit still? + 3 pt : Nearly every day, [NARESH-7] Becoming easily annoyed or irritable? + 3 pt : Nearly every day, [NARESH-7] Feeling afraid as if something awful might happen? + 3 pt : Nearly every day, Patient Health Questionnaire 9-Item total score was three 09/03/2024, [PHQ-9-1] Little interest or pleasure in doing things? + 1 pt : Several days, [PHQ-9-2] Feeling down, depressed, or hopeless? + 1 pt : Several days, [PHQ-9-3] Trouble falling or staying asleep or sleeping too much? + 0 pt : Not at all, [PHQ-9-4] Feeling tired or having little energy? + 0 pt : Not at all, [PHQ-9-5] Poor appetite or overeating? + 0 pt : Not at all, [PHQ-9-6] Feeling bad about yourself-or that you are a failure + 1 pt : Several days, [PHQ-9-7] Trouble concentrating on things such as reading the newspaper + 0 pt : Not at all, [PHQ-9-8] Moving or speaking so slowly that other people have noticed. + 0 pt : Not at all, and [PHQ-9-9] Thoughts that you would be better off or hurting yourself? + 0 pt : Not at all. [facility]08-27-2024 Progress note* Progress note Date Encounter Last Documented by 05/20/2024 [Patient Encounter] Last paula gold on 05/22/2024; 2:25 PM, Nick Escobar CNP; [facility] Active Problems & Conditions - F41.1 - Generalized Anxiety Disorder - F32.1 - Major Depression, Single Episode Moderate - F17.200 - Nicotine Dependence Current Medication - Amoxicillin 500 MG Oral Capsule, conventional Take 1 capsule by mouth 3 times per day until gone., 10 days, 0 refills - Fluticasone Propionate 50 MCG/ACT Nasal Suspension One spay to each nostril daily, 30 days, 5 refills - Loratadine 10 MG Oral Tablet Take one tablet daily, 30 days, 5 refills - Paxil 40 MG Oral Tablet Take one tablet daily, 30 days, 5 refills Past Medical/Surgical History Reported: No Safety Measures. Medical: No previous hospitalizations. Surgical / Procedural: No prior surgery or no significant history. Immunization History: Recent immunization for flu. Diagnoses: Depression Anxiety disorder Surgical: - General surgery Allergies - -No Known Drug Allergies - Seasonal allergies Family History Paternal: Leukemia no tx needed at this time Maternal: Ischemic heart disease heart failure r/t vavle, pt had vavle replacement 2020 Systemic hypertension Breast neoplasm Plan StartCited- Major depressive disorder, single episode, moderate Paxil 40 MG tablet Take one tablet daily, 30 days, 3 refills Paxil 40 MG tablet Take one tablet daily, 30 days, 3 refills EndCited Advance Directives - Declined to Provide Advance Directive Care Team - Nick Escobar CNP [facility]07-08-2024 Instructions Includes: Instructions for all patient encounters Education and Decision Aids were provided during visit for: ~*[facility] offered active and sup portive listening, normalized emotions and feelings, and processed ~current stressors Last Documented On 4 5:18PM ; [facility] Discussed nutritional needs teach healthy choices including fruits and vegetables Last Documented On 4 10:44AM ; [facility] Patient education about a pr oper diet Last Documented On 4 10:44AM ; [facility] Discussed concerns about exe rcise : promote physical activity Last Documented On 4 10:44AM ; [facility] *[facility] offered active and supp ortive listening, normalized emotions and feelings, and processed ~current stressors. ~*Educated patient on the benefit of counseling and provided patient with a list of resources Last Documented On 4 12:12PM ; [facility] Discussed nutritional needs teach healthy choices including fruits and vegetables Last Documented On 4 8:25AM ; [facility] Patient education about a pr oper diet Last Documented On 4 8:25AM ; [facility] Discussed concerns about exe rcise : promote physical activity ~ ~Follow up in one month ~ ~ will call in one week Last Documented On 4 9:57AM ; [facility] *[facility] offered active and supp ortive listening, normalized emotions and feelings, and processed ~current stressors. ~*Discussed calming coping strategies that patient can utilize Last Documented On 4 6:39PM ; [facility] Discussed nutritional needs teach healthy choices including fruits and vegetables Last Documented On 4 2:53PM ; [facility] Patient education about a pr oper diet Last Documented On 4 2:53PM ; [facility] Discussed concerns about exe rcise : promote physical activity ~ ~Schedule appt with Dr Anne ~ ~ will call in 2 weeks ~ ~Follow up in office in 1 month ~ ~Will send ativan dose in 1 week prior to flight Last Documented On 4 9:00AM ; [facility] Discussed nutritional needs teach healthy choices including fruits and vegetables Last Documented On 3 1:32PM ; [facility] Patient education about a pr oper diet Last Documented On 3 1:32PM ; [facility] Discussed concerns about exe rcise : promote physical activity Last Documented On 3 1:32PM ; [facility] provided active listenin g and reflective feedback; monitored mood; assessed symptoms, and functioning. ~Offered pt space to process though current symptoms and stressor(s); explored effectiveness of medication, coping mechanisms, and self- care practices. ~Encouraged use, as needed Last Documented On 3 6:55AM ; [facility] Discussed nutritional needs teach healthy choices including fruits and vegetables Last Documented On 3 8:38AM ; [facility] Patient education about a pr oper diet Last Documented On 3 8:38AM ; [facility] Discussed concerns about exe rcise : promote physical activity ~ ~Follow up in three months Last Documented On 3 9:05AM ; [facility] provided active listenin g, support and helped pt process though current symptoms and stressor(s); discussed effectiveness of medication, coping mechanisms, self- care practices, and sources for positive support Last Documented On 3 5:44PM ; [facility] Discussed nutritional needs teach healthy choices including fruits and vegetables Last Documented On 3 8:47AM ; [facility] Patient education about a pr oper diet Last Documented On 3 8:47AM ; [facility] Discussed concerns about exe rcise : promote physical activity ~ ~Will stop hydroxyzine and start trazodone Last Documented On 3 9:05AM ; [facility] provided active listenin g, support and helped pt process though current symptoms and stressor(s); explored ssues of grief/loss; promoted benefits of counseling, effectiveness of medication, use of coping mechanisms, self-care practices, and support system Last Documented On 3 9:07AM ; [facility] Reviewed side effects and Ri sks/Benefits analysis Last Documented On 3 9:07AM ; [facility] Discussed nutritional needs teach healthy choices including fruits and vegetables Last Documented On 3 8:52AM ; [facility] Patient education about a pr oper diet Last Documented On 3 8:52AM ; [facility] Discussed concerns about exe rcise : promote physical activity Last Documented On 3 8:52AM ; [facility] Discussed nutritional needs teach healthy choices including fruits and vegetables Last Documented On 1 12:11PM ; [facility] Patient education about a pr oper diet Last Documented On 1 12:11PM ; [facility] Inquiry and counseling about medication administration and compliance Last Documented On 1 1:57PM ; [facility] Discussed concerns about exe rcise : promote physical activity Last Documented On 1 12:11PM ; [facility] Patient goals discussed Last Documented On 1 1:57PM ; [facility] provided active listenin g, support and helped patient process through current symptoms and stressors due to patient not feeling well currently. ~P reminded patient of importance of taking medications daily as prescribed and following up with scheduled psychiatry visits Last Documented On 1 9:59PM ; [facility] Explored current self-care m ethods (eg.,fixing up the house ) and encouraged patient to continue using them. ~ Last Documented On 1 10:48PM ; [facility] Discussed nutritional needs teach healthy choices including fruits and vegetables Last Documented On 1 5:48PM ; [facility] Patient education about a pr oper diet Last Documented On 1 5:48PM ; [facility] Discussed concerns about exe rcise : promote physical activity Last Documented On 1 5:48PM ; [facility] provided active listenin g, support and helped patient process through current symptoms and stressors related to low moods and increased anxiety. ~[facility] discussed getting established with counseling and provided list of area resources. 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 Anne's office. ~[facility] discussed crisis resources should they be needed and provided list of resources including local resources as well as national text and phone hotlines. ~P discussed coping skills to manage increased anxiety including deep breathing and mindfulness resources Last Documented On 1 4:59PM ; [facility] provided active listenin g, support and helped patient process through current symptoms and stressors related to increased anxiety/panic and its impact on daily functioning. ~P discussed patients effective coping skills and other tools that may be helpful and using technology to support these. ~[facility] discussed potential benefit of meeting with counselor and psychiatry to continue to work on anxiety and mood. ~ Last Documented On 0 12:31PM ; [facility] provided active listenin g, support and helped patient process through current symptoms and stressors related to increased anxiety and depression. ~P discussed coping skills with patient to manage increased anxiety and went over breathing techniques, meditation and mindfulness activities. Patient reports that focusing on his breathing has been helpful in controlling anxiety. ~[facility] discussed the importance of establishing counseling and patient is willing and was given list of counseling resources. ~[facility] discussed importance of taking medications daily around the same time daily. [facility] and PCP discussed importance of trying to go to work and do things to increase physical activity Last Documented On 0 10:21AM ; [facility] provided active listenin g, support and helped patient process through current symptoms and stressors. ~[facility] discussed importance of medication compliance. [facility] encouraged patient to set reminders, utilizing pill organizer, etc to help remember to take medications regularly Last Documented On 0 4:55PM ; [facility] offered active and suppo rtive listening, normalized emotions and feelings, and processed current stressors. ~P praised patient for taking medications and working to find coping skills that work for him. Patient is not interested in attending therapy services at this time. ~[facility] discussed strategies that can help patient to remember to take medications daily such as phone reminders or establishing a new routine of taking them before work, etc Last Documented On 0 2:23PM ; [facility] Patient education about a pr oper diet Last Documented On 0 7:47PM ; [facility] Inquiry and counseling about medication administration and compliance Last Documented On 0 7:47PM ; [facility] Patient goals discussed Last Documented On 0 7:47PM ; [facility] Patient education about a pr oper diet Last Documented On 0 7:41PM ; [facility] Inquiry and counseling about medication administration and compliance Last Documented On 0 7:41PM ; [facility] Patient goals discussed Last Documented On 0 7:41PM ; [facility] provided active listenin g, support and helped patient process through current symptoms and stressors. ~[facility] reviewed coping skills with patient including breathing methods and demonstrated to patient. Patient was encouraged to utilize music and coping skills during breaks to help prevent or reduce anxiety during specific time period reported Last Documented On 0 6:54PM ; [facility] Patient education about a pr oper diet Last Documented On 0 9:59AM ; [facility] Inquiry and counseling about medication administration and compliance Last Documented On 0 9:59AM ; [facility] Patient goals discussed Last Documented On 0 9:59AM ; [facility] introduced patient to [facility] integrated model of care. ~[facility] offered active and supportive listening, normalized emotions and feelings, and processed current stressors related to increased anxiety and impact on work and daily life. ~[facility] discussed coping skills that patient can implement to manage increased anxiety including deep breathing and mindfulness. [facility] discussed identifying signs of increasing anxxiety and utilizing coping skills early Last Documented On 0 8:44AM ; [facility] Patient education about a pr oper diet Last Documented On 0 11:08AM ; [facility] Discussed concerns about exe rcise : promote physical activity Last Documented On 0 11:08AM ; [facility] Work Phone: [phone] 744-360207-08-2024 Instructions Includes: Instructions for all patient encounters Education and Decision Aids were provided during visit for: ~*[facility] offered active and sup portive listening, normalized emotions and feelings, and processed ~current stressors Last Documented On 4 5:18PM ; [facility] Discussed nutritional needs teach healthy choices including fruits and vegetables Last Documented On 4 10:44AM ; [facility] Patient education about a pr oper diet Last Documented On 4 10:44AM ; [facility] Discussed concerns about exe rcise : promote physical activity Last Documented On 4 10:44AM ; [facility] *[facility] offered active and supp ortive listening, normalized emotions and feelings, and processed ~current stressors. ~*Educated patient on the benefit of counseling and provided patient with a list of resources Last Documented On 4 12:12PM ; [facility] Discussed nutritional needs teach healthy choices including fruits and vegetables Last Documented On 4 8:25AM ; [facility] Patient education about a pr oper diet Last Documented On 4 8:25AM ; [facility] Discussed concerns about exe rcise : promote physical activity ~ ~Follow up in one month ~ ~ will call in one week Last Documented On 4 9:57AM ; [facility] *[facility] offered active and supp ortive listening, normalized emotions and feelings, and processed ~current stressors. ~*Discussed calming coping strategies that patient can utilize Last Documented On 4 6:39PM ; [facility] Discussed nutritional needs teach healthy choices including fruits and vegetables Last Documented On 4 2:53PM ; [facility] Patient education about a pr oper diet Last Documented On 4 2:53PM ; [facility] Discussed concerns about exe rcise : promote physical activity ~ ~Schedule appt with Dr Anne ~ ~ will call in 2 weeks ~ ~Follow up in office in 1 month ~ ~Will send ativan dose in 1 week prior to flight Last Documented On 4 9:00AM ; [facility] Discussed nutritional needs teach healthy choices including fruits and vegetables Last Documented On 3 1:32PM ; [facility] Patient education about a pr oper diet Last Documented On 3 1:32PM ; [facility] Discussed concerns about exe rcise : promote physical activity Last Documented On 3 1:32PM ; [facility] provided active listenin g and reflective feedback; monitored mood; assessed symptoms, and functioning. ~Offered pt space to process though current symptoms and stressor(s); explored effectiveness of medication, coping mechanisms, and self- care practices. ~Encouraged use, as needed Last Documented On 3 6:55AM ; [facility] Discussed nutritional needs teach healthy choices including fruits and vegetables Last Documented On 3 8:38AM ; [facility] Patient education about a pr oper diet Last Documented On 3 8:38AM ; [facility] Discussed concerns about exe rcise : promote physical activity ~ ~Follow up in three months Last Documented On 3 9:05AM ; [facility] provided active listenin g, support and helped pt process though current symptoms and stressor(s); discussed effectiveness of medication, coping mechanisms, self- care practices, and sources for positive support Last Documented On 3 5:44PM ; [facility] Discussed nutritional needs teach healthy choices including fruits and vegetables Last Documented On 3 8:47AM ; [facility] Patient education about a pr oper diet Last Documented On 3 8:47AM ; [facility] Discussed concerns about exe rcise : promote physical activity ~ ~Will stop hydroxyzine and start trazodone Last Documented On 3 9:05AM ; [facility] provided active listenin g, support and helped pt process though current symptoms and stressor(s); explored ssues of grief/loss; promoted benefits of counseling, effectiveness of medication, use of coping mechanisms, self-care practices, and support system Last Documented On 3 9:07AM ; [facility] Reviewed side effects and Ri sks/Benefits analysis Last Documented On 3 9:07AM ; [facility] Discussed nutritional needs teach healthy choices including fruits and vegetables Last Documented On 3 8:52AM ; [facility] Patient education about a pr oper diet Last Documented On 3 8:52AM ; [facility] Discussed concerns about exe rcise : promote physical activity Last Documented On 3 8:52AM ; [facility] Discussed nutritional needs teach healthy choices including fruits and vegetables Last Documented On 1 12:11PM ; [facility] Patient education about a pr oper diet Last Documented On 1 12:11PM ; [facility] Inquiry and counseling about medication administration and compliance Last Documented On 1 1:57PM ; [facility] Discussed concerns about exe rcise : promote physical activity Last Documented On 1 12:11PM ; [facility] Patient goals discussed Last Documented On 1 1:57PM ; [facility] provided active listenin g, support and helped patient process through current symptoms and stressors due to patient not feeling well currently. [facility] reminded patient of importance of taking medications daily as prescribed and following up with scheduled psychiatry visits Last Documented On 1 9:59PM ; [facility] Explored current self-care m ethods (eg.,fixing up the house ) and encouraged patient to continue using them. ~ Last Documented On 1 10:48PM ; [facility] Discussed nutritional needs teach healthy choices including fruits and vegetables Last Documented On 1 5:48PM ; [facility] Patient education about a pr oper diet Last Documented On 1 5:48PM ; [facility] Discussed concerns about exe rcise : promote physical activity Last Documented On 1 5:48PM ; [facility] provided active listenin g, support and helped patient process through current symptoms and stressors related to low moods and increased anxiety. [facility] discussed getting established with counseling and provided list of area resources. 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 Anne's office. [facility] discussed crisis resources should they be needed and provided list of resources including local resources as well as national text and phone hotlines. [facility] discussed coping skills to manage increased anxiety including deep breathing and mindfulness resources Last Documented On 1 4:59PM ; [facility] provided active listenin g, support and helped patient process through current symptoms and stressors related to increased anxiety/panic and its impact on daily functioning. ~[facility] discussed patients effective coping skills and other tools that may be helpful and using technology to support these. ~[facility] discussed potential benefit of meeting with counselor and psychiatry to continue to work on anxiety and mood. ~ Last Documented On 0 12:31PM ; [facility] provided active listenin g, support and helped patient process through current symptoms and stressors related to increased anxiety and depression. ~P discussed coping skills with patient to manage increased anxiety and went over breathing techniques, meditation and mindfulness activities. Patient reports that focusing on his breathing has been helpful in controlling anxiety. ~[facility] discussed the importance of establishing counseling and patient is willing and was given list of counseling resources. ~P discussed importance of taking medications daily around the same time daily. [facility] and PCP discussed importance of trying to go to work and do things to increase physical activity Last Documented On 0 10:21AM ; [facility] provided active listenin g, support and helped patient process through current symptoms and stressors. ~[facility] discussed importance of medication compliance. [facility] encouraged patient to set reminders, utilizing pill organizer, etc to help remember to take medications regularly Last Documented On 0 4:55PM ; [facility] offered active and suppo rtive listening, normalized emotions and feelings, and processed current stressors. ~P praised patient for taking medications and working to find coping skills that work for him. Patient is not interested in attending therapy services at this time. [facility] discussed strategies that can help patient to remember to take medications daily such as phone reminders or establishing a new routine of taking them before work, etc Last Documented On 0 2:23PM ; [facility] Patient education about a pr oper diet Last Documented On 0 7:47PM ; [facility] Inquiry and counseling about medication administration and compliance Last Documented On 0 7:47PM ; [facility] Patient goals discussed Last Documented On 0 7:47PM ; [facility] Patient education about a pr oper diet Last Documented On 0 7:41PM ; [facility] Inquiry and counseling about medication administration and compliance Last Documented On 0 7:41PM ; [facility] Patient goals discussed Last Documented On 0 7:41PM ; [facility] provided active listenin g, support and helped patient process through current symptoms and stressors. ~[facility] reviewed coping skills with patient including breathing methods and demonstrated to patient. Patient was encouraged to utilize music and coping skills during breaks to help prevent or reduce anxiety during specific time period reported Last Documented On 0 6:54PM ; [facility] Patient education about a pr oper diet Last Documented On 0 9:59AM ; [facility] Inquiry and counseling about medication administration and compliance Last Documented On 0 9:59AM ; [facility] Patient goals discussed Last Documented On 0 9:59AM ; [facility] introduced patient to [facility] integrated model of care. ~[facility] offered active and supportive listening, normalized emotions and feelings, and processed current stressors related to increased anxiety and impact on work and daily life. ~[facility] discussed coping skills that patient can implement to manage increased anxiety including deep breathing and mindfulness. [facility] discussed identifying signs of increasing anxxiety and utilizing coping skills early Last Documented On 0 8:44AM ; [facility] Patient education about a pr oper diet Last Documented On 0 11:08AM ; [facility] Discussed concerns about exe rcise : promote physical activity Last Documented On 0 11:08AM ; [facility] Work Phone: [phone]) 743-858807-08-2024 Evaluation note Includes: Assessments for all patient encounters Findings Encounter Date Generalized anxiety disorder Established Akanksha ent with Ilana Bautista [employer] 03/31/2024 Last Documented On 4 5:20PM ; [facility] Moderate major depression, s nicolasa episode Established Patient with Ilana Bautista [employer] IN[employer] 03/31/2024 Last Documented On 4 5:20PM ; [facility] Nicotine dependence Established Patient with Ilana Bautista [employer] 03/31/2024 Last Documented On 4 5:20PM ; [facility] [Z68.27 - Body mass index [B LA] 27.0-27.9, adult] assessment of body mass index Open Access - Established with Ksenia Kilpatrick [employer] 03/31/2024 Last Documented On 4 11:35AM ; [facility] Acute sore throat Open Access - Established with Ksenia Kilpatrick [employer] 03/31/2024 Last Documented On 4 11:35AM ; [facility] Assessment of BMI Percentile = 5% to < 85% for age Z68.52 Open Access - Established with Ksenia Kilpatrick [employer] 03/31/2024 Last Documented On 4 11:35AM ; [facility] Nicotine dependence Open Access - Established wi th Ksenia Kilpatrick [employer] 03/31/2024 Last Documented On 4 11:35AM ; [facility] Generalized anxiety disorder Established Akanksha ent with Ilana Bautista [employer] 12/26/2023 Last Documented On 4 12:17PM ; [facility] Moderate major depression, s nicolasa episode BH Established Patient with Ilana Bautista [employer] 12/26/2023 Last Documented On 4 12:17PM ; [facility] Nicotine dependence Established Patient with Ilana Bautista [employer] 12/26/2023 Last Documented On 4 12:17PM ; [facility] [Body mass index [BMI] 27.0- 27.9, adult] assessment of body mass index Medical Established Patient with Nick Shawn [employer] 12/26/2023 Last Documented On 4 9:58AM ; [facility] Generalized anxiety disorder Medical Est ablished Patient with Nick Shawn [employer] 12/26/2023 Last Documented On 4 9:58AM ; [facility] Moderate major depression, s nicolasa episode Medical Established Patient with Nick Shawn [employer] 12/26/2023 Last Documented On 4 9:58AM ; [facility] Venipuncture was performed Medical Estab lished Patient with Nick Shawn [employer] 12/26/2023 Last Documented On 4 9:58AM ; [facility] Generalized anxiety disorder Established Akanksha ent with Ilana Bautista [employer] 11/23/2023 Last Documented On 4 6:43PM ; [facility] Moderate major depression, s nicolasa episode BH Established Patient with Ilana Bautista [employer] 11/23/2023 Last Documented On 4 6:43PM ; [facility] [Body mass index [BMI] 27.0- 27.9, adult] assessment of body mass index Medical Established Patient with Nick Bernabeer [employer] 11/23/2023 Last Documented On 4 9:00AM ; [facility] Diabetes Risk Test Score was two score 11/23/2023 Medical Established Patient with Nick Shawn [employer] 11/23/2023 Last Documented On 4 9:00AM ; [facility] Generalized anxiety disorder Medical Est ablished Patient with Nick Shawn [employer] 11/23/2023 Last Documented On 4 9:00AM ; [facility] Moderate major depression, s nicolasa episode Medical Established Patient with Nick Shawn [employer] 11/23/2023 Last Documented On 4 9:00AM ; [facility] [facility] [N50.811 - Right testicular pain] pain of the right testis Open Access - Established with Ksenia Kilpatrick [facility] 07/09/2023 Last Documented On 3 9:35AM ; [facility] [Z68.25 - Body mass index [B LA] 25.0-25.9, adult] assessment of body mass index Open Access - Established with Ksenia Kilpatrick [employer] [employer] [facility] 07/09/2023 Last Documented On 3 9:35AM ; [facility] Generalized anxiety disorder Open Access - Established with Ksenia Kilpatrick [facility] 07/09/2023 Last Documented On 3 9:35AM ; [facility] Moderate major depression, s nicolasa episode Open Access - Established with Ksenia Kilpatrick [employer] [facility] 07/09/2023 Last Documented On 3 9:35AM ; [facility] Nicotine dependence Open Access - Established wi th Ksenia Kilpatrick [facility] 07/09/2023 Last Documented On 3 9:35AM ; [facility] Generalized anxiety disorder Establis hed Patient with Tana Galindo [facility] 01/05/2023 Last Documented On 3 6:55AM ; [facility] [Body mass index [BMI] 23.0- 23.9, adult] assessment of body mass index Medical Established Patient with Nick Shawn [employer] [facility] 01/05/2023 Last Documented On 3 9:05AM ; [facility] Generalized anxiety disorder Medical Est ablished Patient with Nick Shawn [employer] [facility] 01/05/2023 Last Documented On 3 9:05AM ; [facility] Moderate major depression, s nicolasa episode Medical Established Patient with Nick Shawn [employer] [facility] 01/05/2023 Last Documented On 3 9:05AM ; [facility] Major depression, single episode BH Esta blished Patient with Tanafarzana MortonGalindo [facility] 11/24/2022 Last Documented On 3 5:46PM ; [facility] [Body mass index [BMI] 23.0- 23.9, adult] assessment of body mass index Medical Established Patient with Nick Shawn [employer] [facility] 11/24/2022 Last Documented On 3 9:05AM ; [facility] Generalized anxiety disorder Medical Est ablished Patient with Nick Shawn [employer] [facility] [facility] 11/24/2022 Last Documented On 3 9:05AM ; [facility] Moderate major depression, s nicolasa episode Medical Established Patient with Nick Shawn [employer] [facility] 11/24/2022 Last Documented On 3 9:05AM ; [facility] Major depression, single episode BH Esta blished Patient with Tanafarzana MortonGalindo [facility] 10/26/2022 Last Documented On 3 9:07AM ; [facility] Moderate major depression, s nicolasa episode BH Established Patient with Tanafarzana MortonGalindo [facility] 10/26/2022 Last Documented On 3 9:07AM ; [facility] [Body mass index [BMI] 23.0- 23.9, adult] assessment of body mass index Medical Established Patient with Nick Shawn [employer] [facility] 10/26/2022 Last Documented On 3 9:54AM ; [facility] Diabetes Risk Test Score was 3.0 score 10/26/2022 Medical Established Patient with Nick Shawn [employer] [facility] 10/26/2022 Last Documented On 3 9:54AM ; [facility] Generalized anxiety disorder Medical Est ablished Patient with Nick Shawn [employer] [facility] 10/26/2022 Last Documented On 3 9:54AM ; [facility] Moderate major depression, s nicolasa episode Medical Established Patient with Nick Shawn [employer] [facility] 10/26/2022 Last Documented On 3 9:54AM ; [facility] Nicotine dependence Medical Established Patient with Nick Shawn [employer] [facility] 10/26/2022 Last Documented On 3 9:54AM ; [facility] Assessment of body mass inde x [Body mass index [BMI] 20.0-20.9, adult] Medical Established Patient with Nick Shawn [employer] [facility] 08/29/2021 Last Documented On 1 3:08PM ; [facility] Diabetes Risk Test Score was one score 08/29/2021 Medical Established Patient with Nick Shawn [employer] [facility] 08/29/2021 Last Documented On 1 3:08PM ; [facility] Generalized anxiety disorder Medical Est ablished Patient with Nick Shawn [employer] [facility] 08/29/2021 Last Documented On 1 3:08PM ; [facility] Moderate major depression, s nicolasa episode Medical Established Patient with Nick Shawn [employer] [facility] 08/29/2021 Last Documented On 1 3:08PM ; [facility] Mild recurrent major depression Teleb ehavioral Health with Radha Short [facility] 03/22/2021 Last Documented On 1 9:59PM ; [facility] Panic disorder without agoraphobia Te lebehavioral Health with Radha Short [facility] 03/22/2021 Last Documented On 1 9:59PM ; [facility] Acute pharyngitis Telemedicine Establisted Patie nt with Nick Shawn [employer] [facility] 03/22/2021 Last Documented On 1 12:34PM ; [facility] Acute sinusitis Medical Established Patient with Nick Shawn [employer] [facility] 01/20/2021 Last Documented On 1 9:57AM ; [facility] Body mass index [Body mass i ndex [BMI] 20.0-20.9, adult] Medical Established Patient with Nick Shawn [employer] [facility] 01/20/2021 Last Documented On 1 9:57AM ; [facility] Generalized anxiety disorder Establis hed Patient with Jenelleiza Coxmons [facility] 12/15/2020 Last Documented On 1 10:51PM ; [facility] Moderate major depression, s nicolasa episode BH Established Patient with Jenelle Moya [facility] 12/15/2020 Last Documented On 1 10:51PM ; [facility] Constipation Medical Established Patient with Ksenia Kilpatrick [employer] [facility] 12/15/2020 Last Documented On 1 8:13PM ; [facility] Z68.20 - Body mass index [BM I] 20.0-20.9, adult Medical Established Patient with Ksenia Tim [employer] [facility] 12/15/2020 Last Documented On 1 8:13PM ; [facility] Moderate recurrent major depression E stablished Patient with Radha Short [facility] 09/29/2020 Last Documented On 1 5:02PM ; [facility] Panic disorder without agoraphobia Es tablished Patient with Radha Short [facility] 09/29/2020 Last Documented On 1 5:02PM ; [facility] Body mass index [Body mass i ndex [BMI] 21.0-21.9, adult] Medical Established Patient with Nick Shawn [employer] [facility] [facility] 09/29/2020 Last Documented On 1 10:45AM ; [facility] Generalized anxiety disorder Medical Est ablished Patient with Nick Shawn [employer] [facility] 09/29/2020 Last Documented On 1 10:45AM ; [facility] Moderate major depression, s nicolasa episode Medical Established Patient with Nick Shawn [employer] [facility] 09/29/2020 Last Documented On 1 10:45AM ; [facility] Mild recurrent major depression Estab lished Patient with Radha Short [facility] 09/10/2020 Last Documented On 0 12:31PM ; [facility] Panic disorder without agoraphobia BH Es tablished Patient with Radha Short [facility] 09/10/2020 Last Documented On 0 12:31PM ; [facility] Body mass index Medical Established Patient with Nick Shawn [employer] [facility] 09/10/2020 Last Documented On 0 11:17AM ; [facility] Mild recurrent major depression BH Estab lished Patient with Radha Short [facility] 08/27/2020 Last Documented On 0 10:21AM ; [facility] Panic disorder without agoraphobia Es tablished Patient with Radha Short [facility] 08/27/2020 Last Documented On 0 10:21AM ; [facility] Body mass index [Body mass i ndex [BMI] 22.0-22.9, adult] Medical Established Patient with Nick Shawn [employer] [employer] [facility] 08/27/2020 Last Documented On 0 8:00PM ; [facility] Generalized anxiety disorder Medical Est ablished Patient with Nick Shawn [employer] [facility] 08/27/2020 Last Documented On 0 8:00PM ; [facility] Moderate major depression, s nicolasa episode Medical Established Patient with Nick Shawn [employer] [facility] 08/27/2020 Last Documented On 0 8:00PM ; [facility] Depression Established Patient with Maura keyon Short [facility] 08/13/2020 Last Documented On 0 4:55PM ; [facility] Panic disorder without agoraphobia Es tablished Patient with Radha Short [facility] 08/13/2020 Last Documented On 0 4:55PM ; [facility] Depression Established Patient with Maura keyon Short [facility] 06/15/2020 Last Documented On 0 2:23PM ; [facility] Panic disorder without agoraphobia BH Es tablished Patient with Radha Short [facility] 06/15/2020 Last Documented On 0 2:23PM ; [facility] Depression Established Patient with Maura keyon Short [facility] 05/27/2020 Last Documented On 0 6:54PM ; [facility] Panic disorder without agoraphobia Es tablished Patient with Radha Short [facility] 05/27/2020 Last Documented On 0 6:54PM ; [facility] Depressive disorder BH Established Patient with Radha Short [facility] 05/18/2020 Last Documented On 0 8:46AM ; [facility] Panic disorder without agoraphobia Es tablished Patient with Radha Short [facility] 05/18/2020 Last Documented On 0 8:46AM ; [facility] Anxiety disorder NOS Medical New Patient with Ca ssie Shawn [employer] [facility] 05/18/2020 Last Documented On 0 6:40PM ; [facility] Body mass index Medical New Patient with Nick Shawn [employer] [facility] 05/18/2020 Last Documented On 0 6:40PM ; [facility] Depression Medical New Patient with Nick Shawn [employer] [facility] 05/18/2020 Last Documented On 0 6:40PM ; [facility] Diabetes Risk Test Score was one score 05/18/2020 Medical New Patient with Nick Bernabeer [employer] [facility] 05/18/2020 Last Documented On 0 6:40PM ; [facility] Routine history and physical Medical New Patient with Nick Bernabeer [employer] [facility] 05/18/2020 Last Documented On 0 6:40PM ; [facility] Work Phone: 1(294) 271-419107-08-2024 Evaluation note Includes: Assessments for all patient encounters Findings Encounter Date Generalized anxiety disorder Established Akanksha ent with Ilana Bautista [employer] 03/31/2024 Last Documented On 4 5:20PM ; [facility] Moderate major depression, s nicolasa episode Established Patient with Ilana Bautista [employer] 03/31/2024 Last Documented On 4 5:20PM ; [facility] Nicotine dependence Established Patient with Ilana Bautista [employer] 03/31/2024 Last Documented On 4 5:20PM ; [facility] [Z68.27 - Body mass index [B LA] 27.0-27.9, adult] assessment of body mass index Open Access - Established with Ksenia Kilpatrick [employer] [facility] 03/31/2024 Last Documented On 4 4:23PM ; [facility] Acute sore throat Open Access - Established with Ksenia Tim [employer] [facility] 03/31/2024 Last Documented On 4 4:23PM ; [facility] Assessment of BMI Percentile = 5% to < 85% for age Z68.52 Open Access - Established with Ksenia Tim [employer] [facility] 03/31/2024 Last Documented On 4 4:23PM ; [facility] Nicotine dependence Open Access - Established wi th Ksenia Tim [employer] [facility] 03/31/2024 Last Documented On 4 4:23PM ; [facility] Generalized anxiety disorder Established Akanksha ent with Ilana Bautista [employer] 12/26/2023 Last Documented On 4 12:17PM ; [facility] Moderate major depression, s nicolasa episode Established Patient with Ilana Bautista [employer] 12/26/2023 Last Documented On 4 12:17PM ; [facility] Nicotine dependence Established Patient with Ilana Bautista [employer] 12/26/2023 Last Documented On 4 12:17PM ; [facility] [Body mass index [BMI] 27.0- 27.9, adult] assessment of body mass index Medical Established Patient with Nick Shawn [employer] [facility] 12/26/2023 Last Documented On 4 9:58AM ; [facility] Generalized anxiety disorder Medical Est ablished Patient with Nick Shawn [employer] [facility] 12/26/2023 Last Documented On 4 9:58AM ; [facility] Moderate major depression, s nicolasa episode Medical Established Patient with Nick Shawn [employer] [facility] 12/26/2023 Last Documented On 4 9:58AM ; [facility] Venipuncture was performed Medical Estab lished Patient with Nick Shawn [employer] [facility] 12/26/2023 Last Documented On 4 9:58AM ; [facility] Generalized anxiety disorder Established Akanksha ent with Ilana Bautista [employer] 11/23/2023 Last Documented On 4 6:43PM ; [facility] Moderate major depression, s nicolasa episode Established Patient with Ilana Bautista [employer] 11/23/2023 Last Documented On 4 6:43PM ; [facility] [Body mass index [BMI] 27.0- 27.9, adult] assessment of body mass index Medical Established Patient with Nick Shawn [employer] [facility] 11/23/2023 Last Documented On 4 9:00AM ; [facility] Diabetes Risk Test Score was two score 11/23/2023 Medical Established Patient with Nick Shawn [employer] [facility] 11/23/2023 Last Documented On 4 9:00AM ; [facility] Generalized anxiety disorder Medical Est ablished Patient with Nick Shawn [employer] [facility] 11/23/2023 Last Documented On 4 9:00AM ; [facility] Moderate major depression, s nicolasa episode Medical Established Patient with Nick Shawn [employer] 11/23/2023 Last Documented On 4 9:00AM ; [facility] [N50.811 - Right testicular pain] pain of the right testis Open Access - Established with Ksenia Kilpatrick [facility] 07/09/2023 Last Documented On 3 9:35AM ; [facility] [Z68.25 - Body mass index [B LA] 25.0-25.9, adult] assessment of body mass index Open Access - Established with Ksenia Kilpatrick [facility] 07/09/2023 Last Documented On 3 9:35AM ; [facility] Generalized anxiety disorder Open Access - Established with Ksenia Kilpatrick [facility] 07/09/2023 Last Documented On 3 9:35AM ; [facility] Moderate major depression, s nicolasa episode Open Access - Established with Ksenia Kilpatrick [facility] 07/09/2023 Last Documented On 3 9:35AM ; [facility] Nicotine dependence Open Access - Established wi th Ksenia Kilpatrick [facility] 07/09/2023 Last Documented On 3 9:35AM ; [facility] Generalized anxiety disorder BH Establis hed Patient with Tana Galindo [facility] 01/05/2023 Last Documented On 3 6:55AM ; [facility] [Body mass index [BMI] 23.0- 23.9, adult] assessment of body mass index Medical Established Patient with Nick Shawn [employer] [facility] 01/05/2023 Last Documented On 3 9:05AM ; [facility] Generalized anxiety disorder Medical Est ablished Patient with Nick Shawn [employer] [facility] 01/05/2023 Last Documented On 3 9:05AM ; [facility] Moderate major depression, s nicolasa episode Medical Established Patient with Nick Shawn [employer] [facility] 01/05/2023 Last Documented On 3 9:05AM ; [facility] Major depression, single episode BH Esta blished Patient with Tana Galindo [facility] 11/24/2022 Last Documented On 3 5:46PM ; [facility] [Body mass index [BMI] 23.0- 23.9, adult] assessment of body mass index Medical Established Patient with Nick Shawn [employer] [facility] 11/24/2022 Last Documented On 3 9:05AM ; [facility] Generalized anxiety disorder Medical Est ablished Patient with Nick Shawn [employer] [facility] 11/24/2022 Last Documented On 3 9:05AM ; [facility] Moderate major depression, s nicolasa episode Medical Established Patient with Nick Shawn [employer] [facility] 11/24/2022 Last Documented On 3 9:05AM ; [facility] Major depression, single episode BH Esta blished Patient with Tana Galindo [facility] 10/26/2022 Last Documented On 3 9:07AM ; [facility] Moderate major depression, s nicolasa episode BH Established Patient with Tana Galindo [facility] 10/26/2022 Last Documented On 3 9:07AM ; [facility] [Body mass index [BMI] 23.0- 23.9, adult] assessment of body mass index Medical Established Patient with Nick Shawn [employer] [facility] 10/26/2022 Last Documented On 3 9:54AM ; [facility] Diabetes Risk Test Score was 3.0 score 10/26/2022 Medical Established Patient with Nick Shawn [employer] 10/26/2022 Last Documented On 3 9:54AM ; [facility] Generalized anxiety disorder Medical Est ablished Patient with Nick Shawn [employer] [facility] 10/26/2022 Last Documented On 3 9:54AM ; [facility] Moderate major depression, s nicolasa episode Medical Established Patient with Nick Shawn [employer] 10/26/2022 Last Documented On 3 9:54AM ; [facility] Nicotine dependence Medical Established Patient with Nick Shawn [employer] [facility] 10/26/2022 Last Documented On 3 9:54AM ; [facility] Assessment of body mass inde x [Body mass index [BMI] 20.0-20.9, adult] Medical Established Patient with Nick Shawn [employer] [facility] 08/29/2021 Last Documented On 1 3:08PM ; [facility] Diabetes Risk Test Score was one score 08/29/2021 Medical Established Patient with Nick Shawn [employer] 08/29/2021 Last Documented On 1 3:08PM ; [facility] Generalized anxiety disorder Medical Est ablished Patient with Nick Shawn [employer] 08/29/2021 Last Documented On 1 3:08PM ; [facility] Moderate major depression, s nicolasa episode Medical Established Patient with Nick Shawn [employer] 08/29/2021 Last Documented On 1 3:08PM ; [facility] Mild recurrent major depression Teleb ehavioral Health with Radha Short [facility] 03/22/2021 Last Documented On 1 9:59PM ; [facility] Panic disorder without agoraphobia Te lebehavioral Health with Radha Short [facility] 03/22/2021 Last Documented On 1 9:59PM ; [facility] Acute pharyngitis Telemedicine Establisted Patie nt with Nick Shawn [employer] [facility] 03/22/2021 Last Documented On 1 12:34PM ; [facility] Acute sinusitis Medical Established Patient with Nick Shawn [employer] [facility] 01/20/2021 Last Documented On 1 9:57AM ; [facility] Body mass index [Body mass i ndex [BMI] 20.0-20.9, adult] Medical Established Patient with Nick Shawn [employer] [facility] 01/20/2021 Last Documented On 1 9:57AM ; [facility] Generalized anxiety disorder Establis hed Patient with Jenelle Moya [facility] 12/15/2020 Last Documented On 1 10:51PM ; [facility] Moderate major depression, s nicolasa episode BH Established Patient with Jenelle Lesters [facility] 12/15/2020 Last Documented On 1 10:51PM ; [facility] Constipation Medical Established Patient with Ksenia Kilpatrick [employer] [facility] 12/15/2020 Last Documented On 1 8:13PM ; [facility] Z68.20 - Body mass index [BM I] 20.0-20.9, adult Medical Established Patient with Ksenia Kilpatrick [employer] [facility] 12/15/2020 Last Documented On 1 8:13PM ; [facility] Moderate recurrent major depression E stablished Patient with Radha Short [facility] 09/29/2020 Last Documented On 1 5:02PM ; [facility] Panic disorder without agoraphobia BH Es tablished Patient with Radha Short [facility] 09/29/2020 Last Documented On 1 5:02PM ; [facility] Body mass index [Body mass i ndex [BMI] 21.0-21.9, adult] Medical Established Patient with Nick Shawn [employer] [facility] 09/29/2020 Last Documented On 1 10:45AM ; [facility] Generalized anxiety disorder Medical Est ablished Patient with Nick Shawn [employer] [facility] 09/29/2020 Last Documented On 1 10:45AM ; [facility] Moderate major depression, s nicolasa episode Medical Established Patient with Nick Shawn [employer] 09/29/2020 Last Documented On 1 10:45AM ; [facility] Mild recurrent major depression BH Estab lished Patient with Radha Short [facility] 09/10/2020 Last Documented On 0 12:31PM ; [facility] Panic disorder without agoraphobia BH Es tablished Patient with Radha Short [facility] 09/10/2020 Last Documented On 0 12:31PM ; [facility] Body mass index Medical Established Patient with Nick Shawn [employer] 09/10/2020 Last Documented On 0 11:17AM ; [facility] Mild recurrent major depression Estab lished Patient with Radha Short [facility] 08/27/2020 Last Documented On 0 10:21AM ; [facility] Panic disorder without agoraphobia Es tablished Patient with Radha Short [facility] 08/27/2020 Last Documented On 0 10:21AM ; [facility] Body mass index [Body mass i ndex [BMI] 22.0-22.9, adult] Medical Established Patient with Nick Shawn [employer] [facility] 08/27/2020 Last Documented On 0 8:00PM ; [facility] Generalized anxiety disorder Medical Est ablished Patient with Nick Shawn [employer] 08/27/2020 Last Documented On 0 8:00PM ; [facility] Moderate major depression, s nicolasa episode Medical Established Patient with Nick Shawn [employer] 08/27/2020 Last Documented On 0 8:00PM ; [facility] Depression Established Patient with Maura keyon Short [facility] 08/13/2020 Last Documented On 0 4:55PM ; [facility] Panic disorder without agoraphobia Es tablished Patient with Radha Short [facility] 08/13/2020 Last Documented On 0 4:55PM ; [facility] Depression Established Patient with Maura keyon Short [facility] 06/15/2020 Last Documented On 0 2:23PM ; [facility] Panic disorder without agoraphobia Es tablished Patient with Radha Short [facility] 06/15/2020 Last Documented On 0 2:23PM ; [facility] Depression Established Patient with Maura keyon Short [facility] 05/27/2020 Last Documented On 0 6:54PM ; [facility] Panic disorder without agoraphobia Es tablished Patient with Radha Short [facility] 05/27/2020 Last Documented On 0 6:54PM ; [facility] Depressive disorder Established Patient with Radha Short [facility] 05/18/2020 Last Documented On 0 8:46AM ; [facility] Panic disorder without agoraphobia BH Es tablished Patient with Radha Macias [facility] 05/18/2020 Last Documented On 0 8:46AM ; [facility] Anxiety disorder NOS Medical New Patient with Ca ssie Shawn [employer] 05/18/2020 Last Documented On 0 6:40PM ; [facility] Body mass index Medical New Patient with Nick Shawn [employer] 05/18/2020 Last Documented On 0 6:40PM ; [facility] Depression Medical New Patient with Nick Shawn [employer] 05/18/2020 Last Documented On 0 6:40PM ; [facility] Diabetes Risk Test Score was one score 05/18/2020 Medical New Patient with Nick Shawn [employer] 05/18/2020 Last Documented On 0 6:40PM ; [facility] Routine history and physical Medical New Patient with Nick Shawn [employer] 05/18/2020 Last Documented On 0 6:40PM ; [facility] Work Phone: 1(190) 448-316607-08-2024 Evaluation note Includes: Assessments for all patient encounters Findings Encounter Date Generalized anxiety disorder Established Akanksha ent with Ilana Bautista [facility] 03/31/2024 Last Documented On 4 5:20PM ; [facility] Moderate major depression, s nicolasa episode Established Patient with Ilana Bautista [employer]ER IN[employer] 03/31/2024 Last Documented On 4 5:20PM ; [facility] Nicotine dependence Established Patient with Ilana Bautista [employer] INST[employer]ER 03/31/2024 Last Documented On 4 5:20PM ; [facility] [Z68.27 - Body mass index [B LA] 27.0-27.9, adult] assessment of body mass index Open Access - Established with Ksenia Kilpatrick [facility] 03/31/2024 Last Documented On 4 4:23PM ; [facility] Acute sore throat Open Access - Established with Ksenia Kilpatrick [employer] 03/31/2024 Last Documented On 4 4:23PM ; [facility] Assessment of BMI Percentile = 5% to < 85% for age Z68.52 Open Access - Established with Ksenia Kilpatrick [employer] 03/31/2024 Last Documented On 4 4:23PM ; [facility] Nicotine dependence Open Access - Established wi th Ksenia Kilpatrick [employer] 03/31/2024 Last Documented On 4 4:23PM ; [facility] Generalized anxiety disorder Established Akanksha ent with Ilana Bautista [employer] 12/26/2023 Last Documented On 4 12:17PM ; [facility] Moderate major depression, s nciolasa episode Established Patient with Ilana Bautista [employer] IN[employer] 12/26/2023 Last Documented On 4 12:17PM ; [facility] Nicotine dependence Established Patient with Ilana Bautista [employer] INST[employer] 12/26/2023 Last Documented On 4 12:17PM ; [facility] [Body mass index [BMI] 27.0- 27.9, adult] assessment of body mass index Medical Established Patient with Nick Shawn [employer] 12/26/2023 Last Documented On 4 9:58AM ; [facility] Generalized anxiety disorder Medical Est ablished Patient with Nick Shawn [employer] 12/26/2023 Last Documented On 4 9:58AM ; [facility] Moderate major depression, s nicolasa episode Medical Established Patient with Nick Shawn [employer] 12/26/2023 Last Documented On 4 9:58AM ; [facility] Venipuncture was performed Medical Estab lished Patient with Nick Shawn [employer] 12/26/2023 Last Documented On 4 9:58AM ; [facility] Generalized anxiety disorder Established Akanksha ent with Ilana Bautista [employer] INST[employer]ER 11/23/2023 Last Documented On 4 6:43PM ; [facility] Moderate major depression, s nicolasa episode BH Established Patient with Ilana Bautista [employer] IN[employer] 11/23/2023 Last Documented On 4 6:43PM ; [facility] [Body mass index [BMI] 27.0- 27.9, adult] assessment of body mass index Medical Established Patient with Nick Shawn [employer] 11/23/2023 Last Documented On 4 9:00AM ; [facility] Diabetes Risk Test Score was two score 11/23/2023 Medical Established Patient with Nick Shawn [employer] 11/23/2023 Last Documented On 4 9:00AM ; [facility] Generalized anxiety disorder Medical Est ablished Patient with Nick Shawn [employer] 11/23/2023 Last Documented On 4 9:00AM ; [facility] Moderate major depression, s nicolasa episode Medical Established Patient with Nick Shawn [employer] 11/23/2023 Last Documented On 4 9:00AM ; [facility] [N50.811 - Right testicular pain] pain of the right testis Open Access - Established with Ksenia Kilpatrick [facility] 07/09/2023 Last Documented On 3 9:35AM ; [facility] [Z68.25 - Body mass index [B LA] 25.0-25.9, adult] assessment of body mass index Open Access - Established with Ksenia Kilpatrick [facility] 07/09/2023 Last Documented On 3 9:35AM ; [facility] Generalized anxiety disorder Open Access - Established with Ksenia Kilpatrick [facility] 07/09/2023 Last Documented On 3 9:35AM ; [facility] Moderate major depression, s nicolasa episode Open Access - Established with Ksenia Kilpatrick [facility] 07/09/2023 Last Documented On 3 9:35AM ; [facility] Nicotine dependence Open Access - Established wi th Ksenia Kilpatrick [facility] 07/09/2023 Last Documented On 3 9:35AM ; [facility] Generalized anxiety disorder BH Establis hed Patient with Tana Galindo LPCC-S 01/05/2023 Last Documented On 3 6:55AM ; [facility] [Body mass index [BMI] 23.0- 23.9, adult] assessment of body mass index Medical Established Patient with Nick Shawn [employer] 01/05/2023 Last Documented On 3 9:05AM ; [facility] Generalized anxiety disorder Medical Est ablished Patient with Nick Shawn [employer] 01/05/2023 Last Documented On 3 9:05AM ; [facility] Moderate major depression, s nicolasa episode Medical Established Patient with Nick Shawn [employer] 01/05/2023 Last Documented On 3 9:05AM ; [facility] Major depression, single episode BH Esta blished Patient with Tana Galindo LPCC-S 11/24/2022 Last Documented On 3 5:46PM ; [facility] [Body mass index [BMI] 23.0- 23.9, adult] assessment of body mass index Medical Established Patient with Nick Shawn [employer] 11/24/2022 Last Documented On 3 9:05AM ; [facility] Generalized anxiety disorder Medical Est ablished Patient with Nick Shawn [employer] 11/24/2022 Last Documented On 3 9:05AM ; [facility] Moderate major depression, s nicolasa episode Medical Established Patient with Nick Shawn [employer] 11/24/2022 Last Documented On 3 9:05AM ; [facility] Major depression, single episode BH Esta blished Patient with Tana Galindo LPCC-S 10/26/2022 Last Documented On 3 9:07AM ; [facility] Moderate major depression, s nicolasa episode BH Established Patient with Tana Galindo LPCC-S 10/26/2022 Last Documented On 3 9:07AM ; [facility] [Body mass index [BMI] 23.0- 23.9, adult] assessment of body mass index Medical Established Patient with Nick Shawn [employer] 10/26/2022 Last Documented On 3 9:54AM ; [facility] Diabetes Risk Test Score was 3.0 score 10/26/2022 Medical Established Patient with Nick Shawn [employer] 10/26/2022 Last Documented On 3 9:54AM ; [facility] Generalized anxiety disorder Medical Est ablished Patient with Nick Shawn [employer] 10/26/2022 Last Documented On 3 9:54AM ; [facility] Moderate major depression, s nicolasa episode Medical Established Patient with Nick Shawn [employer] 10/26/2022 Last Documented On 3 9:54AM ; [facility] Nicotine dependence Medical Established Patient with Nick Shawn [employer] 10/26/2022 Last Documented On 3 9:54AM ; [facility] Assessment of body mass inde x [Body mass index [BMI] 20.0-20.9, adult] Medical Established Patient with Nick Hsawn [employer] 08/29/2021 Last Documented On 1 3:08PM ; [facility] Diabetes Risk Test Score was one score 08/29/2021 Medical Established Patient with Nick Shawn [employer] 08/29/2021 Last Documented On 1 3:08PM ; [facility] Generalized anxiety disorder Medical Est ablished Patient with Nick Shawn [employer] 08/29/2021 Last Documented On 1 3:08PM ; [facility] Moderate major depression, s nicolasa episode Medical Established Patient with Nick Shawn [employer] 08/29/2021 Last Documented On 1 3:08PM ; [facility] Mild recurrent major depression Teleb ehavioral Health with Radha Short LISWS 03/22/2021 Last Documented On 1 9:59PM ; [facility] Panic disorder without agoraphobia Te lebehavioral Health with Radha Short LISWS 03/22/2021 Last Documented On 1 9:59PM ; [facility] Acute pharyngitis Telemedicine Establisted Patie nt with Nick Shawn [employer] 03/22/2021 Last Documented On 1 12:34PM ; [facility] Acute sinusitis Medical Established Patient with Nick Shawn [employer] 01/20/2021 Last Documented On 1 9:57AM ; [facility] Body mass index [Body mass i ndex [BMI] 20.0-20.9, adult] Medical Established Patient with Nick Shawn [employer] 01/20/2021 Last Documented On 1 9:57AM ; [facility] Generalized anxiety disorder Establis hed Patient with Jenelle Moya LPCC-S 12/15/2020 Last Documented On 1 10:51PM ; [facility] Moderate major depression, s nicolasa episode BH Established Patient with Jenelleiza Moya LPCC-S 12/15/2020 Last Documented On 1 10:51PM ; [facility] Constipation Medical Established Patient with Ksenia Kilpatrick [employer] 12/15/2020 Last Documented On 1 8:13PM ; [facility] Z68.20 - Body mass index [BM I] 20.0-20.9, adult Medical Established Patient with Ksenia Kilpatrick [employer] 12/15/2020 Last Documented On 1 8:13PM ; [facility] Moderate recurrent major depression BH E stablished Patient with Radha Short LISWS 09/29/2020 Last Documented On 1 5:02PM ; [facility] Panic disorder without agoraphobia BH Es tablished Patient with Radha Short LISWS 09/29/2020 Last Documented On 1 5:02PM ; [facility] Body mass index [Body mass i ndex [BMI] 21.0-21.9, adult] Medical Established Patient with Nick Shawn [employer] 09/29/2020 Last Documented On 1 10:45AM ; [facility] Generalized anxiety disorder Medical Est ablished Patient with Nick Shawn [employer] 09/29/2020 Last Documented On 1 10:45AM ; [facility] Moderate major depression, s nicolasa episode Medical Established Patient with Nick Shawn [employer] 09/29/2020 Last Documented On 1 10:45AM ; [facility] Mild recurrent major depression BH Estab lished Patient with Radha Short LISWS 09/10/2020 Last Documented On 0 12:31PM ; [facility] Panic disorder without agoraphobia BH Es tablished Patient with Radha Short LISWS 09/10/2020 Last Documented On 0 12:31PM ; [facility] Body mass index Medical Established Patient with Nick Shawn [employer] 09/10/2020 Last Documented On 0 11:17AM ; [facility] Mild recurrent major depression BH Estab lished Patient with Radha Short LISWS 08/27/2020 Last Documented On 0 10:21AM ; [facility] Panic disorder without agoraphobia Es tablished Patient with Radha Short LISWS 08/27/2020 Last Documented On 0 10:21AM ; [facility] Body mass index [Body mass i ndex [BMI] 22.0-22.9, adult] Medical Established Patient with Nick Shawn [employer] 08/27/2020 Last Documented On 0 8:00PM ; [facility] Generalized anxiety disorder Medical Est ablished Patient with Nick Shawn [employer] 08/27/2020 Last Documented On 0 8:00PM ; [facility] Moderate major depression, s nicolasa episode Medical Established Patient with Nick Shawn [employer] 08/27/2020 Last Documented On 0 8:00PM ; [facility] Depression Established Patient with Maura keyon Short LISWS 08/13/2020 Last Documented On 0 4:55PM ; [facility] Panic disorder without agoraphobia Es tablished Patient with Radha Short LISWS 08/13/2020 Last Documented On 0 4:55PM ; [facility] Depression Established Patient with Maura keyon Short LISWS 06/15/2020 Last Documented On 0 2:23PM ; [facility] Panic disorder without agoraphobia Es tablished Patient with Radha Short LISWS 06/15/2020 Last Documented On 0 2:23PM ; [facility] Depression Established Patient with Maura keyon Short LISWS 05/27/2020 Last Documented On 0 6:54PM ; [facility] Panic disorder without agoraphobia Es tablished Patient with Radha Short LISWS 05/27/2020 Last Documented On 0 6:54PM ; [facility] Depressive disorder Established Patient with Radha Short LISWS 05/18/2020 Last Documented On 0 8:46AM ; [facility] Panic disorder without agoraphobia Es tablished Patient with Radha Short LISWS 05/18/2020 Last Documented On 0 8:46AM ; [facility] Anxiety disorder NOS Medical New Patient with Teresa Escobar [employer] 05/18/2020 Last Documented On 0 6:40PM ; [facility] Body mass index Medical New Patient with Nick Escobar [employer] 05/18/2020 Last Documented On 0 6:40PM ; [facility] Depression Medical New Patient with Nick Escobar [employer] 05/18/2020 Last Documented On 0 6:40PM ; [facility] Diabetes Risk Test Score was one score 05/18/2020 Medical New Patient with Nick Escobar [employer] 05/18/2020 Last Documented On 0 6:40PM ; [facility] Routine history and physical Medical New Patient with Nick Escobar [employer] 05/18/2020 Last Documented On 0 6:40PM ; [facility] Work Phone: [phone] 350-135807-08-2024 Progress note* Progress note Date Encounter Last Documented by 03/31/2024 Established Patient Last docu mented on 03/31/2024; 5:20 PM, Ilana PALMA; [facility] Active Problems & Conditions - F41.1 - Generalized Anxiety Disorder - F32.1 - Major Depression, Single Episode Moderate - F17.200 - Nicotine Dependence Subjective [facility] met with patient to follow up on mood and medications. Patient reports that he is feeling better and reports a decrease in depression and anxiety symptoms. Patient still has some stress due to taking care of his grandparents and Uncle. Patient reports that he did contact adult protective services 3 times and they did not find any problems with thier living environment. Patient stated that he has stopped doing everything for them and this has helped to decrease his stress and has imrpoved his mood. Patient did not start taking the abilify and feels that the paxil is working fine. Chief Complaint The Chief Complaint is:: Swollen lympth node, followed up on mood and medicaitons. History of Present Illness Rory Camp is a 28 year old male. - Anxiety - Depression - Energy level is good - No sleep disturbances Current Medication - Amoxicillin 500 MG Oral Capsule, conventional Take 1 capsule by mouth 3 times per day until gone., 10 days, 0 refills - Fluticasone Propionate 50 MCG/ACT Nasal Suspension One spay to each nostril daily, 30 days, 5 refills - Loratadine 10 MG Oral Tablet Take one tablet daily, 30 days, 5 refills - Paxil 40 MG Oral Tablet Take one tablet daily, 30 days, 5 refills Past Medical/Surgical History Reported: No Safety Measures. Medical: No previous hospitalizations. Surgical / Procedural: No prior surgery or no significant history. Immunization History: Recent immunization for flu. Diagnoses: Depression Anxiety disorder Surgical: - General surgery Social History Environmental Exposure: No secondhand cigarette smoke exposure. Personal: Recent emotional stress. Tobacco use: Using electronic cigarettes/vaping. Alcohol: A social drinker. Drug Use: Using marijuana. Not using drugs. Housing And Economic Circumstances: Lives with spouse. 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 Allergies - -No Known Drug Allergies - Seasonal allergies Family History Paternal: Leukemia no tx needed at this time Maternal: Ischemic heart disease heart failure r/t vavle, pt had vavle replacement 2020 Systemic hypertension Breast neoplasm Physical Findings General Appearance: - Normal Appearance. Neurological: - Cognitive Functions was Normal. - Estimated intelligence was normal. - Oriented to time, place, and person. - No hallucinations. - Judgement was not impaired. Speech: - Is Normal. - No articulation abnormalities. Psychiatric: - Mood is Euthymic. - Attitude Open. Appearance: - Normal. Demonstrated Behavior: - Motor Activity Normal Activity. - Eye Contact Appropriate. Affect: - Congruent with the mood. Thought Processes: - Not impaired. Thought Content: - Revealed no impairment. - Insight was intact. - No delusions. - No suicidal ideation. - No Passive thoughts of . - No suicidal plans. - No suicidal intent. - No homicidal ideations. - No homicidal plans. - No homicidal intent. Past Medical: - No repetitive self injurious behavior. Assessment - Nicotine dependence [F17.200 - Nicotine dependence, unspecified, uncomplicated] - Moderate major depression, single episode [F32.1 - Major depressive disorder, single episode, moderate] - Generalized anxiety disorder [F41.1 - Generalized anxiety disorder] Therapy - Developmental/Behavioral Screening & Testing - PHQ9 and Developmental/Behavioral Screening & Testing - GAD7. - Brief solution-focused. - Adherent with medications. - Visit 30 Minutes. - Plan - do not modify medication. Collaborated with patient and provider: Counseling/Education *BHP offered active and supportive listening, normalized emotions and feelings, and processed current stressors. Plan *Continue to take medication(s) as prescribed. *BHP to follow-up with patient at next visit as scheduled. *Patient to follow up as needed/scheduled. Advance Directives - Declined to Provide Advance Directive Care Team - Nick Escobar CNP Health Reminders - Assess Tobacco Use satisfied 03/31/2024. - NARESH-2 satisfied 03/31/2024. - PHQ9 / PHQA satisfied 03/31/2024. User Defined 1 NARESH-2 score was four 03/31/2024, NARESH-7 score was eleven [NARESH-7] Feeling nervous, anxious or on edge? + 3 pt : Nearly every day, [NARESH-7] Feeling nervous, anxious or on edge? + 3 pt : Nearly every day, [NARESH-7] Not being able to stop or control worrying? + 1 pt : Several days, [NARESH-7] Not being able to stop or control worrying? + 1 pt : Several days, [NARESH-7] Worrying too much about different things? + 1 pt : Several days, [NARESH-7] Trouble relaxing? + 2 pt : More than half the days, [NARESH-7] Being so restless that it's hard to sit still? + 3 pt : Nearly every day, [NARESH-7] Becoming easily annoyed or irritable? + 1 pt : Several days, [NARESH-7] Feeling afraid as if something awful might happen? + 0 pt : Not at all, Patient Health Questionnaire 9-Item total score was three 03/31/2024, [PHQ-9-1] Little interest or pleasure in doing things? + 0 pt : Not at all, [PHQ-9-2] Feeling down, depressed, or hopeless? + 1 pt : Several days, [PHQ-9-3] Trouble falling or staying asleep or sleeping too much? + 0 pt : Not at all, [PHQ-9-4] Feeling tired or having little energy? + 1 pt : Several days, [PHQ-9-5] Poor appetite or overeating? + 0 pt : Not at all, [PHQ-9-6] Feeling bad about yourself-or that you are a failure + 0 pt : Not at all, [PHQ-9-7] Trouble concentrating on things such as reading the newspaper + 1 pt : Several days, [PHQ-9-8] Moving or speaking so slowly that other people have noticed. + 0 pt : Not at all, and [PHQ-9-9] Thoughts that you would be better off or hurting yourself? + 0 pt : Not at all. [facility]07-08-2024 Progress note* Progress note Date Encounter Last Documented by 03/31/2024 Open Access - Established Last d ocumented on 04/01/2024; 4:23 PM, Ksenia Kilpatrick CNP; [facility] Active Problems & Conditions - F41.1 - Generalized Anxiety Disorder - F32.1 - Major Depression, Single Episode Moderate - F17.200 - Nicotine Dependence Chief Complaint The Chief Complaint is: Patient here for pressure on the right side of his neck, thinks it's a swollen lymph node for the past week. Complains of minor nausea but states that is normal for him. Reason For Visit Visit for: neck concerns. Referred Here Not referred by urgent care clinic and not the emergency room. No prior encounters. - Data to be reviewed: no clinical lab tests History of Present Illness - Allergy list reviewed - Reviewed Medications - Medication list reviewed Patient reports he has been feeling some increased pressure right over the right side of his neck just above his collar bone, like someone is pushing on his neck with their fingers. Has been ongoing for over a week. Reports that he thought it was swollen lymph nodes but has not felt any bumps. Patient reports today he started to feel like he was also feeling some pressure starting on the left side of his neck. Patient denies any fever, sore throat, cough. Patient reports some ear itching and irritation, not pain. Also reports nasal congestion. Patient reports he has only been taking the allergy medications a couple times per week, not daily. Denies being around any ill contacts Current Medication - Fluticasone Propionate 50 MCG/ACT Nasal Suspension One spay to each nostril daily, 30 days, 5 refills - Loratadine 10 MG Oral Tablet Take one tablet daily, 30 days, 5 refills - Paxil 40 MG Oral Tablet Take one tablet daily, 30 days, 5 refills Past Medical/Surgical History Reported: No Safety Measures. Medical: No previous hospitalizations. Surgical / Procedural: No prior surgery or no significant history. Immunization History: Recent immunization for flu. Diagnoses: Depression Anxiety disorder Surgical: - General surgery Social History Environmental Exposure: No secondhand cigarette smoke exposure. Behavioral: Not a current tobacco user. Tobacco use: Using electronic cigarettes/vaping. Alcohol: A social drinker. Drug Use: Using marijuana. Sexual: Sexually active, sexual orientation Straight (not lesbian or rider), and gender identity Male. Allergies - -No Known Drug Allergies - Seasonal allergies Family History Paternal: Leukemia no tx needed at this time Maternal: Ischemic heart disease heart failure r/t vavle, pt had vavle replacement 2020 Systemic hypertension Breast neoplasm Review Of Systems Systemic: No systemic symptoms. Head: No head symptoms. Otolaryngeal: Ear symptoms. No nasal symptoms. Throat symptoms see HPI. Cardiovascular: No cardiovascular symptoms. Pulmonary: No pulmonary symptoms. Gastrointestinal: No gastrointestinal symptoms. Genitourinary: No genitourinary symptoms. Musculoskeletal: No musculoskeletal symptoms. Neurological: No neurological symptoms. Psychological: No psychological symptoms. Skin: No skin symptoms. Physical Findings - Vitals taken 03/31/2024 10:41 am BP-Sitting R128/80 mmHg Pulse Rate-Vtfhoeh05 bpm Temp-Oral98.1 F Wdsiya76 in Ufluib194 lbs 9.6 oz Body Mass Index27.3 kg/m2 Body Surface Area2 m2 Oxygen Wkbreizvoj28 % Vital Signs: - Systolic blood pressure < 130 mmHg. - Diastolic blood pressure 80-89 mmHg. General Appearance: - Awake. - Alert. - In no acute distress. Eyes: General/bilateral: Pupils: - PERRLA. Ears: General/bilateral: Tympanic Membrane: - Examined. - Not bulging. - No retraction of tympanic membrane. - Not erythematous. - Not opacified. Right Ear: - Examined. Left Ear: - Examined. Nose: General/bilateral: Discharge: - No nasal discharge. Pharynx: Oropharynx: - Abnormal right tonsil is swollen, uvula is pulling to the right. Lungs: - Respiration rhythm and depth was normal. - Clear to auscultation. Cardiovascular: Heart Rate And Rhythm: - Normal. Heart Sounds: - Normal. Abdomen: Auscultation: - Bowel sounds were normal. Musculoskeletal System: General/bilateral: - Normal movement of all extremities. Neurological: - Oriented to time, place, and person. Psychiatric: - Expression of emotions normal. Skin: - General appearance was normal. Tests Laboratory-based Chemistry: Immunology Studies: Streptococcus Group A Screen was negative. Other Laboratory Tests: Screening for sexually transmitted infections was not performed. Assessment - Z68.27 - Body mass index [BMI] 27.0-27.9, adult - Z68.52 - Body mass index [BMI] pediatric, 5th percentile to less than 85th percentile for age - J02.9 - Acute pharyngitis, unspecified - F17.200 - Nicotine dependence, unspecified, uncomplicated Counseling/Education - Discussed nutritional needs teach healthy choices including fruits and vegetables - Patient education about a proper diet - Discussed concerns about exercise: promote physical activity Plan StartCited- Acute pharyngitis, unspecified Amoxicillin 500 MG capsule Take 1 capsule by mouth 3 times per day until gone., 10 days, 0 refills EndCited Patient is advised that the Strep was negative however, it coule be another agent causing infection. Patient advised to complete all antibiotics and return if symptoms worsen or fail to improve. Discussed taking allergy meds daily would be more effective to help with ear symptoms. Advance Directives - Declined to Provide Advance Directive Care Team - Nick Escobar CNP Health Reminders - Assess BMI satisfied 03/31/2024. - Assess Tobacco Use satisfied 03/31/2024. - Follow Up Plan BMI Management satisfied 03/31/2024. [facility]04-08-2024 Progress note* Progress note Date Encounter Last Documented by 12/31/2023 [Patient Encounter] Last paula gold on 12/31/2023; 5:51 PM, Nick Escobar CNP; [facility] Active Problems & Conditions - F41.1 - Generalized Anxiety Disorder - F32.1 - Major Depression, Single Episode Moderate - F17.200 - Nicotine Dependence Current Medication - Abilify 2 MG Oral Tablet Take one tablet daily, 30 days, 1 refills - Fluticasone Propionate 50 MCG/ACT Nasal Suspension One spay to each nostril daily, 30 days, 5 refills - Loratadine 10 MG Oral Tablet Take one tablet daily, 30 days, 5 refills - Paxil 40 MG Oral Tablet Take one tablet daily, 30 days, 5 refills - Xanax 0.5 MG Oral Tablet take 1 tablet by mouth 30 minutes before flight (cancel ativan please), 2 days, 0 refills Past Medical/Surgical History Reported: No Safety Measures. Medical: No previous hospitalizations. Surgical / Procedural: No prior surgery or no significant history. Immunization History: Recent immunization for flu. Diagnoses: Depression Anxiety disorder NOS Surgical: - General surgery Allergies - -No Known Drug Allergies - Seasonal allergies Family History Paternal: Leukemia no tx needed at this time Maternal: Ischemic heart disease heart failure r/t vavle, pt had vavle replacement 2020 Systemic hypertension Breast neoplasm Plan StartCited- Vitamin D deficiency, unspecified Vitamin D (Ergocalciferol) 1.25 MG (90735 UT) capsule Take one tablet weekly, 28 days, 1 refills EndCited Advance Directives - Declined to Provide Advance Directive Care Team - Nick Escobar CNP [facility]04-03-2024 History general Narrative - Reported Includes: Medical History in patient's chart Description Last Updated No prior surgery or no significant histo ry 12/26/2023 Last Documented On 4 9:58AM ; [facility] No Safety Measures 11/23/2023 Last Documented On 4 6:43PM ; [facility] No previous hospitalizations 12/15/2020 Last Documented On 1 8:13PM ; [facility] History of anxiety disorder NOS 05/18/20 20 Last Documented On 0 6:40PM ; [facility] History of depression 05/18/2020 Last Documented On 0 6:40PM ; [facility] History of psychiatric disorders 020 Last Documented On 0 6:40PM ; [facility] A recent immunization for flu 05/18/2020 Last Documented On 0 6:40PM ; [facility] Work Phone: 1(953) 830-119604-03-2024 History general Narrative - Reported Includes: Medical History in patient's chart Description Last Updated No prior surgery or no significant histo ry 12/26/2023 Last Documented On 4 9:58AM ; [facility] No Safety Measures 11/23/2023 Last Documented On 4 6:43PM ; [facility] No previous hospitalizations 12/15/2020 Last Documented On 1 8:13PM ; [facility] History of anxiety disorder NOS 05/18/20 20 Last Documented On 0 6:40PM ; [facility] History of depression 05/18/2020 Last Documented On 0 6:40PM ; [facility] History of psychiatric disorders 020 Last Documented On 0 6:40PM ; [facility] A recent immunization for flu 05/18/2020 Last Documented On 0 6:40PM ; [facility] Work Phone: 1(814) 992-328404-03-2024 History general Narrative - Reported Includes: Medical History in patient's chart Description Last Updated No prior surgery or no significant histo ry 12/26/2023 Last Documented On 4 9:58AM ; [facility] No Safety Measures 11/23/2023 Last Documented On 4 6:43PM ; [facility] No previous hospitalizations 12/15/2020 Last Documented On 1 8:13PM ; [facility] History of anxiety disorder NOS 05/18/20 20 Last Documented On 0 6:40PM ; [facility] History of depression 05/18/2020 Last Documented On 0 6:40PM ; [facility] History of psychiatric disorders 020 Last Documented On 0 6:40PM ; [facility] A recent immunization for flu 05/18/2020 Last Documented On 0 6:40PM ; [facility] Work Phone: 1(567) 838-304604-03-2024 History general Narrative - Reported Includes: Medical History in patient's chart Description Last Updated No prior surgery or no significant histo ry 12/26/2023 Last Documented On 4 9:58AM ; [facility] No Safety Measures 11/23/2023 Last Documented On 4 6:43PM ; [facility] No previous hospitalizations 12/15/2020 Last Documented On 1 8:13PM ; [facility] History of anxiety disorder NOS 05/18/20 20 Last Documented On 0 6:40PM ; [facility] History of depression 05/18/2020 Last Documented On 0 6:40PM ; [facility] History of psychiatric disorders 020 Last Documented On 0 6:40PM ; [facility] A recent immunization for flu 05/18/2020 Last Documented On 0 6:40PM ; [facility] Work Phone: [phone]) 300-521404-03-2024 Progress note* Progress note Date Encounter Last Documented by 12/26/2023 [facility] Patient Last docu mented on 12/26/2023; 12:17 PM, Ilana PALMA; [facility] Active Problems & Conditions - F41.1 - Generalized Anxiety Disorder - F32.1 - Major Depression, Single Episode Moderate - F17.200 - Nicotine Dependence Subjective Patient presented to follow up for mood and medications. Patient had reported that in the past he was diagnosed with ADHD by a psychiatrist and they started him on stimulants. Patient did not like the way they made him feel and stopped taking them. Patient was given strattera and took for 2 weeks. Patient stopped taking it, stating this caused his anxiety to increase. Patient has tried multiple medications and states that Xanax was the only medication that reduced his anxiety. Patient is currently caring for his grandparents and an uncle that are not able to care for themselves but refuse to go into a home. Patient reports that he has called adult protective services but is not able to get any assistance. 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 Patient is recommended to see a psychiatrist and to look into individual therapy. Chief Complaint The Chief Complaint is: Mood and medication follow up. History of Present Illness Rory Camp is a 28 year old male. - Anxiety - Energy level is good - No depression - No sleep disturbances Current Medication - Abilify 2 MG Oral Tablet Take one tablet daily, 30 days, 1 refills - Fluticasone Propionate 50 MCG/ACT Nasal Suspension One spay to each nostril daily, 30 days, 5 refills - Loratadine 10 MG Oral Tablet Take one tablet daily, 30 days, 5 refills - Paxil 40 MG Oral Tablet Take one tablet daily, 30 days, 5 refills - Xanax 0.5 MG Oral Tablet take 1 tablet by mouth 30 minutes before flight (cancel ativan please), 2 days, 0 refills Past Medical/Surgical History Reported: No Safety Measures. Medical: No previous hospitalizations. Surgical / Procedural: No prior surgery or no significant history. Immunization History: Recent immunization for flu. Diagnoses: Depression Anxiety disorder NOS Surgical: - General surgery Social History Environmental Exposure: No secondhand cigarette smoke exposure. Personal: Family problems and recent emotional stress. Tobacco use: Using electronic cigarettes/vaping. Alcohol: A social drinker. Drug Use: Using marijuana. Housing And Economic Circumstances: Lives with spouse. 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 Sexual: Sexual orientation Straight (not lesbian or rider) and gender identity Male. Allergies - -No Known Drug Allergies - Seasonal allergies Family History Paternal: Leukemia no tx needed at this time Maternal: Ischemic heart disease heart failure r/t vavle, pt had vavle replacement 2020 Systemic hypertension Breast neoplasm Physical Findings General Appearance: - Normal Appearance. Neurological: - Cognitive Functions was Normal. - Estimated intelligence was normal. - Oriented to time, place, and person. - No hallucinations. - Judgement was not impaired. Speech: - Is Normal. - No articulation abnormalities. Psychiatric: - Mood was anxious. - Attitude Open. Appearance: - Normal. Demonstrated Behavior: - Motor Activity Normal Activity. - Eye Contact Appropriate. Affect: - Anxious. - Congruent with the mood. Thought Processes: - Not impaired. Thought Content: - Revealed no impairment. - Insight was intact. - No delusions. - No suicidal ideation. - No Passive thoughts of . - No suicidal plans. - No suicidal intent. - No homicidal ideations. - No homicidal plans. - No homicidal intent. Past Medical: - No repetitive self injurious behavior. Assessment - Nicotine dependence [F17.200 - Nicotine dependence, unspecified, uncomplicated] - Moderate major depression, single episode [F32.1 - Major depressive disorder, single episode, moderate] - Generalized anxiety disorder [F41.1 - Generalized anxiety disorder] Therapy - Brief solution-focused therapy. - Adherent with medications. - Visit 30 Minutes. - Plan - Patient is reccommended to see a psychiatrist and to look into individual therapy. will follow up by phone in one week and Collaborated with patient and provider: Counseling/Education *[facility] offered active and supportive listening, normalized emotions and feelings, and processed current stressors. *Educated patient on the benefit of counseling and provided patient with a list of resources. Plan *[facility] to follow-up with patient at next visit as scheduled. *Patient to follow up as needed/scheduled. *Continue to take medication(s) as prescribed. *Begin looking into counseling options from the list provided today. Advance Directives - Declined to Provide Advance Directive Care Team - Nick Escobar CNP Health Reminders - Assess Tobacco Use satisfied 12/26/2023. [facility]04-03-2024 History general Narrative - Reported Includes: Medical History in patient's chart Description Last Updated No prior surgery or no significant histo ry 12/26/2023 Last Documented On 4 9:58AM ; [facility] No Safety Measures 11/23/2023 Last Documented On 4 6:43PM ; [facility] No previous hospitalizations 12/15/2020 Last Documented On 1 8:13PM ; [facility] History of anxiety disorder NOS 05/18/20 20 Last Documented On 0 6:40PM ; [facility] History of depression 05/18/2020 Last Documented On 0 6:40PM ; [facility] History of psychiatric disorders 020 Last Documented On 0 6:40PM ; [facility] A recent immunization for flu 05/18/2020 Last Documented On 0 6:40PM ; [facility] Work Phone: [phone]) 230-913604-03-2024 Progress note* Progress note Date Encounter Last Documented by 12/26/2023 Medical Established Patient Last documented on 12/26/2023; 9:58 AM, Nick Escobar CNP; [facility] Active Problems & Conditions - F41.1 - Generalized Anxiety Disorder - F32.1 - Major Depression, Single Episode Moderate - F17.200 - Nicotine Dependence Chief Complaint The Chief Complaint is: 1 month follow up. Referred Here Not referred by urgent care clinic and not the emergency room. No prior encounters. History of Present Illness Rory Camp is a 28 year old male. - Allergy list reviewed - Reviewed Medications Strattera- after 2 weeks patient stopped due to Anxiety Trazodone- taking Melatonin instead Xanax- was only a one time med for flight Patient presents to follow up on straterra States that he took it everyday and it made him more anxiety Went on vacation did use xanax to fly on plane and states that it controlled his anxiety well Has been having a lot of anxiety still, has a lot of situational stress due to caring for grandparents and uncle Do complain of mood being up and down Current Medication - Fluticasone Propionate 50 MCG/ACT Nasal Suspension One spay to each nostril daily, 30 days, 5 refills - Loratadine 10 MG Oral Tablet Take one tablet daily, 30 days, 5 refills - Paxil 40 MG Oral Tablet Take one tablet daily, 30 days, 5 refills - Xanax 0.5 MG Oral Tablet take 1 tablet by mouth 30 minutes before flight (cancel ativan please), 2 days, 0 refills Past Medical/Surgical History Reported: No Safety Measures. Medical: No previous hospitalizations. Surgical / Procedural: No prior surgery or no significant history. Diagnoses: Depression Anxiety disorder NOS Social History Environmental Exposure: No secondhand cigarette smoke exposure. Behavioral: Not a current tobacco user. Tobacco use: Using electronic cigarettes/vaping. Alcohol: A social drinker couple times a year. Drug Use: Using marijuana daily. Sexual: Sexually active, sexual orientation Straight (not lesbian or rider), and gender identity Male. Allergies - -No Known Drug Allergies - Seasonal allergies Family History Paternal: Leukemia no tx needed at this time Maternal: Ischemic heart disease heart failure r/t vavle, pt had vavle replacement 2020 Systemic hypertension Breast neoplasm Review Of Systems Systemic: Not feeling poorly (malaise). No fever and no chills. Head: No headache. Eyes: No vision problems. Otolaryngeal: No nasal discharge. Cardiovascular: No chest pain or discomfort, no palpitations, and the heart rate was not fast. Pulmonary: No dyspnea, no cough, and no wheezing. Gastrointestinal: No nausea and no vomiting. Genitourinary: No dysuria. Musculoskeletal: No muscle aches. Neurological: No motor disturbances and no sensory disturbances. Skin: No rash. Physical Findings - Vitals taken 12/26/2023 08:15 am BP-Sitting L145/83 mmHg BP Cuff SizeRegular Pulse Rate-Bwsvrns18 bpm Temp-Oral98.4 F Czhagb88 in Jrcesj698 lbs 12.8 oz Body Mass Index27.2 kg/m2 Body Surface Area1.9 m2 Oxygen Oexqhjofdu60 % Vital Signs: - Systolic blood pressure 130 - 139 mmHg. - Systolic Blood Pressure > or = 140 mmHg. - Diastolic blood pressure 80-89 mmHg. General Appearance: - Well developed. - In no acute distress. Lungs: - Respiration rhythm and depth was normal. Musculoskeletal System: General/bilateral: - Overall findings were normal. Neurological: - No disorientation was observed. Speech: - Normal. Motor: - Strength was normal. Gait And Stance: - Normal. Tests Laboratory-based Chemistry: Other Laboratory Tests: Screening for sexually transmitted infections was not performed. Laboratory Studies: Vascular Procedures: Left Antecubital Space. Assessment - Body mass index [Body mass index [BMI] 27.0-27.9, adult] - Venipuncture was performed [Encounter for preprocedural laboratory examination] - Moderate major depression, single episode [Major depressive disorder, single episode, moderate] - Generalized anxiety disorder [Generalized anxiety disorder] Therapy - Patient refused flu vaccine. Discussed benefits of flu vaccine with Patient. Vaccinations - Did not receive dose of Reported: Patient has not received the Covid Vaccine Counseling/Education - No not wishing to stop using electronic cigarettes/vaping - Discussed nutritional needs teach healthy choices including fruits and vegetables - Patient education about a proper diet - Discussed concerns about exercise: promote physical activity Follow up in one month will call in one week Plan StartCited- Major depressive disorder, single episode, moderate Abilify 2 MG tablet Take one tablet daily, 30 days, 1 refills EndCited Notes - Patient is not interested in the COVID-19 vaccination at this time. Other - Patient tolerated venipuncture well; - Number of attempts for venipuncture one Advance Directives - Declined to Provide Advance Directive Care Team - Nick Escobar CNP [facility]03-01-2024 Evaluation note Includes: Assessments for all patient encounters Findings Encounter Date Generalized anxiety disorder Established Akanksha ent with Ilana PALMA 11/23/2023 Last Documented On 4 6:42PM ; [facility] Moderate major depression, s nicolasa episode Established Patient with Ilana PALMA 11/23/2023 Last Documented On 4 6:42PM ; [facility] [Body mass index [BMI] 27.0- 27.9, adult] assessment of body mass index Medical Established Patient with Nick Escobar CNP 11/23/2023 Last Documented On 4 4:23PM ; [facility] Diabetes Risk Test Score was two score 11/23/2023 Medical Established Patient with Nick Escobar CNP 11/23/2023 Last Documented On 4 4:23PM ; [facility] [N50.811 - Right testicular pain] pain of the right testis Open Access - Established with Ksenia Tim [employer] 07/09/2023 Last Documented On 3 9:35AM ; [facility] [Z68.25 - Body mass index [B LA] 25.0-25.9, adult] assessment of body mass index Open Access - Established with Ksenia Kilpatrick [employer] 07/09/2023 Last Documented On 3 9:35AM ; [facility] Generalized anxiety disorder Open Access - Established with Ksenia Kilpatrick [employer] 07/09/2023 Last Documented On 3 9:35AM ; [facility] Moderate major depression, s nicolasa episode Open Access - Established with Ksenia Kilpatrick [employer] 07/09/2023 Last Documented On 3 9:35AM ; [facility] Nicotine dependence Open Access - Established wi th Ksenia Kilpatrick [facility] 07/09/2023 Last Documented On 3 9:35AM ; [facility] Generalized anxiety disorder BH Establis hed Patient with Tanafarzana Galindo LPCC-S 01/05/2023 Last Documented On 3 6:55AM ; [facility] [Body mass index [BMI] 23.0- 23.9, adult] assessment of body mass index Medical Established Patient with Nick Shawn [employer] 01/05/2023 Last Documented On 3 9:05AM ; [facility] Generalized anxiety disorder Medical Est ablished Patient with Nick Shawn [employer] 01/05/2023 Last Documented On 3 9:05AM ; [facility] Moderate major depression, s nicolasa episode Medical Established Patient with Nick Shawn [employer] 01/05/2023 Last Documented On 3 9:05AM ; [facility] Major depression, single episode BH Esta blished Patient with Tana Galindo LPCC-S 11/24/2022 Last Documented On 3 5:46PM ; [facility] [Body mass index [BMI] 23.0- 23.9, adult] assessment of body mass index Medical Established Patient with Nick Shawn [employer] 11/24/2022 Last Documented On 3 9:05AM ; [facility] Generalized anxiety disorder Medical Est ablished Patient with Nick Shawn [employer] 11/24/2022 Last Documented On 3 9:05AM ; [facility] Moderate major depression, s nicolasa episode Medical Established Patient with Nick Shawn [employer] 11/24/2022 Last Documented On 3 9:05AM ; [facility] Major depression, single episode BH Esta blished Patient with Tana Galindo LPCC-S 10/26/2022 Last Documented On 3 9:07AM ; [facility] Moderate major depression, s nicolasa episode BH Established Patient with Tana Galindo LPCC-S 10/26/2022 Last Documented On 3 9:07AM ; [facility] [Body mass index [BMI] 23.0- 23.9, adult] assessment of body mass index Medical Established Patient with Nick Shawn [employer] 10/26/2022 Last Documented On 3 9:54AM ; [facility] Diabetes Risk Test Score was 3.0 score 10/26/2022 Medical Established Patient with Nick Shawn [employer] 10/26/2022 Last Documented On 3 9:54AM ; [facility] Generalized anxiety disorder Medical Est ablished Patient with Nick Shawn [employer] 10/26/2022 Last Documented On 3 9:54AM ; [facility] Moderate major depression, s nicolasa episode Medical Established Patient with Nick Shawn [employer] 10/26/2022 Last Documented On 3 9:54AM ; [facility] Nicotine dependence Medical Established Patient with Nick Shawn [employer] 10/26/2022 Last Documented On 3 9:54AM ; [facility] Assessment of body mass inde x [Body mass index [BMI] 20.0-20.9, adult] Medical Established Patient with Nick Shawn [employer] 08/29/2021 Last Documented On 1 3:08PM ; [facility] Diabetes Risk Test Score was one score 08/29/2021 Medical Established Patient with Nick Shawn [employer] 08/29/2021 Last Documented On 1 3:08PM ; [facility] Generalized anxiety disorder Medical Est ablished Patient with Nick Shawn [employer] 08/29/2021 Last Documented On 1 3:08PM ; [facility] Moderate major depression, s nicolasa episode Medical Established Patient with Nick Shawn [employer] 08/29/2021 Last Documented On 1 3:08PM ; [facility] Mild recurrent major depression Teleb ehavioral Health with Radha Short LISWS 03/22/2021 Last Documented On 1 9:59PM ; [facility] Panic disorder without agoraphobia Te lebehavioral Health with Radha Short LISWS 03/22/2021 Last Documented On 1 9:59PM ; [facility] Acute pharyngitis Telemedicine Establisted Patie nt with Nick Shawn [employer] 03/22/2021 Last Documented On 1 12:34PM ; [facility] Acute sinusitis Medical Established Patient with Nick Shawn [employer] 01/20/2021 Last Documented On 1 9:57AM ; [facility] Body mass index [Body mass i ndex [BMI] 20.0-20.9, adult] Medical Established Patient with Nick Shawn [employer] 01/20/2021 Last Documented On 1 9:57AM ; [facility] Generalized anxiety disorder Establis hed Patient with Jenelleiza Moya LPCC-S 12/15/2020 Last Documented On 1 10:51PM ; [facility] Moderate major depression, s nicolasa episode Established Patient with Jenelle Moya LPCC-S 12/15/2020 Last Documented On 1 10:51PM ; [facility] Constipation Medical Established Patient with Ksenia Kilpatrick [employer] 12/15/2020 Last Documented On 1 8:13PM ; [facility] Z68.20 - Body mass index [BM I] 20.0-20.9, adult Medical Established Patient with Ksenia Tim [employer] 12/15/2020 Last Documented On 1 8:13PM ; [facility] Moderate recurrent major depression E stablished Patient with Radha Short LISWS 09/29/2020 Last Documented On 1 5:02PM ; [facility] Panic disorder without agoraphobia BH Es tablished Patient with Radha Short LISWS 09/29/2020 Last Documented On 1 5:02PM ; [facility] Body mass index [Body mass i ndex [BMI] 21.0-21.9, adult] Medical Established Patient with Nick Shawn [employer] 09/29/2020 Last Documented On 1 10:45AM ; [facility] Generalized anxiety disorder Medical Est ablished Patient with Nick Shawn [employer] 09/29/2020 Last Documented On 1 10:45AM ; [facility] Moderate major depression, s nicolasa episode Medical Established Patient with Nick Shawn [employer] 09/29/2020 Last Documented On 1 10:45AM ; [facility] Mild recurrent major depression BH Estab lished Patient with Radha Short LISWS 09/10/2020 Last Documented On 0 12:31PM ; [facility] Panic disorder without agoraphobia BH Es tablished Patient with Radha Short LISWS 09/10/2020 Last Documented On 0 12:31PM ; [facility] Body mass index Medical Established Patient with Nick Shawn DIRECTOR [employer] 09/10/2020 Last Documented On 0 11:17AM ; [facility] Mild recurrent major depression BH Estab lished Patient with Radha Short LISWS 08/27/2020 Last Documented On 0 10:21AM ; [facility] Panic disorder without agoraphobia BH Es tablished Patient with Radha Short LISWS 08/27/2020 Last Documented On 0 10:21AM ; [facility] Body mass index [Body mass i ndex [BMI] 22.0-22.9, adult] Medical Established Patient with Nick Shawn DIRECTOR [employer] 08/27/2020 Last Documented On 0 8:00PM ; [facility] Generalized anxiety disorder Medical Est ablished Patient with Nick Shawn DIRECTOR [employer] 08/27/2020 Last Documented On 0 8:00PM ; [facility] Moderate major depression, s nicolasa episode Medical Established Patient with Nick Shawn [employer]OR [employer] 08/27/2020 Last Documented On 0 8:00PM ; [facility] Depression Established Patient with Maura keyon Short LISWS 08/13/2020 Last Documented On 0 4:55PM ; [facility] Panic disorder without agoraphobia Es tablished Patient with Radha Short LISWS 08/13/2020 Last Documented On 0 4:55PM ; [facility] Depression Established Patient with Maura keyon Short LISWS 06/15/2020 Last Documented On 0 2:23PM ; [facility] Panic disorder without agoraphobia Es tablished Patient with Radha Short LISWS 06/15/2020 Last Documented On 0 2:23PM ; [facility] Depression Established Patient with Maura keyon Short LISWS 05/27/2020 Last Documented On 0 6:54PM ; [facility] Panic disorder without agoraphobia Es tablished Patient with Radha Short LISWS 05/27/2020 Last Documented On 0 6:54PM ; [facility] Depressive disorder Established Patient with Radha Short LISWS 05/18/2020 Last Documented On 0 8:46AM ; [facility] Panic disorder without agoraphobia Es tablished Patient with Radha Short LISWS 05/18/2020 Last Documented On 0 8:46AM ; [facility] Anxiety disorder NOS Medical New Patient with Ca ssie Shawn DIRECTOR [employer] 05/18/2020 Last Documented On 0 6:40PM ; [facility] Body mass index Medical New Patient with Nick Shawn [employer]OR [employer] 05/18/2020 Last Documented On 0 6:40PM ; [facility] Depression Medical New Patient with Nick Shanw DIRECTOR [employer] 05/18/2020 Last Documented On 0 6:40PM ; [facility] Diabetes Risk Test Score was one score 05/18/2020 Medical New Patient with Nick Shawn [employer]OR [employer] 05/18/2020 Last Documented On 0 6:40PM ; [facility] Routine history and physical Medical New Patient with Nick Escobar DIRECTOR [employer] 05/18/2020 Last Documented On 0 6:40PM ; [facility] Work Phone: [phone]) 690-592703-01-2024 Evaluation note Includes: Assessments for all patient encounters Findings Encounter Date Generalized anxiety disorder Established Akanksha ent with Ilana Bautista [employer]ER INSTALLER 11/23/2023 Last Documented On 4 6:43PM ; [facility] Moderate major depression, s nicolasa episode BH Established Patient with Ilana Bautista [employer] INST[employer]ER 11/23/2023 Last Documented On 4 6:43PM ; [facility] [Body mass index [BMI] 27.0- 27.9, adult] assessment of body mass index Medical Established Patient with Nick Escobar DIRECTOR [employer] 11/23/2023 Last Documented On 4 4:23PM ; [facility] Diabetes Risk Test Score was two score 11/23/2023 Medical Established Patient with Nick Escobar DIRECTOR [employer] 11/23/2023 Last Documented On 4 4:23PM ; [facility] [N50.811 - Right testicular pain] pain of the right testis Open Access - Established with Ksenia Kilpatrick [facility] 07/09/2023 Last Documented On 3 9:35AM ; [facility] [Z68.25 - Body mass index [B LA] 25.0-25.9, adult] assessment of body mass index Open Access - Established with Ksenia Kilpatrick DIRECTOR [employer] 07/09/2023 Last Documented On 3 9:35AM ; [facility] Generalized anxiety disorder Open Access - Established with Ksenia Kilpatrick DIRECTOR [employer] 07/09/2023 Last Documented On 3 9:35AM ; [facility] Moderate major depression, s nicolasa episode Open Access - Established with Ksenia Kilpatrick DIRECTOR [employer] 07/09/2023 Last Documented On 3 9:35AM ; [facility] Nicotine dependence Open Access - Established wi th Ksenia Kilpatrick DIRECTOR [employer] 07/09/2023 Last Documented On 3 9:35AM ; [facility] Generalized anxiety disorder BH Establis hed Patient with Tana Galindo LPCC-S 01/05/2023 Last Documented On 3 6:55AM ; [facility] [Body mass index [BMI] 23.0- 23.9, adult] assessment of body mass index Medical Established Patient with Nick Shawn DIRECTOR [employer] 01/05/2023 Last Documented On 3 9:05AM ; [facility] Generalized anxiety disorder Medical Est ablished Patient with Nick Shawn DIRECTOR [employer] 01/05/2023 Last Documented On 3 9:05AM ; [facility] Moderate major depression, s nicolasa episode Medical Established Patient with Nick Shawn DIRECTOR [employer] 01/05/2023 Last Documented On 3 9:05AM ; [facility] Major depression, single episode BH Esta blished Patient with Tana Galindo LPCC-S 11/24/2022 Last Documented On 3 5:46PM ; [facility] [Body mass index [BMI] 23.0- 23.9, adult] assessment of body mass index Medical Established Patient with Nick Shawn DIRECTOR [employer] 11/24/2022 Last Documented On 3 9:05AM ; [facility] Generalized anxiety disorder Medical Est ablished Patient with Nick Shawn DIRECTOR [employer] 11/24/2022 Last Documented On 3 9:05AM ; [facility] Moderate major depression, s nicolasa episode Medical Established Patient with Nick Shawn DIRECTOR [employer] 11/24/2022 Last Documented On 3 9:05AM ; [facility] Major depression, single episode BH Esta blished Patient with Tana Galindo LPCC-S 10/26/2022 Last Documented On 3 9:07AM ; [facility] Moderate major depression, s nicolasa episode BH Established Patient with Tana Galindo LPCC-S 10/26/2022 Last Documented On 3 9:07AM ; [facility] [Body mass index [BMI] 23.0- 23.9, adult] assessment of body mass index Medical Established Patient with Nick Shawn DIRECTOR [employer] 10/26/2022 Last Documented On 3 9:54AM ; [facility] Diabetes Risk Test Score was 3.0 score 10/26/2022 Medical Established Patient with Nick Shawn DIRECTOR [employer] 10/26/2022 Last Documented On 3 9:54AM ; [facility] Generalized anxiety disorder Medical Est ablished Patient with Nick Shawn DIRECTOR [employer] 10/26/2022 Last Documented On 3 9:54AM ; [facility] Moderate major depression, s nicolasa episode Medical Established Patient with Nick Shawn DIRECTOR [employer] 10/26/2022 Last Documented On 3 9:54AM ; [facility] Nicotine dependence Medical Established Patient with Nick Shawn DIRECTOR [employer] 10/26/2022 Last Documented On 3 9:54AM ; [facility] Assessment of body mass inde x [Body mass index [BMI] 20.0-20.9, adult] Medical Established Patient with Nick Shawn DIRECTOR [employer] 08/29/2021 Last Documented On 1 3:08PM ; [facility] Diabetes Risk Test Score was one score 08/29/2021 Medical Established Patient with Nick Shawn DIRECTOR [employer] 08/29/2021 Last Documented On 1 3:08PM ; [facility] Generalized anxiety disorder Medical Est ablished Patient with Nick Shawn DIRECTOR [employer] 08/29/2021 Last Documented On 1 3:08PM ; [facility] Moderate major depression, s nicolasa episode Medical Established Patient with Nick Shawn DIRECTOR [employer] 08/29/2021 Last Documented On 1 3:08PM ; [facility] Mild recurrent major depression Teleb ehavioral Health with Radha Short LISWS 03/22/2021 Last Documented On 1 9:59PM ; [facility] Panic disorder without agoraphobia Te lebehavioral Health with Radha Short LISWS 03/22/2021 Last Documented On 1 9:59PM ; [facility] Acute pharyngitis Telemedicine Establisted Patie nt with Nick Shawn DIRECTOR [employer] 03/22/2021 Last Documented On 1 12:34PM ; [facility] Acute sinusitis Medical Established Patient with Nick Shawn DIRECTOR [employer] 01/20/2021 Last Documented On 1 9:57AM ; [facility] Body mass index [Body mass i ndex [BMI] 20.0-20.9, adult] Medical Established Patient with Ncik Shawn DIRECTOR [employer] 01/20/2021 Last Documented On 1 9:57AM ; [facility] Generalized anxiety disorder BH Establis hed Patient with Jenelle Moya LPCC-S 12/15/2020 Last Documented On 1 10:51PM ; [facility] Moderate major depression, s nicolasa episode Established Patient with Jenelle Moya LPCC-S 12/15/2020 Last Documented On 1 10:51PM ; [facility] Constipation Medical Established Patient with Ksenia Tim DIRECTOR [employer] 12/15/2020 Last Documented On 1 8:13PM ; [facility] Z68.20 - Body mass index [BM I] 20.0-20.9, adult Medical Established Patient with Ksenia Tim DIRECTOR [employer] 12/15/2020 Last Documented On 1 8:13PM ; [facility] Moderate recurrent major depression E stablished Patient with Radha Short LISWS 09/29/2020 Last Documented On 1 5:02PM ; [facility] Panic disorder without agoraphobia Es tablished Patient with Radha Short LISWS 09/29/2020 Last Documented On 1 5:02PM ; [facility] Body mass index [Body mass i ndex [BMI] 21.0-21.9, adult] Medical Established Patient with Nick Shawn DIRECTOR [employer] 09/29/2020 Last Documented On 1 10:45AM ; [facility] Generalized anxiety disorder Medical Est ablished Patient with Nick Shawn DIRECTOR [employer] 09/29/2020 Last Documented On 1 10:45AM ; [facility] Moderate major depression, s nicolasa episode Medical Established Patient with Nick Shawn DIRECTOR [employer] 09/29/2020 Last Documented On 1 10:45AM ; [facility] Mild recurrent major depression Estab lished Patient with Radha Short LISWS 09/10/2020 Last Documented On 0 12:31PM ; [facility] Panic disorder without agoraphobia BH Es tablished Patient with Radha Short LISWS 09/10/2020 Last Documented On 0 12:31PM ; [facility] Body mass index Medical Established Patient with Nick Shawn DIRECTOR [employer] 09/10/2020 Last Documented On 0 11:17AM ; [facility] Mild recurrent major depression Estab lished Patient with Radha Short LISWS 08/27/2020 Last Documented On 0 10:21AM ; [facility] Panic disorder without agoraphobia Es tablished Patient with Radha Short LISWS 08/27/2020 Last Documented On 0 10:21AM ; [facility] Body mass index [Body mass i ndex [BMI] 22.0-22.9, adult] Medical Established Patient with Nick Shawn DIRECTOR [employer] 08/27/2020 Last Documented On 0 8:00PM ; [facility] Generalized anxiety disorder Medical Est ablished Patient with Nick Shawn DIRECTOR [employer] 08/27/2020 Last Documented On 0 8:00PM ; [facility] Moderate major depression, s nicolasa episode Medical Established Patient with Nick Shawn DIRECTOR [employer] 08/27/2020 Last Documented On 0 8:00PM ; [facility] Depression Established Patient with Maura keyon Short LISWS 08/13/2020 Last Documented On 0 4:55PM ; [facility] Panic disorder without agoraphobia BH Es tablished Patient with Radha Short LISWS 08/13/2020 Last Documented On 0 4:55PM ; [facility] Depression Established Patient with Maura keyon Short LISWS 06/15/2020 Last Documented On 0 2:23PM ; [facility] Panic disorder without agoraphobia BH Es tablished Patient with Radha Short LISWS 06/15/2020 Last Documented On 0 2:23PM ; [facility] Depression Established Patient with Maura keyon Short LISWS 05/27/2020 Last Documented On 0 6:54PM ; [facility] Panic disorder without agoraphobia BH Es tablished Patient with Radha Short LISWS 05/27/2020 Last Documented On 0 6:54PM ; [facility] Depressive disorder BH Established Patient with Radha Short LISWS 05/18/2020 Last Documented On 0 8:46AM ; [facility] Panic disorder without agoraphobia BH Es tablished Patient with Radha Short LISWS 05/18/2020 Last Documented On 0 8:46AM ; [facility] Anxiety disorder NOS Medical New Patient with Ca ssie Shawn DIRECTOR [employer] 05/18/2020 Last Documented On 0 6:40PM ; [facility] Body mass index Medical New Patient with Nick Shawn DIRECTOR [employer] 05/18/2020 Last Documented On 0 6:40PM ; [facility] Depression Medical New Patient with Nick Shawn DIRECTOR [employer] 05/18/2020 Last Documented On 0 6:40PM ; [facility] Diabetes Risk Test Score was one score 05/18/2020 Medical New Patient with Nick Shawn DIRECTOR [employer] 05/18/2020 Last Documented On 0 6:40PM ; [facility] Routine history and physical Medical New Patient with Nick Shawn DIRECTOR [employer] 05/18/2020 Last Documented On 0 6:40PM ; [facility] Work Phone: [phone]) 755-421303-01-2024 Evaluation note Includes: Assessments for all patient encounters Findings Encounter Date Generalized anxiety disorder Established Akanksha ent with Ilana Bautista LINER INSTALLER 11/23/2023 Last Documented On 4 6:43PM ; [facility] Moderate major depression, s nicolasa episode BH Established Patient with Ilana Bautista [employer]ER INSTALLER 11/23/2023 Last Documented On 4 6:43PM ; [facility] [Body mass index [BMI] 27.0- 27.9, adult] assessment of body mass index Medical Established Patient with Nick Shawn DIRECTOR [employer] 11/23/2023 Last Documented On 4 9:00AM ; [facility] Diabetes Risk Test Score was two score 11/23/2023 Medical Established Patient with Nick Shawn DIRECTOR [employer] 11/23/2023 Last Documented On 4 9:00AM ; [facility] Generalized anxiety disorder Medical Est ablished Patient with Nick Shawn DIRECTOR [employer] 11/23/2023 Last Documented On 4 9:00AM ; [facility] Moderate major depression, s nicolasa episode Medical Established Patient with Nick Shawn DIRECTOR [employer] 11/23/2023 Last Documented On 4 9:00AM ; [facility] [N50.811 - Right testicular pain] pain of the right testis Open Access - Established with Ksenia Kilpatrick DIRECTOR [employer] 07/09/2023 Last Documented On 3 9:35AM ; [facility] [Z68.25 - Body mass index [B LA] 25.0-25.9, adult] assessment of body mass index Open Access - Established with Ksenia Kilpatrick [facility] 07/09/2023 Last Documented On 3 9:35AM ; [facility] Generalized anxiety disorder Open Access - Established with Ksenia Kilpatrick [facility] 07/09/2023 Last Documented On 3 9:35AM ; [facility] Moderate major depression, s nicolasa episode Open Access - Established with Ksenia Kilpatrick [facility] 07/09/2023 Last Documented On 3 9:35AM ; [facility] Nicotine dependence Open Access - Established wi th Ksenia Kilpatrick [facility] 07/09/2023 Last Documented On 3 9:35AM ; [facility] Generalized anxiety disorder BH Establis hed Patient with Tana Galindo LPCC-S 01/05/2023 Last Documented On 3 6:55AM ; [facility] [Body mass index [BMI] 23.0- 23.9, adult] assessment of body mass index Medical Established Patient with Nick Shawn DIRECTOR [employer] 01/05/2023 Last Documented On 3 9:05AM ; [facility] Generalized anxiety disorder Medical Est ablished Patient with Nick Shawn DIRECTOR [employer] 01/05/2023 Last Documented On 3 9:05AM ; [facility] Moderate major depression, s nicolasa episode Medical Established Patient with Nick Shawn DIRECTOR [employer] 01/05/2023 Last Documented On 3 9:05AM ; [facility] Major depression, single episode BH Esta blished Patient with Tanafarzana Galindo LPCC-S 11/24/2022 Last Documented On 3 5:46PM ; [facility] [Body mass index [BMI] 23.0- 23.9, adult] assessment of body mass index Medical Established Patient with Nick Shawn DIRECTOR [employer] 11/24/2022 Last Documented On 3 9:05AM ; [facility] Generalized anxiety disorder Medical Est ablished Patient with Nick Shawn DIRECTOR [employer] 11/24/2022 Last Documented On 3 9:05AM ; [facility] Moderate major depression, s nicolasa episode Medical Established Patient with Nick Shawn DIRECTOR [employer] 11/24/2022 Last Documented On 3 9:05AM ; [facility] Major depression, single episode BH Esta blished Patient with Tanafarzana Galindo LPCC-S 10/26/2022 Last Documented On 3 9:07AM ; [facility] Moderate major depression, s nicolasa episode BH Established Patient with Tanafarzana MortonGalindo LPCC-S 10/26/2022 Last Documented On 3 9:07AM ; [facility] [Body mass index [BMI] 23.0- 23.9, adult] assessment of body mass index Medical Established Patient with Nick Shawn DIRECTOR [employer] 10/26/2022 Last Documented On 3 9:54AM ; [facility] Diabetes Risk Test Score was 3.0 score 10/26/2022 Medical Established Patient with Nick Shawn DIRECTOR [employer] 10/26/2022 Last Documented On 3 9:54AM ; [facility] Generalized anxiety disorder Medical Est ablished Patient with Nick Shawn DIRECTOR [employer] 10/26/2022 Last Documented On 3 9:54AM ; [facility] Moderate major depression, s nicolasa episode Medical Established Patient with Nick Shawn DIRECTOR [employer] 10/26/2022 Last Documented On 3 9:54AM ; [facility] Nicotine dependence Medical Established Patient with Nick Shawn DIRECTOR [employer] 10/26/2022 Last Documented On 3 9:54AM ; [facility] Assessment of body mass inde x [Body mass index [BMI] 20.0-20.9, adult] Medical Established Patient with Nick Shawn DIRECTOR [employer] 08/29/2021 Last Documented On 1 3:08PM ; [facility] Diabetes Risk Test Score was one score 08/29/2021 Medical Established Patient with Nick Shawn DIRECTOR [employer] 08/29/2021 Last Documented On 1 3:08PM ; [facility] Generalized anxiety disorder Medical Est ablished Patient with Nick Shawn DIRECTOR [employer] 08/29/2021 Last Documented On 1 3:08PM ; [facility] Moderate major depression, s nicolasa episode Medical Established Patient with Nick Shawn DIRECTOR [employer] 08/29/2021 Last Documented On 1 3:08PM ; [facility] Mild recurrent major depression Teleb ehavioral Health with Radha Short LISWS 03/22/2021 Last Documented On 1 9:59PM ; [facility] Panic disorder without agoraphobia Te lebehavioral Health with Radha Short LISWS 03/22/2021 Last Documented On 1 9:59PM ; [facility] Acute pharyngitis Telemedicine Establisted Patie nt with Nick Shawn [facility] 03/22/2021 Last Documented On 1 12:34PM ; [facility] Acute sinusitis Medical Established Patient with Nick Shawn DIRECTOR [employer] 01/20/2021 Last Documented On 1 9:57AM ; [facility] Body mass index [Body mass i ndex [BMI] 20.0-20.9, adult] Medical Established Patient with Nick Shawn DIRECTOR [employer] 01/20/2021 Last Documented On 1 9:57AM ; [facility] Generalized anxiety disorder Establis hed Patient with Jenelleiza Lesters LPCC-S 12/15/2020 Last Documented On 1 10:51PM ; [facility] Moderate major depression, s nicolasa episode Established Patient with Jenelle Moya LPCC-S 12/15/2020 Last Documented On 1 10:51PM ; [facility] Constipation Medical Established Patient with Ksenia Kilpatrick DIRECTOR [employer] 12/15/2020 Last Documented On 1 8:13PM ; [facility] Z68.20 - Body mass index [BM I] 20.0-20.9, adult Medical Established Patient with Ksenia Kilpatrick DIRECTOR [employer] 12/15/2020 Last Documented On 1 8:13PM ; [facility] Moderate recurrent major depression BH E stablished Patient with Radha Short LISWS 09/29/2020 Last Documented On 1 5:02PM ; [facility] Panic disorder without agoraphobia BH Es tablished Patient with Radha Short LISWS 09/29/2020 Last Documented On 1 5:02PM ; [facility] Body mass index [Body mass i ndex [BMI] 21.0-21.9, adult] Medical Established Patient with Nick Shawn DIRECTOR [employer] 09/29/2020 Last Documented On 1 10:45AM ; [facility] Generalized anxiety disorder Medical Est ablished Patient with Nick Shawn DIRECTOR [employer] 09/29/2020 Last Documented On 1 10:45AM ; [facility] Moderate major depression, s nicolasa episode Medical Established Patient with Nick Shawn DIRECTOR [employer] 09/29/2020 Last Documented On 1 10:45AM ; [facility] Mild recurrent major depression BH Estab lished Patient with Radha Short LISWS 09/10/2020 Last Documented On 0 12:31PM ; [facility] Panic disorder without agoraphobia BH Es tablished Patient with Radha Short LISWS 09/10/2020 Last Documented On 0 12:31PM ; [facility] Body mass index Medical Established Patient with Nick Shawn DIRECTOR [employer] 09/10/2020 Last Documented On 0 11:17AM ; [facility] Mild recurrent major depression BH Estab lished Patient with Radha Short LISWS 08/27/2020 Last Documented On 0 10:21AM ; [facility] Panic disorder without agoraphobia BH Es tablished Patient with Radha Short LISWS 08/27/2020 Last Documented On 0 10:21AM ; [facility] Body mass index [Body mass i ndex [BMI] 22.0-22.9, adult] Medical Established Patient with Nick Shawn DIRECTOR [employer] 08/27/2020 Last Documented On 0 8:00PM ; [facility] Generalized anxiety disorder Medical Est ablished Patient with Nick Shawn DIRECTOR [employer] 08/27/2020 Last Documented On 0 8:00PM ; [facility] Moderate major depression, s nicolasa episode Medical Established Patient with Nick Shawn DIRECTOR [employer] 08/27/2020 Last Documented On 0 8:00PM ; [facility] Depression Established Patient with Maura keyon Short LISWS 08/13/2020 Last Documented On 0 4:55PM ; [facility] Panic disorder without agoraphobia Es tablished Patient with Radha Short LISWS 08/13/2020 Last Documented On 0 4:55PM ; [facility] Depression Established Patient with Maura keyon Short LISWS 06/15/2020 Last Documented On 0 2:23PM ; [facility] Panic disorder without agoraphobia Es tablished Patient with Radha Short LISWS 06/15/2020 Last Documented On 0 2:23PM ; [facility] Depression Established Patient with Maura keyon Short LISWS 05/27/2020 Last Documented On 0 6:54PM ; [facility] Panic disorder without agoraphobia Es tablished Patient with Radha Short LISWS 05/27/2020 Last Documented On 0 6:54PM ; [facility] Depressive disorder Established Patient with Radha Short LISWS 05/18/2020 Last Documented On 0 8:46AM ; [facility] Panic disorder without agoraphobia Es tablished Patient with Radha Short LISWS 05/18/2020 Last Documented On 0 8:46AM ; [facility] Anxiety disorder NOS Medical New Patient with Ca ssie Shawn DIRECTOR [employer]ENCY 05/18/2020 Last Documented On 0 6:40PM ; [facility] Body mass index Medical New Patient with Nick Bernabeer DIRECTOR [employer] AGENCY 05/18/2020 Last Documented On 0 6:40PM ; [facility] Depression Medical New Patient with Nick Bernabeer DIRECTOR [employer] AGENCY 05/18/2020 Last Documented On 0 6:40PM ; [facility] Diabetes Risk Test Score was one score 05/18/2020 Medical New Patient with Nick Escobar DIRECTOR [employer] AGENCY 05/18/2020 Last Documented On 0 6:40PM ; [facility] Routine history and physical Medical New Patient with Nick Escobar DIRECTOR [employer] AGENCY 05/18/2020 Last Documented On 0 6:40PM ; [facility] Work Phone: [phone]) 100-451703-01-2024 History general Narrative - Reported Includes: Medical History in patient's chart Description Last Updated No Safety Measures 11/23/2023 Last Documented On 4 6:42PM ; [facility] No previous hospitalizations 12/15/2020 Last Documented On 1 8:13PM ; [facility] History of anxiety disorder NOS 05/18/20 20 Last Documented On 0 6:40PM ; [facility] History of depression 05/18/2020 Last Documented On 0 6:40PM ; [facility] History of psychiatric disorders 020 Last Documented On 0 6:40PM ; [facility] A recent immunization for flu 05/18/2020 Last Documented On 0 6:40PM ; [facility] Work Phone: 1(507) 404-318403-01-2024 History general Narrative - Reported Includes: Medical History in patient's chart Description Last Updated No Safety Measures 11/23/2023 Last Documented On 4 6:43PM ; [facility] No previous hospitalizations 12/15/2020 Last Documented On 1 8:13PM ; [facility] History of anxiety disorder NOS 05/18/20 20 Last Documented On 0 6:40PM ; [facility] History of depression 05/18/2020 Last Documented On 0 6:40PM ; [facility] History of psychiatric disorders 020 Last Documented On 0 6:40PM ; [facility] A recent immunization for flu 05/18/2020 Last Documented On 0 6:40PM ; [facility] Work Phone: 1(453) 413-199603-01-2024 History general Narrative - Reported Includes: Medical History in patient's chart Description Last Updated No Safety Measures 11/23/2023 Last Documented On 4 6:43PM ; [facility] No previous hospitalizations 12/15/2020 Last Documented On 1 8:13PM ; [facility] History of anxiety disorder NOS 05/18/20 20 Last Documented On 0 6:40PM ; [facility] History of depression 05/18/2020 Last Documented On 0 6:40PM ; [facility] History of psychiatric disorders 020 Last Documented On 0 6:40PM ; [facility] A recent immunization for flu 05/18/2020 Last Documented On 0 6:40PM ; [facility] Work Phone: 1(455) 710-836203-01-2024 Progress note* Progress note Date Encounter Last Documented by 11/23/2023 [facility] Patient Last docu mented on 11/23/2023; 6:42 PM, Ilana PALMA; [facility] Active Problems & Conditions - F41.1 - Generalized Anxiety Disorder - F32.1 - Major Depression, Single Episode Moderate - F17.200 - Nicotine Dependence Subjective [facility] met with patient and completed screens of PHQ9 and GAD7 and PRAPARE and SBIRT Patient reports that he is on paxil and he is feeling well on this but experiences panic attacks. Patient stated this can happen a couple times a week to one every couple months. He finds himself getting hyperfocused on something and worries consistantly over it. Patient is anxious about a flight at the end of the month and is requesting a medication to calm him for the flight. Patient reports that he has been on multiple medication but they do not work for him. Patient was seen by Dr. Anne where he was diagnosed with ADHD. He did not like the Adderall that he was given and stopped taking any medication. Patient reports getting easily irritable and angry and frustrated when he can not do something or something is not going his way. BHP and REGISTERED VETERINARY TECHNICIAN discussed with patient Trung for ADHD. BH will follow up in 2 weeks and patient will return for follow up appointment in one month. Chief Complaint The Chief Complaint is: Mood and medications. History of Present Illness Rory Camp is a 28 year old male. - Irritability. - Anxiety with persistent worry - Loss of interest in activities - Energy level is good - Racing thoughts - No depression - No sleep disturbances Current Medication - Fluticasone Propionate 50 MCG/ACT Nasal Suspension One spay to each nostril daily, 30 days, 5 refills - Loratadine 10 MG Oral Tablet Take one tablet daily, 30 days, 5 refills - Paxil 40 MG Oral Tablet Take one tablet daily, 30 days, 5 refills - Paxil 40 MG Oral Tablet Take one tablet daily, 30 days, 5 refills - Strattera 18 MG Oral Capsule, conventional Take one tablet daily, 30 days, 0 refills - traZODone HCl 50 MG Oral Tablet Take one tablet daily at bedtime, 30 days, 5 refills Past Medical/Surgical History Reported: No Safety Measures. Medical: No previous hospitalizations. Immunization History: Recent immunization for flu. Diagnoses: Depression Anxiety disorder NOS Surgical: - General surgery Social History Environmental Exposure: No secondhand cigarette smoke exposure. Alcohol: A social drinker. Drug Use: Using marijuana. Housing And Economic Circumstances: Lives with spouse. 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 Sexual: Sexual orientation Straight (not lesbian or rider) and gender identity Male. Allergies - -No Known Drug Allergies - Seasonal allergies Family History Paternal: Leukemia no tx needed at this time Maternal: Ischemic heart disease heart failure r/t vavle, pt had vavle replacement 2020 Systemic hypertension Breast neoplasm Physical Findings General Appearance: - Normal Appearance. Neurological: - Cognitive Functions was Normal. - Estimated intelligence was normal. - Oriented to time, place, and person. - No hallucinations. - Judgement was not impaired. Speech: - Is Normal. - No articulation abnormalities. Psychiatric: - Mood was anxious. - Attitude Open. Appearance: - Normal. Demonstrated Behavior: - Motor Activity Normal Activity. - Eye Contact Appropriate. Affect: - Anxious. Thought Processes: - Not impaired. Thought Content: - Revealed no impairment. - Insight was intact. - No delusions. - No suicidal ideation. - No Passive thoughts of . - No suicidal plans. - No suicidal intent. - No homicidal ideations. - No homicidal plans. - No homicidal intent. Past Medical: - No repetitive self injurious behavior. Assessment - Moderate major depression, single episode [F32.1 - Major depressive disorder, single episode, moderate] - Generalized anxiety disorder [F41.1 - Generalized anxiety disorder] Therapy - Brief solution-focused therapy. - Plan - Begin Strattera daily and Collaborated with patient and provider: Counseling/Education *BHP offered active and supportive listening, normalized emotions and feelings, and processed current stressors. *Discussed calming coping strategies that patient can utilize. Plan *Utilize calming coping strategies like discussed. *BHP to follow-up with patient in 2 weeks with a phone call *Patient to follow up as needed/scheduled. *Begin taking medication (s) as prescribed. Patient is agreeable. Advance Directives - Declined to Provide Advance Directive Care Team - Nick Escobar CNP Health Reminders - NARESH-2 satisfied 11/23/2023. - PHQ9 / PHQA satisfied 11/23/2023. User Defined 1 Not afraid of someone you have a relationship with No. Has lack of transportation kept patient from medical appointments or from getting medications: No and lack of transportation has kept patient from beneficial non-medical activities: No. Do you feel stress - tense, restless, nervous, or anxious, or unable to sleep at night because your mind is troubled all the time - these days? Very much and Does patient feel physically and emotionally safe where he/she lives: Yes. Is patient is worried about losing housing: No. What is the highest grade or level of school you have completed or the highest degree you have received? High school diploma or GED. In the past year, patient or family members in household were unable to get needed clothing: No, unable to get needed child care supervisor: No, unable to get needed phone: No, unable to get needed utilities: No, unable to get needed Medicine or Health Care: No, and In the past year, patient or family members in household were unable to get needed food: No. How often does patient see or talk to people that that he/she cares about and feels close to: 1 or 2 times a week. NARESH-7 score was 14 11/23/2023 [NARESH-7] Feeling nervous, anxious or on edge? + 2 pt : More than half the days, [NARESH-7] Not being able to stop or control worrying? + 2 pt : More than half the days, [NARESH-7] Worrying too much about different things? + 2 pt : More than half the days, [NARESH-7] Trouble relaxing? + 2 pt : More than half the days, [NARESH-7] Being so restless that it's hard to sit still? + 3 pt : Nearly every day, [NARESH-7] Becoming easily annoyed or irritable? + 3 pt : Nearly every day, [NARESH-7] Feeling afraid as if something awful might happen? + 0 pt : Not at all, Patient Health Questionnaire 9-Item total score was four 11/23/2023, [PHQ-9-1] Little interest or pleasure in doing things? + 1 pt : Several days, [PHQ-9-2] Feeling down, depressed, or hopeless? + 1 pt : Several days, [PHQ-9-3] Trouble falling or staying asleep or sleeping too much? + 0 pt : Not at all, [PHQ-9-4] Feeling tired or having little energy? + 1 pt : Several days, [PHQ-9-5] Poor appetite or overeating? + 0 pt : Not at all, [PHQ-9-6] Feeling bad about yourself-or that you are a failure + 0 pt : Not at all, [PHQ-9-7] Trouble concentrating on things such as reading the newspaper + 1 pt : Several days, [PHQ-9-8] Moving or speaking so slowly that other people have noticed. + 0 pt : Not at all, and [PHQ-9-9] Thoughts that you would be better off or hurting yourself? + 0 pt : Not at all. [facility]03-01-2024 Progress note* Progress note Date Encounter Last Documented by 11/23/2023 Established Patient Last docu mented on 11/23/2023; 6:43 PM, Ilana BUENOW; [facility] Active Problems & Conditions - F41.1 - Generalized Anxiety Disorder - F32.1 - Major Depression, Single Episode Moderate - F17.200 - Nicotine Dependence Subjective [facility] met with patient and completed screens of PHQ9 and GAD7 and PRAPARE and SBIRT Patient reports that he is on paxil and he is feeling well on this but experiences panic attacks. Patient stated this can happen a couple times a week to one every couple months. He finds himself getting hyperfocused on something and worries consistantly over it. Patient is anxious about a flight at the end of the month and is requesting a medication to calm him for the flight. Patient reports that he has been on multiple medication but they do not work for him. Patient was seen by Dr. Anne where he was diagnosed with ADHD. He did not like the Adderall that he was given and stopped taking any medication. Patient reports getting easily irritable and angry and frustrated when he can not do something or something is not going his way. P and REGISTERED VETERINARY TECHNICIAN discussed with patient Trung for ADHD. will follow up in 2 weeks and patient will return for follow up appointment in one month. Chief Complaint The Chief Complaint is: Mood and medications. History of Present Illness Rory Camp is a 28 year old male. - Irritability. - Anxiety with persistent worry - Loss of interest in activities - Energy level is good - Racing thoughts - No depression - No sleep disturbances Current Medication - Fluticasone Propionate 50 MCG/ACT Nasal Suspension One spay to each nostril daily, 30 days, 5 refills - Loratadine 10 MG Oral Tablet Take one tablet daily, 30 days, 5 refills - Paxil 40 MG Oral Tablet Take one tablet daily, 30 days, 5 refills - Paxil 40 MG Oral Tablet Take one tablet daily, 30 days, 5 refills - Strattera 18 MG Oral Capsule, conventional Take one tablet daily, 30 days, 0 refills - traZODone HCl 50 MG Oral Tablet Take one tablet daily at bedtime, 30 days, 5 refills Past Medical/Surgical History Reported: No Safety Measures. Medical: No previous hospitalizations. Immunization History: Recent immunization for flu. Diagnoses: Depression Anxiety disorder NOS Surgical: - General surgery Social History Environmental Exposure: No secondhand cigarette smoke exposure. Alcohol: A social drinker. Drug Use: Using marijuana. Housing And Economic Circumstances: Lives with spouse. 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 Sexual: Sexual orientation Straight (not lesbian or rider) and gender identity Male. Allergies - -No Known Drug Allergies - Seasonal allergies Family History Paternal: Leukemia no tx needed at this time Maternal: Ischemic heart disease heart failure r/t vavle, pt had vavle replacement 2020 Systemic hypertension Breast neoplasm Physical Findings General Appearance: - Normal Appearance. Neurological: - Cognitive Functions was Normal. - Estimated intelligence was normal. - Oriented to time, place, and person. - No hallucinations. - Judgement was not impaired. Speech: - Is Normal. - No articulation abnormalities. Psychiatric: - Mood was anxious. - Attitude Open. Appearance: - Normal. Demonstrated Behavior: - Motor Activity Normal Activity. - Eye Contact Appropriate. Affect: - Anxious. Thought Processes: - Not impaired. Thought Content: - Revealed no impairment. - Insight was intact. - No delusions. - No suicidal ideation. - No Passive thoughts of . - No suicidal plans. - No suicidal intent. - No homicidal ideations. - No homicidal plans. - No homicidal intent. Past Medical: - No repetitive self injurious behavior. Assessment - Moderate major depression, single episode [F32.1 - Major depressive disorder, single episode, moderate] - Generalized anxiety disorder [F41.1 - Generalized anxiety disorder] Therapy - SBIRT Full Screen Neg. - Brief solution-focused therapy. - Plan - Begin Strattera daily and Collaborated with patient and provider: Counseling/Education *BHP offered active and supportive listening, normalized emotions and feelings, and processed current stressors. *Discussed calming coping strategies that patient can utilize. Plan *Utilize calming coping strategies like discussed. *BHP to follow-up with patient in 2 weeks with a phone call *Patient to follow up as needed/scheduled. *Begin taking medication (s) as prescribed. Patient is agreeable. Advance Directives - Declined to Provide Advance Directive Care Team - Nick Escobar CNP Health Reminders - NARESH-2 satisfied 11/23/2023. - PHQ9 / PHQA satisfied 11/23/2023. - SBIRT satisfied 11/23/2023. User Defined 1 Not afraid of someone you have a relationship with No. Has lack of transportation kept patient from medical appointments or from getting medications: No and lack of transportation has kept patient from beneficial non-medical activities: No. He has not had 5 or more drinks in a day within the past year. Do you feel stress - tense, restless, nervous, or anxious, or unable to sleep at night because your mind is troubled all the time - these days? Very much. No misuse of prescription only drugs and not illicit. Does patient feel physically and emotionally safe where he/she lives: Yes. Is patient is worried about losing housing: No. What is the highest grade or level of school you have completed or the highest degree you have received? High school diploma or GED. In the past year, patient or family members in household were unable to get needed clothing: No, unable to get needed child care supervisor: No, unable to get needed phone: No, unable to get needed utilities: No, unable to get needed Medicine or Health Care: No, and In the past year, patient or family members in household were unable to get needed food: No. How often does patient see or talk to people that that he/she cares about and feels close to: 1 or 2 times a week. NARESH-7 score was 14 11/23/2023 [NARESH-7] Feeling nervous, anxious or on edge? + 2 pt : More than half the days, [NARESH-7] Not being able to stop or control worrying? + 2 pt : More than half the days, [NARESH-7] Worrying too much about different things? + 2 pt : More than half the days, [NARESH-7] Trouble relaxing? + 2 pt : More than half the days, [NARESH-7] Being so restless that it's hard to sit still? + 3 pt : Nearly every day, [NARESH-7] Becoming easily annoyed or irritable? + 3 pt : Nearly every day, [NARESH-7] Feeling afraid as if something awful might happen? + 0 pt : Not at all, Patient Health Questionnaire 9-Item total score was four 11/23/2023, [PHQ-9-1] Little interest or pleasure in doing things? + 1 pt : Several days, [PHQ-9-2] Feeling down, depressed, or hopeless? + 1 pt : Several days, [PHQ-9-3] Trouble falling or staying asleep or sleeping too much? + 0 pt : Not at all, [PHQ-9-4] Feeling tired or having little energy? + 1 pt : Several days, [PHQ-9-5] Poor appetite or overeating? + 0 pt : Not at all, [PHQ-9-6] Feeling bad about yourself-or that you are a failure + 0 pt : Not at all, [PHQ-9-7] Trouble concentrating on things such as reading the newspaper + 1 pt : Several days, [PHQ-9-8] Moving or speaking so slowly that other people have noticed. + 0 pt : Not at all, and [PHQ-9-9] Thoughts that you would be better off or hurting yourself? + 0 pt : Not at all. [facility]03-01-2024 Progress note* Progress note Date Encounter Last Documented by 11/23/2023 Medical Established Patient Last documented on 11/26/2023; 9:00 AM, Nick Escobar CNP; [facility] Active Problems & Conditions - F41.1 - Generalized Anxiety Disorder - F32.1 - Major Depression, Single Episode Moderate - F17.200 - Nicotine Dependence Chief Complaint The Chief Complaint is: Patient here for hospital f/u. Also needs a f/u for anxiety. Having more frequent anxiety attacks. Patient also wants some medication when he flies at the end of the month. Referred Here No prior encounters. History of Present Illness Rory Camp is a 28 year old male. - Allergy list reviewed - Reviewed Medications - Medication list reviewed Patient presents for follow up States that he has had high anxiety and trouble with concentration Patient has seen Dr Anne in the past and was diagnosed with ADHD and states that they believed the ADHD was causing high anxiety. has tried stimulants and did not see a difference, so he did not follow up with Dr Anne Wants to try something else for ADHD/anxiety Patient has severe anxiety when flying on airplanes, recently booked a trip with his to [facility], would like something short term for anxiety so he can rde plane Current Medication - Fluticasone Propionate 50 MCG/ACT Nasal Suspension One spay to each nostril daily, 30 days, 5 refills - Loratadine 10 MG Oral Tablet Take one tablet daily, 30 days, 5 refills - Paxil 40 MG Oral Tablet Take one tablet daily, 30 days, 5 refills - traZODone HCl 50 MG Oral Tablet Take one tablet daily at bedtime, 30 days, 5 refills Past Medical/Surgical History Reported: Medical: No previous hospitalizations. Immunization History: Recent immunization for flu. Diagnoses: Depression Anxiety disorder NOS Surgical: - General surgery Social History Environmental Exposure: No secondhand cigarette smoke exposure. Behavioral: Not a current tobacco user. Tobacco use: Not using electronic cigarettes/vaping. Alcohol: A social drinker. Drug Use: Using marijuana. Sexual: Sexually active, sexual orientation Straight (not lesbian or rider), and gender identity Male. Allergies - -No Known Drug Allergies - Seasonal allergies Family History Paternal: Leukemia no tx needed at this time Maternal: Ischemic heart disease heart failure r/t vavle, pt had vavle replacement 2020 Systemic hypertension Breast neoplasm Review Of Systems Systemic: Not feeling poorly (malaise). No fever and no chills. Head: No headache. Eyes: No vision problems. Otolaryngeal: No nasal discharge. Cardiovascular: No chest pain or discomfort, no palpitations, and the heart rate was not fast. Pulmonary: No dyspnea, no cough, and no wheezing. Gastrointestinal: No nausea and no vomiting. Genitourinary: No dysuria. Musculoskeletal: No muscle aches. Neurological: No motor disturbances and no sensory disturbances. Skin: No rash. Physical Findings - Vitals taken 11/23/2023 02:50 pm BP-Sitting R134/84 mmHg Pulse Rate-Efdiwld25 bpm Mribwx11 in Pocpdz721 lbs 3.2 oz Body Mass Index27.4 kg/m2 Body Surface Area2 m2 Oxygen Bvulwwulto15 % Vital Signs: - Systolic blood pressure 130 - 139 mmHg. - Diastolic blood pressure 80-89 mmHg. General Appearance: - Well developed. - In no acute distress. Lungs: - Respiration rhythm and depth was normal. Musculoskeletal System: General/bilateral: - Overall findings were normal. Neurological: - No disorientation was observed. Speech: - Normal. Motor: - Strength was normal. Gait And Stance: - Normal. Assessment - Body mass index [Body mass index [BMI] 27.0-27.9, adult] - Diabetes Risk Test Score was two score 11/23/2023 [Encounter for screening for diabetes mellitus] - Moderate major depression, single episode [Major depressive disorder, single episode, moderate] - Generalized anxiety disorder [Generalized anxiety disorder] Therapy - Patient refused flu vaccine. Discussed benefits of flu vaccine with Patient. Vaccinations - Did not receive dose of Reported: Patient has not received the Covid Vaccine Counseling/Education - Discussed nutritional needs teach healthy choices including fruits and vegetables - Patient education about a proper diet - Discussed concerns about exercise: promote physical activity Schedule appt with Dr Omid BRADLEY will call in 2 weeks Follow up in office in 1 month Will send ativan dose in 1 week prior to flight Plan StartCited- Attention and concentration deficit Strattera 18 MG capsule Take one tablet daily, 30 days, 0 refills EndCited StartCited- Encounter for general adult medical exam w abnormal findings Outside Labs/General Labs: CBC with diff (CDP), Comprehensive Metabolic Panel (CP), Lipid Panel (LIPR) EndCited StartCited- Generalized anxiety disorder Outside Labs/General Labs: TSH w/reflex to Free T4 (TSHX) EndCited StartCited- Major depressive disorder, single episode, moderate Paxil 40 MG tablet Take one tablet daily, 30 days, 5 refills EndCited StartCited- Vitamin D deficiency, unspecified Outside Labs/General Labs: Vitamin D EndCited Notes - Patient is not interested in the COVID-19 vaccination at this time. Advance Directives - Declined to Provide Advance Directive Care Team - Nick Escobar CNP User Defined 1 Not planning a in the next year. No (0 points) [Pre-DM]: No, patient has not been diagnosed with high blood pressure, No (0 points) [Pre-DM]: Patient has not been diagnosed with gestational diabetes or given to a baby weighing 9 pounds or more, No (0 points) [Pre-DM]: No, mother, father, sister, or brother does not have DM, Yes (0 point) [Pre-DM]: Yes, physically active, and Man (1 point) [Pre-DM]. Less than 40 years (0 points) [Pre-DM]. [facility]10-16-2023 NoteEXAMINATION: ULTRASOUND OF THE SCROTUM/TESTICLES WITH COLOR DOPPLER FLOW EVALUATION 07/09/2023 TECHNIQUE: Duplex ultrasound using B-mode/jaime scaled imaging, Doppler spectral analysis and color flow Doppler was obtained of the testicles. COMPARISON: None. HISTORY: ORDERING SYSTEM PROVIDED HISTORY: Right testicular pain FINDINGS: Measurements: Right Testicle: 25.8 x 33.7 x 53.5 mm Left Testicle: 28.0 x 28.4 x 56.1 mm Right: Pierre Scale: The right testicle demonstrates normal homogeneous echotexture without focal lesion. No evidence of testicular microlithiasis. Doppler Evaluation: There is normal arterial and venous Doppler flow within the testicle. Scrotal Sac: No evidence of hydrocele. Scanning in the right inguinal region shows a questionable small fat containing inguinal hernia. Epididymis: No acute abnormality. Left: Pierre Scale: The left testicle demonstrates normal homogeneous echotexture without focal lesion. No evidence of testicular microlithiasis. Doppler Evaluation: There is normal arterial and venous Doppler flow within the testicle. Scrotal Sac: No evidence of hydrocele. Epididymis: No acute abnormality. IMPRESSION: Unremarkable testicular ultrasound with normal Doppler flow. Questionable small right inguinal hernia. Interpreted by: Olayinka Kramer MD Signed by: Olayinka Kramer MD 07/09/23 Final resultMer[facility] [id number] Instructions Includes: Instructions for all patient encounters Education and Decision Aids were provided during visit for: Discussed nutritional needs teach healthy choices including fruits and vegetables Last Documented On 3 1:32PM ; [facility] Patient education about a pr oper diet Last Documented On 3 1:32PM ; [facility] Discussed concerns about exe rcise : promote physical activity Last Documented On 3 1:32PM ; [facility] provided active listenin g and reflective feedback; monitored mood; assessed symptoms, and functioning. ~Offered pt space to process though current symptoms and stressor(s); explored effectiveness of medication, coping mechanisms, and self- care practices. ~Encouraged use, as needed Last Documented On 3 6:55AM ; [facility] Discussed nutritional needs teach healthy choices including fruits and vegetables Last Documented On 3 8:38AM ; [facility] Patient education about a pr oper diet Last Documented On 3 8:38AM ; [facility] Discussed concerns about exe rcise : promote physical activity ~ ~Follow up in three months Last Documented On 3 9:05AM ; [facility] provided active listenin g, support and helped pt process though current symptoms and stressor(s); discussed effectiveness of medication, coping mechanisms, self- care practices, and sources for positive support Last Documented On 3 5:44PM ; [facility] Discussed nutritional needs teach healthy choices including fruits and vegetables Last Documented On 3 8:47AM ; [facility] Patient education about a pr oper diet Last Documented On 3 8:47AM ; [facility] Discussed concerns about exe rcise : promote physical activity ~ ~Will stop hydroxyzine and start trazodone Last Documented On 3 9:05AM ; [facility] provided active listenin g, support and helped pt process though current symptoms and stressor(s); explored ssues of grief/loss; promoted benefits of counseling, effectiveness of medication, use of coping mechanisms, self-care practices, and support system Last Documented On 3 9:07AM ; [facility] Reviewed side effects and Ri sks/Benefits analysis Last Documented On 3 9:07AM ; [facility] Discussed nutritional needs teach healthy choices including fruits and vegetables Last Documented On 3 8:52AM ; [facility] Patient education about a pr oper diet Last Documented On 3 8:52AM ; [facility] Discussed concerns about exe rcise : promote physical activity Last Documented On 3 8:52AM ; [facility] Discussed nutritional needs teach healthy choices including fruits and vegetables Last Documented On 1 12:11PM ; [facility] Patient education about a pr oper diet Last Documented On 1 12:11PM ; [facility] Inquiry and counseling about medication administration and compliance Last Documented On 1 1:57PM ; [facility] Discussed concerns about exe rcise : promote physical activity Last Documented On 1 12:11PM ; [facility] Patient goals discussed Last Documented On 1 1:57PM ; [facility] provided active listenin g, support and helped patient process through current symptoms and stressors due to patient not feeling well currently. [facility] reminded patient of importance of taking medications daily as prescribed and following up with scheduled psychiatry visits Last Documented On 1 9:59PM ; [facility] Explored current self-care m ethods (eg.,fixing up the house ) and encouraged patient to continue using them. ~ Last Documented On 1 10:48PM ; [facility] Discussed nutritional needs teach healthy choices including fruits and vegetables Last Documented On 1 5:48PM ; [facility] Patient education about a pr oper diet Last Documented On 1 5:48PM ; [facility] Discussed concerns about exe rcise : promote physical activity Last Documented On 1 5:48PM ; [facility] provided active listenin g, support and helped patient process through current symptoms and stressors related to low moods and increased anxiety. ~[facility] discussed getting established with counseling and provided list of area resources. 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 Anne's office. ~[facility] discussed crisis resources should they be needed and provided list of resources including local resources as well as national text and phone hotlines. ~[facility] discussed coping skills to manage increased anxiety including deep breathing and mindfulness resources Last Documented On 1 4:59PM ; [facility] provided active listenin g, support and helped patient process through current symptoms and stressors related to increased anxiety/panic and its impact on daily functioning. ~P discussed patients effective coping skills and other tools that may be helpful and using technology to support these. ~[facility] discussed potential benefit of meeting with counselor and psychiatry to continue to work on anxiety and mood. ~ Last Documented On 0 12:31PM ; [facility] provided active listenin g, support and helped patient process through current symptoms and stressors related to increased anxiety and depression. ~P discussed coping skills with patient to manage increased anxiety and went over breathing techniques, meditation and mindfulness activities. Patient reports that focusing on his breathing has been helpful in controlling anxiety. ~[facility] discussed the importance of establishing counseling and patient is willing and was given list of counseling resources. ~P discussed importance of taking medications daily around the same time daily. [facility] and PCP discussed importance of trying to go to work and do things to increase physical activity Last Documented On 0 10:21AM ; [facility] provided active listenin g, support and helped patient process through current symptoms and stressors. ~[facility] discussed importance of medication compliance. [facility] encouraged patient to set reminders, utilizing pill organizer, etc to help remember to take medications regularly Last Documented On 0 4:55PM ; [facility] offered active and suppo rtive listening, normalized emotions and feelings, and processed current stressors. ~[facility] praised patient for taking medications and working to find coping skills that work for him. Patient is not interested in attending therapy services at this time. ~[facility] discussed strategies that can help patient to remember to take medications daily such as phone reminders or establishing a new routine of taking them before work, etc Last Documented On 0 2:23PM ; [facility] Patient education about a pr oper diet Last Documented On 0 7:47PM ; [facility] Inquiry and counseling about medication administration and compliance Last Documented On 0 7:47PM ; [facility] Patient goals discussed Last Documented On 0 7:47PM ; [facility] Patient education about a pr oper diet Last Documented On 0 7:41PM ; [facility] Inquiry and counseling about medication administration and compliance Last Documented On 0 7:41PM ; [facility] Patient goals discussed Last Documented On 0 7:41PM ; [facility] provided active listenin g, support and helped patient process through current symptoms and stressors. ~[facility] reviewed coping skills with patient including breathing methods and demonstrated to patient. Patient was encouraged to utilize music and coping skills during breaks to help prevent or reduce anxiety during specific time period reported Last Documented On 0 6:54PM ; [facility] Patient education about a pr oper diet Last Documented On 0 9:59AM ; [facility] Inquiry and counseling about medication administration and compliance Last Documented On 0 9:59AM ; [facility] Patient goals discussed Last Documented On 0 9:59AM ; [facility] introduced patient to [facility] integrated model of care. ~[facility] offered active and supportive listening, normalized emotions and feelings, and processed current stressors related to increased anxiety and impact on work and daily life. ~[facility] discussed coping skills that patient can implement to manage increased anxiety including deep breathing and mindfulness. [facility] discussed identifying signs of increasing anxxiety and utilizing coping skills early Last Documented On 0 8:44AM ; [facility] Patient education about a pr oper diet Last Documented On 0 11:08AM ; [facility] Discussed concerns about exe rcise : promote physical activity Last Documented On 0 11:08AM ; [facility] Work Phone: [phone]) 616-879410-16-2023 Evaluation note Includes: Assessments for all patient encounters Findings Encounter Date [N50.811 - Right testicular pain] pain of the right testis Open Access - Established with Ksenia Kilpatrick CNP 07/09/2023 Last Documented On 3 9:35AM ; [facility] [Z68.25 - Body mass index [B LA] 25.0-25.9, adult] assessment of body mass index Open Access - Established with Ksenia Kilpatrick CNP 07/09/2023 Last Documented On 3 9:35AM ; [facility] Generalized anxiety disorder Open Access - Established with Ksenia Kilpatrick [employer] [facility] 07/09/2023 Last Documented On 3 9:35AM ; [facility] Moderate major depression, s nicolasa episode Open Access - Established with Ksenia Tim [employer] [facility] 07/09/2023 Last Documented On 3 9:35AM ; [facility] Nicotine dependence Open Access - Established wi th Ksenia Tim [facility] 07/09/2023 Last Documented On 3 9:35AM ; [facility] Generalized anxiety disorder BH Establis hed Patient with Tanafarzana Galindo LPCC-S 01/05/2023 Last Documented On 3 6:55AM ; [facility] [Body mass index [BMI] 23.0- 23.9, adult] assessment of body mass index Medical Established Patient with Nick Shawn [employer] [facility] 01/05/2023 Last Documented On 3 9:05AM ; [facility] Generalized anxiety disorder Medical Est ablished Patient with Nick Shawn [employer] [facility] 01/05/2023 Last Documented On 3 9:05AM ; [facility] Moderate major depression, s nicolasa episode Medical Established Patient with Nick Shawn [employer] 01/05/2023 Last Documented On 3 9:05AM ; [facility] Major depression, single episode BH Esta blished Patient with Tanafarzana MortonGalindo LPCC-S 11/24/2022 Last Documented On 3 5:46PM ; [facility] [Body mass index [BMI] 23.0- 23.9, adult] assessment of body mass index Medical Established Patient with Nick Shawn [employer] [facility] 11/24/2022 Last Documented On 3 9:05AM ; [facility] Generalized anxiety disorder Medical Est ablished Patient with Nick Shawn [employer] [facility] 11/24/2022 Last Documented On 3 9:05AM ; [facility] Moderate major depression, s nicolasa episode Medical Established Patient with Nick Shawn [employer] 11/24/2022 Last Documented On 3 9:05AM ; [facility] Major depression, single episode BH Esta blished Patient with Tana Galindo LPCC-S 10/26/2022 Last Documented On 3 9:07AM ; [facility] Moderate major depression, s nicolasa episode BH Established Patient with Tanafarzana Galindo LPCC-S 10/26/2022 Last Documented On 3 9:07AM ; [facility] [Body mass index [BMI] 23.0- 23.9, adult] assessment of body mass index Medical Established Patient with Nick Shawn [employer] 10/26/2022 Last Documented On 3 9:54AM ; [facility] Diabetes Risk Test Score was 3.0 score 10/26/2022 Medical Established Patient with Nikc Shawn [employer] 10/26/2022 Last Documented On 3 9:54AM ; [facility] Generalized anxiety disorder Medical Est ablished Patient with Nick Shawn [employer] 10/26/2022 Last Documented On 3 9:54AM ; [facility] Moderate major depression, s nicolasa episode Medical Established Patient with Nick Shawn [employer] 10/26/2022 Last Documented On 3 9:54AM ; [facility] Nicotine dependence Medical Established Patient with Nick Shawn [employer] 10/26/2022 Last Documented On 3 9:54AM ; [facility] Assessment of body mass inde x [Body mass index [BMI] 20.0-20.9, adult] Medical Established Patient with Nick Shawn [employer] 08/29/2021 Last Documented On 1 3:08PM ; [facility] Diabetes Risk Test Score was one score 08/29/2021 Medical Established Patient with Nick Shawn [employer] 08/29/2021 Last Documented On 1 3:08PM ; [facility] Generalized anxiety disorder Medical Est ablished Patient with Nick Shawn [employer] 08/29/2021 Last Documented On 1 3:08PM ; [facility] Moderate major depression, s nicolasa episode Medical Established Patient with Nick Shawn [employer] 08/29/2021 Last Documented On 1 3:08PM ; [facility] Mild recurrent major depression Teleb ehavioral Health with Radha Short LISWS 03/22/2021 Last Documented On 1 9:59PM ; [facility] Panic disorder without agoraphobia Te lebehavioral Health with Radha Short LISWS 03/22/2021 Last Documented On 1 9:59PM ; [facility] Acute pharyngitis Telemedicine Establisted Patie nt with Nick Shawn [employer] 03/22/2021 Last Documented On 1 12:34PM ; [facility] Acute sinusitis Medical Established Patient with Nick Shawn [employer] 01/20/2021 Last Documented On 1 9:57AM ; [facility] Body mass index [Body mass i ndex [BMI] 20.0-20.9, adult] Medical Established Patient with Nick Shawn [employer] 01/20/2021 Last Documented On 1 9:57AM ; [facility] Generalized anxiety disorder Establis hed Patient with Jenelleiza Moya LPCC-S 12/15/2020 Last Documented On 1 10:51PM ; [facility] Moderate major depression, s nicolasa episode BH Established Patient with Jenelle Moya LPCC-S 12/15/2020 Last Documented On 1 10:51PM ; [facility] Constipation Medical Established Patient with Ksenia Tim [employer] 12/15/2020 Last Documented On 1 8:13PM ; [facility] Z68.20 - Body mass index [BM I] 20.0-20.9, adult Medical Established Patient with Ksenia Tim [employer] 12/15/2020 Last Documented On 1 8:13PM ; [facility] Moderate recurrent major depression E stablished Patient with Radha Short LISWS 09/29/2020 Last Documented On 1 5:02PM ; [facility] Panic disorder without agoraphobia Es tablished Patient with Radha Short LISWS 09/29/2020 Last Documented On 1 5:02PM ; [facility] Body mass index [Body mass i ndex [BMI] 21.0-21.9, adult] Medical Established Patient with Nick Shawn [employer] 09/29/2020 Last Documented On 1 10:45AM ; [facility] Generalized anxiety disorder Medical Est ablished Patient with Nick Shawn [employer] 09/29/2020 Last Documented On 1 10:45AM ; [facility] Moderate major depression, s nicolasa episode Medical Established Patient with Ncik Shawn [employer] 09/29/2020 Last Documented On 1 10:45AM ; [facility] Mild recurrent major depression BH Estab lished Patient with Radha Short LISWS 09/10/2020 Last Documented On 0 12:31PM ; [facility] Panic disorder without agoraphobia BH Es tablished Patient with Radha Short LISWS 09/10/2020 Last Documented On 0 12:31PM ; [facility] Body mass index Medical Established Patient with Nick Shawn [employer] 09/10/2020 Last Documented On 0 11:17AM ; [facility] Mild recurrent major depression BH Estab lished Patient with Radha Short LISWS 08/27/2020 Last Documented On 0 10:21AM ; [facility] Panic disorder without agoraphobia Es tablished Patient with Radha Short LISWS 08/27/2020 Last Documented On 0 10:21AM ; [facility] Body mass index [Body mass i ndex [BMI] 22.0-22.9, adult] Medical Established Patient with Nick Shawn [employer] 08/27/2020 Last Documented On 0 8:00PM ; [facility] Generalized anxiety disorder Medical Est ablished Patient with Nick Shawn [employer] 08/27/2020 Last Documented On 0 8:00PM ; [facility] Moderate major depression, s nicolasa episode Medical Established Patient with Nick Shawn [employer] 08/27/2020 Last Documented On 0 8:00PM ; [facility] Depression BH Established Patient with Maura keyon Short LISWS 08/13/2020 Last Documented On 0 4:55PM ; [facility] Panic disorder without agoraphobia Es tablished Patient with Radha Short LISWS 08/13/2020 Last Documented On 0 4:55PM ; [facility] Depression Established Patient with Maura keyon Short LISWS 06/15/2020 Last Documented On 0 2:23PM ; [facility] Panic disorder without agoraphobia Es tablished Patient with Radha Short LISWS 06/15/2020 Last Documented On 0 2:23PM ; [facility] Depression Established Patient with Maura keyon Short LISWS 05/27/2020 Last Documented On 0 6:54PM ; [facility] Panic disorder without agoraphobia Es tablished Patient with Radha Short LISWS 05/27/2020 Last Documented On 0 6:54PM ; [facility] Depressive disorder Established Patient with Radha Short LISWS 05/18/2020 Last Documented On 0 8:46AM ; [facility] Panic disorder without agoraphobia Es tablished Patient with Radha Short LISWS 05/18/2020 Last Documented On 0 8:46AM ; [facility] Anxiety disorder NOS Medical New Patient with Ca ssie Shawn [employer] 05/18/2020 Last Documented On 0 6:40PM ; [facility] Body mass index Medical New Patient with Nick Shawn [employer] 05/18/2020 Last Documented On 0 6:40PM ; [facility] Depression Medical New Patient with Nick Shawn [employer] 05/18/2020 Last Documented On 0 6:40PM ; [facility] Diabetes Risk Test Score was one score 05/18/2020 Medical New Patient with Nick Shawn [employer] 05/18/2020 Last Documented On 0 6:40PM ; [facility] Routine history and physical Medical New Patient with Nick Shawn [employer] 05/18/2020 Last Documented On 0 6:40PM ; [facility] Work Phone: 1(854) 159-960510-16-2023 Progress note* Progress note Date Encounter Last Documented by 07/09/2023 Open Access - Established Last d ocumented on 07/10/2023; 9:35 AM, Ksenia Kilpatrick CNP; [facility] Active Problems & Conditions - F41.1 - Generalized Anxiety Disorder - F32.1 - Major Depression, Single Episode Moderate - F17.200 - Nicotine Dependence Chief Complaint The Chief Complaint is: Stomach pain on right side that radiates down into his right side of his groin. Into right testicle. Going on for about 2 weeks off and on. Reason For Visit Visit for: abdominal pain. Referred Here Not referred by urgent care clinic and not the emergency room. No prior encounters. - Data to be reviewed: no clinical lab tests History of Present Illness - Allergy list reviewed - Reviewed Medications - Medication list reviewed Patient reports that he has been having some pain in the right side of his abdomen. Patient reports that the pain is radiating down to the right testicle. After discussion the patient reports that he did notice the pain in the testicle first then the abdomen. Patient also reports that it feels like a line is being pulled from the abdomen to the testicle. Patient reports the pain has been coming and going daily, has been constant since Sunday morning after intercourse with . Patient reports that pain in the side and the testicle come and go at the same times. Patient describes pain in the abdomen feels like a pressure, pain in the testicle feels like it is swollen, states it is not sharp. Patient denies any hernia history. Denies fever or recent illness. Denies pain or difficulty urinating. Patient reports that he has tried tylenol for the pain, does not feel like that has been helping. Patient reports that when is laying on his side the pain goes away, comes back when he starts walking again. patient reports that he does a lot of heavy lifting Current Medication - Fluticasone Propionate 50 MCG/ACT Nasal Suspension One spay to each nostril daily, 30 days, 5 refills - Loratadine 10 MG Oral Tablet Take one tablet daily, 30 days, 5 refills - Paxil 40 MG Oral Tablet Take one tablet daily, 30 days, 5 refills - traZODone HCl 50 MG Oral Tablet Take one tablet daily at bedtime, 30 days, 5 refills Past Medical/Surgical History Reported: Medical: No previous hospitalizations. Immunization History: Recent immunization for flu. Diagnoses: Depression Anxiety disorder NOS Surgical: - General surgery Social History Environmental Exposure: No secondhand cigarette smoke exposure. Behavioral: Not a current tobacco user. Tobacco use: Using electronic cigarettes/vaping. Alcohol: Not using alcohol. Drug Use: Using marijuana. Sexual: Sexually active, sexual orientation Straight (not lesbian or rider), and gender identity Male. Allergies - -No Known Drug Allergies - Seasonal allergies Family History Paternal: Leukemia no tx needed at this time Maternal: Ischemic heart disease heart failure r/t vavle, pt had vavle replacement 2020 Systemic hypertension Breast neoplasm Review Of Systems Systemic: No systemic symptoms. Head: No headache. Otolaryngeal: No ear symptoms, no nasal symptoms, and no throat symptoms. Cardiovascular: No chest pain or discomfort. Pulmonary: No pulmonary symptoms. Gastrointestinal: Gastrointestinal symptoms abdominal pain right flank. Genitourinary: Pain of the right testis and persistent. Musculoskeletal: No musculoskeletal symptoms. Neurological: No neurological symptoms. Psychological: No psychological symptoms. Skin: No skin symptoms. Physical Findings - Vitals taken 07/09/2023 01:27 pm BP-Sitting L143/85 mmHg BP Cuff SizeRegular Pulse Rate-Kmnbonn49 bpm Respiration Rate16 per min Temp-Rwpvvecb76.7 F Kulmkn89 in Yzhzyc169 lbs 12.8 oz Body Mass Index25.5 kg/m2 Body Surface Area1.9 m2 Oxygen Barqgdxhli66 % - Vitals taken 07/09/2023 01:44 pm BP-Sitting L131/80 mmHg BP Cuff SizeRegular Vital Signs: - Systolic blood pressure 130 - 139 mmHg. - Diastolic blood pressure 80-89 mmHg. General Appearance: - Awake. - Alert. - In no acute distress. Eyes: General/bilateral: Pupils: - PERRLA. Lungs: - Respiration rhythm and depth was normal. - Clear to auscultation. Cardiovascular: Heart Rate And Rhythm: - Normal. Heart Sounds: - Normal. Abdomen: Auscultation: - Bowel sounds were normal. Palpation: - Abdominal tenderness right flank between upper and lower quadrant. Musculoskeletal System: General/bilateral: - Abnormal movement of all extremities. Neurological: - Oriented to time, place, and person. Psychiatric: - Expression of emotions finding was normal. Skin: - General appearance was normal. Assessment - N50.811 - Right testicular pain - Z68.25 - Body mass index [BMI] 25.0-25.9, adult - F17.200 - Nicotine dependence, unspecified, uncomplicated - F32.1 - Major depressive disorder, single episode, moderate - F41.1 - Generalized anxiety disorder Therapy - Patient refused flu vaccine. Discussed benefits of flu vaccine with Patient. Vaccinations - Did not receive dose of Reported: Patient has not received the Covid Vaccine Counseling/Education - No not wishing to stop using electronic cigarettes/vaping - Discussed nutritional needs teach healthy choices including fruits and vegetables - Patient education about a proper diet - Discussed concerns about exercise: promote physical activity Plan StartCited- Right testicular pain Outside Diagn Tests/Ultrasound: US Testicular ([id number]), US Ultrasound Other: Instructions: please include dopplar studies of the right testicle. STAT EndCited StartCited- Unilateral inguinal hernia, w/o obst or gangrene, recurrent Referrals: General Surgery Instructions: Please make a referral to: EndCited Will order STAT testicular ultrasound and dopplar. Patient advised to go to the ER for any worsening testicular pain. update- STAT ultrasound showed adequate blood flow and small fat-containing inguinal hernia. Due to patient symptoms will refer to General Surgery. Notes - Patient is not interested in the COVID-19 vaccination at this time. Advance Directives - Declined to Provide Advance Directive Health Reminders - Assess BMI satisfied 07/09/2023. - Assess Tobacco Use satisfied 07/09/2023. - Follow Up Plan BMI Management satisfied 07/09/2023. - NARESH-2 satisfied 07/09/2023. - PHQ9 / PHQA satisfied 07/09/2023. - Smoking & Tobacco Cessation Intervention and Counseling satisfied 07/09/2023. User Defined 1 NARESH-2 score was two 07/09/2023, NARESH-7 score [NARESH-7] Feeling nervous, anxious or on edge? + 2 pt : More than half the days, [NARESH-7] Not being able to stop or control worrying? + 0 pt : Not at all, Patient Health Questionnaire 9-Item total score was four 07/09/2023, [PHQ-9-1] Little interest or pleasure in doing things? + 1 pt : Several days, [PHQ-9-2] Feeling down, depressed, or hopeless? + 1 pt : Several days, [PHQ-9-3] Trouble falling or staying asleep or sleeping too much? + 1 pt : Several days, [PHQ-9-4] Feeling tired or having little energy? + 1 pt : Several days, [PHQ-9-5] Poor appetite or overeating? + 0 pt : Not at all, [PHQ-9-6] Feeling bad about yourself-or that you are a failure + 0 pt : Not at all, [PHQ-9-7] Trouble concentrating on things such as reading the newspaper + 0 pt : Not at all, [PHQ-9-8] Moving or speaking so slowly that other people have noticed. + 0 pt : Not at all, and [PHQ-9-9] Thoughts that you would be better off or hurting yourself? + 0 pt : Not at all. [facility]04-14-2023 Evaluation note Includes: Assessments for all patient encounters Findings Encounter Date Generalized anxiety disorder BH Establis hed Patient with [facility] 01/05/2023 Last Documented On 3 6:55AM ; [facility] [Body mass index [BMI] 23.0- 23.9, adult] assessment of body mass index Medical Established Patient with Nick Shawn [employer] [employer] [facility] [facility] 01/05/2023 Last Documented On 3 9:05AM ; [facility] Generalized anxiety disorder Medical Est ablished Patient with Nick Shawn [employer] [employer] [facility] [facility] 01/05/2023 Last Documented On 3 9:05AM ; [facility] Moderate major depression, s nicolasa episode Medical Established Patient with Nick Shawn [employer] [employer] [facility] [facility] 01/05/2023 Last Documented On 3 9:05AM ; [facility] Major depression, single episode BH Esta blished Patient with Tanafazrana MortonGalindo [facility] 11/24/2022 Last Documented On 3 5:46PM ; [facility] [Body mass index [BMI] 23.0- 23.9, adult] assessment of body mass index Medical Established Patient with Nick Shawn [employer] [employer] [facility] [facility] 11/24/2022 Last Documented On 3 9:05AM ; [facility] Generalized anxiety disorder Medical Est ablished Patient with Nick Shawn [employer] [employer] [facility] [facility] 11/24/2022 Last Documented On 3 9:05AM ; [facility] Moderate major depression, s nicolasa episode Medical Established Patient with Nick Shawn [employer] [employer] [facility] [facility] 11/24/2022 Last Documented On 3 9:05AM ; [facility] Major depression, single episode BH Esta blished Patient with Tana Galindo [facility] 10/26/2022 Last Documented On 3 9:07AM ; [facility] Moderate major depression, s nicolasa episode BH Established Patient with Tana Galindo [facility] 10/26/2022 Last Documented On 3 9:07AM ; [facility] [Body mass index [BMI] 23.0- 23.9, adult] assessment of body mass index Medical Established Patient with Nick Shawn [employer] [employer] [facility] [facility] 10/26/2022 Last Documented On 3 9:54AM ; [facility] Diabetes Risk Test Score was 3.0 score 10/26/2022 Medical Established Patient with Nick Shawn [employer] [employer] [facility] 10/26/2022 Last Documented On 3 9:54AM ; [facility] Generalized anxiety disorder Medical Est ablished Patient with Nick Shawn [employer] [employer] [facility] 10/26/2022 Last Documented On 3 9:54AM ; [facility] Moderate major depression, s nicolasa episode Medical Established Patient with Nick Shawn [employer] [employer] [facility] 10/26/2022 Last Documented On 3 9:54AM ; [facility] Nicotine dependence Medical Established Patient with Nick Shawn [employer] [employer] [facility] 10/26/2022 Last Documented On 3 9:54AM ; [facility] Assessment of body mass inde x [Body mass index [BMI] 20.0-20.9, adult] Medical Established Patient with Nick Shawn [employer] [employer] [facility] [facility] 08/29/2021 Last Documented On 1 3:08PM ; [facility] Diabetes Risk Test Score was one score 08/29/2021 Medical Established Patient with Nick Shawn [employer] [employer] [facility] 08/29/2021 Last Documented On 1 3:08PM ; [facility] Generalized anxiety disorder Medical Est ablished Patient with Nick Shawn [employer] [employer] [facility] [facility] 08/29/2021 Last Documented On 1 3:08PM ; [facility] Moderate major depression, s nicolasa episode Medical Established Patient with Nick Shawn [employer] [employer] [facility] 08/29/2021 Last Documented On 1 3:08PM ; [facility] Mild recurrent major depression Teleb ehavioral Health with Radha Short [facility] 03/22/2021 Last Documented On 1 9:59PM ; [facility] Panic disorder without agoraphobia Te lebehavioral Health with Radha Short [facility] 03/22/2021 Last Documented On 1 9:59PM ; [facility] Acute pharyngitis Telemedicine Establisted Patie nt with Nick Shawn [employer] [employer] [facility] 03/22/2021 Last Documented On 1 12:34PM ; [facility] Acute sinusitis Medical Established Patient with Nick Shawn [employer] [employer] [facility] 01/20/2021 Last Documented On 1 9:57AM ; [facility] Body mass index [Body mass i ndex [BMI] 20.0-20.9, adult] Medical Established Patient with Nick Shawn [employer] [employer] [facility] [facility] 01/20/2021 Last Documented On 1 9:57AM ; [facility] Generalized anxiety disorder Establis hed Patient with Jen[facility] 12/15/2020 Last Documented On 1 10:51PM ; [facility] Moderate major depression, s nicolasa episode Established Patient with Jenelle Moya [facility] 12/15/2020 Last Documented On 1 10:51PM ; [facility] Constipation Medical Established Patient with Ksenia Kilpatrick [employer] [employer] [facility] 12/15/2020 Last Documented On 1 8:13PM ; [facility] Z68.20 - Body mass index [BM I] 20.0-20.9, adult Medical Established Patient with Ksenia Kilpatrick [employer] [employer] [facility] 12/15/2020 Last Documented On 1 8:13PM ; [facility] Moderate recurrent major depression BH E stablished Patient with Radha Short [facility] 09/29/2020 Last Documented On 1 5:02PM ; [facility] Panic disorder without agoraphobia BH Es tablished Patient with Radha Short [facility] 09/29/2020 Last Documented On 1 5:02PM ; [facility] Body mass index [Body mass i ndex [BMI] 21.0-21.9, adult] Medical Established Patient with Nick Shawn [employer] [employer] [facility] 09/29/2020 Last Documented On 1 10:45AM ; [facility] Generalized anxiety disorder Medical Est ablished Patient with Nick Shawn [employer] [employer] [facility] 09/29/2020 Last Documented On 1 10:45AM ; [facility] Moderate major depression, s nicolasa episode Medical Established Patient with Nick Sahwn [employer] [employer] [facility] 09/29/2020 Last Documented On 1 10:45AM ; [facility] Mild recurrent major depression BH Estab lished Patient with Radha Short [facility] 09/10/2020 Last Documented On 0 12:31PM ; [facility] Panic disorder without agoraphobia BH Es tablished Patient with Radha Short [facility] 09/10/2020 Last Documented On 0 12:31PM ; [facility] Body mass index Medical Established Patient with Nick Shawn [employer] [employer] [facility] [facility] 09/10/2020 Last Documented On 0 11:17AM ; [facility] Mild recurrent major depression BH Estab lished Patient with Radha Short [facility] 08/27/2020 Last Documented On 0 10:21AM ; [facility] Panic disorder without agoraphobia BH Es tablished Patient with Radha Short [facility] 08/27/2020 Last Documented On 0 10:21AM ; [facility] Body mass index [Body mass i ndex [BMI] 22.0-22.9, adult] Medical Established Patient with Nick Shawn [employer] [employer] [facility] 08/27/2020 Last Documented On 0 8:00PM ; [facility] Generalized anxiety disorder Medical Est ablished Patient with Nick Shawn [employer] [employer] [facility] 08/27/2020 Last Documented On 0 8:00PM ; [facility] Moderate major depression, s nicolasa episode Medical Established Patient with Nick Shawn [employer] [employer] [facility] 08/27/2020 Last Documented On 0 8:00PM ; [facility] Depression Established Patient with Maura keyon Short [facility] 08/13/2020 Last Documented On 0 4:55PM ; [facility] Panic disorder without agoraphobia Es tablished Patient with Radha Short [facility] 08/13/2020 Last Documented On 0 4:55PM ; [facility] Depression Established Patient with Maura keyon Short [facility] 06/15/2020 Last Documented On 0 2:23PM ; [facility] Panic disorder without agoraphobia Es tablished Patient with Radha Short [facility] 06/15/2020 Last Documented On 0 2:23PM ; [facility] Depression Established Patient with Maura keyon Short [facility] 05/27/2020 Last Documented On 0 6:54PM ; [facility] Panic disorder without agoraphobia Es tablished Patient with Radha Short [facility] 05/27/2020 Last Documented On 0 6:54PM ; [facility] Depressive disorder Established Patient with Radha Short [facility] 05/18/2020 Last Documented On 0 8:46AM ; [facility] Panic disorder without agoraphobia Es tablished Patient with Radha Short [facility] 05/18/2020 Last Documented On 0 8:46AM ; [facility] Anxiety disorder NOS Medical New Patient with Ca ssie Shawn [employer] [employer] [facility] 05/18/2020 Last Documented On 0 6:40PM ; [facility] Body mass index Medical New Patient with Nick Shawn [employer] [employer] [facility] 05/18/2020 Last Documented On 0 6:40PM ; [facility] Depression Medical New Patient with Nick Shawn [employer] [employer] [facility] 05/18/2020 Last Documented On 0 6:40PM ; [facility] Diabetes Risk Test Score was one score 05/18/2020 Medical New Patient with Nick Escobar CNP 05/18/2020 Last Documented On 0 6:40PM ; [facility] Routine history and physical Medical New Patient with Nick Escobar CNP 05/18/2020 Last Documented On 0 6:40PM ; [facility] Work Phone: [phone]) 165-321404-14-2023 Progress note* Progress note Date Encounter Last Documented by 01/05/2023 Medical Established Patient Last documented on 01/05/2023; 9:05 AM, Nick Escobar CNP; [facility] Active Problems & Conditions - F41.1 - Generalized Anxiety Disorder - F32.1 - Major Depression, Single Episode Moderate Chief Complaint The Chief Complaint is: Patient here for a follow up since changing mediation states he only takes it as needed and hasn't really needed it bt when taken states better then the other medication he was on. Referred Here Not referred by urgent care clinic and not the emergency room. No prior encounters. - Data to be reviewed: no clinical lab tests History of Present Illness Rory Camp is a 27 year old male. - Reviewed Medications. Take the trazodone as needed and states that it works well States that he feels he is doing good. Current Medication - Fluticasone Propionate 50 MCG/ACT Nasal Suspension One spay to each nostril daily, 30 days, 5 refills - Loratadine 10 MG Oral Tablet Take one tablet daily, 30 days, 5 refills - Paxil 40 MG Oral Tablet Take one tablet daily, 30 days, 3 refills - traZODone HCl 50 MG Oral Tablet Take one tablet daily at bedtime, 30 days, 1 refills Past Medical/Surgical History Reported: Medical: No previous hospitalizations. Immunization History: Recent immunization for flu. Diagnoses: Depression Anxiety disorder NOS Surgical: - General surgery Social History Environmental Exposure: No secondhand cigarette smoke exposure. Behavioral: Not a current tobacco user. Tobacco use: Using electronic cigarettes/vaping. Alcohol: A social drinker. Drug Use: Using marijuana. Sexual: Sexual orientation Straight (not lesbian or rider) and gender identity Male. Allergies - -No Known Drug Allergies - Seasonal allergies Family History Paternal: Leukemia no tx needed at this time Maternal: Ischemic heart disease heart failure r/t vavle, pt had vavle replacement 2020 Systemic hypertension Breast neoplasm Review Of Systems Systemic: Not feeling poorly (malaise). No fever and no chills. Head: No headache. Eyes: No vision problems. Otolaryngeal: No nasal discharge. Cardiovascular: No chest pain or discomfort, no palpitations, and the heart rate was not fast. Pulmonary: No dyspnea, no cough, and no wheezing. Gastrointestinal: No nausea and no vomiting. Genitourinary: No dysuria. Musculoskeletal: No muscle aches. Neurological: No motor disturbances and no sensory disturbances. Skin: No rash. Physical Findings - Vitals taken 01/05/2023 08:35 am BP-Sitting L120/71 mmHg BP Cuff SizeRegular Pulse Rate-Eggilev35 bpm Temp-Bayanjjb06.6 F Iyeuec84 in Mfdfoj148 lbs 4.8 oz Body Mass Index23.7 kg/m2 Body Surface Area1.9 m2 Oxygen Eanxezatra67 % General Appearance: - Well developed. - In no acute distress. Lungs: - Respiration rhythm and depth was normal. Musculoskeletal System: General/bilateral: - Overall findings were normal. Neurological: - No disorientation was observed. Speech: - Normal. Motor: - Strength was normal. Gait And Stance: - Normal. Assessment - Body mass index [Body mass index [BMI] 23.0-23.9, adult] - Moderate major depression, single episode [Major depressive disorder, single episode, moderate] - Generalized anxiety disorder [Generalized anxiety disorder] Therapy - Patient refused flu vaccine. Discussed benefits of flu vaccine with Patient. Vaccinations - Did not receive dose of Reported: Patient has not received the Covid Vaccine Counseling/Education - Not wishing to stop smoking offered Quit Line information - Discussed nutritional needs teach healthy choices including fruits and vegetables - Patient education about a proper diet - Discussed concerns about exercise: promote physical activity Follow up in three months Plan StartCited- Insomnia, unspecified traZODone HCl 50 MG tablet Take one tablet daily at bedtime, 30 days, 5 refills EndCited StartCited- Major depressive disorder, single episode, moderate Paxil 40 MG tablet Take one tablet daily, 30 days, 5 refills EndCited Notes - Patient is not interested in the COVID-19 vaccination at this time. Practice Management Systolic blood pressure < 130 mmHg and diastolic < 80 mmHg diastolic < 80 mmHg. Advance Directives - Declined to Provide Advance Directive [facility]04-14-2023 Progress note* Progress note Date Encounter Last Documented by 01/05/2023 Established Patient Last docu mented on 01/06/2023; 6:55 AM, Tana Galindo [facility]; [facility] Active Problems & Conditions - F41.1 - Generalized Anxiety Disorder - F32.1 - Major Depression, Single Episode Moderate Subjective Pt reported I'm doing about the same as he shared feedback, as needed to assess mood, symptoms, and functioning. Pt reported medication prescribed to help with reported sleep disturbance is effective when he takes it. Pt reported taking it when needed; acknowledged improvement in the weather and being able to get outside seems to have helped overall with symptoms. Pt reported no other issues or concerns; confirmed that he will contact the center, if needed. Chief Complaint The Chief Complaint is: Pt presents for 4/6 week followup. Current Medication - Fluticasone Propionate 50 MCG/ACT Nasal Suspension One spay to each nostril daily, 30 days, 5 refills - Loratadine 10 MG Oral Tablet Take one tablet daily, 30 days, 5 refills - Paxil 40 MG Oral Tablet Take one tablet daily, 30 days, 5 refills - Paxil 40 MG Oral Tablet Take one tablet daily, 30 days, 3 refills - traZODone HCl 50 MG Oral Tablet Take one tablet daily at bedtime, 30 days, 5 refills - traZODone HCl 50 MG Oral Tablet Take one tablet daily at bedtime, 30 days, 1 refills Past Medical/Surgical History Reported: Medical: No previous hospitalizations. Immunization History: Recent immunization for flu. Diagnoses: Depression Anxiety disorder NOS Surgical: - General surgery Social History Environmental Exposure: No secondhand cigarette smoke exposure. Personal: Recent emotional stress. Behavioral: Not a current tobacco user. Tobacco use: No tobacco use. Using electronic cigarettes/vaping. Alcohol: Not using alcohol. A social drinker. Drug Use: Not using drugs denied by patient. Using marijuana by prescription (no use in the last 5 days). Housing And Economic Circumstances: Lives with significant other. Sexual: Sexually active, sexual orientation Straight (not lesbian or rider), and gender identity Male. Allergies - -No Known Drug Allergies - Seasonal allergies Family History Paternal: Leukemia no tx needed at this time Maternal: Ischemic heart disease heart failure r/t vavle, pt had vavle replacement 2020 Systemic hypertension Breast neoplasm Physical Findings General Appearance: - Normal Appearance. Neurological: - Cognitive Functions was Normal. - Oriented to time, place, and person. - Executive Functions: Logical and organized. Psychiatric: - Mood is Euthymic. - Attitude Open. Appearance: - Normal. Demonstrated Behavior: - Motor Activity Normal Activity. - Eye Contact Appropriate. Thought Processes: - Not impaired. Thought Content: - Revealed no impairment. - No suicidal ideation. - No suicidal plans. - No suicidal intent. Assessment - F41.1 - Generalized anxiety disorder Therapy - Brief solution-focused therapy. - Adherent with medications. Counseling/Education P provided active listening and reflective feedback; monitored mood; assessed symptoms, and functioning. Offered pt space to process though current symptoms and stressor(s); explored effectiveness of medication, coping mechanisms, and self-care practices. Encouraged use, as needed. Plan Patient to implement coping skills and positive supports as discussed. Pt to take medications as prescribed and contact [facility] with any questions or concerns. P to follow-up with patient at next visit in office, as necessary. Advance Directives - Declined to Provide Advance Directive Health Reminders - Assess Tobacco Use satisfied 01/05/2023. [facility]03-03-2023 Evaluation note Includes: Assessments for all patient encounters Findings Encounter Date Major depression, single episode Chaparrita blished Patient with Tanafarzana MortonGalindo [facility] 11/24/2022 Last Documented On 3 5:44PM ; [facility] [Body mass index [BMI] 23.0- 23.9, adult] assessment of body mass index Medical Established Patient with Nick Escobar CNP 11/24/2022 Last Documented On 3 9:05AM ; [facility] Generalized anxiety disorder Medical Est ablished Patient with Nick Shawn [employer] [employer] [facility] 11/24/2022 Last Documented On 3 9:05AM ; [facility] Moderate major depression, s nicolasa episode Medical Established Patient with Nick Shawn [employer] [employer] [facility] 11/24/2022 Last Documented On 3 9:05AM ; [facility] Major depression, single episode BH Esta blished Patient with Tana Galindo [facility] 10/26/2022 Last Documented On 3 9:07AM ; [facility] Moderate major depression, s nicolasa episode BH Established Patient with Tana Galindo [facility] 10/26/2022 Last Documented On 3 9:07AM ; [facility] [Body mass index [BMI] 23.0- 23.9, adult] assessment of body mass index Medical Established Patient with Nick Shawn [employer] [employer] [facility] 10/26/2022 Last Documented On 3 9:54AM ; [facility] Diabetes Risk Test Score was 3.0 score 10/26/2022 Medical Established Patient with Nick Shawn [employer] [facility] 10/26/2022 Last Documented On 3 9:54AM ; [facility] Generalized anxiety disorder Medical Est ablished Patient with Nick Shawn [employer] [facility] 10/26/2022 Last Documented On 3 9:54AM ; [facility] Moderate major depression, s nicolasa episode Medical Established Patient with Nick Shawn [employer] [facility] 10/26/2022 Last Documented On 3 9:54AM ; [facility] Nicotine dependence Medical Established Patient with Nick Shawn [employer] [facility] 10/26/2022 Last Documented On 3 9:54AM ; [facility] Assessment of body mass inde x [Body mass index [BMI] 20.0-20.9, adult] Medical Established Patient with Nick Shawn [employer] [employer] [facility] 08/29/2021 Last Documented On 1 3:08PM ; [facility] Diabetes Risk Test Score was one score 08/29/2021 Medical Established Patient with Nick Shawn [employer] [facility] 08/29/2021 Last Documented On 1 3:08PM ; [facility] Generalized anxiety disorder Medical Est ablished Patient with Nick Shawn [employer] [facility] 08/29/2021 Last Documented On 1 3:08PM ; [facility] Moderate major depression, s nicolasa episode Medical Established Patient with Nick Shawn [employer] [facility] 08/29/2021 Last Documented On 1 3:08PM ; [facility] Mild recurrent major depression Teleb ehavioral Health with Radha Short [facility] 03/22/2021 Last Documented On 1 9:59PM ; [facility] Panic disorder without agoraphobia Te lebehavioral Health with Radha Short [facility] 03/22/2021 Last Documented On 1 9:59PM ; [facility] Acute pharyngitis Telemedicine Establisted Patie nt with Nick Shawn [employer] [facility] 03/22/2021 Last Documented On 1 12:34PM ; [facility] Acute sinusitis Medical Established Patient with Nick Shawn [employer] [employer] [facility] 01/20/2021 Last Documented On 1 9:57AM ; [facility] Body mass index [Body mass i ndex [BMI] 20.0-20.9, adult] Medical Established Patient with Nick Shawn [employer] [employer] [facility] 01/20/2021 Last Documented On 1 9:57AM ; [facility] Generalized anxiety disorder Establis hed Patient with Jenelle Moya LPCC-S 12/15/2020 Last Documented On 1 10:51PM ; [facility] Moderate major depression, s nicolasa episode Established Patient with Jenelle Moya LPCC-S 12/15/2020 Last Documented On 1 10:51PM ; [facility] Constipation Medical Established Patient with Ksenia Kilpatrick DIRECTOR [employer] 12/15/2020 Last Documented On 1 8:13PM ; [facility] Z68.20 - Body mass index [BM I] 20.0-20.9, adult Medical Established Patient with Ksenia Kilpatrick DIRECTOR [employer] 12/15/2020 Last Documented On 1 8:13PM ; [facility] Moderate recurrent major depression BH E stablished Patient with Radha Short LISWS 09/29/2020 Last Documented On 1 5:02PM ; [facility] Panic disorder without agoraphobia BH Es tablished Patient with Radha Short LISWS 09/29/2020 Last Documented On 1 5:02PM ; [facility] Body mass index [Body mass i ndex [BMI] 21.0-21.9, adult] Medical Established Patient with Nick Shawn DIRECTOR [employer] 09/29/2020 Last Documented On 1 10:45AM ; [facility] Generalized anxiety disorder Medical Est ablished Patient with Nick Shawn [employer]OR [employer] 09/29/2020 Last Documented On 1 10:45AM ; [facility] Moderate major depression, s nicolasa episode Medical Established Patient with Nick Shawn [employer]OR [employer] 09/29/2020 Last Documented On 1 10:45AM ; [facility] Mild recurrent major depression BH Estab lished Patient with Radha Short LISWS 09/10/2020 Last Documented On 0 12:31PM ; [facility] Panic disorder without agoraphobia BH Es tablished Patient with Radha Short LISWS 09/10/2020 Last Documented On 0 12:31PM ; [facility] Body mass index Medical Established Patient with Nick Shawn [employer]OR [employer] 09/10/2020 Last Documented On 0 11:17AM ; [facility] Mild recurrent major depression BH Estab lished Patient with Radha Short LISWS 08/27/2020 Last Documented On 0 10:21AM ; [facility] Panic disorder without agoraphobia BH Es tablished Patient with Radha Short LISWS 08/27/2020 Last Documented On 0 10:21AM ; [facility] Body mass index [Body mass i ndex [BMI] 22.0-22.9, adult] Medical Established Patient with Nick Shawn [employer]OR [employer] 08/27/2020 Last Documented On 0 8:00PM ; [facility] Generalized anxiety disorder Medical Est ablished Patient with Nick Shawn [employer]OR [employer] 08/27/2020 Last Documented On 0 8:00PM ; [facility] Moderate major depression, s nicolasa episode Medical Established Patient with Nick Shawn [employer]OR [employer] 08/27/2020 Last Documented On 0 8:00PM ; [facility] Depression Established Patient with Maura keyon Short LISWS 08/13/2020 Last Documented On 0 4:55PM ; [facility] Panic disorder without agoraphobia Es tablished Patient with Radha Short LISWS 08/13/2020 Last Documented On 0 4:55PM ; [facility] Depression Established Patient with Maura keyon Short LISWS 06/15/2020 Last Documented On 0 2:23PM ; [facility] Panic disorder without agoraphobia Es tablished Patient with Radha Short LISWS 06/15/2020 Last Documented On 0 2:23PM ; [facility] Depression Established Patient with Maura keyon Short LISWS 05/27/2020 Last Documented On 0 6:54PM ; [facility] Panic disorder without agoraphobia Es tablished Patient with Radha Short LISWS 05/27/2020 Last Documented On 0 6:54PM ; [facility] Depressive disorder Established Patient with Radha Short LISWS 05/18/2020 Last Documented On 0 8:46AM ; [facility] Panic disorder without agoraphobia Es tablished Patient with Radha Short LISWS 05/18/2020 Last Documented On 0 8:46AM ; [facility] Anxiety disorder NOS Medical New Patient with Ca ssie Shawn DIRECTOR [employer] 05/18/2020 Last Documented On 0 6:40PM ; [facility] Body mass index Medical New Patient with Nick Shawn DIRECTOR [employer] 05/18/2020 Last Documented On 0 6:40PM ; [facility] Depression Medical New Patient with Nick Shawn DIRECTOR [employer] 05/18/2020 Last Documented On 0 6:40PM ; [facility] Diabetes Risk Test Score was one score 05/18/2020 Medical New Patient with Nick Shawn [employer]OR [employer] 05/18/2020 Last Documented On 0 6:40PM ; [facility] Routine history and physical Medical New Patient with Nick Shawn DIRECTOR [employer] 05/18/2020 Last Documented On 0 6:40PM ; [facility] Work Phone: 1(100) 960-909503-03-2023 Evaluation note Includes: Assessments for all patient encounters Findings Encounter Date Major depression, single episode BH Esta blished Patient with Tana Galindo LPCC-S 11/24/2022 Last Documented On 3 5:46PM ; [facility] [Body mass index [BMI] 23.0- 23.9, adult] assessment of body mass index Medical Established Patient with Nick Shawn DIRECTOR [employer] 11/24/2022 Last Documented On 3 9:05AM ; [facility] Generalized anxiety disorder Medical Est ablished Patient with Nick Shawn DIRECTOR [employer] 11/24/2022 Last Documented On 3 9:05AM ; [facility] Moderate major depression, s incolasa episode Medical Established Patient with Nick Shawn DIRECTOR [employer] 11/24/2022 Last Documented On 3 9:05AM ; [facility] Major depression, single episode BH Esta blished Patient with Tanafarzana MortonGalindo LPCC-S 10/26/2022 Last Documented On 3 9:07AM ; [facility] Moderate major depression, s nicolasa episode BH Established Patient with Tana Galindo LPCC-S 10/26/2022 Last Documented On 3 9:07AM ; [facility] [Body mass index [BMI] 23.0- 23.9, adult] assessment of body mass index Medical Established Patient with Nick Shawn DIRECTOR [employer] 10/26/2022 Last Documented On 3 9:54AM ; [facility] Diabetes Risk Test Score was 3.0 score 10/26/2022 Medical Established Patient with Nick Shawn DIRECTOR [employer] 10/26/2022 Last Documented On 3 9:54AM ; [facility] Generalized anxiety disorder Medical Est ablished Patient with Nick Shawn DIRECTOR [employer] 10/26/2022 Last Documented On 3 9:54AM ; [facility] Moderate major depression, s nicolasa episode Medical Established Patient with Nick Shawn [employer]OR [employer] 10/26/2022 Last Documented On 3 9:54AM ; [facility] Nicotine dependence Medical Established Patient with Nick Shawn DIRECTOR [employer] 10/26/2022 Last Documented On 3 9:54AM ; [facility] Assessment of body mass inde x [Body mass index [BMI] 20.0-20.9, adult] Medical Established Patient with Nick Shawn DIRECTOR [employer] 08/29/2021 Last Documented On 1 3:08PM ; [facility] Diabetes Risk Test Score was one score 08/29/2021 Medical Established Patient with Nick Shawn [employer]OR [employer] 08/29/2021 Last Documented On 1 3:08PM ; [facility] Generalized anxiety disorder Medical Est ablished Patient with Nick Shawn DIRECTOR [employer] 08/29/2021 Last Documented On 1 3:08PM ; [facility] Moderate major depression, s nicolasa episode Medical Established Patient with Nick Shawn [employer]OR [employer] 08/29/2021 Last Documented On 1 3:08PM ; [facility] Mild recurrent major depression Teleb ehavioral Health with Radha Short LISWS 03/22/2021 Last Documented On 1 9:59PM ; [facility] Panic disorder without agoraphobia Te lebehavioral Health with Radha Short LISWS 03/22/2021 Last Documented On 1 9:59PM ; [facility] Acute pharyngitis Telemedicine Establisted Patie nt with Nick Shawn DIRECTOR [employer] 03/22/2021 Last Documented On 1 12:34PM ; [facility] Acute sinusitis Medical Established Patient with Nick Shawn DIRECTOR [employer] 01/20/2021 Last Documented On 1 9:57AM ; [facility] Body mass index [Body mass i ndex [BMI] 20.0-20.9, adult] Medical Established Patient with Nick Shawn DIRECTOR [employer] 01/20/2021 Last Documented On 1 9:57AM ; [facility] Generalized anxiety disorder Establis hed Patient with Jenelle Moya LPCC-S 12/15/2020 Last Documented On 1 10:51PM ; [facility] Moderate major depression, s nicolasa episode BH Established Patient with Jenelle Moya LPCC-S 12/15/2020 Last Documented On 1 10:51PM ; [facility] Constipation Medical Established Patient with Ksenia Kilpatrick DIRECTOR [employer] 12/15/2020 Last Documented On 1 8:13PM ; [facility] Z68.20 - Body mass index [BM I] 20.0-20.9, adult Medical Established Patient with Ksenia Kilpatrick DIRECTOR [employer] 12/15/2020 Last Documented On 1 8:13PM ; [facility] Moderate recurrent major depression E stablished Patient with Radha Short LISWS 09/29/2020 Last Documented On 1 5:02PM ; [facility] Panic disorder without agoraphobia Es tablished Patient with Radha Short LISWS 09/29/2020 Last Documented On 1 5:02PM ; [facility] Body mass index [Body mass i ndex [BMI] 21.0-21.9, adult] Medical Established Patient with Nick Shawn DIRECTOR [employer] 09/29/2020 Last Documented On 1 10:45AM ; [facility] Generalized anxiety disorder Medical Est ablished Patient with Nick Shawn DIRECTOR [employer] 09/29/2020 Last Documented On 1 10:45AM ; [facility] Moderate major depression, s nicolasa episode Medical Established Patient with Nick Shawn DIRECTOR [employer] 09/29/2020 Last Documented On 1 10:45AM ; [facility] Mild recurrent major depression Estab lished Patient with Radha Short LISWS 09/10/2020 Last Documented On 0 12:31PM ; [facility] Panic disorder without agoraphobia BH Es tablished Patient with Radha Short LISWS 09/10/2020 Last Documented On 0 12:31PM ; [facility] Body mass index Medical Established Patient with Nick Shawn DIRECTOR [employer] 09/10/2020 Last Documented On 0 11:17AM ; [facility] Mild recurrent major depression Estab lished Patient with Radha Short LISWS 08/27/2020 Last Documented On 0 10:21AM ; [facility] Panic disorder without agoraphobia Es tablished Patient with Radha Short LISWS 08/27/2020 Last Documented On 0 10:21AM ; [facility] Body mass index [Body mass i ndex [BMI] 22.0-22.9, adult] Medical Established Patient with Nick Shawn DIRECTOR [employer] 08/27/2020 Last Documented On 0 8:00PM ; [facility] Generalized anxiety disorder Medical Est ablished Patient with Nick Shawn DIRECTOR [employer] 08/27/2020 Last Documented On 0 8:00PM ; [facility] Moderate major depression, s nicloasa episode Medical Established Patient with Nick Shawn DIRECTOR [employer] 08/27/2020 Last Documented On 0 8:00PM ; [facility] Depression Established Patient with Maura keyon Short LISWS 08/13/2020 Last Documented On 0 4:55PM ; [facility] Panic disorder without agoraphobia Es tablished Patient with Radha Short LISWS 08/13/2020 Last Documented On 0 4:55PM ; [facility] Depression Established Patient with Maura keyon Short LISWS 06/15/2020 Last Documented On 0 2:23PM ; [facility] Panic disorder without agoraphobia Es tablished Patient with Radha Short LISWS 06/15/2020 Last Documented On 0 2:23PM ; [facility] Depression Established Patient with Maura keyon Short LISWS 05/27/2020 Last Documented On 0 6:54PM ; [facility] Panic disorder without agoraphobia Es tablished Patient with Radha Short LISWS 05/27/2020 Last Documented On 0 6:54PM ; [facility] Depressive disorder Established Patient with Radha Short LISWS 05/18/2020 Last Documented On 0 8:46AM ; [facility] Panic disorder without agoraphobia BH Es tablished Patient with Radha Short LISWS 05/18/2020 Last Documented On 0 8:46AM ; [facility] Anxiety disorder NOS Medical New Patient with Ca ssie Shawn DIRECTOR [employer] 05/18/2020 Last Documented On 0 6:40PM ; [facility] Body mass index Medical New Patient with Nick Bernabeer DIRECTOR [employer] 05/18/2020 Last Documented On 0 6:40PM ; [facility] Depression Medical New Patient with Nick Escobar DIRECTOR [employer] 05/18/2020 Last Documented On 0 6:40PM ; [facility] Diabetes Risk Test Score was one score 05/18/2020 Medical New Patient with Nick Escobar DIRECTOR [employer] 05/18/2020 Last Documented On 0 6:40PM ; [facility] Routine history and physical Medical New Patient with Nick Escobar DIRECTOR [employer] 05/18/2020 Last Documented On 0 6:40PM ; [facility] Work Phone: 1(495) 726-758703-03-2023 Progress note* Progress note Date Encounter Last Documented by 11/24/2022 Medical Established Patient Last documented on 11/24/2022; 9:05 AM, Nick Escobar ELMER; [facility] Active Problems & Conditions - F41.1 - Generalized Anxiety Disorder - F32.1 - Major Depression, Single Episode Moderate Chief Complaint The Chief Complaint is: Pt here for 1 month f/u mood. Pt states Hydroxyzine makes him to sleepy, doesn't like to take it. Referred Here No prior encounters. History of Present Illness Rory Camp is a 27 year old male. - Allergy list reviewed - Reviewed Medications States that he tried hydroxyzine and it will make him excessively sleep and feel drowsy after waking Has not notice that much change with the increase of paxil has missed about 6 doses the last 30 days, still having a lot of situational stress caring for his grandparents States that his biggest challenge is falling asleep, once he is asleep he will sleep about 7-8 hours Current Medication - Fluticasone Propionate 50 MCG/ACT Nasal Suspension One spay to each nostril daily, 30 days, 2 refills - Loratadine 10 MG Oral Tablet Take one tablet daily, 30 days, 5 refills - Paxil 40 MG Oral Tablet Take one tablet daily, 30 days, 3 refills Past Medical/Surgical History Reported: Medical: No previous hospitalizations. Diagnoses: Depression Anxiety disorder NOS Surgical: - General surgery Social History Environmental Exposure: No secondhand cigarette smoke exposure. Behavioral: Not a current tobacco user. Tobacco use: Using electronic cigarettes/vaping. Alcohol: A social drinker. Drug Use: Using marijuana. Sexual: Sexually active, sexual orientation Straight (not lesbian or rider), and gender identity Male. Allergies - -No Known Drug Allergies - Seasonal allergies Family History Paternal: Leukemia no tx needed at this time Maternal: Ischemic heart disease heart failure r/t vavle, pt had vavle replacement 2020 Systemic hypertension Breast neoplasm Review Of Systems Systemic: Not feeling poorly (malaise). No fever and no chills. Head: No headache. Eyes: No vision problems. Otolaryngeal: No nasal discharge. Cardiovascular: No chest pain or discomfort, no palpitations, and the heart rate was not fast. Pulmonary: No dyspnea, no cough, and no wheezing. Gastrointestinal: No nausea and no vomiting. Genitourinary: No dysuria. Musculoskeletal: No muscle aches. Neurological: No motor disturbances and no sensory disturbances. Skin: No rash. Physical Findings - Vitals taken 11/24/2022 08:44 am BP-Sitting L115/74 mmHg Pulse Rate-Vplglos21 bpm Temp-Amxtzqjl97.5 F Txidxm71 in Bttolm444 lbs Body Mass Index23.6 kg/m2 Body Surface Area1.9 m2 Oxygen [id number] % General Appearance: - Well developed. - In no acute distress. Lungs: - Respiration rhythm and depth was normal. Musculoskeletal System: General/bilateral: - Overall findings were normal. Neurological: - No disorientation was observed. Speech: - Normal. Motor: - Strength was normal. Gait And Stance: - Normal. Assessment - Body mass index [Body mass index [BMI] 23.0-23.9, adult] - Moderate major depression, single episode [Major depressive disorder, single episode, moderate] - Generalized anxiety disorder [Generalized anxiety disorder] Therapy - Patient refused flu vaccine. Discussed benefits of flu vaccine with Patient. Vaccinations - DTaP Dose #1 Status: Prev Hist Date: 01/19/1997 - DTaP Dose #2 Status: Prev Hist Date: 1997 - DTaP Dose #3 Status: Prev Hist Date: 10/08/1997 - DTaP Dose #4 Status: Prev Hist Date: 12/24/1998 - DTaP Dose #5 Status: Prev Hist Date: 06/09/2002 - Hep B, adolescent or pediatric (Engerix-B) Dose #1 Status: Prev Hist Date: 01/19/1997 - Hep B, adolescent or pediatric (Engerix-B) Dose #2 Status: Prev Hist Date: 1997 - Hep B, adolescent or pediatric (Engerix-B) Dose #3 Status: Prev Hist Date: 10/08/1997 - IPV (IPOL) Dose #1 Status: Prev Hist Date: 01/19/1997 - IPV (IPOL) Dose #2 Status: Prev Hist Date: 1997 - IPV (IPOL) Dose #3 Status: Prev Hist Date: 06/09/2002 - MMR (MMR-II) Dose #1 Status: Prev Hist Date: 10/08/1997 - MMR (MMR-II) Dose #2 Status: Prev Hist Date: 06/09/2002 - OPV Dose #1 Status: Prev Hist Date: 02/01/1998 - Did not receive dose of Reported: Patient has not received the Covid Vaccine Counseling/Education - No not wishing to stop using electronic cigarettes/vaping - Discussed nutritional needs teach healthy choices including fruits and vegetables - Patient education about a proper diet - Discussed concerns about exercise: promote physical activity Will stop hydroxyzine and start trazodone Plan StartCited- Acute sinusitis, unspecified Loratadine 10 MG tablet Take one tablet daily, 30 days, 5 refills Fluticasone Propionate 50 MCG/ACT gram One spay to each nostril daily, 30 days, 5 refills EndCited StartCited- Insomnia, unspecified traZODone HCl 50 MG tablet Take one tablet daily at bedtime, 30 days, 1 refills EndCited Notes - Patient is not interested in the COVID-19 vaccination at this time. Practice Management Systolic blood pressure < 130 mmHg and diastolic < 80 mmHg diastolic < 80 mmHg. Advance Directives - Declined to Provide Advance Directive [facility]03-03-2023 Progress note* Progress note Date Encounter Last Documented by 11/24/2022 BH Established Patient Last docu mented on 11/25/2022; 5:44 PM, Tana Galindo [facility]; [facility] Active Problems & Conditions - F41.1 - Generalized Anxiety Disorder - F32.1 - Major Depression, Single Episode Moderate Subjective Pt was alert and engaged as he provided feedback, as needed to assess medication effectiveness. Pt reported hydroxyzine causes him to feel very tired and having difficulty waking in the morning; advised having slept 14 hours. Pt reported that he finds that he has problems falling asleep; once asleep he stays asleep and will typically sleep 6-7 hours. Pt reported having no noticiable improvement although he admitted he had forgotten to take 6 pills. Pt reported sources of stress remain the same; feels that he is copng as best he can. Pt reported that he is open to trying something else and agreeable to contactiong the center, as needed. Chief Complaint The Chief Complaint is: Pt presents for 1 month follow-up. History of Present Illness Rory Camp is a 27 year old male. - Difficulty falling asleep. Current Medication - Fluticasone Propionate 50 MCG/ACT Nasal Suspension One spay to each nostril daily, 30 days, 5 refills - Fluticasone Propionate 50 MCG/ACT Nasal Suspension One spay to each nostril daily, 30 days, 2 refills - Loratadine 10 MG Oral Tablet Take one tablet daily, 30 days, 5 refills - Loratadine 10 MG Oral Tablet Take one tablet daily, 30 days, 5 refills - Paxil 40 MG Oral Tablet Take one tablet daily, 30 days, 3 refills - traZODone HCl 50 MG Oral Tablet Take one tablet daily at bedtime, 30 days, 1 refills Past Medical/Surgical History Reported: Medical: No previous hospitalizations. Immunization History: Recent immunization for flu. Diagnoses: Depression Anxiety disorder NOS Surgical: - General surgery Social History Environmental Exposure: No secondhand cigarette smoke exposure. Personal: Recent emotional stress. Behavioral: Not a current tobacco user. Tobacco use: No tobacco use. Using electronic cigarettes/vaping. Alcohol: Not using alcohol. A social drinker once every few months. Drug Use: Not using drugs denied by patient. Using marijuana by prescription (no use in the last 5 days). Housing And Economic Circumstances: Lives with significant other. Sexual: Sexually active, sexual orientation Straight (not lesbian or rider), and gender identity Male. Allergies - -No Known Drug Allergies - Seasonal allergies Family History Paternal: Leukemia no tx needed at this time Maternal: Ischemic heart disease heart failure r/t vavle, pt had vavle replacement 2020 Systemic hypertension Breast neoplasm Physical Findings General Appearance: - Normal Appearance. Neurological: - Cognitive Functions was Normal. - Oriented to time, place, and person. - Executive Functions: Logical and organized. Speech: - Is Normal. Psychiatric: - Mood is Euthymic. - Attitude Open. Appearance: - Normal. Demonstrated Behavior: - Motor Activity Normal Activity. - Eye Contact Appropriate. Thought Processes: - Not impaired. Thought Content: - Revealed no impairment. - No suicidal ideation. - No Passive thoughts of . - No suicidal plans. - No suicidal intent. Assessment - F32.1 - Major depressive disorder, single episode, moderate Therapy - Brief solution-focused therapy. - Plan - modify medication Pt prescribed Trazodone 50 mg for sleep, as needed. Counseling/Education BHP provided active listening, support and helped pt process though current symptoms and stressor(s); discussed effectiveness of medication, coping mechanisms, self- care practices, and sources for positive support. Plan Patient to implement coping skills and positive supports as discussed Pt to consider benefits of MH counseling and seek treatment at an agency of choice, as needed. Pt to take medications as prescribed and contact [facility] with any questions or concerns. BHP to follow-up with patient at next visit in office, as necessary. Advance Directives - Declined to Provide Advance Directive Health Reminders - Assess Tobacco Use satisfied 11/24/2022. [facility]03-03-2023 Progress note* Progress note Date Encounter Last Documented by 11/24/2022 Established Patient Last docu mented on 11/25/2022; 5:46 PM, Tana Galindo [facility]; [facility] Active Problems & Conditions - F41.1 - Generalized Anxiety Disorder - F32.1 - Major Depression, Single Episode Moderate Subjective Pt was alert and engaged as he provided feedback, as needed to assess medication effectiveness. Pt reported hydroxyzine causes him to feel very tired and having difficulty waking in the morning; advised having slept 14 hours. Pt reported that he finds that he has problems falling asleep; once asleep he stays asleep and will typically sleep 6-7 hours. Pt reported having no noticiable improvement although he admitted he had forgotten to take 6 pills. Pt reported sources of stress remain the same; feels that he is copng as best he can. Pt reported that he is open to trying something else and agreeable to contactiong the center, as needed. Chief Complaint The Chief Complaint is: Pt presents for 1 month follow-up. History of Present Illness Rory Camp is a 27 year old male. - Difficulty falling asleep. Current Medication - Fluticasone Propionate 50 MCG/ACT Nasal Suspension One spay to each nostril daily, 30 days, 5 refills - Fluticasone Propionate 50 MCG/ACT Nasal Suspension One spay to each nostril daily, 30 days, 2 refills - Loratadine 10 MG Oral Tablet Take one tablet daily, 30 days, 5 refills - Loratadine 10 MG Oral Tablet Take one tablet daily, 30 days, 5 refills - Paxil 40 MG Oral Tablet Take one tablet daily, 30 days, 3 refills - traZODone HCl 50 MG Oral Tablet Take one tablet daily at bedtime, 30 days, 1 refills Past Medical/Surgical History Reported: Medical: No previous hospitalizations. Immunization History: Recent immunization for flu. Diagnoses: Depression Anxiety disorder NOS Surgical: - General surgery Social History Environmental Exposure: No secondhand cigarette smoke exposure. Personal: Recent emotional stress. Behavioral: Not a current tobacco user. Tobacco use: No tobacco use. Using electronic cigarettes/vaping. Alcohol: Not using alcohol. A social drinker once every few months. Drug Use: Not using drugs denied by patient. Using marijuana by prescription (no use in the last 5 days). Housing And Economic Circumstances: Lives with significant other. Sexual: Sexually active, sexual orientation Straight (not lesbian or rider), and gender identity Male. Allergies - -No Known Drug Allergies - Seasonal allergies Family History Paternal: Leukemia no tx needed at this time Maternal: Ischemic heart disease heart failure r/t vavle, pt had vavle replacement 2020 Systemic hypertension Breast neoplasm Physical Findings General Appearance: - Normal Appearance. Neurological: - Cognitive Functions was Normal. - Oriented to time, place, and person. - Executive Functions: Logical and organized. Speech: - Is Normal. Psychiatric: - Mood is Euthymic. - Attitude Open. Appearance: - Normal. Demonstrated Behavior: - Motor Activity Normal Activity. - Eye Contact Appropriate. Thought Processes: - Not impaired. Thought Content: - Revealed no impairment. - No suicidal ideation. - No Passive thoughts of . - No suicidal plans. - No suicidal intent. Assessment - F32.1 - Major depressive disorder, single episode, moderate Therapy - Brief solution-focused therapy. - Plan - modify medication Pt prescribed Trazodone 50 mg for sleep, as needed. Counseling/Education BHP provided active listening, support and helped pt process though current symptoms and stressor(s); discussed effectiveness of medication, coping mechanisms, self- care practices, and sources for positive support. Plan Patient to implement coping skills and positive supports as discussed Pt to take medications as prescribed and contact [facility] with any questions or concerns. P to follow-up with patient at next visit in office, as necessary. Advance Directives - Declined to Provide Advance Directive Health Reminders - Assess Tobacco Use satisfied 11/24/2022. [facility]02-02-2023 Evaluation note Includes: Assessments for all patient encounters Findings Encounter Date Major depression, single episode Esta blished Patient with [facility] 10/26/2022 Last Documented On 3 9:07AM ; [facility] Moderate major depression, s nicolasa episode Established Patient with Tana Galindo [facility] 10/26/2022 Last Documented On 3 9:07AM ; [facility] [Body mass index [BMI] 23.0- 23.9, adult] assessment of body mass index Medical Established Patient with Nick Shawn [facility] 10/26/2022 Last Documented On 3 9:54AM ; [facility] Diabetes Risk Test Score was 3.0 score 10/26/2022 Medical Established Patient with Nick Shawn [facility] 10/26/2022 Last Documented On 3 9:54AM ; [facility] Generalized anxiety disorder Medical Est ablished Patient with Nick Shawn [facility] 10/26/2022 Last Documented On 3 9:54AM ; [facility] Moderate major depression, s nicolasa episode Medical Established Patient with Nick Shawn [facility] 10/26/2022 Last Documented On 3 9:54AM ; [facility] Nicotine dependence Medical Established Patient with Nick Shawn [facility] 10/26/2022 Last Documented On 3 9:54AM ; [facility] Assessment of body mass inde x [Body mass index [BMI] 20.0-20.9, adult] Medical Established Patient with Nick Shawn [facility] 08/29/2021 Last Documented On 1 3:08PM ; [facility] Diabetes Risk Test Score was one score 08/29/2021 Medical Established Patient with Nick Shawn [facility] 08/29/2021 Last Documented On 1 3:08PM ; [facility] Generalized anxiety disorder Medical Est ablished Patient with Nick Shawn [facility] 08/29/2021 Last Documented On 1 3:08PM ; [facility] Moderate major depression, s nicolasa episode Medical Established Patient with Nick Shawn [facility] 08/29/2021 Last Documented On 1 3:08PM ; [facility] Mild recurrent major depression Teleb ehavioral Health with Radha Short [facility] 03/22/2021 Last Documented On 1 9:59PM ; [facility] Panic disorder without agoraphobia Te lebehavioral Health with Radha Short [facility] 03/22/2021 Last Documented On 1 9:59PM ; [facility] Acute pharyngitis Telemedicine Establisted Patie nt with Nick Shawn [facility] 03/22/2021 Last Documented On 1 12:34PM ; [facility] Acute sinusitis Medical Established Patient with Nick Shawn [facility] 01/20/2021 Last Documented On 1 9:57AM ; [facility] Body mass index [Body mass i ndex [BMI] 20.0-20.9, adult] Medical Established Patient with Nick Shawn [facility] 01/20/2021 Last Documented On 1 9:57AM ; [facility] Generalized anxiety disorder Establis hed Patient with Jen[facility] 12/15/2020 Last Documented On 1 10:51PM ; [facility] Moderate major depression, s nicolasa episode BH Established Patient with Jenelle Moya [facility] 12/15/2020 Last Documented On 1 10:51PM ; [facility] Constipation Medical Established Patient with Ksenia Kilpatrick [facility] 12/15/2020 Last Documented On 1 8:13PM ; [facility] Z68.20 - Body mass index [BM I] 20.0-20.9, adult Medical Established Patient with Ksenia Tim [facility] 12/15/2020 Last Documented On 1 8:13PM ; [facility] Moderate recurrent major depression E stablished Patient with Radha Short [facility] 09/29/2020 Last Documented On 1 5:02PM ; [facility] Panic disorder without agoraphobia Es tablished Patient with Radha Short [facility] 09/29/2020 Last Documented On 1 5:02PM ; [facility] Body mass index [Body mass i ndex [BMI] 21.0-21.9, adult] Medical Established Patient with Nick Shawn [facility] 09/29/2020 Last Documented On 1 10:45AM ; [facility] Generalized anxiety disorder Medical Est ablished Patient with Nick Shawn [facility] 09/29/2020 Last Documented On 1 10:45AM ; [facility] Moderate major depression, s nicolasa episode Medical Established Patient with Nick Shawn [facility] 09/29/2020 Last Documented On 1 10:45AM ; [facility] Mild recurrent major depression BH Estab lished Patient with Radha Short [facility] 09/10/2020 Last Documented On 0 12:31PM ; [facility] Panic disorder without agoraphobia BH Es tablished Patient with Radha Short [facility] 09/10/2020 Last Documented On 0 12:31PM ; [facility] Body mass index Medical Established Patient with Nick Shawn [facility] 09/10/2020 Last Documented On 0 11:17AM ; [facility] Mild recurrent major depression BH Estab lished Patient with Radha Short [facility] 08/27/2020 Last Documented On 0 10:21AM ; [facility] Panic disorder without agoraphobia Es tablished Patient with Radha Short [facility] 08/27/2020 Last Documented On 0 10:21AM ; [facility] Body mass index [Body mass i ndex [BMI] 22.0-22.9, adult] Medical Established Patient with Nick Shawn [facility] 08/27/2020 Last Documented On 0 8:00PM ; [facility] Generalized anxiety disorder Medical Est ablished Patient with Nick Shawn [facility] 08/27/2020 Last Documented On 0 8:00PM ; [facility] Moderate major depression, s nicolasa episode Medical Established Patient with Nick Shawn [facility] 08/27/2020 Last Documented On 0 8:00PM ; [facility] Depression Established Patient with Maura keyon Short [facility] 08/13/2020 Last Documented On 0 4:55PM ; [facility] Panic disorder without agoraphobia BH Es tablished Patient with Radha Short [facility] 08/13/2020 Last Documented On 0 4:55PM ; [facility] Depression BH Established Patient with Maura keyon Short [facility] 06/15/2020 Last Documented On 0 2:23PM ; [facility] Panic disorder without agoraphobia Es tablished Patient with Radha Short [facility] 06/15/2020 Last Documented On 0 2:23PM ; [facility] Depression Established Patient with Maura keyon Short [facility] 05/27/2020 Last Documented On 0 6:54PM ; [facility] Panic disorder without agoraphobia BH Es tablished Patient with Radha Short [facility] 05/27/2020 Last Documented On 0 6:54PM ; [facility] Depressive disorder Established Patient with Radha Short [facility] 05/18/2020 Last Documented On 0 8:46AM ; [facility] Panic disorder without agoraphobia Es tablished Patient with Radha Short [facility] 05/18/2020 Last Documented On 0 8:46AM ; [facility] Anxiety disorder NOS Medical New Patient with Ca ssie Shawn [facility] 05/18/2020 Last Documented On 0 6:40PM ; [facility] Body mass index Medical New Patient with Nick Shawn [facility] 05/18/2020 Last Documented On 0 6:40PM ; [facility] Depression Medical New Patient with Nick Shawn [facility] 05/18/2020 Last Documented On 0 6:40PM ; [facility] Diabetes Risk Test Score was one score 05/18/2020 Medical New Patient with Nick Shawn [facility] 05/18/2020 Last Documented On 0 6:40PM ; [facility] Routine history and physical Medical New Patient with Nick Shawn [facility] 05/18/2020 Last Documented On 0 6:40PM ; [facility] Work Phone: 1(340) 199-569502-02-2023 Progress note* Progress note Date Encounter Last Documented by 10/26/2022 Medical Established Patient Last documented on 10/26/2022; 9:54 AM, Nick Shawn [facility]; [facility] Active Problems & Conditions - F41.1 - Generalized Anxiety Disorder - F32.1 - Major Depression, Single Episode Moderate - J01.90 - Sinusitis Acute Chief Complaint The Chief Complaint is: Medication refill on paxil patient would like to have a 30 mg instead of taking a 20 and 10. Referred Here Not referred by urgent care clinic and not the emergency room. No prior encounters. - Data to be reviewed: no clinical lab tests History of Present Illness Rory Camp is a 27 year old male. - Allergy list reviewed - Reviewed Medications Patient presents for wellness exam Has had a lot of life changes Recently lost mother and now has been caring for grandparents and uncle Thinks he is so busy that he has not had time to grieve the loss of his mother Has a hard time falling asleep but gets about 6-8 hours as broken sleep States that he is very happy with the paxil Discussed increasing medication due to increase in anxiety and depression Current Medication - Fluticasone Propionate 50 MCG/ACT Nasal Suspension One spay to each nostril daily, 30 days, 2 refills - Loratadine 10 MG Oral Tablet Take one tablet daily, 30 days, 5 refills Past Medical/Surgical History Reported: Medical: No previous hospitalizations. Diagnoses: Depression Anxiety disorder NOS Surgical: - General surgery Social History Environmental Exposure: No secondhand cigarette smoke exposure. Behavioral: Not a current tobacco user. Tobacco use: Using electronic cigarettes/vaping. Alcohol: Not using alcohol. Drug Use: Using marijuana. Sexual: Sexual orientation Straight (not lesbian or rider) and gender identity Male. Allergies - -No Known Drug Allergies - Seasonal allergies Family History Paternal: Leukemia no tx needed at this time Maternal: Ischemic heart disease heart failure r/t vavle, pt had vavle replacement 2020 Systemic hypertension Breast neoplasm Review Of Systems Systemic: Not feeling poorly (malaise). No fever and no chills. Head: No headache. Eyes: No vision problems. Otolaryngeal: No nasal discharge. Cardiovascular: No chest pain or discomfort, no palpitations, and the heart rate was not fast. Pulmonary: No dyspnea, no cough, and no wheezing. Gastrointestinal: No nausea and no vomiting. Genitourinary: No dysuria. Musculoskeletal: No muscle aches. Neurological: No motor disturbances and no sensory disturbances. Skin: No rash. Physical Findings - Vitals taken 10/26/2022 08:48 am BP-Sitting L124/82 mmHg BP Cuff SizeRegular Pulse Rate-Ofiizkg91 bpm Pulse RhythmRegular Temp-Ebknsfci72.9 F Xibuum99 in Hztqcn761 lbs 9.6 oz Body Mass Index23.7 kg/m2 Body Surface Area1.9 m2 Oxygen Vaoigvohjt50 % General Appearance: - Well developed. - In no acute distress. Eyes: General/bilateral: External: - Conjunctiva exhibited no abnormalities. Lungs: - Respiration rhythm and depth was normal. - Clear to auscultation. Cardiovascular: Heart Rate And Rhythm: - Normal. Heart Sounds: - Normal. Edema: - Not present. Abdomen: Auscultation: - Bowel sounds were normal. Palpation: - Abdomen was soft. - Abdominal non-tender. Musculoskeletal System: General/bilateral: - Overall findings were normal. Neurological: - No disorientation was observed. Speech: - Normal. Motor: - Strength was normal. Gait And Stance: - Normal. Assessment - Body mass index [Body mass index [BMI] 23.0-23.9, adult] - Diabetes Risk Test Score was 3.0 score 10/26/2022 [Encounter for screening for diabetes mellitus] - Nicotine dependence [Nicotine dependence, unspecified, uncomplicated] - Moderate major depression, single episode [Major depressive disorder, single episode, moderate] - Generalized anxiety disorder [Generalized anxiety disorder] Therapy - Patient refused flu vaccine. Discussed benefits of flu vaccine with Patient. - SBIRT Screening Brief Intervention Referral for Treatment. - SBIRT Screen Pos. - SBIRT Full Screen Pos. - Referral to mental health team. Vaccinations - Did not receive dose of Reported: Patient has not received the Covid Vaccine Counseling/Education - No not wishing to stop using electronic cigarettes/vaping - Discussed nutritional needs teach healthy choices including fruits and vegetables - Patient education about a proper diet - Discussed concerns about exercise: promote physical activity Plan StartCited- Generalized anxiety disorder hydrOXYzine HCl 25 MG tablet Take 1-2 tablets daily as needed for sleep, 30 days, 1 refills EndCited StartCited- Major depressive disorder, single episode, moderate Paxil 40 MG tablet Take one tablet daily, 30 days, 3 refills EndCited Notes - Patient is not interested in the COVID-19 vaccination at this time. Practice Management Systolic blood pressure < 130 mmHg and diastolic 80-89 mmHg diastolic 80-89 mmHg. Advance Directives - Declined to Provide Advance Directive User Defined 1 Not afraid of someone you have a relationship with No. Has lack of transportation kept patient from medical appointments or from getting medications: No and lack of transportation has kept patient from beneficial non-medical activities: No. He has not had 5 or more drinks in a day within the past year. Do you feel stress - tense, restless, nervous, or anxious, or unable to sleep at night because your mind is troubled all the time - these days? Quite a bit, Yes (1 point) [Pre-DM]: Yes, mother, father, sister or brother has DM, Yes (1 point) [Pre-DM]: Yes, patient has been diagnosed with high blood pressure, No (0 points) [Pre-DM]: Patient has not been diagnosed with gestational diabetes or given to a baby weighing 9 pounds or more, and Yes (0 point) [Pre-DM]: Yes, physically active. No misuse of prescription only drugs. Illicit drug use and Does patient feel physically and emotionally safe where he/she lives: Yes. Is patient is worried about losing housing: No. What is the highest grade or level of school you have completed or the highest degree you have received? More than high school. In the past year, patient or family members in household were unable to get needed clothing: No, unable to get needed child care supervisor: No, unable to get needed phone: No, unable to get needed utilities: No, unable to get needed Medicine or Health Care: No, and In the past year, patient or family members in household were unable to get needed food: No. How often does patient see or talk to people that that he/she cares about and feels close to: 5 or more times a week and Man (1 point) [Pre-DM]. PHQ-9: total score was 16 10/26/2022, [PHQ-9-1] Little interest or pleasure in doing things? + 2 pt : More than half the days, [PHQ-9-2] Feeling down, depressed, or hopeless? + 2 pt : More than half the days, [PHQ-9-3] Trouble falling or staying asleep or sleeping too much? + 3 pt : Nearly every day, [PHQ-9-4] Feeling tired or having little energy? + 2 pt : More than half the days, [PHQ-9-5] Poor appetite or overeating? + 0 pt : Not at all, [PHQ-9-6] Feeling bad about yourself-or that you are a failure + 3 pt : Nearly every day, [PHQ-9-7] Trouble concentrating on things such as reading the newspaper + 0 pt : Not at all, [PHQ-9-8] Moving or speaking so slowly that other people have noticed. + 3 pt : Nearly every day, [PHQ-9-9] Thoughts that you would be better off or hurting yourself? + 1 pt : Several days, and Less than 40 years (0 points) [Pre-DM]. [facility]02-02-2023 Progress note* Progress note Date Encounter Last Documented by 10/26/2022 Established Patient Last docu mented on 10/27/2022; 9:07 AM, Tana Galindo [facility]; [facility] Active Problems & Conditions - F41.1 - Generalized Anxiety Disorder - F32.1 - Major Depression, Single Episode Moderate - J01.90 - Sinusitis Acute Subjective Pt shared current symptoms resulting from the of his mother, and being a primary caregiver for his grandparents and an uncle. Pt was accompanied in the visit by his who shared her concerns for the pt; reported he will shut down when he becomes anxious and/or overwhelmed, and he has not had time to grieve the of his mother. Pt reported attemptig to find placement for them with little success. Pt was receptive to exploring beneftis of counseling to help with issues of grief and loss and importance of developing coping methods and self-care practices to manage daily stress. Chief Complaint The Chief Complaint is: Pt presents for med refills. History of Present Illness Rory Camp is a 27 year old male. - Anxiety with persistent worry - Depression - Initial insomnia - Middle-night awakening with difficulty getting back to sleep - Hard to stay asleep due to anxiety - Loss of interest in activities Current Medication - Fluticasone Propionate 50 MCG/ACT Nasal Suspension One spay to each nostril daily, 30 days, 2 refills - hydrOXYzine HCl 25 MG Oral Tablet Take 1-2 tablets daily as needed for sleep, 30 days, 1 refills - Loratadine 10 MG Oral Tablet Take one tablet daily, 30 days, 5 refills - Paxil 40 MG Oral Tablet Take one tablet daily, 30 days, 3 refills Past Medical/Surgical History Reported: Medical: No previous hospitalizations. Immunization History: Recent immunization for flu. Diagnoses: Depression Anxiety disorder NOS Surgical: - General surgery Social History Environmental Exposure: No secondhand cigarette smoke exposure. Personal: Recent emotional stress. Behavioral: Not a current tobacco user. Tobacco use: No tobacco use. Alcohol: Not using alcohol. A social drinker once every few months. Drug Use: Not using drugs denied by patient. Using marijuana Has medical marijuana card and by prescription (no use in the last 5 days). Housing And Economic Circumstances: Lives with significant other. Sexual: Sexually active, sexual orientation Straight (not lesbian or rdier), and gender identity Male. Allergies - -No Known Drug Allergies - Seasonal allergies Family History Paternal: Leukemia no tx needed at this time Maternal: Ischemic heart disease heart failure r/t vavle, pt had vavle replacement 2020 Systemic hypertension Breast neoplasm Physical Findings General Appearance: - Normal Appearance. Neurological: - Oriented to time, place, and person. Speech: - Is Normal. Psychiatric: Appearance: - Normal. Demonstrated Behavior: - Eye Contact Appropriate. Thought Content: - No suicidal ideation. - No Passive thoughts of . - No suicidal plans. - No suicidal intent. Assessment - F32.1 - Major depressive disorder, single episode, moderate - F32.1 - Major depressive disorder, single episode, moderate Therapy - Brief solution-focused therapy. - Plan - modify medication Medication increase (Paxil 20 mg to 40 mg). Counseling/Education - Reviewed side effects and Risks/Benefits analysis BHP provided active listening, support and helped pt process though current symptoms and stressor(s); explored ssues of grief/loss; promoted benefits of counseling, effectiveness of medication, use of coping mechanisms, self-care practices, and support system. Plan Patient to consider engaging in MH counseling at an agency of his choice. Pt to develop and implement coping skills and positive supports as discussed. Pt to take medications as prescribed and contact [facility] with any questions or concerns. BHP to follow-up with patient at next visit in office in one month. Advance Directives - Declined to Provide Advance Directive Health Reminders - Assess Tobacco Use satisfied 10/26/2022. [facility]02-02-2023 Reason for referral (narrative)* Date Encounter Description Provider Reason for Referral 10/26/22 Medical Established Patient Nick Escobar CNP Referral To Mental Health Team 12/15/20 Established Patient Jenelle Moya [facility] Referral To Mental Health Team - P conducted screen and addressed patient's responses w/paola. 08/27/20 Medical Established Patient Nick Escobar CNP Referral To Mental Health Team [facility] Work Phone: [phone]) 588-428612-06-2021 Evaluation note Includes: Assessments for all patient encounters Findings Encounter Date Assessment of body mass inde x [Body mass index [BMI] 20.0-20.9, adult] Medical Established Patient with Nick Escobar [facility] 08/29/2021 Diabetes Risk Test Score was one score 08/29/2021 Medical Established Patient with Nick Shawn [employer] [employer] [facility] [facility] 08/29/2021 Generalized anxiety disorder Medical Est ablished Patient with Nick Shawn [employer] [employer] [facility] [facility] 08/29/2021 Moderate major depression, s nicolasa episode Medical Established Patient with Nick Shawn [employer] [employer] [facility] [facility] 08/29/2021 Mild recurrent major depression Teleb ehavioral Health with Radha Short [facility] 03/22/2021 Panic disorder without agoraphobia [facility] lebehavioral Health with Radha Short [facility] 03/22/2021 Acute pharyngitis Telemedicine Establi sted Patient with Nick Shawn [facility] [employer] [facility] [facility] 03/22/2021 Acute sinusitis Medical Established Patient with Nick Shawn [facility] 01/20/2021 Body mass index [Body mass i ndex [BMI] 20.0-20.9, adult] Medical Established Patient with Nick Shawn [facility] 01/20/2021 Generalized anxiety disorder Establis [facility] Patient with Jenelle Moya [facility] 12/15/2020 Moderate major depression, s nicolasa episode BH Established Patient with Jenelle Moya [facility] 12/15/2020 Constipation Medical Established Patient with Ksenia Kilpatrick [employer] [employer] [facility] [facility] 12/15/2020 Z68.20 - Body mass index [BM I] 20.0-20.9, adult Medical Established Patient with Ksenia Kilpatrick [facility] 12/15/2020 Moderate recurrent major depression BH E stablished Patient with Radha Short [facility] 09/29/2020 Panic disorder without agoraphobia BH Es tablished Patient with Radha Short LISWS 09/29/2020 Body mass index [Body mass i ndex [BMI] 21.0-21.9, adult] Medical Established Patient with Nick Shawn DIRECTOR [employer] 09/29/2020 Generalized anxiety disorder Medical Est ablished Patient with Nick Shawn [employer]OR [employer] 09/29/2020 Moderate major depression, s nicolasa episode Medical Established Patient with Nick Shawn [employer]OR [employer] 09/29/2020 Mild recurrent major depression BH Estab lished Patient with Radha Short LISWS 09/10/2020 Panic disorder without agoraphobia BH Es tablished Patient with Radha Short LISWS 09/10/2020 Body mass index Medical Established Patient with Nick Shawn DIRECTOR [employer] 09/10/2020 Mild recurrent major depression BH Estab lished Patient with Radha Short LISWS 08/27/2020 Panic disorder without agoraphobia BH Es tablished Patient with Radha Short LISWS 08/27/2020 Body mass index [Body mass i ndex [BMI] 22.0-22.9, adult] Medical Established Patient with Nick Shawn DIRECTOR [employer] 08/27/2020 Generalized anxiety disorder Medical Est ablished Patient with Nick Shawn DIRECTOR [employer] 08/27/2020 Moderate major depression, s nicolasa episode Medical Established Patient with Nick Shawn [employer]OR [employer] 08/27/2020 Depression BH Established Patie nt with Radha Short LISWS 08/13/2020 Panic disorder without agoraphobia BH Es tablished Patient with Radha Short LISWS 08/13/2020 Depression BH Established Patie nt with Radha Short LISWS 06/15/2020 Panic disorder without agoraphobia BH Es tablished Patient with Radha Short LISWS 06/15/2020 Depression BH Established Patie nt with Radha Short LISWS 05/27/2020 Panic disorder without agoraphobia BH Es tablished Patient with Radha Short LISWS 05/27/2020 Depressive disorder Established Patie nt with Radha Short LISWS 05/18/2020 Panic disorder without agoraphobia Es tablished Patient with Radha Short LISWS 05/18/2020 Anxiety disorder NOS Medical New Patient with Nick Shawn DIRECTOR [employer] 05/18/2020 Body mass index Medical New Patient with Nick Shawn [employer]OR [employer] 05/18/2020 Depression Medical New Patient with Nick Shawn DIRECTOR [employer] 05/18/2020 Diabetes Risk Test Score was one score 05/18/2020 Medical New Patient with Nick Shawn DIRECTOR [employer] 05/18/2020 Routine history and physical Medical New Patient with Nick Shawn DIRECTOR [employer] 05/18/2020 [facility] Work Phone: [phone]) 749-267906-29-2021 Evaluation note Includes: Assessments for all patient encounters Findings Encounter Date Mild recurrent major depression Teleb ehavioral Health with Radha Short LISWS 03/22/2021 Panic disorder without agoraphobia Te [facility] with Radha Short LISWS 03/22/2021 Acute pharyngitis Telemedicine Establi sted Patient with Nick Shawn DIRECTOR [employer] 03/22/2021 Acute sinusitis Medical Established Patient with Nick Shawn DIRECTOR [employer] 01/20/2021 Body mass index [Body mass i ndex [BMI] 20.0-20.9, adult] Medical Established Patient with Nick Shawn DIRECTOR [employer] 01/20/2021 Generalized anxiety disorder Establis hed Patient with Jenelle Moya LPCC-S 12/15/2020 Moderate major depression, s nicolasa episode Established Patient with Jenelle Moya LPCC-S 12/15/2020 Constipation Medical Established Patient with Ksenia Tim DIRECTOR [employer] 12/15/2020 Z68.20 - Body mass index [BM I] 20.0-20.9, adult Medical Established Patient with Ksenia Tim DIRECTOR [employer] 12/15/2020 Moderate recurrent major depression BH E stablished Patient with Radha Short LISWS 09/29/2020 Panic disorder without agoraphobia Es tablished Patient with Radha Short LISWS 09/29/2020 Body mass index [Body mass i ndex [BMI] 21.0-21.9, adult] Medical Established Patient with Nick Shawn DIRECTOR [employer] 09/29/2020 Generalized anxiety disorder Medical Est ablished Patient with Nick Shawn DIRECTOR [employer] 09/29/2020 Moderate major depression, s nicolasa episode Medical Established Patient with Nick Shawn DIRECTOR [employer] 09/29/2020 Mild recurrent major depression BH Estab lished Patient with Radha Short LISWS 09/10/2020 Panic disorder without agoraphobia BH Es tablished Patient with Radha Short LISWS 09/10/2020 Body mass index Medical Established Patient with Nick Shawn DIRECTOR [employer] 09/10/2020 Mild recurrent major depression BH Estab lished Patient with Radha Short LISWS 08/27/2020 Panic disorder without agoraphobia BH Es tablished Patient with Radha Short LISWS 08/27/2020 Body mass index [Body mass i ndex [BMI] 22.0-22.9, adult] Medical Established Patient with Nick Shawn DIRECTOR [employer] 08/27/2020 Generalized anxiety disorder Medical Est ablished Patient with Nick Shawn DIRECTOR [employer] 08/27/2020 Moderate major depression, s nicolasa episode Medical Established Patient with Nick Shawn DIRECTOR [employer] 08/27/2020 Depression Established Patie nt with Radha Short LISWS 08/13/2020 Panic disorder without agoraphobia Es tablished Patient with Radha Short LISWS 08/13/2020 Depression Established Patie nt with Radha Short LISWS 06/15/2020 Panic disorder without agoraphobia Es tablished Patient with Radha Short LISWS 06/15/2020 Depression Established Patie nt with Radha Short LISWS 05/27/2020 Panic disorder without agoraphobia Es tablished Patient with Radha Short LISWS 05/27/2020 Depressive disorder Established Patie nt with Radha Short LISWS 05/18/2020 Panic disorder without agoraphobia Es tablished Patient with Radha Short LISWS 05/18/2020 Anxiety disorder NOS Medical New Patient with Nick Shawn DIRECTOR [employer] 05/18/2020 Body mass index Medical New Patient with Nick Shawn DIRECTOR [employer] 05/18/2020 Depression Medical New Patient with Nick Shawn DIRECTOR [employer] 05/18/2020 Diabetes Risk Test Score was one score 05/18/2020 Medical New Patient with Nick Shawn DIRECTOR [employer] 05/18/2020 Routine history and physical Medical New Patient with Nick Shawn DIRECTOR [employer] 05/18/2020 [facility] Work Phone: [phone]) 741-805103-24-2021 History general Narrative - Reported Includes: Medical History in patient's chart Description Last Updated No previous hospitalizations 12/15/2020 History of anxiety disorder NOS 05/18/20 20 History of depression 05/18/2020 History of psychiatric disorders 020 A recent immunization for flu 05/18/2020 [facility] Work Phone: 1([phone]) 203-661003-24-2021 History general Narrative - Reported Includes: Medical History in patient's chart Description Last Updated No previous hospitalizations 12/15/2020 Last Documented On 1 8:13PM ; [facility] History of anxiety disorder NOS 05/18/20 20 Last Documented On 0 6:40PM ; [facility] History of depression 05/18/2020 Last Documented On 0 6:40PM ; [facility] History of psychiatric disorders 020 Last Documented On 0 6:40PM ; [facility] A recent immunization for flu 05/18/2020 Last Documented On 0 6:40PM ; [facility] Work Phone: 1([phone]) 165-514003-24-2021 History general Narrative - Reported Includes: Medical History in patient's chart Description Last Updated No previous hospitalizations 12/15/2020 Last Documented On 1 8:13PM ; [facility] History of anxiety disorder NOS 05/18/20 20 Last Documented On 0 6:40PM ; [facility] History of depression 05/18/2020 Last Documented On 0 6:40PM ; [facility] History of psychiatric disorders 020 Last Documented On 0 6:40PM ; [facility] A recent immunization for flu 05/18/2020 Last Documented On 0 6:40PM ; [facility] Work Phone: [phone]) [phone] History general Narrative - Reported Includes: Medical History in patient's chart Description Last Updated No previous hospitalizations 12/15/2020 Last Documented On 1 8:13PM ; [facility] History of anxiety disorder NOS 05/18/20 20 Last Documented On 0 6:40PM ; [facility] History of depression 05/18/2020 Last Documented On 0 6:40PM ; [facility] History of psychiatric disorders 020 Last Documented On 0 6:40PM ; [facility] A recent immunization for flu 05/18/2020 Last Documented On 0 6:40PM ; [facility] Work Phone: [phone]) 115-399403-24-2021 History general Narrative - Reported Includes: Medical History in patient's chart Description Last Updated No previous hospitalizations 12/15/2020 Last Documented On 1 8:13PM ; [facility] History of anxiety disorder NOS 05/18/20 20 Last Documented On 0 6:40PM ; [facility] History of depression 05/18/2020 Last Documented On 0 6:40PM ; [facility] History of psychiatric disorders 020 Last Documented On 0 6:40PM ; [facility] A recent immunization for flu 05/18/2020 Last Documented On 0 6:40PM ; [facility] Work Phone: [phone]) [phone] History general Narrative - Reported Includes: Medical History in patient's chart Description Last Updated No previous hospitalizations 12/15/2020 Last Documented On 1 8:13PM ; [facility] History of anxiety disorder NOS 05/18/20 20 Last Documented On 0 6:40PM ; [facility] History of depression 05/18/2020 Last Documented On 0 6:40PM ; [facility] History of psychiatric disorders 020 Last Documented On 0 6:40PM ; [facility] A recent immunization for flu 05/18/2020 Last Documented On 0 6:40PM ; [facility] Work Phone: [phone]) [phone] History general Narrative - Reported Includes: Medical History in patient's chart Description Last Updated No previous hospitalizations 12/15/2020 Last Documented On 1 8:13PM ; [facility] History of anxiety disorder NOS 05/18/20 20 Last Documented On 0 6:40PM ; [facility] History of depression 05/18/2020 Last Documented On 0 6:40PM ; [facility] History of psychiatric disorders 020 Last Documented On 0 6:40PM ; [facility] A recent immunization for flu 05/18/2020 Last Documented On 0 6:40PM ; [facility] Work Phone: [phone] History general Narrative - Reported Includes: Medical History in patient's chart Description Last Updated No previous hospitalizations 12/15/2020 Last Documented On 1 8:13PM ; [facility] History of anxiety disorder NOS 05/18/20 20 Last Documented On 0 6:40PM ; [facility] History of depression 05/18/2020 Last Documented On 0 6:40PM ; [facility] History of psychiatric disorders 020 Last Documented On 0 6:40PM ; [facility] A recent immunization for flu 05/18/2020 Last Documented On 0 6:40PM ; [facility] Work Phone: [phone]) [phone] History general Narrative - Reported Includes: Medical History in patient's chart Description Last Updated No previous hospitalizations 12/15/2020 Last Documented On 1 8:13PM ; [facility] History of anxiety disorder NOS 05/18/20 20 Last Documented On 0 6:40PM ; [facility] History of depression 05/18/2020 Last Documented On 0 6:40PM ; [facility] History of psychiatric disorders 020 Last Documented On 0 6:40PM ; [facility] A recent immunization for flu 05/18/2020 Last Documented On 0 6:40PM ; [facility] Work Phone: [phone]) [phone] Reason for referral (narrative)* Date Encounter Description Provider Reason for Referral 10/26/22 Medical Established Patient Nick Bernabeperry PAYNE Referral To Mental Health Team 12/15/20 Established Patient Jenelle Nita LPC-S Referral To Mental Health Team - [facility] conducted screen and addressed patient's responses w/paola. 08/27/20 Medical Established Patient Nick Shawn PAYNE Referral To Mental Health Team [facility] Work Phone: Evaluation note Includes: Assessments for all patient encounters Findings Encounter Date Acute sinusitis Medical Established Patient with Nick Shawn DIRECTOR [employer] 01/20/2021 Body mass index [Body mass i ndex [BMI] 20.0-20.9, adult] Medical Established Patient with Nick Shawn DIRECTOR [employer] 01/20/2021 Generalized anxiety disorder Establis hed Patient with Jenelleiza Lesters LPCC-S 12/15/2020 Moderate major depression, s nicolasa episode Established Patient with Jenelle Moya LPCC-S 12/15/2020 Constipation Medical Established Patient with Kseniamilan Kilpatrick DIRECTOR [employer] 12/15/2020 Z68.20 - Body mass index [BM I] 20.0-20.9, adult Medical Established Patient with Ksenia Kilpatrick DIRECTOR [employer] 12/15/2020 Moderate recurrent major depression E stablished Patient with Radha Short LISWS 09/29/2020 Panic disorder without agoraphobia Es tablished Patient with Radha Short LISWS 09/29/2020 Body mass index [Body mass i ndex [BMI] 21.0-21.9, adult] Medical Established Patient with Nick Shawn DIRECTOR [employer] 09/29/2020 Generalized anxiety disorder Medical Est ablished Patient with Nick Shawn DIRECTOR [employer] 09/29/2020 Moderate major depression, s nicolasa episode Medical Established Patient with Nick Shawn DIRECTOR [employer] 09/29/2020 Mild recurrent major depression BH Estab lished Patient with Radha Short LISWS 09/10/2020 Panic disorder without agoraphobia Es tablished Patient with Radha Short LISWS 09/10/2020 Body mass index Medical Established Patient with Nick Shawn DIRECTOR [employer] 09/10/2020 Mild recurrent major depression BH Estab lished Patient with Radha Short LISWS 08/27/2020 Panic disorder without agoraphobia BH Es tablished Patient with Radha Short LISWS 08/27/2020 Body mass index [Body mass i ndex [BMI] 22.0-22.9, adult] Medical Established Patient with Nick Shawn DIRECTOR [employer] 08/27/2020 Generalized anxiety disorder Medical Est ablished Patient with Nick Shawn DIRECTOR [employer] 08/27/2020 Moderate major depression, s nicolasa episode Medical Established Patient with Nick Shawn DIRECTOR [employer]ENC[employer] 08/27/2020 Depression Established Patie nt with Radha Short LISWS 08/13/2020 Panic disorder without agoraphobia Es tablished Patient with Radha Short LISWS 08/13/2020 Depression Established Patie nt with Radha Short LISWS 06/15/2020 Panic disorder without agoraphobia Es tablished Patient with Radha Short LISWS 06/15/2020 Depression Established Patie nt with Radha Short LISWS 05/27/2020 Panic disorder without agoraphobia Es tablished Patient with Radha Short LISWS 05/27/2020 Depressive disorder Established Patie nt with Radha Short LISWS 05/18/2020 Panic disorder without agoraphobia Es tablished Patient with Radha Short LISWS 05/18/2020 Anxiety disorder NOS Medical New Patient with Nick Shawn DIRECTOR [employer] 05/18/2020 Body mass index Medical New Patient with Nick Shawn DIRECTOR [employer] 05/18/2020 Depression Medical New Patient with Nick Shawn DIRECTOR [employer] 05/18/2020 Diabetes Risk Test Score was one score 05/18/2020 Medical New Patient with Nick Shawn DIRECTOR [employer] 05/18/2020 Routine history and physical Medical New Patient with Nick Shawn DIRECTOR [employer]ENC[employer] 05/18/2020 [facility] Work Phone: Evaluation note Includes: Assessments for all patient encounters Findings Encounter Date Major depression, single episode BH Esta blished Patient with Tana Galindo LPCC-S 10/26/2022 Last Documented On 3 9:16AM ; [facility] Moderate major depression, s nicolasa episode Established Patient with Tana Galindo LPCC-S 10/26/2022 Last Documented On 3 9:16AM ; [facility] [Body mass index [BMI] 23.0- 23.9, adult] assessment of body mass index Medical Established Patient with Nick Shawn DIRECTOR [employer] 10/26/2022 Last Documented On 3 9:54AM ; [facility] Diabetes Risk Test Score was 3.0 score 10/26/2022 Medical Established Patient with Nick Shawn DIRECTOR [employer] 10/26/2022 Last Documented On 3 9:54AM ; [facility] Generalized anxiety disorder Medical Est ablished Patient with Nick Shawn DIRECTOR [employer] 10/26/2022 Last Documented On 3 9:54AM ; [facility] Moderate major depression, s nicolasa episode Medical Established Patient with Nick Shawn DIRECTOR [employer] 10/26/2022 Last Documented On 3 9:54AM ; [facility] Nicotine dependence Medical Established Patient with Nick Shawn DIRECTOR [employer] 10/26/2022 Last Documented On 3 9:54AM ; [facility] Assessment of body mass inde x [Body mass index [BMI] 20.0-20.9, adult] Medical Established Patient with Nick Shawn DIRECTOR [employer] 08/29/2021 Last Documented On 1 3:08PM ; [facility] Diabetes Risk Test Score was one score 08/29/2021 Medical Established Patient with Nick Shawn DIRECTOR [employer] 08/29/2021 Last Documented On 1 3:08PM ; [facility] Generalized anxiety disorder Medical Est ablished Patient with Nick Shawn DIRECTOR [employer] 08/29/2021 Last Documented On 1 3:08PM ; [facility] Moderate major depression, s nicolasa episode Medical Established Patient with Nick Shawn DIRECTOR [employer]ENC[employer] 08/29/2021 Last Documented On 1 3:08PM ; [facility] Mild recurrent major depression [facility] with Rahda Short LISWS 03/22/2021 Last Documented On 1 9:59PM ; [facility] Panic disorder without agoraphobia [facility] with Radha Short LISWS 03/22/2021 Last Documented On 1 9:59PM ; [facility] Acute pharyngitis Telemedicine Establisted Patie nt with Nick Shawn DIRECTOR [employer] 03/22/2021 Last Documented On 1 12:34PM ; [facility] Acute sinusitis Medical Established Patient with Nick Shawn DIRECTOR [employer] 01/20/2021 Last Documented On 1 9:57AM ; [facility] Body mass index [Body mass i ndex [BMI] 20.0-20.9, adult] Medical Established Patient with Nick Shawn DIRECTOR [employer] 01/20/2021 Last Documented On 1 9:57AM ; [facility] Generalized anxiety disorder Establis hed Patient with Jenelle Moya LPCC-S 12/15/2020 Last Documented On 1 10:51PM ; [facility] Moderate major depression, s nicolasa episode Established Patient with Jenelle Moya LPCC-S 12/15/2020 Last Documented On 1 10:51PM ; [facility] Constipation Medical Established Patient with Ksenia Tim DIRECTOR [employer] 12/15/2020 Last Documented On 1 8:13PM ; [facility] Z68.20 - Body mass index [BM I] 20.0-20.9, adult Medical Established Patient with Ksenia Tim DIRECTOR [employer] 12/15/2020 Last Documented On 1 8:13PM ; [facility] Moderate recurrent major depression E stablished Patient with Radha Short LISWS 09/29/2020 Last Documented On 1 5:02PM ; [facility] Panic disorder without agoraphobia Es tablished Patient with Radha Short LISWS 09/29/2020 Last Documented On 1 5:02PM ; [facility] Body mass index [Body mass i ndex [BMI] 21.0-21.9, adult] Medical Established Patient with Nick Shawn DIRECTOR [employer] 09/29/2020 Last Documented On 1 10:45AM ; [facility] Generalized anxiety disorder Medical Est ablished Patient with Nick Shawn DIRECTOR [employer] 09/29/2020 Last Documented On 1 10:45AM ; [facility] Moderate major depression, s nicolasa episode Medical Established Patient with Nick Shawn DIRECTOR [employer] 09/29/2020 Last Documented On 1 10:45AM ; [facility] Mild recurrent major depression BH Estab lished Patient with Radha Short LISWS 09/10/2020 Last Documented On 0 12:31PM ; [facility] Panic disorder without agoraphobia BH Es tablished Patient with Radha Short LISWS 09/10/2020 Last Documented On 0 12:31PM ; [facility] Body mass index Medical Established Patient with Nick Shawn DIRECTOR [employer] 09/10/2020 Last Documented On 0 11:17AM ; [facility] Mild recurrent major depression BH Estab lished Patient with Radha Short LISWS 08/27/2020 Last Documented On 0 10:21AM ; [facility] Panic disorder without agoraphobia BH Es tablished Patient with Radha Short LISWS 08/27/2020 Last Documented On 0 10:21AM ; [facility] Body mass index [Body mass i ndex [BMI] 22.0-22.9, adult] Medical Established Patient with Nick Shawn DIRECTOR [employer] 08/27/2020 Last Documented On 0 8:00PM ; [facility] Generalized anxiety disorder Medical Est ablished Patient with Nick Shawn DIRECTOR [employer] 08/27/2020 Last Documented On 0 8:00PM ; [facility] Moderate major depression, s nicolasa episode Medical Established Patient with Nick Shawn DIRECTOR [employer] 08/27/2020 Last Documented On 0 8:00PM ; [facility] Depression BH Established Patient with Maura keyon Short LISWS 08/13/2020 Last Documented On 0 4:55PM ; [facility] Panic disorder without agoraphobia BH Es tablished Patient with Radha Short LISWS 08/13/2020 Last Documented On 0 4:55PM ; [facility] Depression BH Established Patient with Maura keyon Short LISWS 06/15/2020 Last Documented On 0 2:23PM ; [facility] Panic disorder without agoraphobia BH Es tablished Patient with Radha Short LISWS 06/15/2020 Last Documented On 0 2:23PM ; [facility] Depression Established Patient with Maura keyon Short LISWS 05/27/2020 Last Documented On 0 6:54PM ; [facility] Panic disorder without agoraphobia BH Es tablished Patient with Radha Short LISWS 05/27/2020 Last Documented On 0 6:54PM ; [facility] Depressive disorder Established Patient with Radha Short LISWS 05/18/2020 Last Documented On 0 8:46AM ; [facility] Panic disorder without agoraphobia Es tablished Patient with Radha Short LISWS 05/18/2020 Last Documented On 0 8:46AM ; [facility] Anxiety disorder NOS Medical New Patient with Ca ssie Shawn DIRECTOR [employer] 05/18/2020 Last Documented On 0 6:40PM ; [facility] Body mass index Medical New Patient with Nick Shawn DIRECTOR [employer] 05/18/2020 Last Documented On 0 6:40PM ; [facility] Depression Medical New Patient with Nick Shawn DIRECTOR [employer] 05/18/2020 Last Documented On 0 6:40PM ; [facility] Diabetes Risk Test Score was one score 05/18/2020 Medical New Patient with Nick Shawn DIRECTOR [employer] 05/18/2020 Last Documented On 0 6:40PM ; [facility] Routine history and physical Medical New Patient with Nick Shawn DIRECTOR [employer] 05/18/2020 Last Documented On 0 6:40PM ; [facility] Work Phone: Evaluation note Includes: Assessments for all patient encounters Findings Encounter Date Major depression, single episode BH Esta blished Patient with Tana Galindo LPCC-S 11/24/2022 Last Documented On 3 8:39AM ; [facility] Moderate major depression, s nicolasa episode Established Patient with Tanafarzana Galindo LPCC-S 11/24/2022 Last Documented On 3 8:39AM ; [facility] [Body mass index [BMI] 23.0- 23.9, adult] assessment of body mass index Medical Established Patient with Nick Shawn DIRECTOR [employer] 11/24/2022 Last Documented On 3 9:05AM ; [facility] Generalized anxiety disorder Medical Est ablished Patient with Nick Shawn DIRECTOR [employer] 11/24/2022 Last Documented On 3 9:05AM ; [facility] Moderate major depression, s nicolasa episode Medical Established Patient with Nick Shawn DIRECTOR [employer] 11/24/2022 Last Documented On 3 9:05AM ; [facility] Major depression, single episode BH Esta blished Patient with Tanafarzana Galindo LPCC-S 10/26/2022 Last Documented On 3 9:07AM ; [facility] Moderate major depression, s nicolasa episode Established Patient with Tanafarzana MortonGalindo LPCC-S 10/26/2022 Last Documented On 3 9:07AM ; [facility] [Body mass index [BMI] 23.0- 23.9, adult] assessment of body mass index Medical Established Patient with Nick Shawn [employer]OR [employer] 10/26/2022 Last Documented On 3 9:54AM ; [facility] Diabetes Risk Test Score was 3.0 score 10/26/2022 Medical Established Patient with Nick Shawn [employer]OR [employer] 10/26/2022 Last Documented On 3 9:54AM ; [facility] Generalized anxiety disorder Medical Est ablished Patient with Nick Shawn DIRECTOR [employer] 10/26/2022 Last Documented On 3 9:54AM ; [facility] Moderate major depression, s nicolasa episode Medical Established Patient with Nick Shawn [employer]OR [employer] 10/26/2022 Last Documented On 3 9:54AM ; [facility] Nicotine dependence Medical Established Patient with Nick Shawn DIRECTOR [employer] 10/26/2022 Last Documented On 3 9:54AM ; [facility] Assessment of body mass inde x [Body mass index [BMI] 20.0-20.9, adult] Medical Established Patient with Nick Shawn DIRECTOR [employer] 08/29/2021 Last Documented On 1 3:08PM ; [facility] Diabetes Risk Test Score was one score 08/29/2021 Medical Established Patient with Nick Shawn [employer]OR [employer] 08/29/2021 Last Documented On 1 3:08PM ; [facility] Generalized anxiety disorder Medical Est ablished Patient with Nick Shawn [employer]OR [employer] 08/29/2021 Last Documented On 1 3:08PM ; [facility] Moderate major depression, s nicolasa episode Medical Established Patient with Nick Shawn [employer]OR [employer] 08/29/2021 Last Documented On 1 3:08PM ; [facility] Mild recurrent major depression Teleb ehavioral Health with Radha Short LISWS 03/22/2021 Last Documented On 1 9:59PM ; [facility] Panic disorder without agoraphobia Te lebehavioral Health with Radha Short LISWS 03/22/2021 Last Documented On 1 9:59PM ; [facility] Acute pharyngitis Telemedicine Establisted Patie nt with Nick Shawn [employer]OR [employer] 03/22/2021 Last Documented On 1 12:34PM ; [facility] Acute sinusitis Medical Established Patient with Nick Shawn [employer]OR [employer] 01/20/2021 Last Documented On 1 9:57AM ; [facility] Body mass index [Body mass i ndex [BMI] 20.0-20.9, adult] Medical Established Patient with Nick Shawn DIRECTOR [employer] 01/20/2021 Last Documented On 1 9:57AM ; [facility] Generalized anxiety disorder Establis hed Patient with Jenelle Moya [facility] 12/15/2020 Last Documented On 1 10:51PM ; [facility] Moderate major depression, s nicolasa episode Established Patient with [facility] 12/15/2020 Last Documented On 1 10:51PM ; [facility] Constipation Medical Established Patient with Ksenia Kilpatrick DIRECTOR [employer] 12/15/2020 Last Documented On 1 8:13PM ; [facility] Z68.20 - Body mass index [BM I] 20.0-20.9, adult Medical Established Patient with Ksenia Kilpatrick [employer]OR [employer] 12/15/2020 Last Documented On 1 8:13PM ; [facility] Moderate recurrent major depression BH E stablished Patient with Radha Short LISWS 09/29/2020 Last Documented On 1 5:02PM ; [facility] Panic disorder without agoraphobia BH Es tablished Patient with Radha Short LISWS 09/29/2020 Last Documented On 1 5:02PM ; [facility] Body mass index [Body mass i ndex [BMI] 21.0-21.9, adult] Medical Established Patient with Nick Shawn DIRECTOR [employer] 09/29/2020 Last Documented On 1 10:45AM ; [facility] Generalized anxiety disorder Medical Est ablished Patient with Nick Shawn DIRECTOR [employer] 09/29/2020 Last Documented On 1 10:45AM ; [facility] Moderate major depression, s nicolasa episode Medical Established Patient with Nick Shawn [employer]OR [employer] 09/29/2020 Last Documented On 1 10:45AM ; [facility] Mild recurrent major depression BH Estab lished Patient with Radha Short LISWS 09/10/2020 Last Documented On 0 12:31PM ; [facility] Panic disorder without agoraphobia BH Es tablished Patient with Radha Short LISWS 09/10/2020 Last Documented On 0 12:31PM ; [facility] Body mass index Medical Established Patient with Nick Shawn DIRECTOR [employer] 09/10/2020 Last Documented On 0 11:17AM ; [facility] Mild recurrent major depression BH Estab lished Patient with Radha Short LISWS 08/27/2020 Last Documented On 0 10:21AM ; [facility] Panic disorder without agoraphobia BH Es tablished Patient with Radha Short LISWS 08/27/2020 Last Documented On 0 10:21AM ; [facility] Body mass index [Body mass i ndex [BMI] 22.0-22.9, adult] Medical Established Patient with Nick Shawn DIRECTOR [employer] 08/27/2020 Last Documented On 0 8:00PM ; [facility] Generalized anxiety disorder Medical Est ablished Patient with Nick Shawn DIRECTOR [employer] 08/27/2020 Last Documented On 0 8:00PM ; [facility] Moderate major depression, s nicolasa episode Medical Established Patient with Nick Shawn DIRECTOR [employer] 08/27/2020 Last Documented On 0 8:00PM ; [facility] Depression Established Patient with Maura keyon Short LIS[facility] 08/13/2020 Last Documented On 0 4:55PM ; [facility] Panic disorder without agoraphobia Es tablished Patient with Radha Short LIS[facility] 08/13/2020 Last Documented On 0 4:55PM ; [facility] Depression Established Patient with Maura keyon Short LISWS 06/15/2020 Last Documented On 0 2:23PM ; [facility] Panic disorder without agoraphobia Es tablished Patient with Radha Short LISWS 06/15/2020 Last Documented On 0 2:23PM ; [facility] Depression Established Patient with Maura keyon Short LISWS 05/27/2020 Last Documented On 0 6:54PM ; [facility] Panic disorder without agoraphobia Es tablished Patient with Radha Short LISWS 05/27/2020 Last Documented On 0 6:54PM ; [facility] Depressive disorder Established Patient with Radha Short LIS[facility] 05/18/2020 Last Documented On 0 8:46AM ; [facility] Panic disorder without agoraphobia Es tablished Patient with Radha Short LISWS 05/18/2020 Last Documented On 0 8:46AM ; [facility] Anxiety disorder NOS Medical New Patient with Ca ssie Shawn DIRECTOR [employer] 05/18/2020 Last Documented On 0 6:40PM ; [facility] Body mass index Medical New Patient with Nick Shawn DIRECTOR [employer] 05/18/2020 Last Documented On 0 6:40PM ; [facility] Depression Medical New Patient with Nick Shawn DIRECTOR [employer] 05/18/2020 Last Documented On 0 6:40PM ; [facility] Diabetes Risk Test Score was one score 05/18/2020 Medical New Patient with Nick Shawn DIRECTOR [employer] 05/18/2020 Last Documented On 0 6:40PM ; [facility] Routine history and physical Medical New Patient with Nick Shawn DIRECTOR [employer] 05/18/2020 Last Documented On 0 6:40PM ; [facility] Work Phone: Evaluation note Includes: Assessments for all patient encounters Findings Encounter Date Generalized anxiety disorder BH Establis hed Patient with Tana Galindo LPCC-S 01/05/2023 Last Documented On 3 9:00AM ; [facility] [Body mass index [BMI] 23.0- 23.9, adult] assessment of body mass index Medical Established Patient with Nick Shawn DIRECTOR [employer] 01/05/2023 Last Documented On 3 9:05AM ; [facility] Generalized anxiety disorder Medical Est ablished Patient with Nick Shawn DIRECTOR [employer] 01/05/2023 Last Documented On 3 9:05AM ; [facility] Moderate major depression, s nicolasa episode Medical Established Patient with Nick Shawn DIRECTOR [employer] 01/05/2023 Last Documented On 3 9:05AM ; [facility] Major depression, single episode BH Esta blished Patient with Tanafarzana Galindo LPCC-S 11/24/2022 Last Documented On 3 5:46PM ; [facility] [Body mass index [BMI] 23.0- 23.9, adult] assessment of body mass index Medical Established Patient with Nick Shawn DIRECTOR [employer] 11/24/2022 Last Documented On 3 9:05AM ; [facility] Generalized anxiety disorder Medical Est ablished Patient with Nikc Shawn DIRECTOR [employer] 11/24/2022 Last Documented On 3 9:05AM ; [facility] Moderate major depression, s nicolasa episode Medical Established Patient with Nick Shawn DIRECTOR [employer] 11/24/2022 Last Documented On 3 9:05AM ; [facility] Major depression, single episode BH Esta blished Patient with Tana Galindo LPCC-S 10/26/2022 Last Documented On 3 9:07AM ; [facility] Moderate major depression, s nicolasa episode BH Established Patient with Tana Galindo LPCC-S 10/26/2022 Last Documented On 3 9:07AM ; [facility] [Body mass index [BMI] 23.0- 23.9, adult] assessment of body mass index Medical Established Patient with Nick Shawn DIRECTOR [employer] 10/26/2022 Last Documented On 3 9:54AM ; [facility] Diabetes Risk Test Score was 3.0 score 10/26/2022 Medical Established Patient with Nick Shawn DIRECTOR [employer] 10/26/2022 Last Documented On 3 9:54AM ; [facility] Generalized anxiety disorder Medical Est ablished Patient with Nick Shawn DIRECTOR [employer] 10/26/2022 Last Documented On 3 9:54AM ; [facility] Moderate major depression, s nicolasa episode Medical Established Patient with Nick Shawn DIRECTOR [employer] 10/26/2022 Last Documented On 3 9:54AM ; [facility] Nicotine dependence Medical Established Patient with Nick Shawn DIRECTOR [employer] 10/26/2022 Last Documented On 3 9:54AM ; [facility] Assessment of body mass inde x [Body mass index [BMI] 20.0-20.9, adult] Medical Established Patient with Nick Shawn DIRECTOR [employer] 08/29/2021 Last Documented On 1 3:08PM ; [facility] Diabetes Risk Test Score was one score 08/29/2021 Medical Established Patient with Nick Shawn DIRECTOR [employer] 08/29/2021 Last Documented On 1 3:08PM ; [facility] Generalized anxiety disorder Medical Est ablished Patient with Nick Shawn DIRECTOR [employer] 08/29/2021 Last Documented On 1 3:08PM ; [facility] Moderate major depression, s nicolasa episode Medical Established Patient with Nick Shawn DIRECTOR [employer] 08/29/2021 Last Documented On 1 3:08PM ; [facility] Mild recurrent major depression Teleb ehavioral Health with Radha Short LISWS 03/22/2021 Last Documented On 1 9:59PM ; [facility] Panic disorder without agoraphobia Te lebehavioral Health with Radha Short LISWS 03/22/2021 Last Documented On 1 9:59PM ; [facility] Acute pharyngitis Telemedicine Establisted Patie nt with Nick Shawn DIRECTOR [employer] 03/22/2021 Last Documented On 1 12:34PM ; [facility] Acute sinusitis Medical Established Patient with Nick Shawn DIRECTOR [employer] 01/20/2021 Last Documented On 1 9:57AM ; [facility] Body mass index [Body mass i ndex [BMI] 20.0-20.9, adult] Medical Established Patient with Nick Shawn DIRECTOR [employer] 01/20/2021 Last Documented On 1 9:57AM ; [facility] Generalized anxiety disorder Establis hed Patient with Jenelle Moya LPCC-S 12/15/2020 Last Documented On 1 10:51PM ; [facility] Moderate major depression, s nicolasa episode BH Established Patient with Jenelle Moya LPCC-S 12/15/2020 Last Documented On 1 10:51PM ; [facility] Constipation Medical Established Patient with Ksenia Kilpatrick DIRECTOR [employer] 12/15/2020 Last Documented On 1 8:13PM ; [facility] Z68.20 - Body mass index [BM I] 20.0-20.9, adult Medical Established Patient with Ksenia Tim DIRECTOR [employer] 12/15/2020 Last Documented On 1 8:13PM ; [facility] Moderate recurrent major depression E stablished Patient with Radha Short LISWS 09/29/2020 Last Documented On 1 5:02PM ; [facility] Panic disorder without agoraphobia Es tablished Patient with Radha Short LISWS 09/29/2020 Last Documented On 1 5:02PM ; [facility] Body mass index [Body mass i ndex [BMI] 21.0-21.9, adult] Medical Established Patient with Nick Shawn DIRECTOR [employer] 09/29/2020 Last Documented On 1 10:45AM ; [facility] Generalized anxiety disorder Medical Est ablished Patient with Nick Shawn DIRECTOR [employer] 09/29/2020 Last Documented On 1 10:45AM ; [facility] Moderate major depression, s nicolasa episode Medical Established Patient with Nick Shawn DIRECTOR [employer] 09/29/2020 Last Documented On 1 10:45AM ; [facility] Mild recurrent major depression Estab lished Patient with Radha Short LISWS 09/10/2020 Last Documented On 0 12:31PM ; [facility] Panic disorder without agoraphobia BH Es tablished Patient with Radha Short LISWS 09/10/2020 Last Documented On 0 12:31PM ; [facility] Body mass index Medical Established Patient with Nick Shawn DIRECTOR [employer] 09/10/2020 Last Documented On 0 11:17AM ; [facility] Mild recurrent major depression Estab lished Patient with Radha Short LISWS 08/27/2020 Last Documented On 0 10:21AM ; [facility] Panic disorder without agoraphobia BH Es tablished Patient with Radha Short LISWS 08/27/2020 Last Documented On 0 10:21AM ; [facility] Body mass index [Body mass i ndex [BMI] 22.0-22.9, adult] Medical Established Patient with Nick Shawn DIRECTOR [employer] 08/27/2020 Last Documented On 0 8:00PM ; [facility] Generalized anxiety disorder Medical Est ablished Patient with Nick Shawn DIRECTOR [employer] 08/27/2020 Last Documented On 0 8:00PM ; [facility] Moderate major depression, s nicolasa episode Medical Established Patient with Nick Shawn DIRECTOR [employer] 08/27/2020 Last Documented On 0 8:00PM ; [facility] Depression BH Established Patient with Maura keyon Short LISWS 08/13/2020 Last Documented On 0 4:55PM ; [facility] Panic disorder without agoraphobia Es tablished Patient with Radha Short LISWS 08/13/2020 Last Documented On 0 4:55PM ; [facility] Depression Established Patient with Maura keyon Short LISWS 06/15/2020 Last Documented On 0 2:23PM ; [facility] Panic disorder without agoraphobia Es tablished Patient with Radha Short LISWS 06/15/2020 Last Documented On 0 2:23PM ; [facility] Depression Established Patient with Maura keyon Short LISWS 05/27/2020 Last Documented On 0 6:54PM ; [facility] Panic disorder without agoraphobia Es tablished Patient with Radha Short LISWS 05/27/2020 Last Documented On 0 6:54PM ; [facility] Depressive disorder Established Patient with Radha Short LISWS 05/18/2020 Last Documented On 0 8:46AM ; [facility] Panic disorder without agoraphobia Es tablished Patient with Radha Short LISWS 05/18/2020 Last Documented On 0 8:46AM ; [facility] Anxiety disorder NOS Medical New Patient with Ca ssie Shawn DIRECTOR [employer] 05/18/2020 Last Documented On 0 6:40PM ; [facility] Body mass index Medical New Patient with Nick Shawn DIRECTOR [employer] 05/18/2020 Last Documented On 0 6:40PM ; [facility] Depression Medical New Patient with Nick Shawn DIRECTOR [employer] 05/18/2020 Last Documented On 0 6:40PM ; [facility] Diabetes Risk Test Score was one score 05/18/2020 Medical New Patient with Nick Shawn DIRECTOR [employer] 05/18/2020 Last Documented On 0 6:40PM ; [facility] Routine history and physical Medical New Patient with Nick Shawn DIRECTOR [employer] 05/18/2020 Last Documented On 0 6:40PM ; [facility] Work Phone: Evaluation note Includes: Assessments for all patient encounters Findings Encounter Date [Body mass index [BMI] 27.0- 27.9, adult] assessment of body mass index Medical Established Patient with Nick Shawn DIRECTOR [employer] 12/26/2023 Last Documented On 4 9:58AM ; [facility] Generalized anxiety disorder Medical Est ablished Patient with Nick Shawn DIRECTOR [employer] 12/26/2023 Last Documented On 4 9:58AM ; [facility] Moderate major depression, s nicolasa episode Medical Established Patient with Nick Shawn DIRECTOR [employer] 12/26/2023 Last Documented On 4 9:58AM ; [facility] Venipuncture was performed Medical Estab lished Patient with Nick Shawn DIRECTOR [employer] 12/26/2023 Last Documented On 4 9:58AM ; [facility] Generalized anxiety disorder Established Akanksha ent with Ilana Bautista [employer] 11/23/2023 Last Documented On 4 6:43PM ; [facility] Moderate major depression, s nicolasa episode BH Established Patient with Ilanaariana Bautista [employer] 11/23/2023 Last Documented On 4 6:43PM ; [facility] [Body mass index [BMI] 27.0- 27.9, adult] assessment of body mass index Medical Established Patient with Nick Shawn DIRECTOR [employer] 11/23/2023 Last Documented On 4 9:00AM ; [facility] Diabetes Risk Test Score was two score 11/23/2023 Medical Established Patient with Nick Shawn DIRECTOR [employer] 11/23/2023 Last Documented On 4 9:00AM ; [facility] Generalized anxiety disorder Medical Est ablished Patient with Nick Shawn DIRECTOR [employer] 11/23/2023 Last Documented On 4 9:00AM ; [facility] Moderate major depression, s nicolasa episode Medical Established Patient with Nick Shawn DIRECTOR [employer] 11/23/2023 Last Documented On 4 9:00AM ; [facility] [N50.811 - Right testicular pain] pain of the right testis Open Access - Established with Ksenia Kilpatrick DIRECTOR [employer] 07/09/2023 Last Documented On 3 9:35AM ; [facility] [Z68.25 - Body mass index [B LA] 25.0-25.9, adult] assessment of body mass index Open Access - Established with Ksenia Kilpatrick DIRECTOR [employer] 07/09/2023 Last Documented On 3 9:35AM ; [facility] Generalized anxiety disorder Open Access - Established with Ksenia Kilpatrick DIRECTOR [employer] 07/09/2023 Last Documented On 3 9:35AM ; [facility] Moderate major depression, s nicolasa episode Open Access - Established with Ksenia Kilpatrick DIRECTOR [employer] 07/09/2023 Last Documented On 3 9:35AM ; [facility] Nicotine dependence Open Access - Established wi th Ksenia Kilpatrick DIRECTOR [employer] 07/09/2023 Last Documented On 3 9:35AM ; [facility] Generalized anxiety disorder BH Establis hed Patient [facility] 01/05/2023 Last Documented On 3 6:55AM ; [facility] [Body mass index [BMI] 23.0- 23.9, adult] assessment of body mass index Medical Established Patient with Nick Shawn DIRECTOR [employer] 01/05/2023 Last Documented On 3 9:05AM ; [facility] Generalized anxiety disorder Medical Est ablished Patient with Nick Shawn DIRECTOR [employer] 01/05/2023 Last Documented On 3 9:05AM ; [facility] Moderate major depression, s nicolasa episode Medical Established Patient with Nick Shawn DIRECTOR [employer] 01/05/2023 Last Documented On 3 9:05AM ; [facility] Major depression, single episode BH Esta blished Patient with Tana Galindo LPCC-S 11/24/2022 Last Documented On 3 5:46PM ; [facility] [Body mass index [BMI] 23.0- 23.9, adult] assessment of body mass index Medical Established Patient with Nick Shawn DIRECTOR [employer] 11/24/2022 Last Documented On 3 9:05AM ; [facility] Generalized anxiety disorder Medical Est ablished Patient with Nick Shawn DIRECTOR [employer] 11/24/2022 Last Documented On 3 9:05AM ; [facility] Moderate major depression, s nicolasa episode Medical Established Patient with Nick Shawn DIRECTOR [employer] 11/24/2022 Last Documented On 3 9:05AM ; [facility] Major depression, single episode BH Esta blished Patient with Tanafarzana Galindo LPCC-S 10/26/2022 Last Documented On 3 9:07AM ; [facility] Moderate major depression, s nicolasa episode BH Established Patient with Tanafarzana MortonGalindo LPCC-S 10/26/2022 Last Documented On 3 9:07AM ; [facility] [Body mass index [BMI] 23.0- 23.9, adult] assessment of body mass index Medical Established Patient with Nick Shawn DIRECTOR [employer] 10/26/2022 Last Documented On 3 9:54AM ; [facility] Diabetes Risk Test Score was 3.0 score 10/26/2022 Medical Established Patient with Nick Shawn DIRECTOR [employer] 10/26/2022 Last Documented On 3 9:54AM ; [facility] Generalized anxiety disorder Medical Est ablished Patient with Nick Shawn DIRECTOR [employer] 10/26/2022 Last Documented On 3 9:54AM ; [facility] Moderate major depression, s nicolasa episode Medical Established Patient with Nick Shawn DIRECTOR [employer] 10/26/2022 Last Documented On 3 9:54AM ; [facility] Nicotine dependence Medical Established Patient with Nick Shawn DIRECTOR [employer] 10/26/2022 Last Documented On 3 9:54AM ; [facility] Assessment of body mass inde x [Body mass index [BMI] 20.0-20.9, adult] Medical Established Patient with Nick Shawn DIRECTOR [employer] 08/29/2021 Last Documented On 1 3:08PM ; [facility] Diabetes Risk Test Score was one score 08/29/2021 Medical Established Patient with Nick Shawn DIRECTOR [employer] 08/29/2021 Last Documented On 1 3:08PM ; [facility] Generalized anxiety disorder Medical Est ablished Patient with Nick Shawn DIRECTOR [employer] 08/29/2021 Last Documented On 1 3:08PM ; [facility] Moderate major depression, s nicolasa episode Medical Established Patient with Nick Shawn DIRECTOR [employer] 08/29/2021 Last Documented On 1 3:08PM ; [facility] Mild recurrent major depression Teleb ehavioral Health with Radha Short LISWS 03/22/2021 Last Documented On 1 9:59PM ; [facility] Panic disorder without agoraphobia Te lebehavioral Health with Radha Short LISWS 03/22/2021 Last Documented On 1 9:59PM ; [facility] Acute pharyngitis Telemedicine Establisted Patie nt with Nick Shawn DIRECTOR [employer] 03/22/2021 Last Documented On 1 12:34PM ; [facility] Acute sinusitis Medical Established Patient with Nick Shawn DIRECTOR [employer] 01/20/2021 Last Documented On 1 9:57AM ; [facility] Body mass index [Body mass i ndex [BMI] 20.0-20.9, adult] Medical Established Patient with Nick Shawn DIRECTOR [employer] 01/20/2021 Last Documented On 1 9:57AM ; [facility] Generalized anxiety disorder Establis hed Patient with Jenelleiza Moya LPCC-S 12/15/2020 Last Documented On 1 10:51PM ; [facility] Moderate major depression, s nicolasa episode Established Patient with Jenelleiza Moya LPCC-S 12/15/2020 Last Documented On 1 10:51PM ; [facility] Constipation Medical Established Patient with Ksenia Kilpatrick DIRECTOR [employer] 12/15/2020 Last Documented On 1 8:13PM ; [facility] Z68.20 - Body mass index [BM I] 20.0-20.9, adult Medical Established Patient with Ksenia Kilpatrick DIRECTOR [employer] 12/15/2020 Last Documented On 1 8:13PM ; [facility] Moderate recurrent major depression E stablished Patient with Radha Short LISWS 09/29/2020 Last Documented On 1 5:02PM ; [facility] Panic disorder without agoraphobia BH Es tablished Patient with Radha Short LISWS 09/29/2020 Last Documented On 1 5:02PM ; [facility] Body mass index [Body mass i ndex [BMI] 21.0-21.9, adult] Medical Established Patient with Nick Shawn DIRECTOR [employer] 09/29/2020 Last Documented On 1 10:45AM ; [facility] Generalized anxiety disorder Medical Est ablished Patient with Nick Shawn DIRECTOR [employer] 09/29/2020 Last Documented On 1 10:45AM ; [facility] Moderate major depression, s nicolasa episode Medical Established Patient with Nick Shawn [employer]OR [employer] 09/29/2020 Last Documented On 1 10:45AM ; [facility] Mild recurrent major depression BH Estab lished Patient with Radha Short LISWS 09/10/2020 Last Documented On 0 12:31PM ; [facility] Panic disorder without agoraphobia BH Es tablished Patient with Radha Short LISWS 09/10/2020 Last Documented On 0 12:31PM ; [facility] Body mass index Medical Established Patient with Nick Shawn DIRECTOR [employer] 09/10/2020 Last Documented On 0 11:17AM ; [facility] Mild recurrent major depression BH Estab lished Patient with Radha Short LISWS 08/27/2020 Last Documented On 0 10:21AM ; [facility] Panic disorder without agoraphobia BH Es tablished Patient with Radha Short LISWS 08/27/2020 Last Documented On 0 10:21AM ; [facility] Body mass index [Body mass i ndex [BMI] 22.0-22.9, adult] Medical Established Patient with Nick Shawn DIRECTOR [employer] 08/27/2020 Last Documented On 0 8:00PM ; [facility] Generalized anxiety disorder Medical Est ablished Patient with Nick Shawn DIRECTOR [employer] 08/27/2020 Last Documented On 0 8:00PM ; [facility] Moderate major depression, s nicolasa episode Medical Established Patient with Nick Shawn DIRECTOR [employer] 08/27/2020 Last Documented On 0 8:00PM ; [facility] Depression Established Patient with Maura keyon Short LISWS 08/13/2020 Last Documented On 0 4:55PM ; [facility] Panic disorder without agoraphobia Es tablished Patient with Radha Short LISWS 08/13/2020 Last Documented On 0 4:55PM ; [facility] Depression Established Patient with Maura keyon Short LISWS 06/15/2020 Last Documented On 0 2:23PM ; [facility] Panic disorder without agoraphobia Es tablished Patient with Radha Short LISWS 06/15/2020 Last Documented On 0 2:23PM ; [facility] Depression Established Patient with Maura keyon Short LISWS 05/27/2020 Last Documented On 0 6:54PM ; [facility] Panic disorder without agoraphobia Es tablished Patient with Radha Short LISWS 05/27/2020 Last Documented On 0 6:54PM ; [facility] Depressive disorder Established Patient with Radha Short LISWS 05/18/2020 Last Documented On 0 8:46AM ; [facility] Panic disorder without agoraphobia Es tablished Patient with Radha Short LISWS 05/18/2020 Last Documented On 0 8:46AM ; [facility] Anxiety disorder NOS Medical New Patient with Ca ssie Shawn DIRECTOR [employer] 05/18/2020 Last Documented On 0 6:40PM ; [facility] Body mass index Medical New Patient with Nick Shawn DIRECTOR [employer] 05/18/2020 Last Documented On 0 6:40PM ; [facility] Depression Medical New Patient with Nick Shawn DIRECTOR [employer] 05/18/2020 Last Documented On 0 6:40PM ; [facility] Diabetes Risk Test Score was one score 05/18/2020 Medical New Patient with Nick Shawn [employer]OR [employer] 05/18/2020 Last Documented On 0 6:40PM ; [facility] Routine history and physical Medical New Patient with Nick Shawn DIRECTOR [employer] 05/18/2020 Last Documented On 0 6:40PM ; [facility] Work Phone: Evaluation note Includes: Assessments for all patient encounters Findings Encounter Date Generalized anxiety disorder Established Akanksha ent with Ilana Bautista [employer] 12/26/2023 Last Documented On 4 12:17PM ; [facility] Moderate major depression, s nicolasa episode BH Established Patient with Ilana Bautista [employer] 12/26/2023 Last Documented On 4 12:17PM ; [facility] Nicotine dependence Established Patient with Ilana Bautista [employer] 12/26/2023 Last Documented On 4 12:17PM ; [facility] [Body mass index [BMI] 27.0- 27.9, adult] assessment of body mass index Medical Established Patient with Nick Shawn DIRECTOR [employer] 12/26/2023 Last Documented On 4 9:58AM ; [facility] Generalized anxiety disorder Medical Est ablished Patient with Nick Shawn DIRECTOR [employer] 12/26/2023 Last Documented On 4 9:58AM ; [facility] Moderate major depression, s nicolasa episode Medical Established Patient with Nick Shawn DIRECTOR [employer] 12/26/2023 Last Documented On 4 9:58AM ; [facility] Venipuncture was performed Medical Estab lished Patient with Nick Shawn DIRECTOR [employer] 12/26/2023 Last Documented On 4 9:58AM ; [facility] Generalized anxiety disorder Established Akanksha ent with Ilana Bautista [employer] 11/23/2023 Last Documented On 4 6:43PM ; [facility] Moderate major depression, s nicolasa episode Established Patient with Ilana Bautista [employer] 11/23/2023 Last Documented On 4 6:43PM ; [facility] [Body mass index [BMI] 27.0- 27.9, adult] assessment of body mass index Medical Established Patient with Nick Shawn DIRECTOR [employer] 11/23/2023 Last Documented On 4 9:00AM ; [facility] Diabetes Risk Test Score was two score 11/23/2023 Medical Established Patient with Nick Shawn DIRECTOR [employer] 11/23/2023 Last Documented On 4 9:00AM ; [facility] Generalized anxiety disorder Medical Est ablished Patient with Nick Shawn DIRECTOR [employer] 11/23/2023 Last Documented On 4 9:00AM ; [facility] Moderate major depression, s nicolasa episode Medical Established Patient with Nick Shawn DIRECTOR [employer] 11/23/2023 Last Documented On 4 9:00AM ; [facility] [N50.811 - Right testicular pain] pain of the right testis Open Access - Established with Ksenia Kilpatrick [facility] 07/09/2023 Last Documented On 3 9:35AM ; [facility] [Z68.25 - Body mass index [B LA] 25.0-25.9, adult] assessment of body mass index Open Access - Established with Ksenia Kilpatrick [facility] 07/09/2023 Last Documented On 3 9:35AM ; [facility] Generalized anxiety disorder Open Access - Established with Ksenia Kilpatrick [facility] 07/09/2023 Last Documented On 3 9:35AM ; [facility] Moderate major depression, s nicolasa episode Open Access - Established with Ksenia Kilpatrick [facility] 07/09/2023 Last Documented On 3 9:35AM ; [facility] Nicotine dependence Open Access - Established wi th Ksenia Kilpatrick [facility] 07/09/2023 Last Documented On 3 9:35AM ; [facility] Generalized anxiety disorder BH Establis hed Patient with Tana Galindo [facility] 01/05/2023 Last Documented On 3 6:55AM ; [facility] [Body mass index [BMI] 23.0- 23.9, adult] assessment of body mass index Medical Established Patient with Nick Shawn DIRECTOR [employer] 01/05/2023 Last Documented On 3 9:05AM ; [facility] Generalized anxiety disorder Medical Est ablished Patient with Nick Shawn DIRECTOR [employer] 01/05/2023 Last Documented On 3 9:05AM ; [facility] Moderate major depression, s nicolasa episode Medical Established Patient with Nick Shawn DIRECTOR [employer] 01/05/2023 Last Documented On 3 9:05AM ; [facility] Major depression, single episode BH Esta blished Patient with Tanafarzana Galindo LPCC-S 11/24/2022 Last Documented On 3 5:46PM ; [facility] [Body mass index [BMI] 23.0- 23.9, adult] assessment of body mass index Medical Established Patient with Nick Shawn DIRECTOR [employer] 11/24/2022 Last Documented On 3 9:05AM ; [facility] Generalized anxiety disorder Medical Est ablished Patient with Nick Shawn DIRECTOR [employer] 11/24/2022 Last Documented On 3 9:05AM ; [facility] Moderate major depression, s nicolasa episode Medical Established Patient with Nick Shawn DIRECTOR [employer] 11/24/2022 Last Documented On 3 9:05AM ; [facility] Major depression, single episode BH Esta blished Patient with Tanafarzana Galindo LPCC-S 10/26/2022 Last Documented On 3 9:07AM ; [facility] Moderate major depression, s nicolasa episode BH Established Patient with Tanafarzana MortonGalindo LPCC-S 10/26/2022 Last Documented On 3 9:07AM ; [facility] [Body mass index [BMI] 23.0- 23.9, adult] assessment of body mass index Medical Established Patient with Nick Shawn DIRECTOR [employer] 10/26/2022 Last Documented On 3 9:54AM ; [facility] Diabetes Risk Test Score was 3.0 score 10/26/2022 Medical Established Patient with Nick Shawn DIRECTOR [employer] 10/26/2022 Last Documented On 3 9:54AM ; [facility] Generalized anxiety disorder Medical Est ablished Patient with Nick Shawn DIRECTOR [employer] 10/26/2022 Last Documented On 3 9:54AM ; [facility] Moderate major depression, s nicolasa episode Medical Established Patient with Nick Shawn [employer]OR [employer] 10/26/2022 Last Documented On 3 9:54AM ; [facility] Nicotine dependence Medical Established Patient with Nick Shawn DIRECTOR [employer] 10/26/2022 Last Documented On 3 9:54AM ; [facility] Assessment of body mass inde x [Body mass index [BMI] 20.0-20.9, adult] Medical Established Patient with Nick Shawn DIRECTOR [employer] 08/29/2021 Last Documented On 1 3:08PM ; [facility] Diabetes Risk Test Score was one score 08/29/2021 Medical Established Patient with Nick Shawn DIRECTOR [employer] 08/29/2021 Last Documented On 1 3:08PM ; [facility] Generalized anxiety disorder Medical Est ablished Patient with Nick Shawn DIRECTOR [employer] 08/29/2021 Last Documented On 1 3:08PM ; [facility] Moderate major depression, s nicolasa episode Medical Established Patient with Nick Shawn [employer]OR [employer] 08/29/2021 Last Documented On 1 3:08PM ; [facility] Mild recurrent major depression Teleb ehavioral Health with Radha Short LISWS 03/22/2021 Last Documented On 1 9:59PM ; [facility] Panic disorder without agoraphobia Te lebehavioral Health with Radha Short LISWS 03/22/2021 Last Documented On 1 9:59PM ; [facility] Acute pharyngitis Telemedicine Establisted Patie nt with Nick Shawn DIRECTOR [employer] 03/22/2021 Last Documented On 1 12:34PM ; [facility] Acute sinusitis Medical Established Patient with Nick Shawn DIRECTOR [employer] 01/20/2021 Last Documented On 1 9:57AM ; [facility] Body mass index [Body mass i ndex [BMI] 20.0-20.9, adult] Medical Established Patient with Nick Shawn DIRECTOR [employer] 01/20/2021 Last Documented On 1 9:57AM ; [facility] Generalized anxiety disorder Establis hed Patient with Jenelle Moya LPCC-S 12/15/2020 Last Documented On 1 10:51PM ; [facility] Moderate major depression, s nicolasa episode Established Patient with Jenelle Nita LPCC-S 12/15/2020 Last Documented On 1 10:51PM ; [facility] Constipation Medical Established Patient with Ksenia Kilpatrick DIRECTOR [employer] 12/15/2020 Last Documented On 1 8:13PM ; [facility] Z68.20 - Body mass index [BM I] 20.0-20.9, adult Medical Established Patient with Ksenia Kilpatrick DIRECTOR [employer] 12/15/2020 Last Documented On 1 8:13PM ; [facility] Moderate recurrent major depression BH E stablished Patient with Radha Short LISWS 09/29/2020 Last Documented On 1 5:02PM ; [facility] Panic disorder without agoraphobia BH Es tablished Patient with Radha Short LISWS 09/29/2020 Last Documented On 1 5:02PM ; [facility] Body mass index [Body mass i ndex [BMI] 21.0-21.9, adult] Medical Established Patient with Nick Shawn DIRECTOR [employer] 09/29/2020 Last Documented On 1 10:45AM ; [facility] Generalized anxiety disorder Medical Est ablished Patient with Nick Shawn DIRECTOR [employer] 09/29/2020 Last Documented On 1 10:45AM ; [facility] Moderate major depression, s nicolasa episode Medical Established Patient with Nick Shawn DIRECTOR [employer] 09/29/2020 Last Documented On 1 10:45AM ; [facility] Mild recurrent major depression BH Estab lished Patient with Radha Short LISWS 09/10/2020 Last Documented On 0 12:31PM ; [facility] Panic disorder without agoraphobia BH Es tablished Patient with Radha Short LISWS 09/10/2020 Last Documented On 0 12:31PM ; [facility] Body mass index Medical Established Patient with Nick Shawn DIRECTOR [employer] 09/10/2020 Last Documented On 0 11:17AM ; [facility] Mild recurrent major depression BH Estab lished Patient with Radha Short LISWS 08/27/2020 Last Documented On 0 10:21AM ; [facility] Panic disorder without agoraphobia BH Es tablished Patient with Radha Short LISWS 08/27/2020 Last Documented On 0 10:21AM ; [facility] Body mass index [Body mass i ndex [BMI] 22.0-22.9, adult] Medical Established Patient with Nick Shawn DIRECTOR [employer] 08/27/2020 Last Documented On 0 8:00PM ; [facility] Generalized anxiety disorder Medical Est ablished Patient with Nick Shawn DIRECTOR [employer] 08/27/2020 Last Documented On 0 8:00PM ; [facility] Moderate major depression, s nicolasa episode Medical Established Patient with Nick Shawn DIRECTOR [employer] 08/27/2020 Last Documented On 0 8:00PM ; [facility] Depression Established Patient with Maura keyon Short LISWS 08/13/2020 Last Documented On 0 4:55PM ; [facility] Panic disorder without agoraphobia Es tablished Patient with Radha Short LISWS 08/13/2020 Last Documented On 0 4:55PM ; [facility] Depression Established Patient with Maura keyon Short LISWS 06/15/2020 Last Documented On 0 2:23PM ; [facility] Panic disorder without agoraphobia Es tablished Patient with Radha Short LISWS 06/15/2020 Last Documented On 0 2:23PM ; [facility] Depression Established Patient with Maura keyon Short LISWS 05/27/2020 Last Documented On 0 6:54PM ; [facility] Panic disorder without agoraphobia Es tablished Patient with Radha Short LISWS 05/27/2020 Last Documented On 0 6:54PM ; [facility] Depressive disorder Established Patient with Radha Short LISWS 05/18/2020 Last Documented On 0 8:46AM ; [facility] Panic disorder without agoraphobia Es tablished Patient with Radha Short LISWS 05/18/2020 Last Documented On 0 8:46AM ; [facility] Anxiety disorder NOS Medical New Patient with Ca ssie Shawn DIRECTOR [employer] 05/18/2020 Last Documented On 0 6:40PM ; [facility] Body mass index Medical New Patient with Nick Escobar DIRECTOR [employer] 05/18/2020 Last Documented On 0 6:40PM ; [facility] Depression Medical New Patient with Nick Escobar DIRECTOR [employer] 05/18/2020 Last Documented On 0 6:40PM ; [facility] Diabetes Risk Test Score was one score 05/18/2020 Medical New Patient with Nick Escobar DIRECTOR [employer] 05/18/2020 Last Documented On 0 6:40PM ; [facility] Routine history and physical Medical New Patient with Nick Escobar DIRECTOR [employer] 05/18/2020 Last Documented On 0 6:40PM ; [facility] Work Phone: History general Narrative - Reported Includes: Medical History in patient's chart Description Last Updated No prior surgery or no significant histo ry 12/26/2023 Last Documented On 4 9:58AM ; [facility] No Safety Measures 11/23/2023 Last Documented On 4 6:43PM ; [facility] No previous hospitalizations 12/15/2020 Last Documented On 1 8:13PM ; [facility] History of anxiety disorder NOS 05/18/20 20 Last Documented On 0 6:40PM ; [facility] History of depression 05/18/2020 Last Documented On 0 6:40PM ; [facility] History of psychiatric disorders 020 Last Documented On 0 6:40PM ; [facility] A recent immunization for flu 05/18/2020 Last Documented On 0 6:40PM ; [facility] Work Phone: History of Present illness Narrative History of Present Illness not supported for this document type No [facility] of [facility]: Instructions Instructions not supported for this document type No [facility]: Instructions Includes: Instructions for all patient encounters Education and Decision Aids were provided during visit for: Discussed nutritional needs teach healthy choices including fruits and vegetables Last Documented On 3 8:52AM ; [facility] Patient education about a pr oper diet Last Documented On 3 8:52AM ; [facility] Discussed concerns about exe rcise : promote physical activity Last Documented On 3 8:52AM ; [facility] Discussed nutritional needs teach healthy choices including fruits and vegetables Last Documented On 1 12:11PM ; [facility] Patient education about a pr oper diet Last Documented On 1 12:11PM ; [facility] Inquiry and counseling about medication administration and compliance Last Documented On 1 1:57PM ; [facility] Discussed concerns about exe rcise : promote physical activity Last Documented On 1 12:11PM ; [facility] Patient goals discussed Last Documented On 1 1:57PM ; [facility] provided active listenin g, support and helped patient process through current symptoms and stressors due to patient not feeling well currently. [facility] reminded patient of importance of taking medications daily as prescribed and following up with scheduled psychiatry visits Last Documented On 1 9:59PM ; [facility] Explored current self-care m ethods (eg.,fixing up the house ) and encouraged patient to continue using them. ~ Last Documented On 1 10:48PM ; [facility] Discussed nutritional needs teach healthy choices including fruits and vegetables Last Documented On 1 5:48PM ; [facility] Patient education about a pr oper diet Last Documented On 1 5:48PM ; [facility] Discussed concerns about exe rcise : promote physical activity Last Documented On 1 5:48PM ; [facility] provided active listenin g, support and helped patient process through current symptoms and stressors related to low moods and increased anxiety. [facility] discussed getting established with counseling and provided list of area resources. 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 Anne's office. [facility] discussed crisis resources should they be needed and provided list of resources including local resources as well as national text and phone hotlines. ~[facility] discussed coping skills to manage increased anxiety including deep breathing and mindfulness resources Last Documented On 1 4:59PM ; [facility] provided active listenin g, support and helped patient process through current symptoms and stressors related to increased anxiety/panic and its impact on daily functioning. ~P discussed patients effective coping skills and other tools that may be helpful and using technology to support these. ~[facility] discussed potential benefit of meeting with counselor and psychiatry to continue to work on anxiety and mood. ~ Last Documented On 0 12:31PM ; [facility] provided active listenin g, support and helped patient process through current symptoms and stressors related to increased anxiety and depression. ~P discussed coping skills with patient to manage increased anxiety and went over breathing techniques, meditation and mindfulness activities. Patient reports that focusing on his breathing has been helpful in controlling anxiety. ~[facility] discussed the importance of establishing counseling and patient is willing and was given list of counseling resources. ~P discussed importance of taking medications daily around the same time daily. [facility] and PCP discussed importance of trying to go to work and do things to increase physical activity Last Documented On 0 10:21AM ; [facility] provided active listenin g, support and helped patient process through current symptoms and stressors. ~P discussed importance of medication compliance. [facility] encouraged patient to set reminders, utilizing pill organizer, etc to help remember to take medications regularly Last Documented On 0 4:55PM ; [facility] offered active and suppo rtive listening, normalized emotions and feelings, and processed current stressors. ~P praised patient for taking medications and working to find coping skills that work for him. Patient is not interested in attending therapy services at this time. ~[facility] discussed strategies that can help patient to remember to take medications daily such as phone reminders or establishing a new routine of taking them before work, etc Last Documented On 0 2:23PM ; [facility] Patient education about a pr oper diet Last Documented On 0 7:47PM ; [facility] Inquiry and counseling about medication administration and compliance Last Documented On 0 7:47PM ; [facility] Patient goals discussed Last Documented On 0 7:47PM ; [facility] Patient education about a pr oper diet Last Documented On 0 7:41PM ; [facility] Inquiry and counseling about medication administration and compliance Last Documented On 0 7:41PM ; [facility] Patient goals discussed Last Documented On 0 7:41PM ; [facility] provided active listenin g, support and helped patient process through current symptoms and stressors. ~[facility] reviewed coping skills with patient including breathing methods and demonstrated to patient. Patient was encouraged to utilize music and coping skills during breaks to help prevent or reduce anxiety during specific time period reported Last Documented On 0 6:54PM ; [facility] Patient education about a pr oper diet Last Documented On 0 9:59AM ; [facility] Inquiry and counseling about medication administration and compliance Last Documented On 0 9:59AM ; [facility] Patient goals discussed Last Documented On 0 9:59AM ; [facility] introduced [facility] to [facility] integrated model of care. ~[facility] offered active and supportive listening, normalized emotions and feelings, and processed current stressors related to increased anxiety and impact on work and daily life. ~[facility] discussed coping skills that patient can implement to manage increased anxiety including deep breathing and mindfulness. [facility] discussed identifying signs of increasing anxxiety and utilizing coping skills early Last Documented On 0 8:44AM ; [facility] Patient education about a pr oper diet Last Documented On 0 11:08AM ; [facility] Discussed concerns about exe rcise : promote physical activity Last Documented On 0 11:08AM ; [facility] Work Phone: Instructions Includes: Instructions for all patient encounters Education and Decision Aids were provided during visit for: P provided active listenin g, support and helped pt process though current symptoms and stressor(s); explored ssues of grief/loss; promoted benefits of counseling, effectiveness of medication, use of coping mechanisms, self-care practices, and support system Last Documented On 3 9:07AM ; [facility] Reviewed side effects and Ri sks/Benefits analysis Last Documented On 3 9:07AM ; [facility] Discussed nutritional needs teach healthy choices including fruits and vegetables Last Documented On 3 8:52AM ; [facility] Patient education about a pr oper diet Last Documented On 3 8:52AM ; [facility] Discussed concerns about exe rcise : promote physical activity Last Documented On 3 8:52AM ; [facility] Discussed nutritional needs teach healthy choices including fruits and vegetables Last Documented On 1 12:11PM ; [facility] Patient education about a pr oper diet Last Documented On 1 12:11PM ; [facility] Inquiry and counseling about medication administration and compliance Last Documented On 1 1:57PM ; [facility] Discussed concerns about exe rcise : promote physical activity Last Documented On 1 12:11PM ; [facility] Patient goals discussed Last Documented On 1 1:57PM ; [facility] provided active listenin g, support and helped patient process through current symptoms and stressors due to patient not feeling well currently. [facility] reminded patient of importance of taking medications daily as prescribed and following up with scheduled psychiatry visits Last Documented On 1 9:59PM ; [facility] Explored current self-care m ethods (eg.,fixing up the house ) and encouraged patient to continue using them. ~ Last Documented On 1 10:48PM ; [facility] Discussed nutritional needs teach healthy choices including fruits and vegetables Last Documented On 1 5:48PM ; [facility] Patient education about a pr oper diet Last Documented On 1 5:48PM ; [facility] Discussed concerns about exe rcise : promote physical activity Last Documented On 1 5:48PM ; [facility] provided active listenin g, support and helped patient process through current symptoms and stressors related to low moods and increased anxiety. [facility] discussed getting established with counseling and provided list of area resources. 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 Anne's office. ~[facility] discussed crisis resources should they be needed and provided list of resources including local resources as well as national text and phone hotlines. ~[facility] discussed coping skills to manage increased anxiety including deep breathing and mindfulness resources Last Documented On 1 4:59PM ; [facility] provided active listenin g, support and helped patient process through current symptoms and stressors related to increased anxiety/panic and its impact on daily functioning. ~[facility] discussed patients effective coping skills and other tools that may be helpful and using technology to support these. ~[facility] discussed potential benefit of meeting with counselor and psychiatry to continue to work on anxiety and mood. ~ Last Documented On 0 12:31PM ; [facility] provided active listenin g, support and helped patient process through current symptoms and stressors related to increased anxiety and depression. ~P discussed coping skills with patient to manage increased anxiety and went over breathing techniques, meditation and mindfulness activities. Patient reports that focusing on his breathing has been helpful in controlling anxiety. ~[facility] discussed the importance of establishing counseling and patient is willing and was given list of counseling resources. ~[facility] discussed importance of taking medications daily around the same time daily. P and PCP discussed importance of trying to go to work and do things to increase physical activity Last Documented On 0 10:21AM ; [facility] provided active listenin g, support and helped patient process through current symptoms and stressors. ~[facility] discussed importance of medication compliance. [facility] encouraged patient to set reminders, utilizing pill organizer, etc to help remember to take medications regularly Last Documented On 0 4:55PM ; [facility] offered active and suppo rtive listening, normalized emotions and feelings, and processed current stressors. ~[facility] praised patient for taking medications and working to find coping skills that work for him. Patient is not interested in attending therapy services at this time. ~[facility] discussed strategies that can help patient to remember to take medications daily such as phone reminders or establishing a new routine of taking them before work, etc Last Documented On 0 2:23PM ; [facility] Patient education about a pr oper diet Last Documented On 0 7:47PM ; [facility] Inquiry and counseling about medication administration and compliance Last Documented On 0 7:47PM ; [facility] Patient goals discussed Last Documented On 0 7:47PM ; [facility] Patient education about a pr oper diet Last Documented On 0 7:41PM ; [facility] Inquiry and counseling about medication administration and compliance Last Documented On 0 7:41PM ; [facility] Patient goals discussed Last Documented On 0 7:41PM ; [facility] provided active listenin g, support and helped patient process through current symptoms and stressors. ~[facility] reviewed coping skills with patient including breathing methods and demonstrated to patient. Patient was encouraged to utilize music and coping skills during breaks to help prevent or reduce anxiety during specific time period reported Last Documented On 0 6:54PM ; [facility] Patient education about a pr oper diet Last Documented On 0 9:59AM ; [facility] Inquiry and counseling about medication administration and compliance Last Documented On 0 9:59AM ; [facility] Patient goals discussed Last Documented On 0 9:59AM ; [facility] introduced patient to [facility] integrated model of care. ~[facility] offered active and supportive listening, normalized emotions and feelings, and processed current stressors related to increased anxiety and impact on work and daily life. ~[facility] discussed coping skills that patient can implement to manage increased anxiety including deep breathing and mindfulness. [facility] discussed identifying signs of increasing anxxiety and utilizing coping skills early Last Documented On 0 8:44AM ; [facility] Patient education about a pr oper diet Last Documented On 0 11:08AM ; [facility] Discussed concerns about exe rcise : promote physical activity Last Documented On 0 11:08AM ; [facility] Work Phone: Instructions Includes: Instructions for all patient encounters Education and Decision Aids were provided during visit for: Discussed nutritional needs teach healthy choices including fruits and vegetables Last Documented On 3 8:47AM ; [facility] Patient education about a pr oper diet Last Documented On 3 8:47AM ; [facility] Discussed concerns about exe rcise : promote physical activity ~ ~Will stop hydroxyzine and start trazodone Last Documented On 3 9:05AM ; [facility] provided active listenin g, support and helped pt process though current symptoms and stressor(s); explored ssues of grief/loss; promoted benefits of counseling, effectiveness of medication, use of coping mechanisms, self-care practices, and support system Last Documented On 3 9:07AM ; [facility] Reviewed side effects and Ri sks/Benefits analysis Last Documented On 3 9:07AM ; [facility] Discussed nutritional needs teach healthy choices including fruits and vegetables Last Documented On 3 8:52AM ; [facility] Patient education about a pr oper diet Last Documented On 3 8:52AM ; [facility] Discussed concerns about exe rcise : promote physical activity Last Documented On 3 8:52AM ; [facility] Discussed nutritional needs teach healthy choices including fruits and vegetables Last Documented On 1 12:11PM ; [facility] Patient education about a pr oper diet Last Documented On 1 12:11PM ; [facility] Inquiry and counseling about medication administration and compliance Last Documented On 1 1:57PM ; [facility] Discussed concerns about exe rcise : promote physical activity Last Documented On 1 12:11PM ; [facility] Patient goals discussed Last Documented On 1 1:57PM ; [facility] provided active listenin g, support and helped patient process through current symptoms and stressors due to patient not feeling well currently. ~P reminded patient of importance of taking medications daily as prescribed and following up with scheduled psychiatry visits Last Documented On 1 9:59PM ; [facility] Explored current self-care m ethods (eg.,fixing up the house ) and encouraged patient to continue using them. ~ Last Documented On 1 10:48PM ; [facility] Discussed nutritional needs teach healthy choices including fruits and vegetables Last Documented On 1 5:48PM ; [facility] Patient education about a pr oper diet Last Documented On 1 5:48PM ; [facility] Discussed concerns about exe rcise : promote physical activity Last Documented On 1 5:48PM ; [facility] provided active listenin g, support and helped patient process through current symptoms and stressors related to low moods and increased anxiety. ~[facility] discussed getting established with counseling and provided list of area resources. 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 Anne's office. ~[facility] discussed crisis resources should they be needed and provided list of resources including local resources as well as national text and phone hotlines. ~[facility] discussed coping skills to manage increased anxiety including deep breathing and mindfulness resources Last Documented On 1 4:59PM ; [facility] provided active listenin g, support and helped patient process through current symptoms and stressors related to increased anxiety/panic and its impact on daily functioning. ~[facility] discussed patients effective coping skills and other tools that may be helpful and using technology to support these. ~[facility] discussed potential benefit of meeting with counselor and psychiatry to continue to work on anxiety and mood. ~ Last Documented On 0 12:31PM ; [facility] provided active listenin g, support and helped patient process through current symptoms and stressors related to increased anxiety and depression. ~P discussed coping skills with patient to manage increased anxiety and went over breathing techniques, meditation and mindfulness activities. Patient reports that focusing on his breathing has been helpful in controlling anxiety. ~[facility] discussed the importance of establishing counseling and patient is willing and was given list of counseling resources. ~P discussed importance of taking medications daily around the same time daily. [facility] and PCP discussed importance of trying to go to work and do things to increase physical activity Last Documented On 0 10:21AM ; [facility] provided active listenin g, support and helped patient process through current symptoms and stressors. ~P discussed importance of medication compliance. P encouraged patient to set reminders, utilizing pill organizer, etc to help remember to take medications regularly Last Documented On 0 4:55PM ; [facility] offered active and suppo rtive listening, normalized emotions and feelings, and processed current stressors. [facility] praised patient for taking medications and working to find coping skills that work for him. Patient is not interested in attending therapy services at this time. ~[facility] discussed strategies that can help patient to remember to take medications daily such as phone reminders or establishing a new routine of taking them before work, etc Last Documented On 0 2:23PM ; [facility] Patient education about a pr oper diet Last Documented On 0 7:47PM ; [facility] Inquiry and counseling about medication administration and compliance Last Documented On 0 7:47PM ; [facility] Patient goals discussed Last Documented On 0 7:47PM ; [facility] Patient education about a pr oper diet Last Documented On 0 7:41PM ; [facility] Inquiry and counseling about medication administration and compliance Last Documented On 0 7:41PM ; [facility] Patient goals discussed Last Documented On 0 7:41PM ; [facility] provided active listenin g, support and helped patient process through current symptoms and stressors. ~[facility] reviewed coping skills with patient including breathing methods and demonstrated to patient. Patient was encouraged to utilize music and coping skills during breaks to help prevent or reduce anxiety during specific time period reported Last Documented On 0 6:54PM ; [facility] Patient education about a pr oper diet Last Documented On 0 9:59AM ; [facility] Inquiry and counseling about medication administration and compliance Last Documented On 0 9:59AM ; [facility] Patient goals discussed Last Documented On 0 9:59AM ; [facility] introduced patient to [facility] integrated model of care. ~[facility] offered active and supportive listening, normalized emotions and feelings, and processed current stressors related to increased anxiety and impact on work and daily life. ~[facility] discussed coping skills that patient can implement to manage increased anxiety including deep breathing and mindfulness. [facility] discussed identifying signs of increasing anxxiety and utilizing coping skills early Last Documented On 0 8:44AM ; [facility] Patient education about a pr oper diet Last Documented On 0 11:08AM ; [facility] Discussed concerns about exe rcise : promote physical activity Last Documented On 0 11:08AM ; [facility] Work Phone: Instructions Includes: Instructions for all patient encounters Education and Decision Aids were provided during visit for: [facility] provided active listenin g, support and helped pt process though current symptoms and stressor(s); discussed effectiveness of medication, coping mechanisms, self- care practices, and sources for positive support Last Documented On 3 5:44PM ; [facility] Discussed nutritional needs teach healthy choices including fruits and vegetables Last Documented On 3 8:47AM ; [facility] Patient education about a pr oper diet Last Documented On 3 8:47AM ; [facility] Discussed concerns about exe rcise : promote physical activity ~ ~Will stop hydroxyzine and start trazodone Last Documented On 3 9:05AM ; [facility] provided active listenin g, support and helped pt process though current symptoms and stressor(s); explored ssues of grief/loss; promoted benefits of counseling, effectiveness of medication, use of coping mechanisms, self-care practices, and support system Last Documented On 3 9:07AM ; [facility] Reviewed side effects and Ri sks/Benefits analysis Last Documented On 3 9:07AM ; [facility] Discussed nutritional needs teach healthy choices including fruits and vegetables Last Documented On 3 8:52AM ; [facility] Patient education about a pr oper diet Last Documented On 3 8:52AM ; [facility] Discussed concerns about exe rcise : promote physical activity Last Documented On 3 8:52AM ; [facility] Discussed nutritional needs teach healthy choices including fruits and vegetables Last Documented On 1 12:11PM ; [facility] Patient education about a pr oper diet Last Documented On 1 12:11PM ; [facility] Inquiry and counseling about medication administration and compliance Last Documented On 1 1:57PM ; [facility] Discussed concerns about exe rcise : promote physical activity Last Documented On 1 12:11PM ; [facility] Patient goals discussed Last Documented On 1 1:57PM ; [facility] provided active listenin g, support and helped patient process through current symptoms and stressors due to patient not feeling well currently. [facility] reminded patient of importance of taking medications daily as prescribed and following up with scheduled psychiatry visits Last Documented On 1 9:59PM ; [facility] Explored current self-care m ethods (eg.,fixing up the house ) and encouraged patient to continue using them. ~ Last Documented On 1 10:48PM ; [facility] Discussed nutritional needs teach healthy choices including fruits and vegetables Last Documented On 1 5:48PM ; [facility] Patient education about a pr oper diet Last Documented On 1 5:48PM ; [facility] Discussed concerns about exe rcise : promote physical activity Last Documented On 1 5:48PM ; [facility] provided active listenin g, support and helped patient process through current symptoms and stressors related to low moods and increased anxiety. [facility] discussed getting established with counseling and provided list of area resources. 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 Anne's office. [facility] discussed crisis resources should they be needed and provided list of resources including local resources as well as national text and phone hotlines. [facility] discussed coping skills to manage increased anxiety including deep breathing and mindfulness resources Last Documented On 1 4:59PM ; [facility] provided active listenin g, support and helped patient process through current symptoms and stressors related to increased anxiety/panic and its impact on daily functioning. [facility] discussed patients effective coping skills and other tools that may be helpful and using technology to support these. [facility] discussed potential benefit of meeting with counselor and psychiatry to continue to work on anxiety and mood. ~ Last Documented On 0 12:31PM ; [facility] provided active listenin g, support and helped patient process through current symptoms and stressors related to increased anxiety and depression. ~P discussed coping skills with patient to manage increased anxiety and went over breathing techniques, meditation and mindfulness activities. Patient reports that focusing on his breathing has been helpful in controlling anxiety. ~P discussed the importance of establishing counseling and patient is willing and was given list of counseling resources. ~P discussed importance of taking medications daily around the same time daily. [facility] and PCP discussed importance of trying to go to work and do things to increase physical activity Last Documented On 0 10:21AM ; [facility] provided active listenin g, support and helped patient process through current symptoms and stressors. ~P discussed importance of medication compliance. [facility] encouraged patient to set reminders, utilizing pill organizer, etc to help remember to take medications regularly Last Documented On 0 4:55PM ; [facility] offered active and suppo rtive listening, normalized emotions and feelings, and processed current stressors. ~P praised patient for taking medications and working to find coping skills that work for him. Patient is not interested in attending therapy services at this time. ~[facility] discussed strategies that can help patient to remember to take medications daily such as phone reminders or establishing a new routine of taking them before work, etc Last Documented On 0 2:23PM ; [facility] Patient education about a pr oper diet Last Documented On 0 7:47PM ; [facility] Inquiry and counseling about medication administration and compliance Last Documented On 0 7:47PM ; [facility] Patient goals discussed Last Documented On 0 7:47PM ; [facility] Patient education about a pr oper diet Last Documented On 0 7:41PM ; [facility] Inquiry and counseling about medication administration and compliance Last Documented On 0 7:41PM ; [facility] Patient goals discussed Last Documented On 0 7:41PM ; [facility] provided active listenin g, support and helped patient process through current symptoms and stressors. ~P reviewed coping skills with patient including breathing methods and demonstrated to patient. Patient was encouraged to utilize music and coping skills during breaks to help prevent or reduce anxiety during specific time period reported Last Documented On 0 6:54PM ; [facility] Patient education about a pr oper diet Last Documented On 0 9:59AM ; [facility] Inquiry and counseling about medication administration and compliance Last Documented On 0 9:59AM ; [facility] Patient goals discussed Last Documented On 0 9:59AM ; [facility] introduced patient to [facility] integrated model of care. ~P offered active and supportive listening, normalized emotions and feelings, and processed current stressors related to increased anxiety and impact on work and daily life. ~[facility] discussed coping skills that patient can implement to manage increased anxiety including deep breathing and mindfulness. [facility] discussed identifying signs of increasing anxxiety and utilizing coping skills early Last Documented On 0 8:44AM ; [facility] Patient education about a pr oper diet Last Documented On 0 11:08AM ; [facility] Discussed concerns about exe rcise : promote physical activity Last Documented On 0 11:08AM ; [facility] Work Phone: Instructions Includes: Instructions for all patient encounters Education and Decision Aids were provided during visit for: [facility] provided active listenin g, support and helped pt process though current symptoms and stressor(s); discussed effectiveness of medication, coping mechanisms, self- care practices, and sources for positive support Last Documented On 3 5:44PM ; [facility] Discussed nutritional needs teach healthy choices including fruits and vegetables Last Documented On 3 8:47AM ; [facility] Patient education about a pr oper diet Last Documented On 3 8:47AM ; [facility] Discussed concerns about exe rcise : promote physical activity ~ ~Will stop hydroxyzine and start trazodone Last Documented On 3 9:05AM ; [facility] provided active listenin g, support and helped pt process though current symptoms and stressor(s); explored ssues of grief/loss; promoted benefits of counseling, effectiveness of medication, use of coping mechanisms, self-care practices, and support system Last Documented On 3 9:07AM ; [facility] Reviewed side effects and Ri sks/Benefits analysis Last Documented On 3 9:07AM ; [facility] Discussed nutritional needs teach healthy choices including fruits and vegetables Last Documented On 3 8:52AM ; [facility] Patient education about a pr oper diet Last Documented On 3 8:52AM ; [facility] Discussed concerns about exe rcise : promote physical activity Last Documented On 3 8:52AM ; [facility] Discussed nutritional needs teach healthy choices including fruits and vegetables Last Documented On 1 12:11PM ; [facility] Patient education about a pr oper diet Last Documented On 1 12:11PM ; [facility] Inquiry and counseling about medication administration and compliance Last Documented On 1 1:57PM ; [facility] Discussed concerns about exe rcise : promote physical activity Last Documented On 1 12:11PM ; [facility] Patient goals discussed Last Documented On 1 1:57PM ; [facility] provided active listenin g, support and helped patient process through current symptoms and stressors due to patient not feeling well currently. [facility] reminded patient of importance of taking medications daily as prescribed and following up with scheduled psychiatry visits Last Documented On 1 9:59PM ; [facility] Explored current self-care m ethods (eg.,fixing up the house ) and encouraged patient to continue using them. ~ Last Documented On 1 10:48PM ; [facility] Discussed nutritional needs teach healthy choices including fruits and vegetables Last Documented On 1 5:48PM ; [facility] Patient education about a pr oper diet Last Documented On 1 5:48PM ; [facility] Discussed concerns about exe rcise : promote physical activity Last Documented On 1 5:48PM ; [facility] provided active listenin g, support and helped patient process through current symptoms and stressors related to low moods and increased anxiety. ~[facility] discussed getting established with counseling and provided list of area resources. [facility] to work on getting patient scheduled with Dr. Anne's office. ~[facility] discussed crisis resources should they be needed and provided list of resources including local resources as well as national text and phone hotlines. ~[facility] discussed coping skills to manage increased anxiety including deep breathing and mindfulness resources Last Documented On 1 4:59PM ; [facility] provided active listenin g, support and helped patient process through current symptoms and stressors related to increased anxiety/panic and its impact on daily functioning. ~P discussed patients effective coping skills and other tools that may be helpful and using technology to support these. ~[facility] discussed potential benefit of meeting with counselor and psychiatry to continue to work on anxiety and mood. ~ Last Documented On 0 12:31PM ; [facility] provided active listenin g, support and helped patient process through current symptoms and stressors related to increased anxiety and depression. ~P discussed coping skills with patient to manage increased anxiety and went over breathing techniques, meditation and mindfulness activities. Patient reports that focusing on his breathing has been helpful in controlling anxiety. ~[facility] discussed the importance of establishing counseling and patient is willing and was given list of counseling resources. ~[facility] discussed importance of taking medications daily around the same time daily. P and PCP discussed importance of trying to go to work and do things to increase physical activity Last Documented On 0 10:21AM ; [facility] provided active listenin g, support and helped patient process through current symptoms and stressors. ~[facility] discussed importance of medication compliance. [facility] encouraged patient to set reminders, utilizing pill organizer, etc to help remember to take medications regularly Last Documented On 0 4:55PM ; [facility] offered active and suppo rtive listening, normalized emotions and feelings, and processed current stressors. ~[facility] praised patient for taking medications and working to find coping skills that work for him. Patient is not interested in attending therapy services at this time. ~[facility] discussed strategies that can help patient to remember to take medications daily such as phone reminders or establishing a new routine of taking them before work, etc Last Documented On 0 2:23PM ; [facility] Patient education about a pr oper diet Last Documented On 0 7:47PM ; [facility] Inquiry and counseling about medication administration and compliance Last Documented On 0 7:47PM ; [facility] Patient goals discussed Last Documented On 0 7:47PM ; [facility] Patient education about a pr oper diet Last Documented On 0 7:41PM ; [facility] Inquiry and counseling about medication administration and compliance Last Documented On 0 7:41PM ; [facility] Patient goals discussed Last Documented On 0 7:41PM ; [facility] provided active listenin g, support and helped patient process through current symptoms and stressors. ~[facility] reviewed coping skills with patient including breathing methods and demonstrated to patient. Patient was encouraged to utilize music and coping skills during breaks to help prevent or reduce anxiety during specific time period reported Last Documented On 0 6:54PM ; [facility] Patient education about a pr oper diet Last Documented On 0 9:59AM ; [facility] Inquiry and counseling about medication administration and compliance Last Documented On 0 9:59AM ; [facility] Patient goals discussed Last Documented On 0 9:59AM ; [facility] introduced patient to [facility] integrated model of care. ~[facility] offered active and supportive listening, normalized emotions and feelings, and processed current stressors related to increased anxiety and impact on work and daily life. ~[facility] discussed coping skills that patient can implement to manage increased anxiety including deep breathing and mindfulness. [facility] discussed identifying signs of increasing anxxiety and utilizing coping skills early Last Documented On 0 8:44AM ; [facility] Patient education about a pr oper diet Last Documented On 0 11:08AM ; [facility] Discussed concerns about exe rcise : promote physical activity Last Documented On 0 11:08AM ; [facility] Work Phone: Instructions Includes: Instructions for all patient encounters Education and Decision Aids were provided during visit for: Discussed nutritional needs teach healthy choices including fruits and vegetables Last Documented On 3 8:38AM ; [facility] Patient education about a pr oper diet Last Documented On 3 8:38AM ; [facility] Discussed concerns about exe rcise : promote physical activity ~ ~Follow up in three months Last Documented On 3 9:05AM ; [facility] provided active listenin g, support and helped pt process though current symptoms and stressor(s); discussed effectiveness of medication, coping mechanisms, self- care practices, and sources for positive support Last Documented On 3 5:44PM ; [facility] Discussed nutritional needs teach healthy choices including fruits and vegetables Last Documented On 3 8:47AM ; [facility] Patient education about a pr oper diet Last Documented On 3 8:47AM ; [facility] Discussed concerns about exe rcise : promote physical activity ~ ~Will stop hydroxyzine and start trazodone Last Documented On 3 9:05AM ; [facility] provided active listenin g, support and helped pt process though current symptoms and stressor(s); explored ssues of grief/loss; promoted benefits of counseling, effectiveness of medication, use of coping mechanisms, self-care practices, and support system Last Documented On 3 9:07AM ; [facility] Reviewed side effects and Ri sks/Benefits analysis Last Documented On 3 9:07AM ; [facility] Discussed nutritional needs teach healthy choices including fruits and vegetables Last Documented On 3 8:52AM ; [facility] Patient education about a pr oper diet Last Documented On 3 8:52AM ; [facility] Discussed concerns about exe rcise : promote physical activity Last Documented On 3 8:52AM ; [facility] Discussed nutritional needs teach healthy choices including fruits and vegetables Last Documented On 1 12:11PM ; [facility] Patient education about a pr oper diet Last Documented On 1 12:11PM ; [facility] Inquiry and counseling about medication administration and compliance Last Documented On 1 1:57PM ; [facility] Discussed concerns about exe rcise : promote physical activity Last Documented On 1 12:11PM ; [facility] Patient goals discussed Last Documented On 1 1:57PM ; [facility] provided active listenin g, support and helped patient process through current symptoms and stressors due to patient not feeling well currently. [facility] reminded patient of importance of taking medications daily as prescribed and following up with scheduled psychiatry visits Last Documented On 1 9:59PM ; [facility] Explored current self-care m ethods (eg.,fixing up the house ) and encouraged patient to continue using them. ~ Last Documented On 1 10:48PM ; [facility] Discussed nutritional needs teach healthy choices including fruits and vegetables Last Documented On 1 5:48PM ; [facility] Patient education about a pr oper diet Last Documented On 1 5:48PM ; [facility] Discussed concerns about exe rcise : promote physical activity Last Documented On 1 5:48PM ; [facility] provided active listenin g, support and helped patient process through current symptoms and stressors related to low moods and increased anxiety. [facility] discussed getting established with counseling and provided list of area resources. 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 Anne's office. [facility] discussed crisis resources should they be needed and provided list of resources including local resources as well as national text and phone hotlines. [facility] discussed coping skills to manage increased anxiety including deep breathing and mindfulness resources Last Documented On 1 4:59PM ; [facility] provided active listenin g, support and helped patient process through current symptoms and stressors related to increased anxiety/panic and its impact on daily functioning. [facility] discussed patients effective coping skills and other tools that may be helpful and using technology to support these. [facility] discussed potential benefit of meeting with counselor and psychiatry to continue to work on anxiety and mood. ~ Last Documented On 0 12:31PM ; [facility] provided active listenin g, support and helped patient process through current symptoms and stressors related to increased anxiety and depression. [facility] discussed coping skills with patient to manage increased anxiety and went over breathing techniques, meditation and mindfulness activities. Patient reports that focusing on his breathing has been helpful in controlling anxiety. ~[facility] discussed the importance of establishing counseling and patient is willing and was given list of counseling resources. ~P discussed importance of taking medications daily around the same time daily. [facility] and PCP discussed importance of trying to go to work and do things to increase physical activity Last Documented On 0 10:21AM ; [facility] provided active listenin g, support and helped patient process through current symptoms and stressors. ~[facility] discussed importance of medication compliance. [facility] encouraged patient to set reminders, utilizing pill organizer, etc to help remember to take medications regularly Last Documented On 0 4:55PM ; [facility] offered active and suppo rtive listening, normalized emotions and feelings, and processed current stressors. ~P praised patient for taking medications and working to find coping skills that work for him. Patient is not interested in attending therapy services at this time. ~[facility] discussed strategies that can help patient to remember to take medications daily such as phone reminders or establishing a new routine of taking them before work, etc Last Documented On 0 2:23PM ; [facility] Patient education about a pr oper diet Last Documented On 0 7:47PM ; [facility] Inquiry and counseling about medication administration and compliance Last Documented On 0 7:47PM ; [facility] Patient goals discussed Last Documented On 0 7:47PM ; [facility] Patient education about a pr oper diet Last Documented On 0 7:41PM ; [facility] Inquiry and counseling about medication administration and compliance Last Documented On 0 7:41PM ; [facility] Patient goals discussed Last Documented On 0 7:41PM ; [facility] provided active listenin g, support and helped patient process through current symptoms and stressors. ~[facility] reviewed coping skills with patient including breathing methods and demonstrated to patient. Patient was encouraged to utilize music and coping skills during breaks to help prevent or reduce anxiety during specific time period reported Last Documented On 0 6:54PM ; [facility] Patient education about a pr oper diet Last Documented On 0 9:59AM ; [facility] Inquiry and counseling about medication administration and compliance Last Documented On 0 9:59AM ; [facility] Patient goals discussed Last Documented On 0 9:59AM ; [facility] introduced patient to [facility] integrated model of care. ~P offered active and supportive listening, normalized emotions and feelings, and processed current stressors related to increased anxiety and impact on work and daily life. ~P discussed coping skills that patient can implement to manage increased anxiety including deep breathing and mindfulness. P discussed identifying signs of increasing anxxiety and utilizing coping skills early Last Documented On 0 8:44AM ; [facility] Patient education about a pr oper diet Last Documented On 0 11:08AM ; [facility] Discussed concerns about exe rcise : promote physical activity Last Documented On 0 11:08AM ; [facility] Work Phone: Instructions Includes: Instructions for all patient encounters Education and Decision Aids were provided during visit for: P provided active listenin g and reflective feedback; monitored mood; assessed symptoms, and functioning. ~Offered pt space to process though current symptoms and stressor(s); explored effectiveness of medication, coping mechanisms, and self- care practices. ~Encouraged use, as needed Last Documented On 3 6:55AM ; [facility] Discussed nutritional needs teach healthy choices including fruits and vegetables Last Documented On 3 8:38AM ; [facility] Patient education about a pr oper diet Last Documented On 3 8:38AM ; [facility] Discussed concerns about exe rcise : promote physical activity ~ ~Follow up in three months Last Documented On 3 9:05AM ; [facility] provided active listenin g, support and helped pt process though current symptoms and stressor(s); discussed effectiveness of medication, coping mechanisms, self- care practices, and sources for positive support Last Documented On 3 5:44PM ; [facility] Discussed nutritional needs teach healthy choices including fruits and vegetables Last Documented On 3 8:47AM ; [facility] Patient education about a pr oper diet Last Documented On 3 8:47AM ; [facility] Discussed concerns about exe rcise : promote physical activity ~ ~Will stop hydroxyzine and start trazodone Last Documented On 3 9:05AM ; [facility] provided active listenin g, support and helped pt process though current symptoms and stressor(s); explored ssues of grief/loss; promoted benefits of counseling, effectiveness of medication, use of coping mechanisms, self-care practices, and support system Last Documented On 3 9:07AM ; [facility] Reviewed side effects and Ri sks/Benefits analysis Last Documented On 3 9:07AM ; [facility] Discussed nutritional needs teach healthy choices including fruits and vegetables Last Documented On 3 8:52AM ; [facility] Patient education about a pr oper diet Last Documented On 3 8:52AM ; [facility] Discussed concerns about exe rcise : promote physical activity Last Documented On 3 8:52AM ; [facility] Discussed nutritional needs teach healthy choices including fruits and vegetables Last Documented On 1 12:11PM ; [facility] Patient education about a pr oper diet Last Documented On 1 12:11PM ; [facility] Inquiry and counseling about medication administration and compliance Last Documented On 1 1:57PM ; [facility] Discussed concerns about exe rcise : promote physical activity Last Documented On 1 12:11PM ; [facility] Patient goals discussed Last Documented On 1 1:57PM ; [facility] provided active listenin g, support and helped patient process through current symptoms and stressors due to patient not feeling well currently. ~P reminded patient of importance of taking medications daily as prescribed and following up with scheduled psychiatry visits Last Documented On 1 9:59PM ; [facility] Explored current self-care m ethods (eg.,fixing up the house ) and encouraged patient to continue using them. ~ Last Documented On 1 10:48PM ; [facility] Discussed nutritional needs teach healthy choices including fruits and vegetables Last Documented On 1 5:48PM ; [facility] Patient education about a pr oper diet Last Documented On 1 5:48PM ; [facility] Discussed concerns about exe rcise : promote physical activity Last Documented On 1 5:48PM ; [facility] provided active listenin g, support and helped patient process through current symptoms and stressors related to low moods and increased anxiety. ~[facility] discussed getting established with counseling and provided list of area resources. 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 Anne's office. ~[facility] discussed crisis resources should they be needed and provided list of resources including local resources as well as national text and phone hotlines. ~[facility] discussed coping skills to manage increased anxiety including deep breathing and mindfulness resources Last Documented On 1 4:59PM ; [facility] provided active listenin g, support and helped patient process through current symptoms and stressors related to increased anxiety/panic and its impact on daily functioning. ~[facility] discussed patients effective coping skills and other tools that may be helpful and using technology to support these. ~[facility] discussed potential benefit of meeting with counselor and psychiatry to continue to work on anxiety and mood. ~ Last Documented On 0 12:31PM ; [facility] provided active listenin g, support and helped patient process through current symptoms and stressors related to increased anxiety and depression. ~[facility] discussed coping skills with patient to manage increased anxiety and went over breathing techniques, meditation and mindfulness activities. Patient reports that focusing on his breathing has been helpful in controlling anxiety. ~[facility] discussed the importance of establishing counseling and patient is willing and was given list of counseling resources. ~P discussed importance of taking medications daily around the same time daily. [facility] and PCP discussed importance of trying to go to work and do things to increase physical activity Last Documented On 0 10:21AM ; [facility] provided active listenin g, support and helped patient process through current symptoms and stressors. ~P discussed importance of medication compliance. P encouraged patient to set reminders, utilizing pill organizer, etc to help remember to take medications regularly Last Documented On 0 4:55PM ; [facility] offered active and suppo rtive listening, normalized emotions and feelings, and processed current stressors. ~[facility] praised patient for taking medications and working to find coping skills that work for him. Patient is not interested in attending therapy services at this time. ~[facility] discussed strategies that can help patient to remember to take medications daily such as phone reminders or establishing a new routine of taking them before work, etc Last Documented On 0 2:23PM ; [facility] Patient education about a pr oper diet Last Documented On 0 7:47PM ; [facility] Inquiry and counseling about medication administration and compliance Last Documented On 0 7:47PM ; [facility] Patient goals discussed Last Documented On 0 7:47PM ; [facility] Patient education about a pr oper diet Last Documented On 0 7:41PM ; [facility] Inquiry and counseling about medication administration and compliance Last Documented On 0 7:41PM ; [facility] Patient goals discussed Last Documented On 0 7:41PM ; [facility] provided active listenin g, support and helped patient process through current symptoms and stressors. ~[facility] reviewed coping skills with patient including breathing methods and demonstrated to patient. Patient was encouraged to utilize music and coping skills during breaks to help prevent or reduce anxiety during specific time period reported Last Documented On 0 6:54PM ; [facility] Patient education about a pr oper diet Last Documented On 0 9:59AM ; [facility] Inquiry and counseling about medication administration and compliance Last Documented On 0 9:59AM ; [facility] Patient goals discussed Last Documented On 0 9:59AM ; [facility] introduced patient to [facility] integrated model of care. ~[facility] offered active and supportive listening, normalized emotions and feelings, and processed current stressors related to increased anxiety and impact on work and daily life. ~[facility] discussed coping skills that patient can implement to manage increased anxiety including deep breathing and mindfulness. [facility] discussed identifying signs of increasing anxxiety and utilizing coping skills early Last Documented On 0 8:44AM ; [facility] Patient education about a pr oper diet Last Documented On 0 11:08AM ; [facility] Discussed concerns about exe rcise : promote physical activity Last Documented On 0 11:08AM ; [facility] Work Phone: Instructions Includes: Instructions for all patient encounters Education and Decision Aids were provided during visit for: *[facility] offered active and supp ortive listening, normalized emotions and feelings, and processed ~current stressors. ~*Discussed calming coping strategies that patient can utilize Last Documented On 4 6:39PM ; [facility] Discussed nutritional needs teach healthy choices including fruits and vegetables Last Documented On 4 2:53PM ; [facility] Patient education about a pr oper diet Last Documented On 4 2:53PM ; [facility] Discussed concerns about exe rcise : promote physical activity Last Documented On 4 2:53PM ; [facility] Discussed nutritional needs teach healthy choices including fruits and vegetables Last Documented On 3 1:32PM ; [facility] Patient education about a pr oper diet Last Documented On 3 1:32PM ; [facility] Discussed concerns about exe rcise : promote physical activity Last Documented On 3 1:32PM ; [facility] provided active listenin g and reflective feedback; monitored mood; assessed symptoms, and functioning. ~Offered pt space to process though current symptoms and stressor(s); explored effectiveness of medication, coping mechanisms, and self- care practices. ~Encouraged use, as needed Last Documented On 3 6:55AM ; [facility] Discussed nutritional needs teach healthy choices including fruits and vegetables Last Documented On 3 8:38AM ; [facility] Patient education about a pr oper diet Last Documented On 3 8:38AM ; [facility] Discussed concerns about exe rcise : promote physical activity ~ ~Follow up in three months Last Documented On 3 9:05AM ; [facility] provided active listenin g, support and helped pt process though current symptoms and stressor(s); discussed effectiveness of medication, coping mechanisms, self- care practices, and sources for positive support Last Documented On 3 5:44PM ; [facility] Discussed nutritional needs teach healthy choices including fruits and vegetables Last Documented On 3 8:47AM ; [facility] Patient education about a pr oper diet Last Documented On 3 8:47AM ; [facility] Discussed concerns about exe rcise : promote physical activity ~ ~Will stop hydroxyzine and start trazodone Last Documented On 3 9:05AM ; [facility] provided active listenin g, support and helped pt process though current symptoms and stressor(s); explored ssues of grief/loss; promoted benefits of counseling, effectiveness of medication, use of coping mechanisms, self-care practices, and support system Last Documented On 3 9:07AM ; [facility] Reviewed side effects and Ri sks/Benefits analysis Last Documented On 3 9:07AM ; [facility] Discussed nutritional needs teach healthy choices including fruits and vegetables Last Documented On 3 8:52AM ; [facility] Patient education about a pr oper diet Last Documented On 3 8:52AM ; [facility] Discussed concerns about exe rcise : promote physical activity Last Documented On 3 8:52AM ; [facility] Discussed nutritional needs teach healthy choices including fruits and vegetables Last Documented On 1 12:11PM ; [facility] Patient education about a pr oper diet Last Documented On 1 12:11PM ; [facility] Inquiry and counseling about medication administration and compliance Last Documented On 1 1:57PM ; [facility] Discussed concerns about exe rcise : promote physical activity Last Documented On 1 12:11PM ; [facility] Patient goals discussed Last Documented On 1 1:57PM ; [facility] provided active listenin g, support and helped patient process through current symptoms and stressors due to patient not feeling well currently. ~[facility] reminded patient of importance of taking medications daily as prescribed and following up with scheduled psychiatry visits Last Documented On 1 9:59PM ; [facility] Explored current self-care m ethods (eg.,fixing up the house ) and encouraged patient to continue using them. ~ Last Documented On 1 10:48PM ; [facility] Discussed nutritional needs teach healthy choices including fruits and vegetables Last Documented On 1 5:48PM ; [facility] Patient education about a pr oper diet Last Documented On 1 5:48PM ; [facility] Discussed concerns about exe rcise : promote physical activity Last Documented On 1 5:48PM ; [facility] provided active listenin g, support and helped patient process through current symptoms and stressors related to low moods and increased anxiety. ~[facility] discussed getting established with counseling and provided list of area resources. 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 Anne's office. ~[facility] discussed crisis resources should they be needed and provided list of resources including local resources as well as national text and phone hotlines. ~[facility] discussed coping skills to manage increased anxiety including deep breathing and mindfulness resources Last Documented On 1 4:59PM ; [facility] provided active listenin g, support and helped patient process through current symptoms and stressors related to increased anxiety/panic and its impact on daily functioning. ~[facility] discussed patients effective coping skills and other tools that may be helpful and using technology to support these. ~[facility] discussed potential benefit of meeting with counselor and psychiatry to continue to work on anxiety and mood. ~ Last Documented On 0 12:31PM ; [facility] provided active listenin g, support and helped patient process through current symptoms and stressors related to increased anxiety and depression. ~P discussed coping skills with patient to manage increased anxiety and went over breathing techniques, meditation and mindfulness activities. Patient reports that focusing on his breathing has been helpful in controlling anxiety. ~[facility] discussed the importance of establishing counseling and patient is willing and was given list of counseling resources. ~P discussed importance of taking medications daily around the same time daily. [facility] and [facility]CP discussed importance of trying to go to work and do things to increase physical activity Last Documented On 0 10:21AM ; [facility] provided active listenin g, support and helped patient process through current symptoms and stressors. [facility] discussed importance of medication compliance. [facility] encouraged patient to set reminders, utilizing pill organizer, etc to help remember to take medications regularly Last Documented On 0 4:55PM ; [facility] offered active and suppo rtive listening, normalized emotions and feelings, and processed current stressors. [facility] praised patient for taking medications and working to find coping skills that work for him. Patient is not interested in attending therapy services at this time. [facility] discussed strategies that can help patient to remember to take medications daily such as phone reminders or establishing a new routine of taking them before work, etc Last Documented On 0 2:23PM ; [facility] Patient education about a pr oper diet Last Documented On 0 7:47PM ; [facility] Inquiry and counseling about medication administration and compliance Last Documented On 0 7:47PM ; [facility] Patient goals discussed Last Documented On 0 7:47PM ; [facility] Patient education about a pr oper diet Last Documented On 0 7:41PM ; [facility] Inquiry and counseling about medication administration and compliance Last Documented On 0 7:41PM ; [facility] Patient goals discussed Last Documented On 0 7:41PM ; [facility] provided active listenin g, support and helped patient process through current symptoms and stressors. [facility] reviewed coping skills with patient including breathing methods and demonstrated to patient. Patient was encouraged to utilize music and coping skills during breaks to help prevent or reduce anxiety during specific time period reported Last Documented On 0 6:54PM ; [facility] Patient education about a pr oper diet Last Documented On 0 9:59AM ; [facility] Inquiry and counseling about medication administration and compliance Last Documented On 0 9:59AM ; [facility] Patient goals discussed Last Documented On 0 9:59AM ; [facility] introduced patient to [facility] integrated model of care. ~[facility] offered active and supportive listening, normalized emotions and feelings, and processed current stressors related to increased anxiety and impact on work and daily life. ~[facility] discussed coping skills that patient can implement to manage increased anxiety including deep breathing and mindfulness. [facility] discussed identifying signs of increasing anxxiety and utilizing coping skills early Last Documented On 0 8:44AM ; [facility] Patient education about a pr oper diet Last Documented On 0 11:08AM ; [facility] Discussed concerns about exe rcise : promote physical activity Last Documented On 0 11:08AM ; [facility] Work Phone: Instructions Includes: Instructions for all patient encounters Education and Decision Aids were provided during visit for: *[facility] offered active and supp ortive listening, normalized emotions and feelings, and processed ~current stressors. ~*Discussed calming coping strategies that patient can utilize Last Documented On 4 6:39PM ; [facility] Discussed nutritional needs teach healthy choices including fruits and vegetables Last Documented On 4 2:53PM ; [facility] Patient education about a pr oper diet Last Documented On 4 2:53PM ; [facility] Discussed concerns about exe rcise : promote physical activity Last Documented On 4 2:53PM ; [facility] Discussed nutritional needs teach healthy choices including fruits and vegetables Last Documented On 3 1:32PM ; [facility] Patient education about a pr oper diet Last Documented On 3 1:32PM ; [facility] Discussed concerns about exe rcise : promote physical activity Last Documented On 3 1:32PM ; [facility] provided active listenin g and reflective feedback; monitored mood; assessed symptoms, and functioning. ~Offered pt space to process though current symptoms and stressor(s); explored effectiveness of medication, coping mechanisms, and self- care practices. ~Encouraged use, as needed Last Documented On 3 6:55AM ; [facility] Discussed nutritional needs teach healthy choices including fruits and vegetables Last Documented On 3 8:38AM ; [facility] Patient education about a pr oper diet Last Documented On 3 8:38AM ; [facility] Discussed concerns about exe rcise : promote physical activity ~ ~Follow up in three months Last Documented On 3 9:05AM ; [facility] provided active listenin g, support and helped pt process though current symptoms and stressor(s); discussed effectiveness of medication, coping mechanisms, self- care practices, and sources for positive support Last Documented On 3 5:44PM ; [facility] Discussed nutritional needs teach healthy choices including fruits and vegetables Last Documented On 3 8:47AM ; [facility] Patient education about a pr oper diet Last Documented On 3 8:47AM ; [facility] Discussed concerns about exe rcise : promote physical activity ~ ~Will stop hydroxyzine and start trazodone Last Documented On 3 9:05AM ; [facility] provided active listenin g, support and helped pt process though current symptoms and stressor(s); explored ssues of grief/loss; promoted benefits of counseling, effectiveness of medication, use of coping mechanisms, self-care practices, and support system Last Documented On 3 9:07AM ; [facility] Reviewed side effects and Ri sks/Benefits analysis Last Documented On 3 9:07AM ; [facility] Discussed nutritional needs teach healthy choices including fruits and vegetables Last Documented On 3 8:52AM ; [facility] Patient education about a pr oper diet Last Documented On 3 8:52AM ; [facility] Discussed concerns about exe rcise : promote physical activity Last Documented On 3 8:52AM ; [facility] Discussed nutritional needs teach healthy choices including fruits and vegetables Last Documented On 1 12:11PM ; [facility] Patient education about a pr oper diet Last Documented On 1 12:11PM ; [facility] Inquiry and counseling about medication administration and compliance Last Documented On 1 1:57PM ; [facility] Discussed concerns about exe rcise : promote physical activity Last Documented On 1 12:11PM ; [facility] Patient goals discussed Last Documented On 1 1:57PM ; [facility] provided active listenin g, support and helped patient process through current symptoms and stressors due to patient not feeling well currently. ~[facility] reminded patient of importance of taking medications daily as prescribed and following up with scheduled psychiatry visits Last Documented On 1 9:59PM ; [facility] Explored current self-care m ethods (eg.,fixing up the house ) and encouraged patient to continue using them. ~ Last Documented On 1 10:48PM ; [facility] Discussed nutritional needs teach healthy choices including fruits and vegetables Last Documented On 1 5:48PM ; [facility] Patient education about a pr oper diet Last Documented On 1 5:48PM ; [facility] Discussed concerns about exe rcise : promote physical activity Last Documented On 1 5:48PM ; [facility] provided active listenin g, support and helped patient process through current symptoms and stressors related to low moods and increased anxiety. [facility] discussed getting established with counseling and provided list of area resources. [facility] to work on getting patient scheduled with Dr. Anne's office. [facility] discussed crisis resources should they be needed and provided list of resources including local resources as well as national text and phone hotlines. [facility] discussed coping skills to manage increased anxiety including deep breathing and mindfulness resources Last Documented On 1 4:59PM ; [facility] provided active listenin g, support and helped patient process through current symptoms and stressors related to increased anxiety/panic and its impact on daily functioning. [facility] discussed patients effective coping skills and other tools that may be helpful and using technology to support these. [facility] discussed potential benefit of meeting with counselor and psychiatry to continue to work on anxiety and mood. ~ Last Documented On 0 12:31PM ; [facility] provided active listenin g, support and helped patient process through current symptoms and stressors related to increased anxiety and depression. ~[facility] discussed coping skills with patient to manage increased anxiety and went over breathing techniques, meditation and mindfulness activities. Patient reports that focusing on his breathing has been helpful in controlling anxiety. ~[facility] discussed the importance of establishing counseling and patient is willing and was given list of counseling resources. ~P discussed importance of taking medications daily around the same time daily. [facility] and PCP discussed importance of trying to go to work and do things to increase physical activity Last Documented On 0 10:21AM ; [facility] provided active listenin g, support and helped patient process through current symptoms and stressors. ~[facility] discussed importance of medication compliance. [facility] encouraged patient to set reminders, utilizing pill organizer, etc to help remember to take medications regularly Last Documented On 0 4:55PM ; [facility] offered active and suppo rtive listening, normalized emotions and feelings, and processed current stressors. ~P praised patient for taking medications and working to find coping skills that work for him. Patient is not interested in attending therapy services at this time. ~[facility] discussed strategies that can help patient to remember to take medications daily such as phone reminders or establishing a new routine of taking them before work, etc Last Documented On 0 2:23PM ; [facility] Patient education about a pr oper diet Last Documented On 0 7:47PM ; [facility] Inquiry and counseling about medication administration and compliance Last Documented On 0 7:47PM ; [facility] Patient goals discussed Last Documented On 0 7:47PM ; [facility] Patient education about a pr oper diet Last Documented On 0 7:41PM ; [facility] Inquiry and counseling about medication administration and compliance Last Documented On 0 7:41PM ; [facility] Patient goals discussed Last Documented On 0 7:41PM ; [facility] provided active listenin g, support and helped patient process through current symptoms and stressors. ~[facility] reviewed coping skills with patient including breathing methods and demonstrated to patient. Patient was encouraged to utilize music and coping skills during breaks to help prevent or reduce anxiety during specific time period reported Last Documented On 0 6:54PM ; [facility] Patient education about a pr oper diet Last Documented On 0 9:59AM ; [facility] Inquiry and counseling about medication administration and compliance Last Documented On 0 9:59AM ; [facility] Patient goals discussed Last Documented On 0 9:59AM ; [facility] introduced patient to [facility] integrated model of care. ~P offered active and supportive listening, normalized emotions and feelings, and processed current stressors related to increased anxiety and impact on work and daily life. ~[facility] discussed coping skills that patient can implement to manage increased anxiety including deep breathing and mindfulness. P discussed identifying signs of increasing anxxiety and utilizing coping skills early Last Documented On 0 8:44AM ; [facility] Patient education about a pr oper diet Last Documented On 0 11:08AM ; [facility] Discussed concerns about exe rcise : promote physical activity Last Documented On 0 11:08AM ; [facility] Work Phone: Instructions Includes: Instructions for all patient encounters Education and Decision Aids were provided during visit for: *P offered active and supp ortive listening, normalized emotions and feelings, and processed ~current stressors. ~*Discussed calming coping strategies that patient can utilize Last Documented On 4 6:39PM ; [facility] Discussed nutritional needs teach healthy choices including fruits and vegetables Last Documented On 4 2:53PM ; [facility] Patient education about a pr oper diet Last Documented On 4 2:53PM ; [facility] Discussed concerns about exe rcise : promote physical activity ~ ~Schedule appt with Dr Anne ~ ~ will call in 2 weeks ~ ~Follow up in office in 1 month ~ ~Will send ativan dose in 1 week prior to flight Last Documented On 4 9:00AM ; [facility] Discussed nutritional needs teach healthy choices including fruits and vegetables Last Documented On 3 1:32PM ; [facility] Patient education about a pr oper diet Last Documented On 3 1:32PM ; [facility] Discussed concerns about exe rcise : promote physical activity Last Documented On 3 1:32PM ; [facility] provided active listenin g and reflective feedback; monitored mood; assessed symptoms, and functioning. ~Offered pt space to process though current symptoms and stressor(s); explored effectiveness of medication, coping mechanisms, and self- care practices. ~Encouraged use, as needed Last Documented On 3 6:55AM ; [facility] Discussed nutritional needs teach healthy choices including fruits and vegetables Last Documented On 3 8:38AM ; [facility] Patient education about a pr oper diet Last Documented On 3 8:38AM ; [facility] Discussed concerns about exe rcise : promote physical activity ~ ~Follow up in three months Last Documented On 3 9:05AM ; [facility] provided active listenin g, support and helped pt process though current symptoms and stressor(s); discussed effectiveness of medication, coping mechanisms, self- care practices, and sources for positive support Last Documented On 3 5:44PM ; [facility] Discussed nutritional needs teach healthy choices including fruits and vegetables Last Documented On 3 8:47AM ; [facility] Patient education about a pr oper diet Last Documented On 3 8:47AM ; [facility] Discussed concerns about exe rcise : promote physical activity ~ ~Will stop hydroxyzine and start trazodone Last Documented On 3 9:05AM ; [facility] provided active listenin g, support and helped pt process though current symptoms and stressor(s); explored ssues of grief/loss; promoted benefits of counseling, effectiveness of medication, use of coping mechanisms, self-care practices, and support system Last Documented On 3 9:07AM ; [facility] Reviewed side effects and Ri sks/Benefits analysis Last Documented On 3 9:07AM ; [facility] Discussed nutritional needs teach healthy choices including fruits and vegetables Last Documented On 3 8:52AM ; [facility] Patient education about a pr oper diet Last Documented On 3 8:52AM ; [facility] Discussed concerns about exe rcise : promote physical activity Last Documented On 3 8:52AM ; [facility] Discussed nutritional needs teach healthy choices including fruits and vegetables Last Documented On 1 12:11PM ; [facility] Patient education about a pr oper diet Last Documented On 1 12:11PM ; [facility] Inquiry and counseling about medication administration and compliance Last Documented On 1 1:57PM ; [facility] Discussed concerns about exe rcise : promote physical activity Last Documented On 1 12:11PM ; [facility] Patient goals discussed Last Documented On 1 1:57PM ; [facility] provided active listenin g, support and helped patient process through current symptoms and stressors due to patient not feeling well currently. [facility] reminded patient of importance of taking medications daily as prescribed and following up with scheduled psychiatry visits Last Documented On 1 9:59PM ; [facility] Explored current self-care m ethods (eg.,fixing up the house ) and encouraged patient to continue using them. ~ Last Documented On 1 10:48PM ; [facility] Discussed nutritional needs teach healthy choices including fruits and vegetables Last Documented On 1 5:48PM ; [facility] Patient education about a pr oper diet Last Documented On 1 5:48PM ; [facility] Discussed concerns about exe rcise : promote physical activity Last Documented On 1 5:48PM ; [facility] provided active listenin g, support and helped patient process through current symptoms and stressors related to low moods and increased anxiety. [facility] discussed getting established with counseling and provided list of area resources. 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 Anne's office. [facility] discussed crisis resources should they be needed and provided list of resources including local resources as well as national text and phone hotlines. [facility] discussed coping skills to manage increased anxiety including deep breathing and mindfulness resources Last Documented On 1 4:59PM ; [facility] provided active listenin g, support and helped patient process through current symptoms and stressors related to increased anxiety/panic and its impact on daily functioning. ~[facility] discussed patients effective coping skills and other tools that may be helpful and using technology to support these. ~[facility] discussed potential benefit of meeting with counselor and psychiatry to continue to work on anxiety and mood. ~ Last Documented On 0 12:31PM ; [facility] provided active listenin g, support and helped patient process through current symptoms and stressors related to increased anxiety and depression. ~P discussed coping skills with patient to manage increased anxiety and went over breathing techniques, meditation and mindfulness activities. Patient reports that focusing on his breathing has been helpful in controlling anxiety. ~[facility] discussed the importance of establishing counseling and patient is willing and was given list of counseling resources. ~P discussed importance of taking medications daily around the same time daily. [facility] and PCP discussed importance of trying to go to work and do things to increase physical activity Last Documented On 0 10:21AM ; [facility] provided active listenin g, support and helped patient process through current symptoms and stressors. ~P discussed importance of medication compliance. [facility] encouraged patient to set reminders, utilizing pill organizer, etc to help remember to take medications regularly Last Documented On 0 4:55PM ; [facility] offered active and suppo rtive listening, normalized emotions and feelings, and processed current stressors. ~P praised patient for taking medications and working to find coping skills that work for him. Patient is not interested in attending therapy services at this time. ~[facility] discussed strategies that can help patient to remember to take medications daily such as phone reminders or establishing a new routine of taking them before work, etc Last Documented On 0 2:23PM ; [facility] Patient education about a pr oper diet Last Documented On 0 7:47PM ; [facility] Inquiry and counseling about medication administration and compliance Last Documented On 0 7:47PM ; [facility] Patient goals discussed Last Documented On 0 7:47PM ; [facility] Patient education about a pr oper diet Last Documented On 0 7:41PM ; [facility] Inquiry and counseling about medication administration and compliance Last Documented On 0 7:41PM ; [facility] Patient goals discussed Last Documented On 0 7:41PM ; [facility] provided active listenin g, support and helped patient process through current symptoms and stressors. ~[facility] reviewed coping skills with patient including breathing methods and demonstrated to patient. Patient was encouraged to utilize music and coping skills during breaks to help prevent or reduce anxiety during specific time period reported Last Documented On 0 6:54PM ; [facility] Patient education about a pr oper diet Last Documented On 0 9:59AM ; [facility] Inquiry and counseling about medication administration and compliance Last Documented On 0 9:59AM ; [facility] Patient goals discussed Last Documented On 0 9:59AM ; [facility] introduced patient to [facility] integrated model of care. ~[facility] offered active and supportive listening, normalized emotions and feelings, and processed current stressors related to increased anxiety and impact on work and daily life. ~[facility] discussed coping skills that patient can implement to manage increased anxiety including deep breathing and mindfulness. [facility] discussed identifying signs of increasing anxxiety and utilizing coping skills early Last Documented On 0 8:44AM ; [facility] Patient education about a pr oper diet Last Documented On 0 11:08AM ; [facility] Discussed concerns about exe rcise : promote physical activity Last Documented On 0 11:08AM ; [facility] Work Phone: Instructions Includes: Instructions for all patient encounters Education and Decision Aids were provided during visit for: Discussed nutritional needs teach healthy choices including fruits and vegetables Last Documented On 4 8:25AM ; [facility] Patient education about a pr oper diet Last Documented On 4 8:25AM ; [facility] Discussed concerns about exe rcise : promote physical activity ~ ~Follow up in one month ~ ~ will call in one week Last Documented On 4 9:57AM ; [facility] *[facility] offered active and supp ortive listening, normalized emotions and feelings, and processed ~current stressors. ~*Discussed calming coping strategies that patient can utilize Last Documented On 4 6:39PM ; [facility] Discussed nutritional needs teach healthy choices including fruits and vegetables Last Documented On 4 2:53PM ; [facility] Patient education about a pr oper diet Last Documented On 4 2:53PM ; [facility] Discussed concerns about exe rcise : promote physical activity ~ ~Schedule appt with Dr Anne ~ ~ will call in 2 weeks ~ ~Follow up in office in 1 month ~ ~Will send ativan dose in 1 week prior to flight Last Documented On 4 9:00AM ; [facility] Discussed nutritional needs teach healthy choices including fruits and vegetables Last Documented On 3 1:32PM ; [facility] Patient education about a pr oper diet Last Documented On 3 1:32PM ; [facility] Discussed concerns about exe rcise : promote physical activity Last Documented On 3 1:32PM ; [facility] provided active listenin g and reflective feedback; monitored mood; assessed symptoms, and functioning. ~Offered pt space to process though current symptoms and stressor(s); explored effectiveness of medication, coping mechanisms, and self- care practices. ~Encouraged use, as needed Last Documented On 3 6:55AM ; [facility] Discussed nutritional needs teach healthy choices including fruits and vegetables Last Documented On 3 8:38AM ; [facility] Patient education about a pr oper diet Last Documented On 3 8:38AM ; [facility] Discussed concerns about exe rcise : promote physical activity ~ ~Follow up in three months Last Documented On 3 9:05AM ; [facility] provided active listenin g, support and helped pt process though current symptoms and stressor(s); discussed effectiveness of medication, coping mechanisms, self- care practices, and sources for positive support Last Documented On 3 5:44PM ; [facility] Discussed nutritional needs teach healthy choices including fruits and vegetables Last Documented On 3 8:47AM ; [facility] Patient education about a pr oper diet Last Documented On 3 8:47AM ; [facility] Discussed concerns about exe rcise : promote physical activity ~ ~Will stop hydroxyzine and start trazodone Last Documented On 3 9:05AM ; [facility] provided active listenin g, support and helped pt process though current symptoms and stressor(s); explored ssues of grief/loss; promoted benefits of counseling, effectiveness of medication, use of coping mechanisms, self-care practices, and support system Last Documented On 3 9:07AM ; [facility] Reviewed side effects and Ri sks/Benefits analysis Last Documented On 3 9:07AM ; [facility] Discussed nutritional needs teach healthy choices including fruits and vegetables Last Documented On 3 8:52AM ; [facility] Patient education about a pr oper diet Last Documented On 3 8:52AM ; [facility] Discussed concerns about exe rcise : promote physical activity Last Documented On 3 8:52AM ; [facility] Discussed nutritional needs teach healthy choices including fruits and vegetables Last Documented On 1 12:11PM ; [facility] Patient education about a pr oper diet Last Documented On 1 12:11PM ; [facility] Inquiry and counseling about medication administration and compliance Last Documented On 1 1:57PM ; [facility] Discussed concerns about exe rcise : promote physical activity Last Documented On 1 12:11PM ; [facility] Patient goals discussed Last Documented On 1 1:57PM ; [facility] provided active listenin g, support and helped patient process through current symptoms and stressors due to patient not feeling well currently. ~P reminded patient of importance of taking medications daily as prescribed and following up with scheduled psychiatry visits Last Documented On 1 9:59PM ; [facility] Explored current self-care m ethods (eg.,fixing up the house ) and encouraged patient to continue using them. ~ Last Documented On 1 10:48PM ; [facility] Discussed nutritional needs teach healthy choices including fruits and vegetables Last Documented On 1 5:48PM ; [facility] Patient education about a pr oper diet Last Documented On 1 5:48PM ; [facility] Discussed concerns about exe rcise : promote physical activity Last Documented On 1 5:48PM ; [facility] provided active listenin g, support and helped patient process through current symptoms and stressors related to low moods and increased anxiety. [facility] discussed getting established with counseling and provided list of area resources. 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 Anne's office. [facility] discussed crisis resources should they be needed and provided list of resources including local resources as well as national text and phone hotlines. ~[facility] discussed coping skills to manage increased anxiety including deep breathing and mindfulness resources Last Documented On 1 4:59PM ; [facility] provided active listenin g, support and helped patient process through current symptoms and stressors related to increased anxiety/panic and its impact on daily functioning. ~[facility] discussed patients effective coping skills and other tools that may be helpful and using technology to support these. [facility] discussed potential benefit of meeting with counselor and psychiatry to continue to work on anxiety and mood. ~ Last Documented On 0 12:31PM ; [facility] provided active listenin g, support and helped patient process through current symptoms and stressors related to increased anxiety and depression. ~[facility] discussed coping skills with patient to manage increased anxiety and went over breathing techniques, meditation and mindfulness activities. Patient reports that focusing on his breathing has been helpful in controlling anxiety. ~[facility] discussed the importance of establishing counseling and patient is willing and was given list of counseling resources. ~[facility] discussed importance of taking medications daily around the same time daily. P and PCP discussed importance of trying to go to work and do things to increase physical activity Last Documented On 0 10:21AM ; [facility] provided active listenin g, support and helped patient process through current symptoms and stressors. ~[facility] discussed importance of medication compliance. [facility] encouraged patient to set reminders, utilizing pill organizer, etc to help remember to take medications regularly Last Documented On 0 4:55PM ; [facility] offered active and suppo rtive listening, normalized emotions and feelings, and processed current stressors. ~[facility] praised patient for taking medications and working to find coping skills that work for him. Patient is not interested in attending therapy services at this time. ~[facility] discussed strategies that can help patient to remember to take medications daily such as phone reminders or establishing a new routine of taking them before work, etc Last Documented On 0 2:23PM ; [facility] Patient education about a pr oper diet Last Documented On 0 7:47PM ; [facility] Inquiry and counseling about medication administration and compliance Last Documented On 0 7:47PM ; [facility] Patient goals discussed Last Documented On 0 7:47PM ; [facility] Patient education about a pr oper diet Last Documented On 0 7:41PM ; [facility] Inquiry and counseling about medication administration and compliance Last Documented On 0 7:41PM ; [facility] Patient goals discussed Last Documented On 0 7:41PM ; [facility] provided active listenin g, support and helped patient process through current symptoms and stressors. ~[facility] reviewed coping skills with patient including breathing methods and demonstrated to patient. Patient was encouraged to utilize music and coping skills during breaks to help prevent or reduce anxiety during specific time period reported Last Documented On 0 6:54PM ; [facility] Patient education about a pr oper diet Last Documented On 0 9:59AM ; [facility] Inquiry and counseling about medication administration and compliance Last Documented On 0 9:59AM ; [facility] Patient goals discussed Last Documented On 0 9:59AM ; [facility] introduced patient to [facility] integrated model of care. ~[facility] offered active and supportive listening, normalized emotions and feelings, and processed current stressors related to increased anxiety and impact on work and daily life. ~[facility] discussed coping skills that patient can implement to manage increased anxiety including deep breathing and mindfulness. [facility] discussed identifying signs of increasing anxxiety and utilizing coping skills early Last Documented On 0 8:44AM ; [facility] Patient education about a pr oper diet Last Documented On 0 11:08AM ; [facility] Discussed concerns about exe rcise : promote physical activity Last Documented On 0 11:08AM ; [facility] Work Phone: Instructions Includes: Instructions for all patient encounters Education and Decision Aids were provided during visit for: *[facility] offered active and supp ortive listening, normalized emotions and feelings, and processed ~current stressors. ~*Educated patient on the benefit of counseling and provided patient with a list of resources Last Documented On 4 12:12PM ; [facility] Discussed nutritional needs teach healthy choices including fruits and vegetables Last Documented On 4 8:25AM ; [facility] Patient education about a pr oper diet Last Documented On 4 8:25AM ; [facility] Discussed concerns about exe rcise : promote physical activity ~ ~Follow up in one month ~ ~ will call in one week Last Documented On 4 9:57AM ; [facility] *[facility] offered active and supp ortive listening, normalized emotions and feelings, and processed ~current stressors. ~*Discussed calming coping strategies that patient can utilize Last Documented On 4 6:39PM ; [facility] Discussed nutritional needs teach healthy choices including fruits and vegetables Last Documented On 4 2:53PM ; [facility] Patient education about a pr oper diet Last Documented On 4 2:53PM ; [facility] Discussed concerns about exe rcise : promote physical activity ~ ~Schedule appt with Dr Anne ~ ~ will call in 2 weeks ~ ~Follow up in office in 1 month ~ ~Will send ativan dose in 1 week prior to flight Last Documented On 4 9:00AM ; [facility] Discussed nutritional needs teach healthy choices including fruits and vegetables Last Documented On 3 1:32PM ; [facility] Patient education about a pr oper diet Last Documented On 3 1:32PM ; [facility] Discussed concerns about exe rcise : promote physical activity Last Documented On 3 1:32PM ; [facility] provided active listenin g and reflective feedback; monitored mood; assessed symptoms, and functioning. ~Offered pt space to process though current symptoms and stressor(s); explored effectiveness of medication, coping mechanisms, and self- care practices. ~Encouraged use, as needed Last Documented On 3 6:55AM ; [facility] Discussed nutritional needs teach healthy choices including fruits and vegetables Last Documented On 3 8:38AM ; [facility] Patient education about a pr oper diet Last Documented On 3 8:38AM ; [facility] Discussed concerns about exe rcise : promote physical activity ~ ~Follow up in three months Last Documented On 3 9:05AM ; [facility] provided active listenin g, support and helped pt process though current symptoms and stressor(s); discussed effectiveness of medication, coping mechanisms, self- care practices, and sources for positive support Last Documented On 3 5:44PM ; [facility] Discussed nutritional needs teach healthy choices including fruits and vegetables Last Documented On 3 8:47AM ; [facility] Patient education about a pr oper diet Last Documented On 3 8:47AM ; [facility] Discussed concerns about exe rcise : promote physical activity ~ ~Will stop hydroxyzine and start trazodone Last Documented On 3 9:05AM ; [facility] provided active listenin g, support and helped pt process though current symptoms and stressor(s); explored ssues of grief/loss; promoted benefits of counseling, effectiveness of medication, use of coping mechanisms, self-care practices, and support system Last Documented On 3 9:07AM ; [facility] Reviewed side effects and Ri sks/Benefits analysis Last Documented On 3 9:07AM ; [facility] Discussed nutritional needs teach healthy choices including fruits and vegetables Last Documented On 3 8:52AM ; [facility] Patient education about a pr oper diet Last Documented On 3 8:52AM ; [facility] Discussed concerns about exe rcise : promote physical activity Last Documented On 3 8:52AM ; [facility] Discussed nutritional needs teach healthy choices including fruits and vegetables Last Documented On 1 12:11PM ; [facility] Patient education about a pr oper diet Last Documented On 1 12:11PM ; [facility] Inquiry and counseling about medication administration and compliance Last Documented On 1 1:57PM ; [facility] Discussed concerns about exe rcise : promote physical activity Last Documented On 1 12:11PM ; [facility] Patient goals discussed Last Documented On 1 1:57PM ; [facility] provided active listenin g, support and helped patient process through current symptoms and stressors due to patient not feeling well currently. [facility] reminded patient of importance of taking medications daily as prescribed and following up with scheduled psychiatry visits Last Documented On 1 9:59PM ; [facility] Explored current self-care m ethods (eg.,fixing up the house ) and encouraged patient to continue using them. ~ Last Documented On 1 10:48PM ; [facility] Discussed nutritional needs teach healthy choices including fruits and vegetables Last Documented On 1 5:48PM ; [facility] Patient education about a pr oper diet Last Documented On 1 5:48PM ; [facility] Discussed concerns about exe rcise : promote physical activity Last Documented On 1 5:48PM ; [facility] provided active listenin g, support and helped patient process through current symptoms and stressors related to low moods and increased anxiety. [facility] discussed getting established with counseling and provided list of area resources. [facility] to work on getting patient scheduled with Dr. Anne's office. [facility] discussed crisis resources should they be needed and provided list of resources including local resources as well as national text and phone hotlines. [facility] discussed coping skills to manage increased anxiety including deep breathing and mindfulness resources Last Documented On 1 4:59PM ; [facility] provided active listenin g, support and helped patient process through current symptoms and stressors related to increased anxiety/panic and its impact on daily functioning. ~[facility] discussed patients effective coping skills and other tools that may be helpful and using technology to support these. ~[facility] discussed potential benefit of meeting with counselor and psychiatry to continue to work on anxiety and mood. ~ Last Documented On 0 12:31PM ; [facility] provided active [facility]in g, support and helped patient process through current symptoms and stressors related to increased anxiety and depression. ~P discussed coping skills with patient to manage increased anxiety and went over breathing techniques, meditation and mindfulness activities. Patient reports that focusing on his breathing has been helpful in controlling anxiety. ~[facility] discussed the importance of establishing counseling and patient is willing and was given list of counseling resources. ~P discussed importance of taking medications daily around the same time daily. [facility] and PCP discussed importance of trying to go to work and do things to increase physical activity Last Documented On 0 10:21AM ; [facility] provided active listenin g, support and helped patient process through current symptoms and stressors. ~[facility] discussed importance of medication compliance. [facility] encouraged patient to set reminders, utilizing pill organizer, etc to help remember to take medications regularly Last Documented On 0 4:55PM ; [facility] offered active and suppo rtive listening, normalized emotions and feelings, and processed current stressors. ~P praised patient for taking medications and working to find coping skills that work for him. Patient is not interested in attending therapy services at this time. ~[facility] discussed strategies that can help patient to remember to take medications daily such as phone reminders or establishing a new routine of taking them before work, etc Last Documented On 0 2:23PM ; [facility] Patient education about a pr oper diet Last Documented On 0 7:47PM ; [facility] Inquiry and counseling about medication administration and compliance Last Documented On 0 7:47PM ; [facility] Patient goals discussed Last Documented On 0 7:47PM ; [facility] Patient education about a pr oper diet Last Documented On 0 7:41PM ; [facility] Inquiry and counseling about medication administration and compliance Last Documented On 0 7:41PM ; [facility] Patient goals discussed Last Documented On 0 7:41PM ; [facility] provided active listenin g, support and helped patient process through current symptoms and stressors. ~[facility] reviewed coping skills with patient including breathing methods and demonstrated to patient. Patient was encouraged to utilize music and coping skills during breaks to help prevent or reduce anxiety during specific time period reported Last Documented On 0 6:54PM ; [facility] Patient education about a pr oper diet Last Documented On 0 9:59AM ; [facility] Inquiry and counseling about medication administration and compliance Last Documented On 0 9:59AM ; [facility] Patient goals discussed Last Documented On 0 9:59AM ; [facility] introduced patient to [facility] integrated model of care. ~[facility] offered active and supportive listening, normalized emotions and feelings, and processed current stressors related to increased anxiety and impact on work and daily life. ~[facility] discussed coping skills that patient can implement to manage increased anxiety including deep breathing and mindfulness. [facility] discussed identifying signs of increasing anxxiety and utilizing coping skills early Last Documented On 0 8:44AM ; [facility] Patient education about a pr oper diet Last Documented On 0 11:08AM ; [facility] Discussed concerns about exe rcise : promote physical activity Last Documented On 0 11:08AM ; [facility] Work Phone: Instructions Includes: Instructions for all patient encounters Education and Decision Aids were provided during visit for: ~*[facility] offered active and sup portive listening, normalized emotions and feelings, and processed ~current stressors Last Documented On 4 5:18PM ; [facility] Discussed nutritional needs teach healthy choices including fruits and vegetables Last Documented On 4 10:44AM ; [facility] Patient education about a pr oper diet Last Documented On 4 10:44AM ; [facility] Discussed concerns about exe rcise : promote physical activity Last Documented On 4 10:44AM ; [facility] *[facility] offered active and supp ortive listening, normalized emotions and feelings, and processed ~current stressors. ~*Educated patient on the benefit of counseling and provided patient with a list of resources Last Documented On 4 12:12PM ; [facility] Discussed nutritional needs teach healthy choices including fruits and vegetables Last Documented On 4 8:25AM ; [facility] Patient education about a pr oper diet Last Documented On 4 8:25AM ; [facility] Discussed concerns about exe rcise : promote physical activity ~ ~Follow up in one month ~ ~ will call in one week Last Documented On 4 9:57AM ; [facility] *[facility] offered active and supp ortive listening, normalized emotions and feelings, and processed ~current stressors. ~*Discussed calming coping strategies that patient can utilize Last Documented On 4 6:39PM ; [facility] Discussed nutritional needs teach healthy choices including fruits and vegetables Last Documented On 4 2:53PM ; [facility] Patient education about a pr oper diet Last Documented On 4 2:53PM ; [facility] Discussed concerns about exe rcise : promote physical activity ~ ~Schedule appt with Dr Anne ~ ~ will call in 2 weeks ~ ~Follow up in office in 1 month ~ ~Will send ativan dose in 1 week prior to flight Last Documented On 4 9:00AM ; [facility] Discussed nutritional needs teach healthy choices including fruits and vegetables Last Documented On 3 1:32PM ; [facility] Patient education about a pr oper diet Last Documented On 3 1:32PM ; [facility] Discussed concerns about exe rcise : promote physical activity Last Documented On 3 1:32PM ; [facility] provided active listenin g and reflective feedback; monitored mood; assessed symptoms, and functioning. ~Offered pt space to process though current symptoms and stressor(s); explored effectiveness of medication, coping mechanisms, and self- care practices. ~Encouraged use, as needed Last Documented On 3 6:55AM ; [facility] Discussed nutritional needs teach healthy choices including fruits and vegetables Last Documented On 3 8:38AM ; [facility] Patient education about a pr oper diet Last Documented On 3 8:38AM ; [facility] Discussed concerns about exe rcise : promote physical activity ~ ~Follow up in three months Last Documented On 3 9:05AM ; [facility] provided active listenin g, support and helped pt process though current symptoms and stressor(s); discussed effectiveness of medication, coping mechanisms, self- care practices, and sources for positive support Last Documented On 3 5:44PM ; [facility] Discussed nutritional needs teach healthy choices including fruits and vegetables Last Documented On 3 8:47AM ; [facility] Patient education about a pr oper diet Last Documented On 3 8:47AM ; [facility] Discussed concerns about exe rcise : promote physical activity ~ ~Will stop hydroxyzine and start trazodone Last Documented On 3 9:05AM ; [facility] provided active listenin g, support and helped pt process though current symptoms and stressor(s); explored ssues of grief/loss; promoted benefits of counseling, effectiveness of medication, use of coping mechanisms, self-care practices, and support system Last Documented On 3 9:07AM ; [facility] Reviewed side effects and Ri sks/Benefits analysis Last Documented On 3 9:07AM ; [facility] Discussed nutritional needs teach healthy choices including fruits and vegetables Last Documented On 3 8:52AM ; [facility] Patient education about a pr oper diet Last Documented On 3 8:52AM ; [facility] Discussed concerns about exe rcise : promote physical activity Last Documented On 3 8:52AM ; [facility] Discussed nutritional needs teach healthy choices including fruits and vegetables Last Documented On 1 12:11PM ; [facility] Patient education about a pr oper diet Last Documented On 1 12:11PM ; [facility] Inquiry and counseling about medication administration and compliance Last Documented On 1 1:57PM ; [facility] Discussed concerns about exe rcise : promote physical activity Last Documented On 1 12:11PM ; [facility] Patient goals discussed Last Documented On 1 1:57PM ; [facility] provided active listenin g, support and helped patient process through current symptoms and stressors due to patient not feeling well currently. ~[facility] reminded patient of importance of taking medications daily as prescribed and following up with scheduled psychiatry visits Last Documented On 1 9:59PM ; [facility] Explored current self-care m ethods (eg.,fixing up the house ) and encouraged patient to continue using them. ~ Last Documented On 1 10:48PM ; [facility] Discussed nutritional needs teach healthy choices including fruits and vegetables Last Documented On 1 5:48PM ; [facility] Patient education about a pr oper diet Last Documented On 5:48PM ; [facility] Discussed concerns about exe rcise : promote physical activity Last Documented On 1 5:48PM ; [facility] provided active listenin g, support and helped patient process through current symptoms and stressors related to low moods and increased anxiety. [facility] discussed getting established with counseling and provided list of area resources. [facility] to work on getting patient scheduled with Dr. Anne's office. [facility] discussed crisis resources should they be needed and provided list of resources including local resources as well as national text and phone hotlines. [facility] discussed coping skills to manage increased anxiety including deep breathing and mindfulness resources Last Documented On 1 4:59PM ; [facility] provided active listenin g, support and helped patient process through current symptoms and stressors related to increased anxiety/panic and its impact on daily functioning. [facility] discussed patients effective coping skills and other tools that may be helpful and using technology to support these. [facility] discussed potential benefit of meeting with counselor and psychiatry to continue to work on anxiety and mood. ~ Last Documented On 0 12:31PM ; [facility] provided active listenin g, support and helped patient process through current symptoms and stressors related to increased anxiety and depression. ~[facility] discussed coping skills with patient to manage increased anxiety and went over breathing techniques, meditation and mindfulness activities. Patient reports that focusing on his breathing has been helpful in controlling anxiety. ~[facility] discussed the importance of establishing counseling and patient is willing and was given list of counseling resources. ~P discussed importance of taking medications daily around the same time daily. [facility] and PCP discussed importance of trying to go to work and do things to increase physical activity Last Documented On 0 10:21AM ; [facility] provided active listenin g, support and helped patient process through current symptoms and stressors. ~[facility] discussed importance of medication compliance. [facility] encouraged patient to set reminders, utilizing pill organizer, etc to help remember to take medications regularly Last Documented On 0 4:55PM ; [facility] offered active and suppo rtive listening, normalized emotions and feelings, and processed current stressors. ~P praised patient for taking medications and working to find coping skills that work for him. Patient is not interested in attending therapy services at this time. ~[facility] discussed strategies that can help patient to remember to take medications daily such as phone reminders or establishing a new routine of taking them before work, etc Last Documented On 0 2:23PM ; [facility] Patient education about a pr oper diet Last Documented On 0 7:47PM ; [facility] Inquiry and counseling about medication administration and compliance Last Documented On 0 7:47PM ; [facility] Patient goals discussed Last Documented On 0 7:47PM ; [facility] Patient education about a pr oper diet Last Documented On 0 7:41PM ; [facility] Inquiry and counseling about medication administration and compliance Last Documented On 0 7:41PM ; [facility] Patient goals discussed Last Documented On 0 7:41PM ; [facility] provided active listenin g, support and helped patient process through current symptoms and stressors. ~[facility] reviewed coping skills with patient including breathing methods and demonstrated to patient. Patient was encouraged to utilize music and coping skills during breaks to help prevent or reduce anxiety during specific time period reported Last Documented On 0 6:54PM ; [facility] Patient education about a pr oper diet Last Documented On 0 9:59AM ; [facility] Inquiry and counseling about medication administration and compliance Last Documented On 0 9:59AM ; [facility] Patient goals discussed Last Documented On 0 9:59AM ; [facility] introduced patient to [facility] integrated model of care. ~[facility] offered active and supportive listening, normalized emotions and feelings, and processed current stressors related to increased anxiety and impact on work and daily life. ~[facility] discussed coping skills that patient can implement to manage increased anxiety including deep breathing and mindfulness. [facility] discussed identifying signs of increasing anxxiety and utilizing coping skills early Last Documented On 0 8:44AM ; [facility] Patient education about a pr oper diet Last Documented On 0 11:08AM ; [facility] Discussed concerns about exe rcise : promote physical activity Last Documented On 0 11:08AM ; [facility] Work Phone: Instructions Includes: Instructions for all patient encounters Education and Decision Aids were provided during visit for: ~*[facility] offered active and sup portive listening, normalized emotions and feelings, and processed ~current stressors Last Documented On 4 3:24PM ; [facility] Discussed nutritional needs teach healthy choices including fruits and vegetables Last Documented On 4 3:03PM ; [facility] Patient education about a pr oper diet Last Documented On 4 3:03PM ; [facility] Discussed concerns about exe rcise : promote physical activity ~ ~Monitor blood pressure, call if remains elevated ~ ~Will start buspirone Last Documented On 4 8:48AM ; [facility] ~*[facility] offered active and sup portive listening, normalized emotions and feelings, and processed ~current stressors Last Documented On 4 5:18PM ; [facility] Discussed nutritional needs teach healthy choices including fruits and vegetables Last Documented On 4 10:44AM ; [facility] Patient education about a pr oper diet Last Documented On 4 10:44AM ; [facility] Discussed concerns about exe rcise : promote physical activity Last Documented On 4 10:44AM ; [facility] *[facility] offered active and supp ortive listening, normalized emotions and feelings, and processed ~current stressors. ~*Educated patient on the benefit of counseling and provided patient with a list of resources Last Documented On 4 12:12PM ; [facility] Discussed nutritional needs teach healthy choices including fruits and vegetables Last Documented On 4 8:25AM ; [facility] Patient education about a pr oper diet Last Documented On 4 8:25AM ; [facility] Discussed concerns about exe rcise : promote physical activity ~ ~Follow up in one month ~ ~ will call in one week Last Documented On 4 9:57AM ; [facility] *[facility] offered active and supp ortive listening, normalized emotions and feelings, and processed ~current stressors. ~*Discussed calming coping strategies that patient can utilize Last Documented On 4 6:39PM ; [facility] Discussed nutritional needs teach healthy choices including fruits and vegetables Last Documented On 4 2:53PM ; [facility] Patient education about a pr oper diet Last Documented On 4 2:53PM ; [facility] Discussed concerns about exe rcise : promote physical activity ~ ~Schedule appt with Dr Anne ~ ~ will call in 2 weeks ~ ~Follow up in office in 1 month ~ ~Will send ativan dose in 1 week prior to flight Last Documented On 4 9:00AM ; [facility] Discussed nutritional needs teach healthy choices including fruits and vegetables Last Documented On 3 1:32PM ; [facility] Patient education about a pr oper diet Last Documented On 3 1:32PM ; [facility] Discussed concerns about exe rcise : promote physical activity Last Documented On 3 1:32PM ; [facility] provided active listenin g and reflective feedback; monitored mood; assessed symptoms, and functioning. ~Offered pt space to process though current symptoms and stressor(s); explored effectiveness of medication, coping mechanisms, and self- care practices. ~Encouraged use, as needed Last Documented On 3 6:55AM ; [facility] Discussed nutritional needs teach healthy choices including fruits and vegetables Last Documented On 3 8:38AM ; [facility] Patient education about a pr oper diet Last Documented On 3 8:38AM ; [facility] Discussed concerns about exe rcise : promote physical activity ~ ~Follow up in three months Last Documented On 3 9:05AM ; [facility] provided active listenin g, support and helped pt process though current symptoms and stressor(s); discussed effectiveness of medication, coping mechanisms, self- care practices, and sources for positive support Last Documented On 3 5:44PM ; [facility] Discussed nutritional needs teach healthy choices including fruits and vegetables Last Documented On 3 8:47AM ; [facility] Patient education about a pr oper diet Last Documented On 3 8:47AM ; [facility] Discussed concerns about exe rcise : promote physical activity ~ ~Will stop hydroxyzine and start trazodone Last Documented On 3 9:05AM ; [facility] provided active listenin g, support and helped pt process though current symptoms and stressor(s); explored ssues of grief/loss; promoted benefits of counseling, effectiveness of medication, use of coping mechanisms, self-care practices, and support system Last Documented On 3 9:07AM ; [facility] Reviewed side effects and Ri sks/Benefits analysis Last Documented On 3 9:07AM ; [facility] Discussed nutritional needs teach healthy choices including fruits and vegetables Last Documented On 3 8:52AM ; [facility] Patient education about a pr oper diet Last Documented On 3 8:52AM ; [facility] Discussed concerns about exe rcise : promote physical activity Last Documented On 3 8:52AM ; [facility] Discussed nutritional needs teach healthy choices including fruits and vegetables Last Documented On 1 12:11PM ; [facility] Patient education about a pr oper diet Last Documented On 1 12:11PM ; [facility] Inquiry and counseling about medication administration and compliance Last Documented On 1 1:57PM ; [facility] Discussed concerns about exe rcise : promote physical activity Last Documented On 1 12:11PM ; [facility] Patient goals discussed Last Documented On 1 1:57PM ; [facility] provided active listenin g, support and helped patient process through current symptoms and stressors due to patient not feeling well currently. [facility] reminded patient of importance of taking medications daily as prescribed and following up with scheduled psychiatry visits Last Documented On 1 9:59PM ; [facility] Explored current self-care m ethods (eg.,fixing up the house ) and encouraged patient to continue using them. ~ Last Documented On 1 10:48PM ; [facility] Discussed nutritional needs teach healthy choices including fruits and vegetables Last Documented On 1 5:48PM ; [facility] Patient education about a pr oper diet Last Documented On 1 5:48PM ; [facility] Discussed concerns about exe rcise : promote physical activity Last Documented On 1 5:48PM ; [facility] provided active listenin g, support and helped patient process through current symptoms and stressors related to low moods and increased anxiety. [facility] discussed getting established with counseling and provided list of area resources. 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 Anne's office. [facility] discussed crisis resources should they be needed and provided list of resources including local resources as well as national text and phone hotlines. [facility] discussed coping skills to manage increased anxiety including deep breathing and mindfulness resources Last Documented On 1 4:59PM ; [facility] provided active listenin g, support and helped patient process through current symptoms and stressors related to increased anxiety/panic and its impact on daily functioning. [facility] discussed patients effective coping skills and other tools that may be helpful and using technology to support these. [facility] discussed potential benefit of meeting with counselor and psychiatry to continue to work on anxiety and mood. ~ Last Documented On 0 12:31PM ; [facility] provided active listenin g, support and helped patient process through current symptoms and stressors related to increased anxiety and depression. ~P discussed coping skills with patient to manage increased anxiety and went over breathing techniques, meditation and mindfulness activities. Patient reports that focusing on his breathing has been helpful in controlling anxiety. ~P discussed the importance of establishing counseling and patient is willing and was given list of counseling resources. ~P discussed importance of taking medications daily around the same time daily. [facility] and PCP discussed importance of trying to go to work and do things to increase physical activity Last Documented On 0 10:21AM ; [facility] provided active listenin g, support and helped patient process through current symptoms and stressors. ~P discussed importance of medication compliance. P encouraged patient to set reminders, utilizing pill organizer, etc to help remember to take medications regularly Last Documented On 0 4:55PM ; [facility] offered active and suppo rtive listening, normalized emotions and feelings, and processed current stressors. ~P praised patient for taking medications and working to find coping skills that work for him. Patient is not interested in attending therapy services at this time. ~[facility] discussed strategies that can help patient to remember to take medications daily such as phone reminders or establishing a new routine of taking them before work, etc Last Documented On 0 2:23PM ; [facility] Patient education about a pr oper diet Last Documented On 0 7:47PM ; [facility] Inquiry and counseling about medication administration and compliance Last Documented On 0 7:47PM ; [facility] Patient goals discussed Last Documented On 0 7:47PM ; [facility] Patient education about a pr oper diet Last Documented On 0 7:41PM ; [facility] Inquiry and counseling about medication administration and compliance Last Documented On 0 7:41PM ; [facility] Patient goals discussed Last Documented On 0 7:41PM ; [facility] provided active listenin g, support and helped patient process through current symptoms and stressors. ~P reviewed coping skills with patient including breathing methods and demonstrated to patient. Patient was encouraged to utilize music and coping skills during breaks to help prevent or reduce anxiety during specific time period reported Last Documented On 0 6:54PM ; [facility] Patient education about a pr oper diet Last Documented On 0 9:59AM ; [facility] Inquiry and counseling about medication administration and compliance Last Documented On 0 9:59AM ; [facility] Patient goals discussed Last Documented On 0 9:59AM ; [facility] introduced patient to [facility] integrated model of care. ~[facility] offered active and supportive listening, normalized emotions and feelings, and processed current stressors related to increased anxiety and impact on work and daily life. ~[facility] discussed coping skills that patient can implement to manage increased anxiety including deep breathing and mindfulness. [facility] discussed identifying signs of increasing anxxiety and utilizing coping skills early Last Documented On 0 8:44AM ; [facility] Patient education about a pr oper diet Last Documented On 0 11:08AM ; [facility] Discussed concerns about exe rcise : promote physical activity Last Documented On 0 11:08AM ; [facility] Work Phone: Patient problem outcome Narrative Includes: Evaluations & Outcomes for active Goals No [facility] Work [facility]: Progress note* Progress note Date Encounter Last Documented by 10/02/2024 Chart Update Last documented on 10/02/2024; 8:27 AM, Nino ADAMS; [facility] Plan StartCited - Other Xanax 0.5 MG tablet 1 tab po as needed for flying, 2 days, 0 refills EndCited [facility]No Reason for Ref[facility] Work Phone: Review of systems Narrative - Reported Review of Systems not supported for this document type No [facility] Work [facility]: Reason for Referral No Reason for Referral RecordedNo Reason for Referral RecordedNo Reason for Referral RecordedNo Reason for Referral RecordedNo Reason for Referral Recorded No Reason for Referral RecordedNo Reason for Referral RecordedNo Reason for Referral RecordedNo Reason for Referral RecordedNo Reason for Referral Recorded No Reason for Referral RecordedNo Reason for Referral RecordedNo Reason for Referral RecordedNo Reason for Referral RecordedNo Reason for Referral Recorded No Reason for Referral Recorded Assessments Findings Encounter Date Depressive disorder Established Patie nt with Radha Short LISWS 05/18/2020 Panic disorder without agoraphobia BH Es tablished Patient with Radha Short LISWS 05/18/2020 Anxiety disorder NOS Medical New Patient with Nick Shawn [employer] 05/18/2020 Body mass index Medical New Patient with Nick Shawn [employer] 05/18/2020 Depression Medical New Patient with Nick Shawn [employer] 05/18/2020 Diabetes Risk Test Score was one score 05/18/2020 Medical New Patient with Nick Shawn [employer] 05/18/2020 Routine history and physical Medical New Patient with Nick Shawn [employer] 05/18/2020 Findings Encounter Date Depression Established Patie nt with Radha Short LISWS 05/27/2020 Panic disorder without agoraphobia BH Es tablished Patient with Radha Short LISWS 05/27/2020 Depressive disorder Established Patie nt with Radha Short LISWS 05/18/2020 Panic disorder without agoraphobia BH Es tablished Patient with Radha Short LISWS 05/18/2020 Anxiety disorder NOS Medical New Patient with Nick Shawn [employer] 05/18/2020 Body mass index Medical New Patient with Nick Shawn [employer] 05/18/2020 Depression Medical New Patient with Nick Shawn [employer] 05/18/2020 Diabetes Risk Test Score was one score 05/18/2020 Medical New Patient with Nick Shawn [employer] 05/18/2020 Routine history and physical Medical New Patient with Nick Shawn [employer] 05/18/2020 Findings Encounter Date Depression Established Patie nt with Radha Short LISWS 06/15/2020 Panic disorder without agoraphobia BH Es tablished Patient with Radha Short LISWS 06/15/2020 Depression Established Patie nt with Radha Short LISWS 05/27/2020 Panic disorder without agoraphobia BH Es tablished Patient with Radha Short LISWS 05/27/2020 Depressive disorder Established Patie nt with Radha Short LISWS 05/18/2020 Panic disorder without agoraphobia BH Es tablished Patient with Radha Short LISWS 05/18/2020 Anxiety disorder NOS Medical New Patient with Nick Shawn [employer] 05/18/2020 Body mass index Medical New Patient with Nick Shawn [employer] 05/18/2020 Depression Medical New Patient with Nick Shawn [employer] 05/18/2020 Diabetes Risk Test Score was one score 05/18/2020 Medical New Patient with Nick Shawn [employer] 05/18/2020 Routine history and physical Medical New Patient with Nick Shawn [employer] 05/18/2020 Findings Encounter Date Depression Established Patie nt with Radha Short LISWS 08/13/2020 Panic disorder without agoraphobia BH Es tablished Patient with Radha Short LISWS 08/13/2020 Depression Established Patie nt with Radha Short LISWS 06/15/2020 Panic disorder without agoraphobia Es tablished Patient with Radha Short LISWS 06/15/2020 Depression Established Patie nt with Radha Short LISWS 05/27/2020 Panic disorder without agoraphobia Es tablished Patient with Radha Short LISWS 05/27/2020 Depressive disorder Established Patie nt with Radha Short LISWS 05/18/2020 Panic disorder without agoraphobia Es tablished Patient with Radha Short LISWS 05/18/2020 Anxiety disorder NOS Medical New Patient with Nick Shawn [employer] 05/18/2020 Body mass index Medical New Patient with Nick Shawn [employer] 05/18/2020 Depression Medical New Patient with Nick Shawn [employer] 05/18/2020 Diabetes Risk Test Score was one score 05/18/2020 Medical New Patient with Nick Shawn [employer] 05/18/2020 Routine history and physical Medical New Patient with Nick Shawn [employer] 05/18/2020 Findings Encounter Date Mild recurrent major depression BH Estab lished Patient with Radha Short LISWS 08/27/2020 Panic disorder without agoraphobia BH Es tablished Patient with Radha Short LISWS 08/27/2020 Body mass index [Body mass i ndex [BMI] 22.0-22.9, adult] Medical Established Patient with Nick Shawn [employer] 08/27/2020 Depression Established Patie nt with Radha Short LISWS 08/13/2020 Panic disorder without agoraphobia Es tablished Patient with Radha Short LISWS 08/13/2020 Depression Established Patie nt with Radha Short LISWS 06/15/2020 Panic disorder without agoraphobia Es tablished Patient with Radha Short LISWS 06/15/2020 Depression Established Patie nt with Radha Short LISWS 05/27/2020 Panic disorder without agoraphobia Es tablished Patient with Radha Short LISWS 05/27/2020 Depressive disorder Established Patie nt with Radha Short LISWS 05/18/2020 Panic disorder without agoraphobia Es tablished Patient with Radha Short LISWS 05/18/2020 Anxiety disorder NOS Medical New Patient with Nick Shawn [employer] 05/18/2020 Body mass index Medical New Patient with Nick Shawn [employer] 05/18/2020 Depression Medical New Patient with Nick Shawn [employer] 05/18/2020 Diabetes Risk Test Score was one score 05/18/2020 Medical New Patient with Nick Shawn [employer] 05/18/2020 Routine history and physical Medical New Patient with Nick Shawn [employer] 05/18/2020 Findings Encounter Date Mild recurrent major depression BH Estab lished Patient with Radha Short LISWS 08/27/2020 Panic disorder without agoraphobia Es tablished Patient with Radha Short LISWS 08/27/2020 Body mass index [Body mass i ndex [BMI] 22.0-22.9, adult] Medical Established Patient with Nick Shawn [employer] 08/27/2020 Generalized anxiety disorder Medical Est ablished Patient with Nick Shawn [employer] 08/27/2020 Moderate major depression, s nicolasa episode Medical Established Patient with Nick Shawn [employer] 08/27/2020 Depression Established Patie nt with Radha Short LISWS 08/13/2020 Panic disorder without agoraphobia Es tablished Patient with Radha Short LISWS 08/13/2020 Depression Established Patie nt with Radha Short LISWS 06/15/2020 Panic disorder without agoraphobia Es tablished Patient with Radha Short LISWS 06/15/2020 Depression Established Patie nt with Radha Short LISWS 05/27/2020 Panic disorder without agoraphobia Es tablished Patient with Radha Short LISWS 05/27/2020 Depressive disorder Established Patie nt with Radha Short LISWS 05/18/2020 Panic disorder without agoraphobia BH Es tablished Patient with Radha Short LISWS 05/18/2020 Anxiety disorder NOS Medical New Patient with Nick Shawn [employer] 05/18/2020 Body mass index Medical New Patient with Nick Shawn [employer] 05/18/2020 Depression Medical New Patient with Nick Shawn [employer] 05/18/2020 Diabetes Risk Test Score was one score 05/18/2020 Medical New Patient with Nick Shawn [employer] 05/18/2020 Routine history and physical Medical New Patient with Nick Shawn [employer] 05/18/2020 Findings Encounter Date Mild recurrent major depression BH Estab lished Patient with Radha Short LISWS 09/10/2020 Panic disorder without agoraphobia BH Es tablished Patient with Radha Short LISWS 09/10/2020 Body mass index Medical Established Patient with Nick Shawn [employer] 09/10/2020 Mild recurrent major depression BH Estab lished Patient with Radha Short LISWS 08/27/2020 Panic disorder without agoraphobia BH Es tablished Patient with Radha Short LISWS 08/27/2020 Body mass index [Body mass i ndex [BMI] 22.0-22.9, adult] Medical Established Patient with Nick Shawn [employer] 08/27/2020 Generalized anxiety disorder Medical Est ablished Patient with Nick Shawn [employer] 08/27/2020 Moderate major depression, s nicolasa episode Medical Established Patient with Nick Shawn [employer] 08/27/2020 Depression BH Established Patie nt with Radha Short LISWS 08/13/2020 Panic disorder without agoraphobia BH Es tablished Patient with Radha Short LISWS 08/13/2020 Depression BH Established Patie nt with Radha Short LISWS 06/15/2020 Panic disorder without agoraphobia BH Es tablished Patient with Radha Short LISWS 06/15/2020 Depression BH Established Patie nt with Radha Short LISWS 05/27/2020 Panic disorder without agoraphobia BH Es tablished Patient with Radha Short LISWS 05/27/2020 Depressive disorder BH Established Patie nt with Radha Short LISWS 05/18/2020 Panic disorder without agoraphobia BH Es tablished Patient with Radha Short LISWS 05/18/2020 Anxiety disorder NOS Medical New Patient with Nick Shawn [employer] 05/18/2020 Body mass index Medical New Patient with Nick Shawn [employer] 05/18/2020 Depression Medical New Patient with Nick Shawn [employer] 05/18/2020 Diabetes Risk Test Score was one score 05/18/2020 Medical New Patient with Nick Shawn [employer] 05/18/2020 Routine history and physical Medical New Patient with Nick Shawn [employer] 05/18/2020 Findings Encounter Date Moderate recurrent major depression BH E stablished Patient with Radha Short LISWS 09/29/2020 Panic disorder without agoraphobia BH Es tablished Patient with Radha Short LISWS 09/29/2020 Body mass index [Body mass i ndex [BMI] 21.0-21.9, adult] Medical Established Patient with Nick Shawn [employer] 09/29/2020 Generalized anxiety disorder Medical Est ablished Patient with Nick Shawn [employer] 09/29/2020 Moderate major depression, s nicolasa episode Medical Established Patient with Nick Shawn [employer] 09/29/2020 Mild recurrent major depression BH Estab lished Patient with Radha Short LISWS 09/10/2020 Panic disorder without agoraphobia BH Es tablished Patient with Radha Short LISWS 09/10/2020 Body mass index Medical Established Patient with Nick Shawn [employer] 09/10/2020 Mild recurrent major depression BH Estab lished Patient with Radha Short LISWS 08/27/2020 Panic disorder without agoraphobia BH Es tablished Patient with Radha Short LISWS 08/27/2020 Body mass index [Body mass i ndex [BMI] 22.0-22.9, adult] Medical Established Patient with Nick Shawn [employer] 08/27/2020 Generalized anxiety disorder Medical Est ablished Patient with Nick Shawn [employer] 08/27/2020 Moderate major depression, s nicolasa episode Medical Established Patient with Nick Shawn [employer] 08/27/2020 Depression Established Patie nt with Radha Short LISWS 08/13/2020 Panic disorder without agoraphobia BH Es tablished Patient with Radha Short LISWS 08/13/2020 Depression Established Patie nt with Radha Short LISWS 06/15/2020 Panic disorder without agoraphobia BH Es tablished Patient with Radha Short LISWS 06/15/2020 Depression Established Patie nt with Radha Short LISWS 05/27/2020 Panic disorder without agoraphobia BH Es tablished Patient with Radha Short LISWS 05/27/2020 Depressive disorder Established Patie nt with Radha Short LISWS 05/18/2020 Panic disorder without agoraphobia BH Es tablished Patient with Radha Short LISWS 05/18/2020 Anxiety disorder NOS Medical New Patient with Nick Shawn [employer] 05/18/2020 Body mass index Medical New Patient with Nick Shawn [employer] 05/18/2020 Depression Medical New Patient with Nick Shawn [employer] 05/18/2020 Diabetes Risk Test Score was one score 05/18/2020 Medical New Patient with Nick Shawn [employer] 05/18/2020 Routine history and physical Medical New Patient with Nick Shawn [employer] 05/18/2020 Diagnosis Prostatitis, chronic Chronic prostatitis Diagnosis Frequency of urination Urinary frequency Findings Encounter Date Generalized anxiety disorder Establis hed Patient with Jenelle Moya LPCC-S 12/15/2020 Moderate major depression, s nicolasa episode Established Patient with Jenelle Moya LPCC-S 12/15/2020 Constipation Medical Established Patient with Ksenia Tim [employer] 12/15/2020 Z68.20 - Body mass index [BM I] 20.0-20.9, adult Medical Established Patient with Ksenia Tim [employer] 12/15/2020 Moderate recurrent major depression BH E stablished Patient with Radha Short LISWS 09/29/2020 Panic disorder without agoraphobia BH Es tablished Patient with Radha Short LISWS 09/29/2020 Body mass index [Body mass i ndex [BMI] 21.0-21.9, adult] Medical Established Patient with Nick Shawn [employer] 09/29/2020 Generalized anxiety disorder Medical Est ablished Patient with Nick Shawn [employer] 09/29/2020 Moderate major depression, s nicolasa episode Medical Established Patient with Nick Shawn [employer] 09/29/2020 Mild recurrent major depression BH Estab lished Patient with Radha Short LISWS 09/10/2020 Panic disorder without agoraphobia BH Es tablished Patient with Radha Short LISWS 09/10/2020 Body mass index Medical Established Patient with Nick Shawn [employer] 09/10/2020 Mild recurrent major depression BH Estab lished Patient with Radha Short LISWS 08/27/2020 Panic disorder without agoraphobia BH Es tablished Patient with Radha Short LISWS 08/27/2020 Body mass index [Body mass i ndex [BMI] 22.0-22.9, adult] Medical Established Patient with Nick Shawn [employer] 08/27/2020 Generalized anxiety disorder Medical Est ablished Patient with Nick Shawn [employer] 08/27/2020 Moderate major depression, s nicolasa episode Medical Established Patient with Nick Shawn [employer] 08/27/2020 Depression BH Established Patie nt with Radha Short LISWS 08/13/2020 Panic disorder without agoraphobia BH Es tablished Patient with Radha Short LISWS 08/13/2020 Depression BH Established Patie nt with Radha Short LISWS 06/15/2020 Panic disorder without agoraphobia BH Es tablished Patient with Radha Short LISWS 06/15/2020 Depression BH Established Patie nt with Radha Short LISWS 05/27/2020 Panic disorder without agoraphobia BH Es tablished Patient with Radha Short LISWS 05/27/2020 Depressive disorder BH Established Patie nt with Radha Short LISWS 05/18/2020 Panic disorder without agoraphobia BH Es tablished Patient with Radha Short LISWS 05/18/2020 Anxiety disorder NOS Medical New Patient with Nick Shawn [employer] 05/18/2020 Body mass index Medical New Patient with Nick Shawn [employer] 05/18/2020 Depression Medical New Patient with Nick Shawn [employer] 05/18/2020 Diabetes Risk Test Score was one score 05/18/2020 Medical New Patient with Nick Shawn [employer] 05/18/2020 Routine history and physical Medical New Patient with Nick Shawn [employer] 05/18/2020 Instructions Instructions not supported for this document type No Instructions Recorded Instructions not supported for this document type No Instructions Recorded Instructions not supported for this document type No Instructions Recorded Instructions not supported for this document type No Instructions Recorded Instructions not supported for this document type No Instructions Recorded Instructions not supported for this document type No Instructions Recorded Instructions not supported for this document type No Instructions Recorded Instructions not supported for this document type No Instructions Recorded Instructions not supported for this document type No Instructions Recorded Instructions not supported for this document type No Instructions Recorded Instructions not supported for this document type No Instructions Recorded Instructions not supported for this document type No Instructions Recorded Instructions not supported for this document type No Instructions Recorded Instructions not supported for this document type No Instructions Recorded Instructions not supported for this document type No Instructions Recorded Instructions not supported for this document type No Instructions Recorded History of Present Illness History of Present Illness not supported for this document type No History of Present Illness Recorded History of Present Illness not supported for this document type No History of Present Illness Recorded History of Present Illness not supported for this document type No History of Present Illness Recorded History of Present Illness not supported for this document type No History of Present Illness Recorded History of Present Illness not supported for this document type No History of Present Illness Recorded History of Present Illness not supported for this document type No History of Present Illness Recorded History of Present Illness not supported for this document type No History of Present Illness Recorded History of Present Illness not supported for this document type No History of Present Illness Recorded History of Present Illness not supported for this document type No History of Present Illness Recorded History of Present Illness not supported for this document type No History of Present Illness Recorded History of Present Illness not supported for this document type No History of Present Illness Recorded History of Present Illness not supported for this document type No History of Present Illness Recorded History of Present Illness not supported for this document type No History of Present Illness Recorded History of Present Illness not supported for this document type No History of Present Illness Recorded History of Present Illness not supported for this document type No History of Present Illness Recorded History of Present Illness not supported for this document type No History of Present Illness Recorded Family History Description Last Updated Maternal history of breast neoplasm 04/25 Maternal history of family h istory of ischemic heart disease heart failure r/t kain, pt had vavle replacement 201905/18/2020 Maternal history of hypertension 020 Paternal history of leukemia no tx neede d at this time 05/18/2020 Description Last Updated Maternal history of breast neoplasm 04/25 Last Documented On 0 6:40PM ; [facility] Maternal history of family h istory of ischemic heart disease heart failure r/t kain pt had vavle replacement 201905/18/2020 Maternal history of hypertension 020 Paternal history of leukemia no tx neede d at this time 05/18/2020 Description Last Updated Maternal history of breast neoplasm 04/25 Last Documented On 0 6:40PM ; [facility] Maternal history of family h istory of ischemic heart disease heart failure r/t kain pt had vavle replacement 201905/18/2020 Maternal history of hypertension 020 Paternal history of leukemia no tx neede d at this time 05/18/2020 Description Last Updated Maternal history of breast neoplasm 04/25 Last Documented On 0 6:40PM ; [facility] Maternal history of family h istory of ischemic heart disease heart failure r/t vavle, pt had vavle replacement 201905/18/2020 Maternal history of hypertension 020 Paternal history of leukemia no tx neede d at this time 05/18/2020 Description Last Updated Maternal history of breast neoplasm 04/25 Last Documented On 0 6:40PM ; [facility] Maternal history of family h istory of ischemic heart disease heart failure r/t vavle, pt had vavle replacement 201905/18/2020 Maternal history of hypertension 020 Paternal history of leukemia no tx neede d at this time 05/18/2020 Description Last Updated Maternal history of breast neoplasm 04/25 Last Documented On 0 6:40PM ; [facility] Maternal history of family h istory of ischemic heart disease heart failure r/t vavle, pt had vavle replacement 201905/18/2020 Maternal history of hypertension 020 Paternal history of leukemia no tx neede d at this time 05/18/2020 Description Last Updated Maternal history of breast neoplasm 04/25 Last Documented On 0 6:40PM ; [facility] Maternal history of family h istory of ischemic heart disease heart failure r/t vavle, pt had vavle replacement 201905/18/2020 Maternal history of hypertension 020 Paternal history of leukemia no tx neede d at this time 05/18/2020 Description Last Updated Maternal history of breast neoplasm 04/25 Last Documented On 0 6:40PM ; [facility] Maternal history of family h istory of ischemic heart disease heart failure r/t vavle, pt had vavle replacement 201905/18/2020 Maternal history of hypertension 020 Paternal history of leukemia no tx neede d at this time 05/18/2020 Description Last Updated Maternal history of breast neoplasm 04/25 Last Documented On 0 6:40PM ; [facility] Maternal history of family h istory of ischemic heart disease heart failure r/t vavle, pt had vavle replacement 201905/18/2020 Maternal history of hypertension 020 Paternal history of leukemia no tx neede d at this time 05/18/2020 Description Last Updated Maternal history of breast neoplasm 04/25 Last Documented On 0 6:40PM ; [facility] Maternal history of family h istory of ischemic heart disease heart failure r/t vavjhony, pt had vavle replacement 201905/18/2020 Maternal history of hypertension 020 Paternal history of leukemia no tx neede d at this time 05/18/2020 Description Last Updated Maternal history of breast neoplasm 04/25 Last Documented On 0 6:40PM ; [facility] Maternal history of family h istory of ischemic heart disease heart failure r/t vavjhony, pt had vavle replacement 201905/18/2020 Maternal history of hypertension 020 Paternal history of leukemia no tx neede d at this time 05/18/2020 Description Last Updated Maternal history of breast neoplasm 04/25 Last Documented On 0 6:40PM ; [facility] Maternal history of family h istory of ischemic heart disease heart failure r/t vavjhony, pt had vavle replacement 201905/18/2020 Maternal history of hypertension 020 Paternal history of leukemia no tx neede d at this time 05/18/2020 Description Last Updated Maternal history of breast neoplasm 04/25 Last Documented On 0 6:40PM ; [facility] Maternal history of family h istory of ischemic heart disease heart failure r/t vavjhony, pt had vavle replacement 201905/18/2020 Maternal history of hypertension 020 Paternal history of leukemia no tx neede d at this time 05/18/2020 Description Last Updated Maternal history of breast neoplasm 04/25 Last Documented On 0 6:40PM ; [facility] Maternal history of family h istory of ischemic heart disease heart failure r/t vavle, pt had vavle replacement 201905/18/2020 Maternal history of hypertension 020 Paternal history of leukemia no tx neede d at this time 05/18/2020 Description Last Updated Maternal history of breast neoplasm 04/25 Last Documented On 0 6:40PM ; [facility] Maternal history of family h istory of ischemic heart disease heart failure r/t vavle, pt had vavle replacement 201905/18/2020 Maternal history of hypertension 020 Paternal history of leukemia no tx neede d at this time 05/18/2020 Description Last Updated Maternal history of breast neoplasm 04/25 Last Documented On 0 6:40PM ; [facility] Maternal history of family h istory of ischemic heart disease heart failure r/t vavle, pt had vavle replacement 201905/18/2020 Maternal history of hypertension 020 Paternal history of leukemia no tx neede d at this time 05/18/2020 Description Last Updated Maternal history of breast neoplasm 04/25 Last Documented On 0 6:40PM ; [facility] Maternal history of family h istory of ischemic heart disease heart failure r/t vavle, pt had vavle replacement 201905/18/2020 Maternal history of hypertension 020 Paternal history of leukemia no tx neede d at this time 05/18/2020 Description Last Updated Maternal history of breast neoplasm 04/25 Last Documented On 0 6:40PM ; [facility] Maternal history of family h istory of ischemic heart disease heart failure r/t vavle, pt had vavle replacement 201905/18/2020 Maternal history of hypertension 020 Paternal history of leukemia no tx neede d at this time 05/18/2020 Description Last Updated Maternal history of breast neoplasm 04/25 Last Documented On 0 6:40PM ; [facility] Maternal history of family h istory of ischemic heart disease heart failure r/t vavle, pt had vavle replacement 201905/18/2020 Maternal history of hypertension 020 Paternal history of leukemia no tx neede d at this time 05/18/2020 Description Last Updated Maternal history of breast neoplasm 04/25 Last Documented On 0 6:40PM ; [facility] Maternal history of family h istory of ischemic heart disease heart failure r/t vavle, pt had vavle replacement 201905/18/2020 Maternal history of hypertension 020 Paternal history of leukemia no tx neede d at this time 05/18/2020 Review of System Review of Systems not supported for this document type No Review of Systems Recorded Review of Systems not supported for this document type No Review of Systems Recorded Review of Systems not supported for this document type No Review of Systems Recorded Review of Systems not supported for this document type No Review of Systems Recorded Review of Systems not supported for this document type No Review of Systems Recorded Review of Systems not supported for this document type No Review of Systems Recorded Review of Systems not supported for this document type No Review of Systems Recorded Review of Systems not supported for this document type No Review of Systems Recorded Review of Systems not supported for this document type No Review of Systems Recorded Review of Systems not supported for this document type No Review of Systems Recorded Review of Systems not supported for this document type No Review of Systems Recorded Review of Systems not supported for this document type No Review of Systems Recorded Review of Systems not supported for this document type No Review of Systems Recorded Review of Systems not supported for this document type No Review of Systems Recorded Review of Systems not supported for this document type No Review of Systems Recorded Review of Systems not supported for this document type No Review of Systems Recorded Physical Exam Physical Exam not supported for this document type No Physical Exam Recorded Physical Exam not supported for this document type No Physical Exam Recorded Physical Exam not supported for this document type No Physical Exam Recorded Physical Exam not supported for this document type No Physical Exam Recorded Physical Exam not supported for this document type No Physical Exam Recorded Physical Exam not supported for this document type No Physical Exam Recorded Physical Exam not supported for this document type No Physical Exam Recorded Physical Exam not supported for this document type No Physical Exam Recorded Physical Exam not supported for this document type No Physical Exam Recorded Physical Exam not supported for this document type No Physical Exam Recorded Physical Exam not supported for this document type No Physical Exam Recorded Physical Exam not supported for this document type No Physical Exam Recorded Physical Exam not supported for this document type No Physical Exam Recorded Physical Exam not supported for this document type No Physical Exam Recorded Physical Exam not supported for this document type No Physical Exam Recorded Physical Exam not supported for this document type No Physical Exam Recorded Physical Exam not supported for this document type No Physical Exam Recorded Physical Exam not supported for this document type No Physical Exam Recorded Physical Exam not supported for this document type No Physical Exam Recorded Physical Exam not supported for this document type No Physical Exam Recorded Physical Exam not supported for this document type No Physical Exam Recorded Physical Exam not supported for this document type No Physical Exam Recorded Physical Exam not supported for this document type No Physical Exam Recorded Physical Exam not supported for this document type No Physical Exam Recorded Physical Exam not supported for this document type No Physical Exam Recorded Physical Exam not supported for this document type No Physical Exam Recorded Physical Exam not supported for this document type No Physical Exam Recorded Physical Exam not supported for this document type No Physical Exam Recorded Physical Exam not supported for this document type No Physical Exam Recorded Physical Exam not supported for this document type No Physical Exam Recorded Physical Exam not supported for this document type No Physical Exam Recorded Physical Exam not supported for this document type No Physical Exam Recorded Physical Exam not supported for this document type No Physical Exam Recorded Physical Exam not supported for this document type No Physical Exam Recorded Physical Exam not supported for this document type No Physical Exam Recorded Physical Exam not supported for this document type No Physical Exam Recorded Physical Exam not supported for this document type No Physical Exam Recorded Physical Exam not supported for this document type No Physical Exam Recorded Advance Directives Directive Pat [employer]ware Third Alliance Party Effective Date Reviewed Sta tus Declined to Provide Advance Directive Yes 10/26/2022 Current and Verified Note: Patient refuse d advanced directives at this time. Summary Purpose Additional Source Comments Evaluations & Outcomes (unre cognized section and content) Includes: Evaluations & Outcomes for active GoalsNo Outcomes Recorded Includes: Evaluations & Outcomes for active GoalsNo Outcomes Recorded Includes: Evaluations & Outcomes for active GoalsNo Outcomes Recorded Includes: Evaluations & Outcomes for active GoalsNo Outcomes Recorded Includes: Evaluations & Outcomes for active GoalsNo Outcomes Recorded Includes: Evaluations & Outcomes for active GoalsNo Outcomes Recorded Includes: Evaluations & Outcomes for active GoalsNo Outcomes Recorded Includes: Evaluations & Outcomes for active GoalsNo Outcomes Recorded Includes: Evaluations & Outcomes for active GoalsNo Outcomes Recorded Includes: Evaluations & Outcomes for active GoalsNo Outcomes Recorded Includes: Evaluations & Outcomes for active GoalsNo Outcomes Recorded Includes: Evaluations & Outcomes for active GoalsNo Outcomes Recorded Includes: Evaluations & Outcomes for active GoalsNo Outcomes Recorded Includes: Evaluations & Outcomes for active GoalsNo Outcomes Recorded Includes: Evaluations & Outcomes for active GoalsNo Outcomes Recorded Includes: Evaluations & Outcomes for active GoalsNo Outcomes Recorded Medical History (unrecognize d section and content) Description History of anxiety disorder NOS 05/18/20 20 History of depression 05/18/2020 History of psychiatric disorders 020 A recent immunization for flu 05/18/2020 Description Last Updated No previous hospitalizations 12/15/2020 History of anxiety disorder NOS 05/18/20 20 History of depression 05/18/2020 History of psychiatric disorders 020 A recent immunization for flu 05/18/2020 (unrecognized sect ion and content) No Status Records FoundNo Status Records FoundNo Status Records Found INFORMATION SOURCE (unrecogn ized section and content) DATE CREATED AUTHOR 12/07/2020 [facility] DATE CREATED AUTHOR AUTHOR'S ORGANIZ ATION 06/22/2021 [facility] DATE CREATED AUTHOR AUTHOR'S ORGANIZ ATION 07/13/2023 [facility] FOR RECORDS PERTAINING TO PATIENTS WHO ARE OR HAVE BEEN ENROLLED IN A CHEMICAL DEPENDENCY/SUBSTANCEABUSE PROGRAM, SOME INFORMATION MAY BE OMITTED. This clinical summary was aggregated from multiple sources. Caution should be exercised in using it in the provision of clinical care. This summary normalizes information from multiple sources, and as a consequence, information in this document may materially change the coding, format and clinical context of patient data. In addition, data may be omitted in some cases. CLINICAL DECISIONS SHOULD BE BASED ON THE PRIMARY CLINICAL RECORDS. [facility] [facility]. provides no warranty or guarantee of the accuracy or completeness of information in this document.
--- NOTE | 2024-10-13 03:04 | PC.NURSE ---
this patient complains coughing up blood onset 1 day ago. this patient adds just back from the [facility] 2 days ago, was there 4 days, noticed sinus drainage 4 days ago while in the [facility]. this patient voices no other complaints and shows no signs of distress
--- NOTE | 2024-10-13 03:18 | XR_ITS ---
The [address] [address] Patient Name: BRYNN MONTERO MRN: [id number] date: 1995 Sex: M Assigned Patient Location: ER Current Patient Location: ER Accession/Order Number: [id number] Exam Date: 10/13/2024 03:25 Report Date: 10/13/2024 03:45 At the request of: MALA CASTRO Procedure: XR chest 2V EXAM: XR chest 2V HISTORY: hemoptysis COMPARISON: None. TECHNIQUE: 2 views of the chest. FINDINGS: The cardiac silhouette is normal in size. The lungs are clear. There is no significant pneumothorax or pleural effusion. No acute osseous abnormality is seen. XR/XR chest 2V IMPRESSION: 1. No acute cardiopulmonary abnormality. Electronically authenticated by: Alley FALCON Date: 10/13/2024 03:45
--- NOTE | 2024-10-13 03:44 | ED_ITS ---
HPI - URI/Sore Throat General Chief Complaint: Upper Respiratory Infection Stated Complaint: VOMITING BLOOD Time Seen by Provider: 10/13/24 02:49 Source: patient Limitations: no limitations History of Present Illness HPI Narrative: The patient is a previously healthy 29-year-old male presenting to the emergency department for hemoptysis. Patient comes to the ER stating that starting this morning he started having blood in his sputum. He stated that there were small chunks of blood to look like they had purple in it. Patient took multiple photographs of the episodes that he had today. 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 Patient states that the color was preceded by green productive phlegm. Patient is just went on a 5-day/4 night vacation in the [facility]. He did not have any cough, cold, flulike symptoms there. No fever or chills. However he states when he got back home they do have a wood pellet stove. They only had 11% humidity in their home. They bought a humidifier and placed it in the room and shut the door. But the patient took a nap today and that humidified room and woke up and had again still multiple episodes of hemoptysis. Patient did have some nasal discharge with blood in it. Denies any digital trauma. No shortness of breath. No chest pain. No blood dyscrasias. No history of bleeding. Patient did not have any evidence of hematemesis. This is distinct contrast to the patient stated complaint which was vomiting blood and that is not the patient's chief complaint. Patient indicates that he has severe history of anxiety and that the patient saw the blood this morning and got diaphoretic and felt poorly and had to lay on the cold floor. Unknown what makes them worse. Nothing makes them better. is concerned because the patient smokes a lot . Patient does not smoke tobacco but rather vapes and smokes marijuana. Context: Reports recent travel Associated symptoms: Reports denies other symptoms Treatments prior to arrival: Reports none Related Data Home Medications ?Medication ?Instructions ?Recorded ?Confirmed paroxetine HCl 40 mg tablet 40 mg PO DAILY 11/09/23 11/09/23 trazodone 50 mg tablet 50 mg PO DAILY PRN insomnia 11/09/23 11/09/23 Previous Rx's ?Medication ?Instructions ?Recorded ondansetron 4 mg disintegrating 4 mg PO Q4H PRN nausea and 11/09/23 tablet vomiting 3 days #6 tabs promethazine 25 mg rectal 25 mg UT Q6H PRN nausea and 11/09/23 suppository vomiting #6 ea acetaminophen 120 mg-codeine 12 5 ml PO Q6H PRN cough #100 mL 10/13/24 mg/5 mL (5 mL) oral solution azithromycin 250 mg tablet 250 mg PO DAILY 5 days #5 tabs 10/13/24 Allergies Allergy/AdvReac Type Severity Reaction Status Date / Time No Known Drug Allergies Allergy Verified 10/13/24 02:52 Review of Systems ROS Status of ROS 10 or more systems reviewed and unremark able except as noted in history and below [facility] Medical History Anxiety ?F41.9 - Anxiety disorder, unspecified (ICD-10) ADHD ?F90.9 - Attention-deficit hyperactivity disorder, unspecified type (ICD-10) Social History Smoking status: Light tobacco smoker Little interest or pleasure in doing things: not at all Feeling down, depressed, or hopeless: not at all Exam Narrative Exam Narrative: Prior to examining the patient, I have washed with hospital approved and provided Antiseptic Hand Strap Buckler and have also applied gloves.? Prior to touching the patient, I asked for consent to examine the patient.? General: Alert and oriented, well nourished, mild distress. Eye: PERRL, EOMI, normal conjunctiva. HENT: Normocephalic, normal hearing, moist oral mucosa, no scleral icterus, no sinus tenderness. Tympanic membranes are not red, dull, bulging. Posterior oropharynx has no erythema, edema, or exudate. Patient has hyperemic left turbinate and evidence of recent epistaxis. Neck: Supple, non-tender, no carotid bruits, no JVD, no lymphadenopathy. Lungs: Clear to auscultation and percussion, non-labored respiration. Heart: Normal rate, regular rhythm, no murmur, gallop or edema. Abdomen: Soft, non-tender, non-distended, normal bowel sounds, no masses. Musculoskeletal: Normal range of motion and strength, no tenderness or swelling. Skin: Skin is warm, dry and pink, no rashes or lesions. Neurologic: Awake, alert, and oriented X3, CN II-XII intact. Psychiatric: Cooperative, appropriate mood and affect.? Following the conclusion of the examination, I have washed my hands thoroughly after removing examination gloves. Constitutional Vital Signs, click to edit/add: Last Vital Signs Temp 98.1 F 10/13/24 02:52 Pulse 88 10/13/24 02:52 Resp 18 10/13/24 02:52 BP 147/94 H 10/13/24 02:52 Pulse Ox 99 10/13/24 02:52 O2 Del Method Room Air 10/13/24 02:52 Course Course Hospital Course: Patient is a healthy 29-year-old who presents to the emergency department for hemoptysis. PA and lateral chest x-ray performed. Wells criteria is 1 for hemoptysis. I believe the hemoptysis is likely secondary to dry air and epistaxis. The patient's Wells score is low risk. Therefore, I do not feel that the patient necessitates a CT scan or an alternative diagnosis which would be hemoptysis from recent epistaxis where it is draining behind the nose into the posterior oropharynx is likely the etiology. Vital Signs Vital signs: Vital Signs Temperature 98.1 F 10/13/24 02:52 Pulse Rate 88 10/13/24 02:52 Respiratory Rate 18 10/13/24 02:52 Blood Pressure 147/94 H 10/13/24 02:52 Pulse Oximetry 99 10/13/24 02:52 Oxygen Delivery Method Room Air 10/13/24 02:52 Temperature 98.1 F 10/13/24 02:52 Pulse Rate 88 10/13/24 02:52 Respiratory Rate 18 10/13/24 02:52 Blood Pressure 147/94 H 10/13/24 02:52 Pulse Oximetry 99 10/13/24 02:52 Oxygen Delivery Method Room Air 10/13/24 02:52 MDM - URI/Sore Throat Differential Diagnosis Differential diagnosis: Likely upper respiratory infection, sinusitis, viral infection, bronchitis and influenza Medical Records Attestation: I reviewed the patient's medical records. Imaging Data Chest x-ray: Attestation: I have reviewed the pertinent imaging results. Radiologist's impression: ITS Impressions Chest X-Ray 10/13/24 03:18 IMPRESSION: 1. No acute cardiopulmonary abnormality. Electronically authenticated by: Alley FALCON Date: 10/13/2024 03:45 Smoking Cessation Patient Acknowledges Need for Cessation: Yes Additional Comments: Patient is not ready to commit to not smoking marijuana. He states when he eats it he has variable results either working to effectively or not at all. Discharge Plan Discharge Stand Alone Forms: Work/School Release Chief Complaint: Upper Respiratory Infection Clinical Impression: Cough with hemoptysis Patient Disposition: Home, Self-Care Time of Disposition Decision: 03:54 Mode of Transportation: Private Vehicle Prescriptions / Home Meds: New acetaminophen-codeine 120 mg-12 mg /5 mL (5 mL) solution 5 ml PO Q6H PRN (Reason: cough) Qty: 100 0RF azithromycin 250 mg tablet 250 mg PO DAILY 5 Days Qty: 5 0RF No Action paroxetine HCl 40 mg tablet 40 mg PO DAILY trazodone 50 mg tablet 50 mg PO DAILY PRN (Reason: insomnia) promethazine 25 mg suppository 25 mg UT Q6H PRN (Reason: nausea and vomiting) Qty: 6 0RF ondansetron 4 mg tablet,disintegrating 4 mg PO Q4H PRN (Reason: nausea and vomiting) 3 Days Qty: 6 0RF Print Language: Estonian Instructions: Coughing Up Blood (Hemoptysis) (ED) Additional Instructions: Thank you for trusting me with your care today. Referrals: Physician,Non-Staff, MD [Primary Care Provider] - 1 week
[2024-10-13 04:26] VITALS: BP 129/90; PULSE 77; TEMP 36.9; O2SAT 99
--- NOTE | 2024-10-13 04:27 | PC.NURSE ---
i gave verbal and written discharge orders along with 2 e-scripts and 1 work note, this patient voices yes to understanding these. at time of discharge this patient voices no concerns and shows no signs of distress
== END 2024-10-13 04:30 | disposition home or self-care (01) ==
PROVIDERS: Emergency Provider Emergency Medicine
DX: R04.2 Hemoptysis (principal); F41.9 Anxiety disorder, unspecified; F17.290 Nicotine dependence, other tobacco product, uncomplicated
CPT/HCPCS: 71046; 99283